=== PATIENT | male | born 1970 | race Caucasian/White ===

== ENCOUNTER 2016-08-13 15:37 | Observation (INO) | payer MEDICAID ==
[2016-08-13] MEDS ORDERED: Sodium Chloride 0.9% 10 ML Syringe FLUSH PRN ×3 (16:32→21:09)
[2016-08-13] MEDS ORDERED: Ondansetron 4 MG/2 ML SDV IVPUSH ONE (16:33)
[2016-08-13] MEDS ORDERED: Sodium Chloride 0.9% 1,000 ML IV ONE (16:33)
[2016-08-13] MEDS ORDERED: Dexamethasone 4 MG/ML SDV IVPUSH ONE (16:37)
--- NOTE | 2016-08-13 16:47 | EDM.PDOC ---
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 Cuellar who presents to the ED today with c/o lower abdominal pain, right sided, repetative vomiting and diarrhea since yesterday. Patient was seen in the ED at [facility] yesterday where patient reports they gave him fluids, zofran, and sent him home with potassium "for mildly low potassium level" as well as ativan. Patient reports his symptoms have not improved. Patient was advised by Dr. Cuellar to come here for evaluation. Patient endorses an internal abdominal wall abscess that was found on the of this month, he has been treated for 10 days with Augmentin and Flagyl and has one day left of each. Patient does report a very small amount of BRB in emesis today. He denies any blood in stool. Patient denies any fever. Patient reports that he has difficulty walking and has had indwelling catheter for the last several months. He is on chronic prednisone for this and reports unknown etiology. Duration: Day(s): (2) Improves with: Reports: None - Related Data Allergies Allergy/AdvReac Type Severity Reaction Status Date / Time acetaminophen [From Vicodin] Allergy Itching Verified 08/13/16 16:04 hydrocodone [From Vicodin] Allergy Itching Verified 08/13/16 16:04 Home Meds: Home Meds Aspirin [Ecotrin] 81 mg PO DAILY 09/25/15 [History] predniSONE [Prednisone] 20 mg PO BID 09/25/15 [History] Cyanocobalamin (Vitamin B12) [Vitamin B12] 1,000 mcg PO DAILY #100 tablet [Rx] Multivitamin with Minerals [Multiple Vitamin] 1 tab PO BID #0 10/03/15 [Rx] Calcium Citrate 750 mg PO BID 10/22/15 [History] Cholecalciferol (Vitamin D3) [Vitamin D] 1,000 unit PO TID 10/22/15 [History] Insulin Detemir [Levemir] 70 unit SUBCUT BIDAC 10/22/15 [History] Insulin Glulisine [Apidra Solostar] units SQ TIDAC 10/22/15 [History] Acetaminophen [Tylenol 160 MG/5 ML Liq] 20 ml PO Q4H PRN 11/21/15 [History] Sennosides/Docusate Sodium [Senokot-S Tablet] 2 tab PO QPM 11/21/15 [History] Gabapentin [Neurontin] 800 mg PO TID 11/26/15 [History] Ondansetron [Zofran ODT] 4 mg SL Q6HR 11/26/15 [History] Simvastatin [Zocor] 40 mg PO BEDTIME 11/26/15 [History] LORazepam [LORazepam] 08/13/16 [History] Morphine Sulfate [Morphine Sulfate Cr] 08/13/16 [History] Potassium Chloride [Klor-Con M20] 08/13/16 [History] Past Medical History HEENT History: Reports: Impaired Vision Other HEENT History: wears glasses; retinal neuropathy Cardiovascular History: Reports: High Cholesterol, Hypertension, SOB on Exertion , Syncope Respiratory History: Reports: Pneumonia, Recurrent, Sleep Apnea, SOB, Other ( See Below) Other Respiratory History: moderate lung disease Gastrointestinal History: Reports: Chronic Constipation, GERD Genitourinary History: Reports: Diabetic Nephropathy, Renal Calculus Musculoskeletal History: Reports: Back Pain, Chronic, Fracture, Gout, Neck Pain , Chronic, RA Neurological History: Reports: Headaches, Chronic, Neuropathy, Diabetic, Neuropathy, Peripheral Endocrine/Metabolic History: Reports: Diabetes, Type II, Obesity/BMI 30+, Vitamin D Deficiency Hematologic History: Reports: B12 Deficiency - Infectious Disease History Infectious Disease History: Reports: Chicken Pox, Measles - Past Surgical History GI Surgical History: Reports: None, Bariatric Procedure, EGD, Esophageal Dilatation Male Surgical History: Reports: Kidney Stone Extraction, Other (See Below) Musculoskeletal Surgical History: Reports: Other (See Below) Social & Family History - Family History HEENT: Reports: Cataract, Glaucoma Cardiac: Reports: Aneurysm, Blood Clots/VTE/DVT, Bypass, Heart Failure, Heart Valve Replacement, High Cholesterol, Hypertension, PR Respiratory: Reports: Asthma, COPD, Sleep Apnea GI: Reports: Chronic Constipation, Chronic Diarrhea, GERD Musculoskeletal: Reports: Gout Neurological: Reports: MS Endocrine/Metabolic: Reports: Diabetes, type II Oncologic: Reports: Breast - Tobacco Use Smoking Status *Q: Never Smoker Second Hand Smoke Exposure: No - Recreational Drug Use Recreational Drug Use: No ED ROS GENERAL - Review of Systems Review Of Systems: See Below Constitutional: Reports: Decreased Appetite HEENT: Reports: No Symptoms Respiratory: Reports: No Symptoms Cardiovascular: Reports: No Symptoms Endocrine: Reports: No Symptoms GI/Abdominal: Reports: Abdominal Pain, Diarrhea, Decreased Appetite, Nausea, Vomiting : Reports: Urinary Retention (Indwelling day), Other Musculoskeletal: Reports: Other (decreased weight bearing, use of lower extremities) Neurological: Reports: Difficulty Walking (Unchanged) Psychiatric: Reports: No Symptoms ED EXAM, GI/ABD - Physical Exam Exam: See Below Exam Limited By: No Limitations General Appearance: Alert, WD/WN, No Apparent Distress Ears: Normal External Exam Nose: Normal Inspection, Normal Mucosa, Other (Modestly dry mucus membranes) Head: Atraumatic Neck: Normal Inspection, Supple, Non-Tender Respiratory/Chest: No Respiratory Distress, Lungs Clear Cardiovascular: Normal Peripheral Pulses, Regular Rate, Rhythm, No Murmur GI/Abdominal: Soft, Other (Mildly distended with tenderness to nilsa-umbilical region as well as RLQ) Extremities: Other (Limited ROM to bilateral lower extremities, pedal pulses intact) Neurological: Alert, Oriented Psychiatric: Normal Affect Skin Exam: Warm Course - Vital Signs Text/Narrative:: Denis is a 45 year old male with a hx of Kenny-en-y last summer who presents to the ED today with intractable vomiting and diarrhea since yesterday. Patient isjust finishing antibiotics for intra-abdominal abscess. Concerns given hx for obstruction vs. worsening abscess vs. C. Diff which of course the vomiting wouldn't be present. Perhaps patient has a viral gastroenteritis. PIV established and patient given IV NS here, 1 liter. Blood work returns with leukocytosis of 14.7 with a left shift. Potassium is low at 3, patient given IV replacement, AST elevated mildly at 40. UA negative for infection, does have 75-100 RBC's. Patient has ongoing issues with arm and leg pain/weakness as well as urinary retention, he is on chronic steroids for this but has been unable to keep his prednisone down, IV decadron was given while in ED. Patient was given Morphine for abdominal pain with some relief. CT scan obtained which is rather unremarkable, no current abscess was identified and remaining CT shows nothing acute. C. Diff was ordered but sample has yet to be provided. I discussed patient's exam and work up today with Dr. Cuellar who would like patient admitted to the hospitalist service for dehydration and monitoring. He will likely see patient sometime tomorrow. I discussed patient with hospitalist , Dr. Alva who has accepted patient for admission. Patient and his are agreeable to plan of care and patient was admitted in stable condition. Last Recorded V/S: Last Vital Signs Temp 38.1 C 08/13/16 17:58 Pulse 83 08/13/16 17:58 Resp 18 08/13/16 16:21 BP 147/84 H 08/13/16 17:58 Pulse Ox 93 L 08/13/16 17:58 - Orders/Labs/Meds Orders: Active Orders 24 hr Category Date Time Status Peripheral IV Care [RC] . DIRECTED Care 08/13/16 16:32 Active Abdomen Pelvis w Cont [CT] Stat Exams 08/13/16 16:33 Taken CLOSTRIDIUM DIFFICILE BY PCR [RM] Stat Lab 08/13/16 16:46 Uncollected Iopamidol [Isovue-300 (61%)] Med 08/13/16 17:00 Active 150 ml IV . DIRECTED Potassium Chloride 20 meq Med 08/13/16 18:19 Active Lidocaine 1% [Xylocaine 1%] 2 ml Sodium Chloride 0.9% [Normal Saline] 100 ml IV ONETIME Potassium Chloride [KCL 20 MEQ in Water 100 ML] 20 meq Med 08/13/16 18:33 Active Premix Bag 1 bag IV ONETIME Sodium Chloride 0.9% [Saline Flush] Med 08/13/16 16:32 Active 10 ml FLUSH ASDIRECTED PRN Sodium Chloride 0.9% [Saline Flush] Med 08/13/16 16:46 Active 10 ml FLUSH ONETIME PRN Peripheral IV Insertion Adult [OM.PC] Routine Oth 08/13/16 16:32 Ordered Medication Orders Potassium Chloride 20 meq/Lidocaine HCl 2 ml/ Sodium Chloride 112 mls @ 50 mls/ hr IV ONETIME ONE Stop: 08/13/16 20:33 Potassium Chloride 20 meq/ (Premix) 100 mls @ 50 mls/hr IV ONETIME ONE Stop: 08/13/16 20:32 Last Admin: 08/13/16 18:34 Dose: 50 mls/hr Iopamidol (Isovue-300 (61%)) 150 ml IV . DIRECTED OMAYRA Last Admin: 08/13/16 17:20 Dose: 150 ml Sodium Chloride (Saline Flush) 10 ml FLUSH ASDIRECTED PRN PRN Reason: Keep Vein Open Sodium Chloride (Saline Flush) 10 ml FLUSH ONETIME PRN PRN Reason: PER RADIOLOGY PROTOCOL Last Admin: 08/13/16 17:20 Dose: 10 ml Labs: Laboratory Tests 08/13/16 08/13/16 08/13/16 Range/Units 16:33 16:33 16:33 WBC 14.7 H (4.5-11.0) K/uL RBC 5.67 (4.30-5.90) M/uL Hgb 15.3 H (12.0-15.0) g/dL Hct 46.6 (40.0-54.0) % MCV 82 (80-98) fL MCH 27 (27-31) pg MCHC 33 (32-36) % Plt Count 186 (150-400) K/uL Neut % (Auto) 71 H (36-66) % Lymph % (Auto) 23 L (24-44) % [place] % (Auto) 6 (2-6) % Eos % (Auto) 0 L (2-4) % Baso % (Auto) 0 (0-1) % Sodium 148 (140-148) mmol/L Potassium 3.0 L (3.6-5.2) mmol/L Chloride 111 H (100-108) mmol/L Carbon Dioxide 25 (21-32) mmol/L Anion Gap 15.0 H (5.0-14.0) mmol/L BUN 8 D (7-18) mg/dL Creatinine 1.1 (0.8-1.3) mg/dL Est Cr Clr Drug Dosing 79.29 mL/min Estimated GFR (MDRD) > 60 (>60) Glucose 138 H (74-106) mg/dL Calcium 7.8 L D (8.5-10.1) mg/dL Total Bilirubin 0.9 (0.2-1.0) mg/dL AST 40 H (15-37) U/L ALT 74 (12-78) U/L Alkaline Phosphatase 86 (46-116) U/L Total Protein 6.2 L (6.4-8.2) g/dL Albumin 2.9 L (3.4-5.0) g/dL Globulin 3.3 (2.3-3.5) g/dL Albumin/Globulin Ratio 0.9 L (1.2-2.2) Lipase 68 L (73-393) U/L Urine Color Urine Appearance Urine pH (4.5-8.0) Ur Specific [place] (1.008-1.030) Urine Protein (NEGATIVE) mg/dL Urine Glucose (UA) (NEGATIVE) mg/dL Urine Ketones (NEGATIVE) mg/dL Urine Occult Blood (NEGATIVE) Urine Nitrite (NEGAITVE) Urine Bilirubin (NEGATIVE) Urine Urobilinogen (NORMAL) mg/dL Ur Leukocyte Esterase (NEGATIVE) Urine RBC (0-5) Urine WBC (0-5) Ur Epithelial Cells Amorphous Sediment Urine Bacteria Urine Mucus Urine Other 08/13/16 Range/Units 17:57 WBC (4.5-11.0) K/uL RBC (4.30-5.90) M/uL Hgb (12.0-15.0) g/dL Hct (40.0-54.0) % MCV (80-98) fL MCH (27-31) pg MCHC (32-36) % Plt Count (150-400) K/uL Neut % (Auto) (36-66) % Lymph % (Auto) (24-44) % [place] % (Auto) (2-6) % Eos % (Auto) (2-4) % Baso % (Auto) (0-1) % Sodium (140-148) mmol/L Potassium (3.6-5.2) mmol/L Chloride (100-108) mmol/L Carbon Dioxide (21-32) mmol/L Anion Gap (5.0-14.0) mmol/L BUN (7-18) mg/dL Creatinine (0.8-1.3) mg/dL Est Cr Clr Drug Dosing mL/min Estimated GFR (MDRD) (>60) Glucose (74-106) mg/dL Calcium (8.5-10.1) mg/dL Total Bilirubin (0.2-1.0) mg/dL AST (15-37) U/L ALT (12-78) U/L Alkaline Phosphatase (46-116) U/L Total Protein (6.4-8.2) g/dL Albumin (3.4-5.0) g/dL Globulin (2.3-3.5) g/dL Albumin/Globulin Ratio (1.2-2.2) Lipase (73-393) U/L Urine Color Yellow Urine Appearance Slightly cloudy Urine pH 7.0 (4.5-8.0) Ur Specific [place] 1.010 (1.008-1.030) Urine Protein Negative (NEGATIVE) mg/dL Urine Glucose (UA) Normal (NEGATIVE) mg/dL Urine Ketones Negative (NEGATIVE) mg/dL Urine Occult Blood Large (NEGATIVE) Urine Nitrite Negative (NEGAITVE) Urine Bilirubin Negative (NEGATIVE) Urine Urobilinogen Normal (NORMAL) mg/dL Ur Leukocyte Esterase Negative (NEGATIVE) Urine RBC 75-100 H (0-5) Urine WBC 0-5 (0-5) Ur Epithelial Cells Few Amorphous Sediment Not seen Urine Bacteria Moderate Urine Mucus Not seen Urine Other Meds: Medications Generic Name Dose Route Start Last Admin Trade Name Freq PRN Reason Stop Dose Admin Potassium Chloride 20 meq/ 112 mls @ 50 mls/hr 08/13/16 18:19 Lidocaine HCl 2 ml/ Sodium IV 08/13/16 20:33 Chloride ONETIME ONE Potassium Chloride 20 meq/ 100 mls @ 50 mls/hr 08/13/16 18:33 08/13/16 18:34 Premix IV 08/13/16 20:32 50 mls/hr ONETIME ONE Administration Iopamidol 150 ml 08/13/16 17:00 08/13/16 17:20 Isovue-300 (61%) IV 150 ml . DIRECTED OMAYRA Administration Sodium Chloride 10 ml 08/13/16 16:32 Saline Flush FLUSH ASDIRECTED PRN Keep Vein Open Sodium Chloride 10 ml 08/13/16 16:46 08/13/16 17:20 Saline Flush FLUSH 10 ml ONETIME PRN Administration PER RADIOLOGY PROTOCOL Discontinued Medications Generic Name Dose Route Start Last Admin Trade Name Freq PRN Reason Stop Dose Admin Dexamethasone 10 mg 08/13/16 16:37 08/13/16 16:51 Dexamethasone IVPUSH 08/13/16 16:38 10 mg ONETIME ONE Administration Dexamethasone Confirm 08/13/16 16:54 08/13/16 18:15 Dexamethasone Administered 08/13/16 16:55 Not Given Dose 8 mg .ROUTE .STK-MED ONE Sodium Chloride 1,000 mls @ 999 mls/hr 08/13/16 16:33 08/13/16 16:51 Normal Saline IV 08/13/16 17:33 999 mls/hr .BOLUS ONE Administration Sodium Chloride 85 mls @ 3 mls/sec 08/13/16 16:46 08/13/16 17:20 Normal Saline IV 08/13/16 16:47 3 mls/sec ONETIME ONE Administration Potassium Chloride Confirm 08/13/16 18:26 08/13/16 18:55 Kcl 20 Meq In Water 100 Ml Administered 08/13/16 18:27 Not Given Dose 100 mls @ as directed .ROUTE .STK-MED ONE Lidocaine HCl Confirm 08/13/16 18:26 Xylocaine-Mpf 1% Administered 08/13/16 18:27 Dose 5 ml .ROUTE .STK-MED ONE Morphine Sulfate 4 mg 08/13/16 17:53 08/13/16 18:22 Morphine IVPUSH 08/13/16 17:54 4 mg ONETIME ONE Administration Ondansetron HCl 8 mg 08/13/16 16:33 08/13/16 16:51 Zofran IVPUSH 08/13/16 16:34 8 mg ONETIME ONE Administration Departure - Departure Time of Disposition: 19:45 Disposition: Admitted As Inpatient 66 Condition: good Clinical Impression: Vomiting, Diarrhea, Dehydration - Discharge Information Forms: ED Department Discharge - My Orders Last 24 Hours: My Active Orders 08/13/16 16:32 Peripheral IV Care [RC] . DIRECTED Sodium Chloride 0.9% [Saline Flush] 10 ml FLUSH ASDIRECTED PRN Peripheral IV Insertion Adult [OM.PC] Routine 08/13/16 16:33 Abdomen Pelvis w Cont [CT] Stat 08/13/16 16:46 CLOSTRIDIUM DIFFICILE BY PCR [RM] Stat Sodium Chloride 0.9% [Saline Flush] 10 ml FLUSH ONETIME PRN 08/13/16 17:00 Iopamidol [Isovue-300 (61%)] 150 ml IV . DIRECTED 08/13/16 18:19 Potassium Chloride 20 meq Lidocaine 1% [Xylocaine 1%] 2 ml Sodium Chloride 0.9 % [Normal Saline] 100 ml IV ONETIME 08/13/16 18:33 Potassium Chloride [KCL 20 MEQ in Water 100 ML] 20 meq Premix Bag 1 bag IV ONETIME - Assessment/Plan Last 24 Hours: My Active Orders 08/13/16 16:32 Peripheral IV Care [RC] . DIRECTED Sodium Chloride 0.9% [Saline Flush] 10 ml FLUSH ASDIRECTED PRN Peripheral IV Insertion Adult [OM.PC] Routine 08/13/16 16:33 Abdomen Pelvis w Cont [CT] Stat 08/13/16 16:46 CLOSTRIDIUM DIFFICILE BY PCR [RM] Stat Sodium Chloride 0.9% [Saline Flush] 10 ml FLUSH ONETIME PRN 08/13/16 17:00 Iopamidol [Isovue-300 (61%)] 150 ml IV . DIRECTED 08/13/16 18:19 Potassium Chloride 20 meq Lidocaine 1% [Xylocaine 1%] 2 ml Sodium Chloride 0.9 % [Normal Saline] 100 ml IV ONETIME 08/13/16 18:33 Potassium Chloride [KCL 20 MEQ in Water 100 ML] 20 meq Premix Bag 1 bag IV ONETIME
[2016-08-13] MEDS ORDERED: Dexamethasone 4 MG/ML SDV ONE (16:54)
[2016-08-13] MEDS ORDERED: Iopamidol 612 MG/ML 150 ML Bottle IV SCH (17:00)
[2016-08-13] MEDS ORDERED: Potassium Chloride 20 MEQ, Lidocaine 1% 2 ML in Sodium Chloride 0.9% 100 ML IV SCH (17:30)
[2016-08-13] MEDS ORDERED: Morphine 4 MG/ML Syringe IVPUSH ONE (17:53)
[2016-08-13] MEDS ORDERED: Potassium Chloride 20 MEQ, Lidocaine 1% 2 ML in Sodium Chloride 0.9% 100 ML IV ONE (18:19)
[2016-08-13] MEDS ORDERED: Potassium Chloride 100 ML ONE (18:26)
[2016-08-13] MEDS ORDERED: Potassium Chloride 20 MEQ in Premix Bag 1 BAG IV ONE ×2 (18:33→23:45)
--- NOTE | 2016-08-13 20:04 | PCM.HP ---
H&P History of Present Illness - General Date of Service: 08/13/16 Admit Problem/Dx: Admission Diagnosis/Problem Admission Diagnosis/Problem Nausea and vomiting Source of Information: Patient, Family, Provider, RN Notes Reviewed History Limitations: Reports: No Limitations - History of Present Illness Initial Comments - Free Text/Narative: This patient is a 45-year-old gentleman was admitted through the emergency department observation status with nausea vomiting and diarrhea. He had Kenny-en -Y gastric bypass surgery last summer and had done well with good weight loss. Recently was found to have an abdominal wall abscess and has been treated with oral antibiotics over the past week. He developed diarrhea about 4 days ago and now over the past 2 days his had difficulty with nausea and vomiting. He denies significant abdominal pain and has had no fevers, chills, or sweats. CT scan obtained in the emergency department shows that the abscess has resolved with antibiotic treatment. After receiving hydration, pain meds, IV steroids, and antiemetic therapy he is feeling significantly improved. - Related Data Allergies/Adverse Reactions: Allergies Allergy/AdvReac Type Severity Reaction Status Date / Time acetaminophen [From Vicodin] Allergy Itching Verified 08/13/16 16:04 hydrocodone [From Vicodin] Allergy Itching Verified 08/13/16 16:04 Home Medications: Home Meds Aspirin [Ecotrin] 81 mg PO DAILY 09/25/15 [History] predniSONE [Prednisone] 20 mg PO BID 09/25/15 [History] Cyanocobalamin (Vitamin B12) [Vitamin B12] 1,000 mcg PO DAILY #100 tablet [Rx] Multivitamin with Minerals [Multiple Vitamin] 1 tab PO BID #0 10/03/15 [Rx] Calcium Citrate 750 mg PO BID 10/22/15 [History] Cholecalciferol (Vitamin D3) [Vitamin D] 1,000 unit PO TID 10/22/15 [History] Insulin Detemir [Levemir] 70 unit SUBCUT BIDAC 10/22/15 [History] Insulin Glulisine [Apidra Solostar] units SQ TIDAC 10/22/15 [History] Acetaminophen [Tylenol 160 MG/5 ML Liq] 20 ml PO Q4H PRN 11/21/15 [History] Sennosides/Docusate Sodium [Senokot-S Tablet] 2 tab PO QPM 11/21/15 [History] Gabapentin [Neurontin] 800 mg PO TID 11/26/15 [History] Ondansetron [Zofran ODT] 4 mg SL Q6HR 11/26/15 [History] Simvastatin [Zocor] 40 mg PO BEDTIME 11/26/15 [History] LORazepam [LORazepam] 08/13/16 [History] Morphine Sulfate [Morphine Sulfate Cr] 08/13/16 [History] Potassium Chloride [Klor-Con M20] 08/13/16 [History] Past Medical History HEENT History: Reports: Impaired Vision Other HEENT History: wears glasses; retinal neuropathy Cardiovascular History: Reports: High Cholesterol, Hypertension, SOB on Exertion , Syncope Respiratory History: Reports: Pneumonia, Recurrent, Sleep Apnea, SOB, Other ( See Below) Other Respiratory History: moderate lung disease Gastrointestinal History: Reports: Chronic Constipation, GERD Genitourinary History: Reports: Diabetic Nephropathy, Renal Calculus Musculoskeletal History: Reports: Back Pain, Chronic, Fracture, Gout, Neck Pain , Chronic, RA Neurological History: Reports: Headaches, Chronic, Neuropathy, Diabetic, Neuropathy, Peripheral Endocrine/Metabolic History: Reports: Diabetes, Type II, Obesity/BMI 30+, Vitamin D Deficiency Hematologic History: Reports: B12 Deficiency - Infectious Disease History Infectious Disease History: Reports: Chicken Pox, Measles - Past Surgical History GI Surgical History: Reports: None, Bariatric Procedure, EGD, Esophageal Dilatation Male Surgical History: Reports: Kidney Stone Extraction, Other (See Below) Musculoskeletal Surgical History: Reports: Other (See Below) Social & Family History - Family History HEENT: Reports: Cataract, Glaucoma Cardiac: Reports: Aneurysm, Blood Clots/VTE/DVT, Bypass, Heart Failure, Heart Valve Replacement, High Cholesterol, Hypertension, [place] Respiratory: Reports: Asthma, COPD, Sleep Apnea GI: Reports: Chronic Constipation, Chronic Diarrhea, GERD Musculoskeletal: Reports: Gout Neurological: Reports: MS Endocrine/Metabolic: Reports: Diabetes, type II Oncologic: Reports: Breast - Tobacco Use Smoking Status *Q: Never Smoker Second Hand Smoke Exposure: No - Recreational Drug Use Recreational Drug Use: No H&P Review of Systems - Review of Systems: Review Of Systems: See Below General: Denies: Fever, Chills, Weakness HEENT: Reports: No Symptoms Pulmonary: Reports: No Symptoms Cardiovascular: Reports: No Symptoms Gastrointestinal: Reports: Diarrhea, Nausea, Vomiting. Denies: Abdominal Pain, Black Stool, Bloody Stool, Constipation, Distension Genitourinary: Reports: Other (Indwelling Pinto catheter) Musculoskeletal: Reports: No Symptoms Skin: Reports: No Symptoms Psychiatric: Reports: No Symptoms Neurological: Reports: Numbness, Paresthesia, Weakness Hematologic/Lymphatic: Reports: No Symptoms Immunologic: Reports: No Symptoms Exam - Exam Exam: See Below - Vital Signs Vital Signs: Last Vital Signs Temp 100.6 F 08/13/16 17:58 Pulse 83 08/13/16 17:58 Resp 18 08/13/16 16:21 BP 147/84 H 08/13/16 17:58 Pulse Ox 93 L 08/13/16 17:58 Weight: 260 lb - Exam Quality Assessment: Urinary Catheter, DVT Prophylaxis General: Alert, Oriented, Cooperative, Mild Distress HEENT: Conjunctiva Clear, EOMI, Hearing Intact, Normal Nasal Septum, Posterior Pharynx Clear, Pupils Equal, Pupils Reactive. No: Mucosa Moist & [place] Neck: Supple, Trachea Midline, +2 Carotid Pulse wo Bruit Lungs: Clear to Auscultation, Normal Respiratory Effort Cardiovascular: Regular Rate, Regular Rhythm, Normal S1, Normal S2. No: Systolic Murmur, Diastolic Murmur Abdomen: Normal Bowel Sounds, Soft. No: Peritoneal Signs, Distention, Guarding , Rigidity, Rebound, Tenderness Extremities: 3, Normal Inspection, 10 Skin: Warm, Dry, Intact Neurological: Cranial Nerves Intact. No: Sensation Intact Neuro Extensive - Mental Status: Alert, Oriented x3, Normal Mood/Affect, Normal Cognition, Memory Intact - Patient Data Lab Results last 24 hrs: Laboratory Results - last 24 hr 08/13/16 08/13/16 08/13/16 Range/Units 16:33 16:33 16:33 WBC 14.7 H (4.5-11.0) K/uL RBC 5.67 (4.30-5.90) M/uL Hgb 15.3 H (12.0-15.0) g/dL Hct 46.6 (40.0-54.0) % MCV 82 (80-98) fL MCH 27 (27-31) pg MCHC 33 (32-36) % Plt Count 186 (150-400) K/uL Neut % (Auto) 71 H (36-66) % Lymph % (Auto) 23 L (24-44) % [place] % (Auto) 6 (2-6) % Eos % (Auto) 0 L (2-4) % Baso % (Auto) 0 (0-1) % Sodium 148 (140-148) mmol/L Potassium 3.0 L (3.6-5.2) mmol/L Chloride 111 H (100-108) mmol/L Carbon Dioxide 25 (21-32) mmol/L Anion Gap 15.0 H (5.0-14.0) mmol/L BUN 8 D (7-18) mg/dL Creatinine 1.1 (0.8-1.3) mg/dL Est Cr Clr Drug Dosing 79.29 mL/min Estimated GFR (MDRD) > 60 (>60) Glucose 138 H (74-106) mg/dL Calcium 7.8 L D (8.5-10.1) mg/dL Total Bilirubin 0.9 (0.2-1.0) mg/dL AST 40 H (15-37) U/L ALT 74 (12-78) U/L Alkaline Phosphatase 86 (46-116) U/L Total Protein 6.2 L (6.4-8.2) g/dL Albumin 2.9 L (3.4-5.0) g/dL Globulin 3.3 (2.3-3.5) g/dL Albumin/Globulin Ratio 0.9 L (1.2-2.2) Lipase 68 L (73-393) U/L Urine Color Urine Appearance Urine pH (4.5-8.0) Ur Specific [place] (1.008-1.030) Urine Protein (NEGATIVE) mg/dL Urine Glucose (UA) (NEGATIVE) mg/dL Urine Ketones (NEGATIVE) mg/dL Urine Occult Blood (NEGATIVE) Urine Nitrite (NEGAITVE) Urine Bilirubin (NEGATIVE) Urine Urobilinogen (NORMAL) mg/dL Ur Leukocyte Esterase (NEGATIVE) Urine RBC (0-5) Urine WBC (0-5) Ur Epithelial Cells Amorphous Sediment Urine Bacteria Urine Mucus Urine Other 08/13/16 Range/Units 17:57 WBC (4.5-11.0) K/uL RBC (4.30-5.90) M/uL Hgb (12.0-15.0) g/dL Hct (40.0-54.0) % MCV (80-98) fL MCH (27-31) pg MCHC (32-36) % Plt Count (150-400) K/uL Neut % (Auto) (36-66) % Lymph % (Auto) (24-44) % [place] % (Auto) (2-6) % Eos % (Auto) (2-4) % Baso % (Auto) (0-1) % Sodium (140-148) mmol/L Potassium (3.6-5.2) mmol/L Chloride (100-108) mmol/L Carbon Dioxide (21-32) mmol/L Anion Gap (5.0-14.0) mmol/L BUN (7-18) mg/dL Creatinine (0.8-1.3) mg/dL Est Cr Clr Drug Dosing mL/min Estimated GFR (MDRD) (>60) Glucose (74-106) mg/dL Calcium (8.5-10.1) mg/dL Total Bilirubin (0.2-1.0) mg/dL AST (15-37) U/L ALT (12-78) U/L Alkaline Phosphatase (46-116) U/L Total Protein (6.4-8.2) g/dL Albumin (3.4-5.0) g/dL Globulin (2.3-3.5) g/dL Albumin/Globulin Ratio (1.2-2.2) Lipase (73-393) U/L Urine Color Yellow Urine Appearance Slightly cloudy Urine pH 7.0 (4.5-8.0) Ur Specific [place] 1.010 (1.008-1.030) Urine Protein Negative (NEGATIVE) mg/dL Urine Glucose (UA) Normal (NEGATIVE) mg/dL Urine Ketones Negative (NEGATIVE) mg/dL Urine Occult Blood Large (NEGATIVE) Urine Nitrite Negative (NEGAITVE) Urine Bilirubin Negative (NEGATIVE) Urine Urobilinogen Normal (NORMAL) mg/dL Ur Leukocyte Esterase Negative (NEGATIVE) Urine RBC 75-100 H (0-5) Urine WBC 0-5 (0-5) Ur Epithelial Cells Few Amorphous Sediment Not seen Urine Bacteria Moderate Urine Mucus Not seen Urine Other Result Diagrams: 08/13/16 16:33 08/13/16 16:33 *Q Meaningful Use (ADM) - VTE *Q VTE Criteria *Q: - VTE Risk Assess *Q Each Risk Factor Represents 1 Point: Age 41 - 59 years, Abnormal Pulmonary Function (COPD) Total Score 1 Point Risk Factors: 2 Each Risk Factor Represents 2 Points: Morbid Obesity (BMI Greater than 40) Total Score 2 Point Risk Factors: 2 Each Risk Factor Represents 3 Points: None Total Score 3 Point Risk Factors: 0 Each Risk Factor Represents 5 Points: None Total Score 5 Point Risk Factors: 0 Venous Thromboembolism Risk Factor Score *Q: 4 - Stroke *Q Stroke Criteria *Q: - AMI *Q AMI Criteria *Q: Problem List Initiated/Reviewed/Updated: Yes Orders Last 24hrs: Active Orders 24 hr Category Date Time Status Peripheral IV Care [RC] . DIRECTED Care 08/13/16 16:32 Active Abdomen Pelvis w Cont [CT] Stat Exams 08/13/16 16:33 Taken CLOSTRIDIUM DIFFICILE BY PCR [RM] Stat Lab 08/13/16 16:46 Uncollected Iopamidol [Isovue-300 (61%)] Med 08/13/16 17:00 Active 150 ml IV . DIRECTED Potassium Chloride 20 meq Med 08/13/16 18:19 Active Lidocaine 1% [Xylocaine 1%] 2 ml Sodium Chloride 0.9% [Normal Saline] 100 ml IV ONETIME Potassium Chloride [KCL 20 MEQ in Water 100 ML] 20 meq Med 08/13/16 18:33 Active Premix Bag 1 bag IV ONETIME Sodium Chloride 0.9% [Saline Flush] Med 08/13/16 16:32 Active 10 ml FLUSH ASDIRECTED PRN Sodium Chloride 0.9% [Saline Flush] Med 08/13/16 16:46 Active 10 ml FLUSH ONETIME PRN Peripheral IV Insertion Adult [OM.PC] Routine Oth 08/13/16 16:32 Ordered Resuscitation Status Routine Resus Stat 08/13/16 19:47 Ordered Medication Orders Potassium Chloride 20 meq/Lidocaine HCl 2 ml/ Sodium Chloride 112 mls @ 50 mls/ hr IV ONETIME ONE Stop: 08/13/16 20:33 Potassium Chloride 20 meq/ (Premix) 100 mls @ 50 mls/hr IV ONETIME ONE Stop: 08/13/16 20:32 Last Admin: 08/13/16 18:34 Dose: 50 mls/hr Iopamidol (Isovue-300 (61%)) 150 ml IV . DIRECTED [facility] Last Admin: 08/13/16 17:20 Dose: 150 ml Sodium Chloride (Saline Flush) 10 ml FLUSH ASDIRECTED PRN PRN Reason: Keep Vein Open Sodium Chloride (Saline Flush) 10 ml FLUSH ONETIME PRN PRN Reason: PER RADIOLOGY PROTOCOL Last Admin: 08/13/16 17:20 Dose: 10 ml Assessment/Plan Comment:: ASSESSMENT AND PLAN NAUSEA AND VOMITING WITH DIARRHEA-antibiotic associated diarrhea, versus viral gastroenteritis, versus C. difficile infection. -Stool for C. difficile -Pain medication as needed -Antiemetic therapy as needed -IV fluids for hydration -Protonix 40 mg IV every 12 hours -Clear liquid diet -Consult Dr. Cuellar for surgical opinion and to assume care in a.m. ABDOMINAL WALL ABSCESS-apparently resolved with recent antibiotic therapy, CT scan shows no evidence of residual abscess - discontinue antibiotics PERIPHERAL NEUROPATHY AND MOTOR WEAKNESS-also has developed neurogenic bladder. Specific etiology not apparent despite extensive evaluation at the [facility] in [place]. -Solu-Cortef 100 mg IV every 12 hours, until able to resume oral prednisone TYPE 2 DIABETES MELLITUS-currently exacerbated secondary to glucocorticoid therapy -4 times a day glucometers -Continue usual dose of long-acting insulin -Moderate dose sliding scale NovoLog LEUKOCYTOSIS-likely secondary to glucocorticoid therapy -Recheck white count in a.m. STATUS POST GASTRIC BYPASS SURGERY -Ongoing care and management per Dr. Cuellar MAINTENANCE ISSUES -DVT prophylaxis; Lovenox 40 mg subcutaneous daily -GI prophylaxis; Protonix as above -Pinto catheter; chronic indwelling catheter secondary to neurogenic bladder -Nutrition; clear liquid diet -Nicotinic dependence; not required CODE STATUS-FULL CODE ADMISSION STATUS-this patient will be admitted to observation status, expect no more than a one night hospital stay for evaluation and management of problems as outlined above. DISPOSITION-anticipate discharge to home after the hospital stay. PRIMARY CARE PROVIDER-Dr. Salinas
[2016-08-13] MEDS ORDERED: 50% Dextrose in Water 50 ML Syringe IV PRN (21:09)
[2016-08-13] MEDS ORDERED: HYDROmorphone 0.5 MG/0.5 ML Syringe IVPUSH PRN (21:09)
[2016-08-13] MEDS ORDERED: Potassium Chloride 40 MEQ in Premix Bag 1 BAG IV ONE (21:09)
[2016-08-13] MEDS ORDERED: Acetaminophen 325 MG Tab PO PRN (21:09)
[2016-08-13] MEDS ORDERED: Potassium Chloride 20 MEQ Tab.ER PO ONE ×2 (21:09→21:36)
[2016-08-13] MEDS ORDERED: Glucose Gel 15 GM in 37.5 GM Tube PO PRN (21:09)
[2016-08-13] MEDS ORDERED: Ondansetron 4 MG/2 ML SDV IV PRN (21:09)
[2016-08-13] MEDS ORDERED: Morphine 60 MG Tab.ER PO SCH (21:09)
[2016-08-13] MEDS ORDERED: Simvastatin 20 MG Tab PO SCH (21:09)
[2016-08-13] MEDS ORDERED: Enoxaparin 40 MG/0.4 ML Syringe SUBCUT SCH (21:09)
[2016-08-13] MEDS: Gabapentin 400 MG Cap PO SCH (21:47)
[2016-08-13] MEDS: Hydrocortisone Sodium Succinate 100 MG/2 ML SDV IVPUSH SCH (21:49)
[2016-08-13] MEDS: Pantoprazole 40 MG Vial IVPUSH SCH (21:50)
[2016-08-13] MEDS: Lactated Ringers 1,000 ML IV SCH (22:10)
[2016-08-13] MEDS: Potassium Chloride 20 MEQ, Lidocaine 1% 2 ML in Premix Bag 1 BAG IV SCH (22:28)
[2016-08-13] MEDS ORDERED: Insulin Detemir 100 Units/ML 3 ML Pen SUBCUT SCH (22:30)
[2016-08-13] MEDS ORDERED: Insulin Detemir 100 Units/ML 3 ML Pen ONE (22:31)
[2016-08-13] MEDS: Morphine 30 MG Tab.ER PO SCH (22:33)
[2016-08-13] MEDS: Insulin Aspart 100 Units/ML 3 ML Pen SUBCUT SCH (22:35)
[2016-08-13] MEDS: Multivitamins with Iron/Calcium/Folic Acid/Minerals Tab PO SCH (22:38)
[2016-08-13] MEDS: Cholecalciferol (Vitamin D3) 1,000 Unit Tab PO SCH (22:38)
[2016-08-14] MEDS ORDERED: Potassium Chloride 100 ML ONE (00:03)
[2016-08-14] MEDS: Potassium Chloride 20 MEQ, Lidocaine 1% 2 ML in Premix Bag 1 BAG IV SCH ×2 (02:09→02:19)
[2016-08-14] MEDS ORDERED: Phytonadione 1 MG in Sodium Chloride 0.9% 50 ML IV ONE (05:49)
[2016-08-14] MEDS: Lactated Ringers 1,000 ML IV SCH (06:23)
[2016-08-14] MEDS: Multivitamins with Iron/Calcium/Folic Acid/Minerals Tab PO SCH (08:43)
[2016-08-14] MEDS: Gabapentin 400 MG Cap PO SCH (08:44)
[2016-08-14] MEDS: Cholecalciferol (Vitamin D3) 1,000 Unit Tab PO SCH (08:44)
[2016-08-14] MEDS: Morphine 30 MG Tab.ER PO SCH (08:45)
[2016-08-14] MEDS: Pantoprazole 40 MG Vial IVPUSH SCH (08:46)
[2016-08-14] MEDS: Hydrocortisone Sodium Succinate 100 MG/2 ML SDV IVPUSH SCH (08:47)
[2016-08-14] MEDS ORDERED: Aspirin 81 MG Tab.EC PO SCH (09:00)
[2016-08-14] MEDS: Insulin Aspart 100 Units/ML 3 ML Pen SUBCUT SCH (09:00)
[2016-08-14] MEDS ORDERED: Cyanocobalamin (Vitamin B12) 1,000 MCG Tab PO SCH (09:00)
[2016-08-14] MEDS ORDERED: Lactobacillus Rhamnosus GG (Probiotic) Cap PO SCH (09:00)
[2016-08-14] MEDS ORDERED: Calcium Carbonate 500 MG Tab.Chew PO SCH (09:00)
--- NOTE | 2016-08-14 10:59 | PCM.DCSUM1 ---
Discharge Summary - Hospital Course Brief History: This patient is a 45-year-old gentleman who was admitted to observation status through the emergency room with nausea, vomiting, and diarrhea with associated dehydration - Discharge Data Discharge Date: 08/14/16 Discharge Disposition: Home, W Home Health Agency 06 Condition: Fair - Discharge Diagnosis/Problem(s) (1) Vomiting SNOMED Code(s): 087650318 ICD Code: R11.10 - VOMITING, UNSPECIFIED Status: Acute Current Visit: Yes (2) Diarrhea SNOMED Code(s): 46066902 ICD Code: R19.7 - DIARRHEA, UNSPECIFIED Status: Acute Current Visit: Yes (3) Dehydration SNOMED Code(s): 58495969 ICD Code: E86.0 - DEHYDRATION Status: Acute Current Visit: Yes (4) Status post gastric bypass for obesity SNOMED Code(s): 724570094, 53884534, 026122831, 793231342 ICD Code: Z98.84 - BARIATRIC SURGERY STATUS Status: Acute Current Visit: No - Patient Summary/Data Consults: Consultations 08/13/16 21:09 Consult to Physician [CONS] Routine Consulting Provider: Jovany Cuellar Courtesy Call Completed to Consulting Physician: Yes Reason for Consult: Nausea and vomiting, diarrhea Hospital Course: Mr. Kirk is a 45-year-old gentleman status post Kenny-en-Y gastric bypass surgery done last summer. He was found recently to have an abdominal wall abscess and started on antibiotic therapy with Augmentin and Flagyl. 4 days prior to this admission developed diarrhea and then 2 days prior to admission developed nausea and vomiting. When he presented to the emergency room was weak and dehydrated. CT scan of the abdomen was obtained and showed that the abscess has resolved and found no other significant abnormalities. Antibiotics were discontinued at the time of admission and he was given IV fluids as needed for hydration as well as antiemetic therapy and pain medication. By the following morning he was feeling well and was seen by Dr. Cuellar and cleared for discharge. Activity will be as tolerated and he will resume his usual diet. He will continue home care services as previously ordered. INR level was elevated on the morning of discharge and he was given 1 mg of IV vitamin K. Will ask home care service to check an INR level tomorrow morning. Warfarin will be held today until the level was obtained in the morning. He already has a followup appointment scheduled with his primary care provider Dr. Salinas or July 19. - Patient Instructions Diet: Diabetic Diet Activity: As Tolerated Other/Special Instructions: Patient already has appointment to see his primary care provider on August 19. Continue home care services as previously ordered, home care to check an INR level tomorrow TuesdayAugust 15. - Discharge Plan Home Medications: Home Meds Aspirin [Ecotrin] 81 mg PO DAILY 09/25/15 [History] predniSONE [Prednisone] 20 mg PO BID 09/25/15 [History] Cyanocobalamin (Vitamin B12) [Vitamin B12] 1,000 mcg PO DAILY #100 tablet [Rx] Multivitamin with Minerals [Multiple Vitamin] 1 tab PO BID #0 10/03/15 [Rx] Cholecalciferol (Vitamin D3) [Vitamin D] 1,000 unit PO TID 10/22/15 [History] Insulin Detemir [Levemir] 10 unit SUBCUT BEDTIME 10/22/15 [History] Insulin Glulisine [Apidra Solostar] 5 - 8 units SQ TIDAC 10/22/15 [History] Acetaminophen [Tylenol 160 MG/5 ML Liq] 20 ml PO Q4H PRN 11/21/15 [History] Gabapentin [Neurontin] 800 mg PO TID 11/26/15 [History] Simvastatin [Zocor] 40 mg PO BEDTIME 11/26/15 [History] Citalopram [Citalopram HBr] 40 mg PO DAILY 08/13/16 [History] LORazepam 0.5 mg PO TID PRN 08/13/16 [History] LORazepam 1 mg PO TID 08/13/16 [History] Mirtazapine 7.5 mg PO BEDTIME 08/13/16 [History] Morphine Sulfate [Morphine Sulfate Cr] 60 mg PO TID 08/13/16 [History] Pantoprazole [ProTONIX] 40 mg PO DAILY 08/13/16 [History] Potassium Chloride [Klor-Con M20] 20 meq PO DAILY 08/13/16 [History] Sennosides [Senexon] 8.6 mg PO BID PRN MDD 2 tab bid 08/13/16 [History] Thiamine HCl [Vitamin B-1] 250 mg PO BID 08/13/16 [History] Warfarin Sodium [Coumadin] 3 mg PO ASDIRECTED 08/13/16 [History] Warfarin Sodium [Coumadin] 4 mg PO ASDIRECTED 08/13/16 [History] traMADol [Ultram] 50 mg PO Q6H 08/13/16 [History] Referrals: Satish Salinas MD [Primary Care Provider] - - Patient Data Vitals - Most Recent: Last Vital Signs Temp 98.6 F 08/14/16 07:16 Pulse 67 08/14/16 07:16 Resp 16 08/14/16 07:16 BP 107/64 08/14/16 07:16 Pulse Ox 90 L 08/14/16 07:16 Weight - Most Recent: 261 lb I&O - Last 24 hours: Intake & Output 08/13/16 08/14/16 08/14/16 22:59 06:59 14:59 Intake Total 480 1156 600 Output Total 950 Balance 480 206 600 Lab Results - Last 24 hrs: Laboratory Results - last 24 hr 08/13/16 08/14/16 08/14/16 Range/Units 21:14 04:43 04:43 WBC 10.7 (4.5-11.0) K/uL RBC 4.92 (4.30-5.90) M/uL Hgb 12.9 D (12.0-15.0) g/dL Hct 41.0 (40.0-54.0) % MCV 83 (80-98) fL MCH 26 L (27-31) pg MCHC 32 (32-36) % Plt Count 177 (150-400) K/uL Neut % (Auto) 90 H (36-66) % Lymph % (Auto) 6 L (24-44) % [place] % (Auto) 4 (2-6) % Eos % (Auto) 0 L (2-4) % Baso % (Auto) 0 (0-1) % PT 53.6 H (9.5-12.0) sec INR 4.82 H* (0.80-1.20) Sodium 145 (140-148) mmol/L Potassium 4.3 (3.6-5.2) mmol/L Chloride 110 H (100-108) mmol/L Carbon Dioxide 25 (21-32) mmol/L Anion Gap 14.3 H (5.0-14.0) mmol/L BUN 7 (7-18) mg/dL Creatinine 1.0 (0.8-1.3) mg/dL Est Cr Clr Drug Dosing 87.22 mL/min Estimated GFR (MDRD) > 60 (>60) Glucose 247 H (74-106) mg/dL Calcium 7.7 L (8.5-10.1) mg/dL 08/14/16 Range/Units 04:43 WBC (4.5-11.0) K/uL RBC (4.30-5.90) M/uL Hgb (12.0-15.0) g/dL Hct (40.0-54.0) % MCV (80-98) fL MCH (27-31) pg MCHC (32-36) % Plt Count (150-400) K/uL Neut % (Auto) (36-66) % Lymph % (Auto) (24-44) % [place] % (Auto) (2-6) % Eos % (Auto) (2-4) % Baso % (Auto) (0-1) % PT 70.1 H (9.5-12.0) sec INR 6.25 H* (0.80-1.20) Sodium (140-148) mmol/L Potassium (3.6-5.2) mmol/L Chloride (100-108) mmol/L Carbon Dioxide (21-32) mmol/L Anion Gap (5.0-14.0) mmol/L BUN (7-18) mg/dL Creatinine (0.8-1.3) mg/dL Est Cr Clr Drug Dosing mL/min Estimated GFR (MDRD) (>60) Glucose (74-106) mg/dL Calcium (8.5-10.1) mg/dL THEA Results - Last 24 hrs: Microbiology 08/14/16 08:27 Clostridium difficile (PCR) - Final Stool / Feces NEGATIVE CDIFF TOXIN Med Orders - Current: Current Medications Acetaminophen (Tylenol) 650 mg PO Q4H PRN PRN Reason: Pain (Mild 1-3)/fever Last Admin: 08/13/16 21:48 Dose: 650 mg Aspirin (Halfprin) 81 mg PO DAILY [facility] Last Admin: 08/14/16 08:45 Dose: 81 mg Calcium Carbonate/Glycine (Tums) 750 mg PO BID [facility] Last Admin: 08/14/16 08:44 Dose: 750 mg Cholecalciferol (Vitamin D3) 1,000 units PO TID [facility] Last Admin: 08/14/16 08:44 Dose: 1,000 units Cyanocobalamin (Vitamin B12) 1,000 mcg PO DAILY [facility] Last Admin: 08/14/16 08:47 Dose: Not Given Dextrose (Glutose 15) 15 gm PO ONETIME PRN PRN Reason: Hypoglycemia Dextrose/Water (Dextrose 50% In Water) 50 ml IV ONETIME PRN PRN Reason: Hypoglycemia Enoxaparin Sodium (Lovenox) 40 mg SUBCUT BEDTIME [facility] Last Admin: 08/13/16 21:49 Dose: 40 mg Gabapentin (Neurontin) 800 mg PO TID [facility] Last Admin: 08/14/16 08:44 Dose: 800 mg Hydrocortisone Sodium Succinate (Solu-Cortef) 100 mg IVPUSH Q12H [facility] Last Admin: 08/14/16 08:47 Dose: 100 mg Hydromorphone HCl (Dilaudid) 0.5 mg IVPUSH Q2H PRN PRN Reason: Pain Lactated Ringer's (Ringers, Lactated) 1,000 mls @ 125 mls/hr IV ASDIRECTED [facility] Last Admin: 08/14/16 06:23 Dose: 125 mls/hr Insulin Aspart (Novolog) 0 unit SUBCUT ASDIRECTED [facility] PRN Reason: Protocol Last Admin: 08/14/16 09:00 Dose: 4 units Insulin Detemir (Levemir) 10 unit SUBCUT BEDTIME [facility] Last Admin: 08/13/16 22:36 Dose: 10 units Lactobacillus Rhamnosus (Culturelle) 2 cap PO BID [facility] Last Admin: 08/14/16 09:08 Dose: 2 cap Morphine Sulfate (Ms Contin) 60 mg PO TID [facility] Last Admin: 08/14/16 08:45 Dose: 60 mg Multivitamins/Minerals (Thera M Plus) 1 tab PO BID [facility] Last Admin: 08/14/16 08:43 Dose: 1 tab Ondansetron HCl (Zofran) 4 mg IV Q4H PRN PRN Reason: Nausea/Vomiting Last Admin: 08/13/16 22:25 Dose: 4 mg Pantoprazole Sodium (Protonix Iv) 40 mg IVPUSH Q12H [facility] Last Admin: 08/14/16 08:46 Dose: 40 mg Simvastatin (Zocor) 40 mg PO BEDTIME [facility] Last Admin: 08/13/16 21:47 Dose: 40 mg Sodium Chloride (Saline Flush) 10 ml FLUSH ASDIRECTED PRN PRN Reason: Keep Vein Open Discontinued Medications Dexamethasone (Dexamethasone) 10 mg IVPUSH ONETIME ONE Stop: 08/13/16 16:38 Last Admin: 08/13/16 16:51 Dose: 10 mg Dexamethasone (Dexamethasone) Confirm Administered Dose 8 mg .ROUTE .STK-MED ONE Stop: 08/13/16 16:55 Last Admin: 08/13/16 18:15 Dose: Not Given Sodium Chloride (Normal Saline) 1,000 mls @ 999 mls/hr IV .BOLUS ONE Stop: 08/13/16 17:33 Last Admin: 08/13/16 16:51 Dose: 999 mls/hr Sodium Chloride (Normal Saline) 85 mls @ 3 mls/sec IV ONETIME ONE Stop: 08/13/16 16:47 Last Admin: 08/13/16 17:20 Dose: 3 mls/sec Potassium Chloride 20 meq/Lidocaine HCl 2 ml/ Sodium Chloride 112 mls @ 50 mls/ hr IV ONETIME ONE Stop: 08/13/16 20:33 Last Admin: 08/13/16 21:18 Dose: Not Given Potassium Chloride (Kcl 20 Meq In Water 100 Ml) Confirm Administered Dose 100 mls @ as directed .ROUTE .STK-MED ONE Stop: 08/13/16 18:27 Last Admin: 08/13/16 18:55 Dose: Not Given Potassium Chloride 20 meq/ (Premix) 100 mls @ 50 mls/hr IV ONETIME ONE Stop: 08/13/16 20:32 Last Admin: 08/13/16 18:34 Dose: 50 mls/hr Potassium Chloride 40 meq/ (Premix) 100 mls @ 25 mls/hr IV ONETIME ONE Stop: 08/14/16 01:08 Last Admin: 08/13/16 22:14 Dose: Not Given Potassium Chloride 20 meq/ (Lidocaine HCl 2 ml/ Premix) 102 mls @ 51 mls/hr IV Q2H [facility] Stop: 08/14/16 01:59 Last Admin: 08/14/16 02:09 Dose: 51 mls/hr Potassium Chloride (Kcl 20 Meq In Water 100 Ml) Confirm Administered Dose 100 mls @ as directed .ROUTE .STK-MED ONE Stop: 08/14/16 00:04 Last Admin: 08/14/16 02:17 Dose: 20 meq Phytonadione 1 mg/ Sodium (Chloride) 50.5 mls @ 100 mls/hr IV ONETIME ONE Stop: 08/14/16 06:19 Last Admin: 08/14/16 06:23 Dose: 100 mls/hr Insulin Detemir (Levemir) Confirm Administered Dose 300 unit .ROUTE .STK-MED ONE Stop: 08/13/16 22:32 Last Admin: 08/13/16 22:39 Dose: 10 units Iopamidol (Isovue-300 (61%)) 150 ml IV . DIRECTED [facility] Last Admin: 08/13/16 17:20 Dose: 150 ml Lidocaine HCl (Xylocaine-Mpf 1%) Confirm Administered Dose 5 ml .ROUTE .STK-MED ONE Stop: 08/13/16 18:27 Last Admin: 08/14/16 02:17 Dose: 5 ml Lidocaine HCl (Xylocaine-Mpf 1%) Confirm Administered Dose 5 ml .ROUTE .STK-MED ONE Stop: 08/13/16 22:25 Last Admin: 08/13/16 22:39 Dose: Not Given Morphine Sulfate (Morphine) 4 mg IVPUSH ONETIME ONE Stop: 08/13/16 17:54 Last Admin: 08/13/16 18:22 Dose: 4 mg Morphine Sulfate (Ms Contin) 60 mg PO TID [facility] Last Admin: 08/13/16 22:15 Dose: Not Given Ondansetron HCl (Zofran) 8 mg IVPUSH ONETIME ONE Stop: 08/13/16 16:34 Last Admin: 08/13/16 16:51 Dose: 8 mg Potassium Chloride (Klor-Con M20) 40 meq PO ONETIME ONE Stop: 08/13/16 21:10 Last Admin: 08/13/16 21:49 Dose: 40 meq Potassium Chloride (Klor-Con M20) 40 meq PO ONETIME ONE Stop: 08/13/16 21:37 Last Admin: 08/13/16 22:38 Dose: Not Given Sodium Chloride (Saline Flush) 10 ml FLUSH ASDIRECTED PRN PRN Reason: Keep Vein Open Sodium Chloride (Saline Flush) 10 ml FLUSH ONETIME PRN PRN Reason: PER RADIOLOGY PROTOCOL Last Admin: 08/13/16 17:20 Dose: 10 ml *Q Meaningful Use (DIS) - VTE *Q VTE Criteria *Q: - Stroke *Q Stroke Criteria *Q: - AMI *Q AMI Criteria *Q:
[2016-08-14 11:00] VITALS: BP 125/80
[2016-08-14] MEDS ORDERED: Insulin Detemir 100 Units/ML 3 ML Pen SUBCUT SCH (21:00)
--- NOTE | 2016-08-15 12:55 | PN ---
DATE OF SERVICE: 08/14/2016 The patient has been afebrile with stable vital signs. Overnight, the diuresis seems to be slowing down and we will get him on a regular diet. We are still awaiting C. difficile enterotoxin on the stool moving his bowels today. Otherwise, we will begin him on a regular diet and add some probiotic capsules. His protime is quite elevated and is being addressed per Dr. Alva with some IV vitamin K. If the patient starts eating well enough, he may be able to be discharged home later today or tomorrow. Jovany Cuellar MD /[id number]
== END 2016-08-14 12:50 | disposition home health service (06) ==
LOC: JP.ED 15:37 → JP.MS 19:40
PROVIDERS: ADMIT Hospitalist; ATTEND Surgery
DX: R11.10 Vomiting, unspecified (principal); R19.7 Diarrhea, unspecified; E86.0 Dehydration; Z98.84 Bariatric surgery status; I10 Essential (primary) hypertension; K21.9 Gastro-esophageal reflux disease without esophagitis; E11.21 Type 2 diabetes mellitus with diabetic nephropathy; G47.30 Sleep apnea, unspecified; Z79.82 Long term (current) use of aspirin; Z79.4 Long term (current) use of insulin; Z79.899 Other long term (current) drug therapy; Z79.01 Long term (current) use of anticoagulants; Z88.8 Allergy status to other drugs, medicaments and biological substances; E78.00 Pure hypercholesterolemia, unspecified; E55.9 Vitamin D deficiency, unspecified; E66.9 Obesity, unspecified; Z98.890 Other specified postprocedural states; E53.8 Deficiency of other specified B group vitamins; Z68.30 Body mass index [BMI] 30.0-30.9, adult
CPT/HCPCS: 36415; 74177; 80048; 80053; 81001; 82962; 83690; 85025; 85610; 87493; 96361; 96374; 96375; 99285; A9270; C9113; J1100; J1650; J1720; J2270; J2405; J3430; J3480; J7030; J7040; J7050; J7120; 96365; 96366; 96367; 96372; 96376; 99217; 99219; G0378

== ENCOUNTER 2016-11-15 08:22 | Inpatient (IN) | payer MEDICAID ==
[2016-11-15] MEDS ORDERED: methylPREDNISolone Sodium Succinate 125 MG/2 ML SDV IVPUSH ONE (09:20)
[2016-11-15] MEDS ORDERED: Gabapentin 400 MG Cap PO ONE (09:45)
[2016-11-15] MEDS ORDERED: Meropenem 500 MG SDV ONE ×2 (09:56→12:02)
[2016-11-15] MEDS ORDERED: Succinylcholine 200 MG/10 ML MDV ONE (10:19)
[2016-11-15] MEDS ORDERED: Propofol 200 MG/20 ML SDV ONE (10:19)
[2016-11-15] MEDS ORDERED: Rocuronium 50 MG/5 ML Vial ONE ×2 (10:19→12:09)
[2016-11-15] MEDS ORDERED: Neostigmine Methylsulfate 1 MG/ML 5 ML Syringe ONE (10:19)
[2016-11-15] MEDS ORDERED: Glycopyrrolate 0.2 MG/ML 5 ML MDV ONE (10:19)
[2016-11-15] MEDS ORDERED: Ondansetron 4 MG/2 ML SDV ONE (10:19)
[2016-11-15] MEDS ORDERED: Dexamethasone 4 MG/ML SDV ONE (10:19)
[2016-11-15] MEDS ORDERED: ceFAZolin 2 GM in Premix Bag 1 BAG IV ONE (10:30)
[2016-11-15] MEDS ORDERED: Albuterol/Ipratropium 3.0-0.5 MG/3 ML Neb Soln NEB ONE (10:30)
[2016-11-15] MEDS ORDERED: ceFAZolin 2 GM in Sodium Chloride 0.9% 50 ML IV ONE (10:30)
[2016-11-15] MEDS: Dextrose 5%-Lactated Ringers 1,000 ML IV SCH ×2 (10:36→16:05)
[2016-11-15] MEDS ORDERED: HYDROmorphone/Normal Saline 15 MG/30 ML PCA IV PRN (10:49)
[2016-11-15] MEDS ORDERED: Naloxone 0.4 MG/ML SDV IV PRN (10:50)
[2016-11-15] MEDS ORDERED: Lidocaine 1% 2 ML ONE (11:03)
[2016-11-15] MEDS ORDERED: Linezolid 200 MG/100 ML Bag IV ONE ×2 (11:50)
[2016-11-15] MEDS ORDERED: Ertapenem 1 GM Vial IM ONE (13:49)
[2016-11-15] MEDS ORDERED: Acetaminophen 1,000 MG in Premix Bag 1 BAG IV ONE (14:00)
[2016-11-15] MEDS ORDERED: Insulin Aspart 100 Units/ML 3 ML Pen SUBCUT ONE (14:20)
[2016-11-15] MEDS ORDERED: Glucose Gel 15 GM in 37.5 GM Tube PO PRN (15:33)
[2016-11-15] MEDS ORDERED: Glucagon,Human Recombinant 1 MG Vial IM PRN (15:33)
[2016-11-15] MEDS ORDERED: 50% Dextrose in Water 50 ML Syringe IVPUSH PRN (15:33)
[2016-11-15] MEDS ORDERED: Ondansetron 4 MG/2 ML SDV IV PRN (15:36)
[2016-11-15] MEDS ORDERED: Albuterol/Ipratropium 3.0-0.5 MG/3 ML Neb Soln INH PRN (15:49)
[2016-11-15] MEDS: Lactated Ringers 1,000 ML IV SCH (16:09)
[2016-11-15] MEDS: Albuterol/Ipratropium 3.0-0.5 MG/3 ML Neb Soln INH SCH ×2 (16:21→20:46)
[2016-11-15] MEDS: traMADol 50 MG Tab PO SCH ×2 (16:29→22:16)
[2016-11-15] MEDS: Insulin Aspart 100 Units/ML 3 ML Pen SUBCUT PRN ×2 (16:33→22:10)
[2016-11-15] MEDS ORDERED: methylPREDNISolone Sodium Succinate 125 MG/2 ML SDV IV ONE (18:00)
[2016-11-15] MEDS: ceFAZolin 2 GM in Sodium Chloride 0.9% 50 ML IV SCH (18:03)
[2016-11-15] MEDS: Pantoprazole 40 MG Tab.CR PO SCH (18:04)
[2016-11-15] MEDS: Acetaminophen 500 MG Tab PO SCH (20:29)
[2016-11-15] MEDS: Gabapentin 400 MG Cap PO SCH (20:31)
[2016-11-15] MEDS: Mirtazapine 15 MG Tab PO SCH (20:32)
[2016-11-15] MEDS: Insulin Detemir 100 Units/ML 3 ML Pen SUBCUT SCH (20:34)
[2016-11-15] MEDS: Morphine 30 MG Tab.ER PO SCH (20:41)
[2016-11-16] MEDS: ceFAZolin 2 GM in Sodium Chloride 0.9% 50 ML IV SCH ×2 (02:13→09:06)
[2016-11-16] MEDS: Dextrose 5%-Lactated Ringers 1,000 ML IV SCH (02:13)
[2016-11-16] MEDS: Lactated Ringers 1,000 ML IV SCH ×3 (02:14→23:28)
[2016-11-16] MEDS: Acetaminophen 500 MG Tab PO SCH ×2 (02:16→18:44)
[2016-11-16] MEDS: Insulin Aspart 100 Units/ML 3 ML Pen SUBCUT PRN (05:16)
[2016-11-16] MEDS: traMADol 50 MG Tab PO SCH ×4 (05:17→21:29)
[2016-11-16] MEDS: Tiotropium Inhaler 18 MCG Inhalation Powder Cap Kit of 5 INH SCH (07:19)
[2016-11-16] MEDS: Albuterol/Ipratropium 3.0-0.5 MG/3 ML Neb Soln INH SCH ×4 (07:19→21:24)
[2016-11-16] MEDS ORDERED: Insulin Aspart 100 Units/ML 3 ML Pen SUBCUT PRN (08:15)
[2016-11-16] MEDS ORDERED: predniSONE 20 MG Tab PO ONE (09:00)
[2016-11-16] MEDS: Pantoprazole 40 MG Tab.CR PO SCH (09:04)
[2016-11-16] MEDS: Citalopram 20 MG Tab PO SCH (09:04)
[2016-11-16] MEDS: Aspirin 81 MG Tab.EC PO SCH (09:04)
[2016-11-16] MEDS: Enoxaparin 40 MG/0.4 ML Syringe SUBCUT SCH ×2 (09:05→21:26)
[2016-11-16] MEDS: Gabapentin 400 MG Cap PO SCH ×3 (09:05→21:26)
[2016-11-16] MEDS: Morphine 30 MG Tab.ER PO SCH ×2 (09:05→20:28)
[2016-11-16] MEDS: Acetaminophen/oxyCODONE 325-5 MG Tab PO PRN ×3 (09:06→18:43)
[2016-11-16] MEDS: APIDRA INSULIN SUBCUT SCH ×2 (12:40→17:03)
[2016-11-16] MEDS: Insulin Detemir 100 Units/ML 3 ML Pen SUBCUT SCH (21:25)
[2016-11-16] MEDS: Mirtazapine 15 MG Tab PO SCH (21:27)
[2016-11-17] MEDS: Acetaminophen/oxyCODONE 325-5 MG Tab PO PRN ×2 (03:40→11:13)
[2016-11-17] MEDS: traMADol 50 MG Tab PO SCH ×4 (05:26→21:52)
[2016-11-17] MEDS: Albuterol/Ipratropium 3.0-0.5 MG/3 ML Neb Soln INH SCH ×4 (07:08→20:25)
[2016-11-17] MEDS: Tiotropium Inhaler 18 MCG Inhalation Powder Cap Kit of 5 INH SCH (07:10)
[2016-11-17] MEDS: Pantoprazole 40 MG Tab.CR PO SCH (09:01)
[2016-11-17] MEDS: predniSONE 10 MG, predniSONE 20 MG PO SCH ×2 (09:02)
[2016-11-17] MEDS: Aspirin 81 MG Tab.EC PO SCH (09:02)
[2016-11-17] MEDS: Citalopram 20 MG Tab PO SCH (09:02)
[2016-11-17] MEDS: Gabapentin 400 MG Cap PO SCH ×3 (09:02→21:48)
[2016-11-17] MEDS: APIDRA INSULIN SUBCUT SCH ×3 (09:03→17:15)
[2016-11-17] MEDS: Enoxaparin 40 MG/0.4 ML Syringe SUBCUT SCH ×2 (09:04→21:47)
[2016-11-17] MEDS: Morphine 30 MG Tab.ER PO SCH ×2 (09:09→21:48)
[2016-11-17] MEDS: LORazepam 0.5 MG Tab PO PRN (12:05)
[2016-11-17] MEDS ORDERED: Warfarin 2.5 MG Tab PO ONE (13:00)
--- NOTE | 2016-11-17 15:07 | PN ---
DATE OF SERVICE: 11/17/2016 The patient has been afebrile with stable vital signs. Dressing was taken down, and the panniculectomy site looks clean. There was no sign or evidence of hematoma or other wound problems. Otherwise, he is eating well and passing some gas, and is tolerating oral pain medication. The pro-time remained subtherapeutic. We will give him 7.5 mg of Coumadin today. Otherwise, we will have him get in the shower. Begin MARQUEZ drain teaching, and he may be ready for discharge home tomorrow. Jovany Cuellar MD /[id number]
[2016-11-17] MEDS: Mirtazapine 15 MG Tab PO SCH (21:48)
[2016-11-17] MEDS: Insulin Detemir 100 Units/ML 3 ML Pen SUBCUT SCH (22:02)
[2016-11-18] MEDS: Acetaminophen/oxyCODONE 325-5 MG Tab PO PRN ×2 (04:56→08:40)
[2016-11-18] MEDS: traMADol 50 MG Tab PO SCH ×2 (05:05→09:04)
[2016-11-18] MEDS: Albuterol/Ipratropium 3.0-0.5 MG/3 ML Neb Soln INH SCH (07:25)
[2016-11-18] MEDS: Tiotropium Inhaler 18 MCG Inhalation Powder Cap Kit of 5 INH SCH (07:27)
[2016-11-18 07:42] VITALS: BP 127/86
[2016-11-18] MEDS: Pantoprazole 40 MG Tab.CR PO SCH (07:52)
[2016-11-18] MEDS: predniSONE 10 MG, predniSONE 20 MG PO SCH ×2 (07:54)
[2016-11-18] MEDS: APIDRA INSULIN SUBCUT SCH (07:54)
[2016-11-18] MEDS: Enoxaparin 40 MG/0.4 ML Syringe SUBCUT SCH (08:27)
[2016-11-18] MEDS: Aspirin 81 MG Tab.EC PO SCH (08:27)
[2016-11-18] MEDS: Gabapentin 400 MG Cap PO SCH (08:27)
[2016-11-18] MEDS: Citalopram 20 MG Tab PO SCH (08:28)
[2016-11-18] MEDS: Morphine 30 MG Tab.ER PO SCH (08:32)
[2016-11-18] MEDS: LORazepam 0.5 MG Tab PO PRN (08:40)
--- NOTE | 2016-11-18 09:15 | PN ---
DATE OF SERVICE: 11/16/2016 The patient has been afebrile with stable vital signs. Blood sugar control does appear to be fairly good with the blood sugar this morning being 203. We will start a step 4 diet today and resume his usual insulin coverage. Otherwise, his IV will likely come out, as it is in his foot at this time, and we will switch him over to oral pain medication and switch over to oral prednisone coverage today. We will begin some Lovenox, given his history of DVT, as well as restarting the Coumadin, and have Dietary review the regimen for his gastric bypass and diabetes mellitus management today. We will take the dressing down, and we will see how well he is in terms of the readiness for discharge tomorrow. Jovany Cuellar MD /[id number]
[2016-11-18] MEDS ORDERED: Warfarin 5 MG, Warfarin 2.5 MG PO ONE ×4 (10:00→13:00)
--- NOTE | 2016-11-20 13:14 | DISCH ---
FINAL DIAGNOSES: 1. Large abdominal pannus with chronic panniculitis and need for suprapubic cystostomy tube. 2. Incarcerated incisional hernia. 3. Primary umbilical hernia. 4. Morbid obesity status post bariatric surgery. 5. Type 2 diabetes mellitus. 6. Dyslipidemia. 7. Muscle weakness. 8. History of chronic obstructive pulmonary disease. 9. History of a deep vein thrombosis with ongoing anticoagulation. OPERATIVE PROCEDURE: Panniculectomy with concurrent repair of umbilical and incarcerated incisional hernias that was done on 11/15. HOSPITAL COURSE: This is a 45-year-old with progressive neurologic condition, being evaluated from [facility]. He has an indwelling Pinto catheter at this point, and it is felt he would be best managed in the long-term by means of a suprapubic catheter because of his large pannus as well as removing the suprapubic catheter would not be feasible. This along with chronic panniculitis and like indications for the panniculectomy, which was done on the date of admission, with the patient having incarcerated incisional hernia and a primary umbilical hernia also controlled. The patient has done well postoperatively. Presently, he will be discharged home with 4 MARQUEZ drains along with lara on the incision site. He would continue with basically the same home medications as preoperatively plus Percocet 5/325 mg 1 to 2 tabs q.4 hours p.r.n. pain #40. I will be following up with Mamie Carpenter at [facility] on November 26, 2016, with a ProTime at that time for followup of his anticoagulation management.
--- NOTE | 2016-11-21 10:25 | OR ---
DATE OF PROCEDURE: 11/15/2016 PREOPERATIVE DIAGNOSIS: Chronic panniculitis with indications for suprapubic catheter. POSTOPERATIVE DIAGNOSES: 1. Chronic panniculitis with indications for suprapubic catheter. 2. Umbilical hernia. 3. Incarcerated incisional hernia. OPERATIVE PROCEDURES: 1. Panniculectomy (45690). 2. Repair of umbilical hernia ([id number]). 3. Repair of incarcerated incisional hernia ([id number]). ANESTHESIA: General. INDICATION FOR PROCEDURE: This 45-year-old male is presenting with a very large pannus. He is status post previous bariatric surgery. Presently, he has developed a neurologic condition in which he is expected to need a suprapubic catheter for long-term maintenance. Presently, he has a Pinto catheter in place. Both, neurologist and urologist, are following the case, felt that a panniculectomy would be required in order to place and manage a suprapubic catheter. The patient also has quite a bit of chronic inflammation associated with this, so panniculectomy appeared to be indicated on that basis alone. The plan is to proceed with the panniculectomy as indicated as well as suturing any abdominal wall hernias, repair of these was indicated as well. Potential risks including bleeding, infection, injury to the underlying viscera as well as possibility of cardiopulmonary, septic, or hemorrhagic complications leading to were discussed, and the patient wishes to proceed. DETAILS OF PROCEDURE: The patient was taken to the operating room and placed in the supine position. After general endotracheal anesthesia was induced, the abdomen was prepped and draped. A wide elliptical incision was then made around the lower abdomen, going down through the skin and subcutaneous tissue, down to the level of fascia. Beginning on the fascia level, the tissues continued to be divided with incision. As one approached the midline, the patient was noted to have an umbilical hernia present. This was not incarcerated, and the defect was more or less divided and flushed with the underlying fascia. The patient was noted to have a trocar hernia located somewhat superior to this, just to the right of the midline as well. This contained some incarcerated fatty tissue. This was excised. At that point, both of the hernias were closed with [id number] stitches of #2 Vicryl stitch. Both hernias were perhaps 1 cm in size in terms of fascial defect. The remainder of the pannus was then removed from the abdominal wall. This weighed around 14.5 pounds. Four Blayne-Norton drains were then placed superior to the incision which was then irrigated with an antibiotic-containing saline solution. The incision was then closed with some 3-0 and 4-0 Vicryl stitch deep and lara for the skin. Dressing was applied. The patient was taken to the recovery room in a satisfactory condition. Jovany Cuellar MD /[id number]
== END 2016-11-18 09:40 | disposition home or self-care (01) | DRG 571 ==
LOC: JP.SDS 08:22 → JP.MS 08:45 → EDSTATUS 08:45 → JP.2SS 13:20
PROVIDERS: ADMIT Surgery; ATTEND Surgery
PROC: 0HB7XZZ Excision of Abdomen Skin, External Approach (ICD-10-PCS; principal; 2016-11-15)
PROC: 0WQF0ZZ Repair Abdominal Wall, Open Approach (ICD-10-PCS; principal; 2016-11-15)
DX: M79.3 Panniculitis, unspecified (principal); K43.0 Incisional hernia with obstruction, without gangrene; G89.29 Other chronic pain; E11.40 Type 2 diabetes mellitus with diabetic neuropathy, unspecified; E11.319 Type 2 diabetes mellitus with unspecified diabetic retinopathy without macular edema; Z79.4 Long term (current) use of insulin; J44.9 Chronic obstructive pulmonary disease, unspecified; I12.9 Hypertensive chronic kidney disease with stage 1 through stage 4 chronic kidney disease, or unspecified chronic kidney disease; E11.22 Type 2 diabetes mellitus with diabetic chronic kidney disease; N18.9 Chronic kidney disease, unspecified; E78.00 Pure hypercholesterolemia, unspecified; F10.21 Alcohol dependence, in remission; K21.9 Gastro-esophageal reflux disease without esophagitis; G47.33 Obstructive sleep apnea (adult) (pediatric); Z98.84 Bariatric surgery status; M1A.9XX1 Chronic gout, unspecified, with tophus (tophi); Z86.718 Personal history of other venous thrombosis and embolism; Z88.5 Allergy status to narcotic agent; Z79.82 Long term (current) use of aspirin; Z79.01 Long term (current) use of anticoagulants; Z79.52 Long term (current) use of systemic steroids; Z79.899 Other long term (current) drug therapy; Z51.81 Encounter for therapeutic drug level monitoring; Z99.3 Dependence on wheelchair; K42.9 Umbilical hernia without obstruction or gangrene; M62.81 Muscle weakness (generalized)
CPT/HCPCS: 36415; 82962; 85610; 86850; 86900; 86901; 88302; 94640-76; 94664; 94762; A9270-GY; J0131; J0330; J0690; J1100; J1170; J1650; J2020; J2185; J2405; J2704; J2710; J2930; J3010; J7042; J7050; J7120; J7620

== ENCOUNTER 2016-11-23 15:49 | Emergency (ER) | payer MEDICAID ==
[2016-11-23 16:09] VITALS: BP 147/103
--- NOTE | 2016-11-23 16:47 | EDM.PDOC ---
ED HPI GENERAL MEDICAL PROBLEM - General Chief Complaint: Skin Complaint Stated Complaint: SURGICAL WOUND INFECTED,FEVER Time Seen by Provider: 11/23/16 16:39 Source of Information: Reports: Patient, Family, RN Notes Reviewed History Limitations: Reports: No Limitations - History of Present Illness INITIAL COMMENTS - FREE TEXT/NARRATIVE: 45-year-old gentleman presents emergency department today concern for surgical wound infection, he is postop day 8 from a panniculectomy, he denies any fevers shortness of breath chest pain states his abdominal pain is tolerable but he has noticed some redness and tenderness around the wound does have drains in place they have remained pinkish tinge Right Abdominal Pain Score (Numeric/FACES): 9 - Related Data Allergies Allergy/AdvReac Type Severity Reaction Status Date / Time hydrocodone [From Vicodin] Allergy Itching Verified 08/13/16 16:04 Home Meds: Home Meds Aspirin [Ecotrin] 81 mg PO DAILY 09/25/15 [History] predniSONE [Prednisone] 20 mg PO BID 09/25/15 [History] Multivitamin with Minerals [Multiple Vitamin] 1 tab PO BID #0 10/03/15 [Rx] Cholecalciferol (Vitamin D3) [Vitamin D] 1,000 unit PO TID 10/22/15 [History] Insulin Detemir [Levemir] 15 unit SUBCUT BEDTIME 10/22/15 [History] Insulin Glulisine [Apidra Solostar] 5 - 8 units SQ TIDAC 10/22/15 [History] Acetaminophen [Tylenol 160 MG/5 ML Liq] 20 ml PO Q4H PRN 11/21/15 [History] Gabapentin [Neurontin] 800 mg PO TID 11/26/15 [History] Simvastatin [Zocor] 40 mg PO BEDTIME 11/26/15 [History] Citalopram [Citalopram HBr] 40 mg PO DAILY 08/13/16 [History] LORazepam 0.5 - 1 mg PO TID 08/13/16 [History] Mirtazapine 30 mg PO BEDTIME 08/13/16 [History] Morphine Sulfate [Morphine Sulfate Cr] 60 mg PO TID 08/13/16 [History] Pantoprazole [ProTONIX] 40 mg PO DAILY 08/13/16 [History] Sennosides [Senexon] 2 tab PO BID PRN MDD 2 tab bid 08/13/16 [History] Warfarin Sodium [Coumadin] 2 mg PO ASDIRECTED 08/13/16 [History] Warfarin Sodium [Coumadin] 3 mg PO ASDIRECTED 08/13/16 [History] traMADol [Ultram] 50 mg PO Q6H 08/13/16 [History] Ca Citrate/Mgox/Vit D3/B6/Min [Calcium Citrate Plus Tablet] 1 each PO BID [History] Albuterol/Ipratropium [Combivent] 2 puff INH QID 11/15/16 [History] Furosemide 20 mg PO .QOD 11/15/16 [History] Acetaminophen/oxyCODONE [Percocet 325-5 MG] 1 tab PO ASDIRECTED PRN 11/23/16 [ History] Clindamycin Hcl [IJD: Clindamycin HCl] 300 mg PO .EVERY 6 HOURS #40 cap [Rx] Sulfamethoxazole/Trimethoprim [Bactrim Ds Tablet] 1 each PO BID #20 tablet 11/23 [Rx] Past Medical History HEENT History: Reports: Impaired Vision Other HEENT History: wears glasses; retinal neuropathy Cardiovascular History: Reports: Blood Clots/VTE/DVT, High Cholesterol, Hypertension, SOB on Exertion, Syncope Respiratory History: Reports: Bronchitis, Recurrent, Pneumonia, Recurrent, Sleep Apnea, SOB, Other (See Below) Other Respiratory History: moderate lung disease Gastrointestinal History: Reports: Chronic Constipation, GERD Genitourinary History: Reports: Diabetic Nephropathy, Neurogenic Bladder, Renal Calculus, UTI, Recurrent Musculoskeletal History: Reports: Arthritis, Back Pain, Chronic, Fracture, Gout , Neck Pain, Chronic, Osteoarthritis, RA Neurological History: Reports: Headaches, Chronic, Neuropathy, Diabetic, Neuropathy, Peripheral Psychiatric History: Reports: Anxiety, Depression, Learning Disability, Mood Swings, Panic Attack, PTSD, Suicidal Ideation Endocrine/Metabolic History: Reports: Diabetes, Type II, Obesity/BMI 30+, Vitamin D Deficiency Hematologic History: Reports: B12 Deficiency Dermatologic History: Reports: Other (See Below) Other Dermatologic History: Pt. has had pressure ulcers on his bottom at one time. None present at this time - Infectious Disease History Infectious Disease History: Reports: Chicken Pox, Measles, Mumps - Past Surgical History HEENT Surgical History: Reports: Oral Surgery GI Surgical History: Reports: Bariatric Procedure, EGD, Esophageal Dilatation Male Surgical History: Reports: Kidney Stone Extraction, Other (See Below) Other Male Surgeries/Procedures: Dorsal Split Musculoskeletal Surgical History: Reports: Arthroscopic Knee, Arthroscopic Procedure, Other (See Below) Other Musculoskeletal Surgeries/Procedures:: ankles Dermatological Surgical History: Reports: None Social & Family History - Family History Family Medical History: Noncontributory HEENT: Reports: Cataract, Glaucoma Cardiac: Reports: Aneurysm, Blood Clots/VTE/DVT, Bypass, Heart Failure, Heart Valve Replacement, High Cholesterol, Hypertension, GA Respiratory: Reports: Asthma, COPD, Sleep Apnea GI: Reports: Chronic Constipation, Chronic Diarrhea, GERD Musculoskeletal: Reports: Gout Neurological: Reports: MS Endocrine/Metabolic: Reports: Diabetes, type II Oncologic: Reports: Breast - Tobacco Use Smoking Status *Q: Never Smoker Second Hand Smoke Exposure: No - Caffeine Use Caffeine Use: Reports: None - Recreational Drug Use Recreational Drug Use: No ED ROS GENERAL - Review of Systems Review Of Systems: See Below Constitutional: Reports: Fever (Feverish). Denies: Chills HEENT: Reports: No Symptoms Respiratory: Reports: No Symptoms Cardiovascular: Reports: No Symptoms GI/Abdominal: Reports: No Symptoms Skin: Reports: Pallor, Erythema, Wound ED EXAM, SKIN/RASH Exam: See Below Exam Limited By: No Limitations General Appearance: Alert, WD/WN, No Apparent Distress Respiratory/Chest: No Respiratory Distress, Lungs Clear, Normal Breath Sounds, No Accessory Muscle Use Cardiovascular: Regular Rate, Rhythm, No Murmur GI/Abdominal: Soft, Tender (Tender around surgical wound but not beyond expectation), Other (Redness and warmth around the surgical wound approximately 5 cm margin) Course - Vital Signs Last Recorded V/S: Last Vital Signs Temp 97.8 F 11/23/16 16:18 Pulse 72 11/23/16 16:18 Resp 16 11/23/16 16:18 BP 147/103 H 11/23/16 16:18 Pulse Ox 96 11/23/16 16:18 - Orders/Labs/Meds Labs: Laboratory Tests 11/23/16 11/23/16 Range/Units 16:44 16:58 WBC 12.8 H (4.5-11.0) K/uL RBC 4.20 L (4.30-5.90) M/uL Hgb 11.6 L (12.0-15.0) g/dL Hct 36.3 L (40.0-54.0) % MCV 86 (80-98) fL MCH 28 (27-31) pg MCHC 32 (32-36) % Plt Count 229 (150-400) K/uL Neut % (Auto) 87 H (36-66) % Lymph % (Auto) 7 L (24-44) % Sebastian % (Auto) 6 (2-6) % Eos % (Auto) 0 L (2-4) % Baso % (Auto) 0 (0-1) % Sodium 140 (140-148) mmol/L Potassium 3.6 (3.6-5.2) mmol/L Chloride 105 (100-108) mmol/L Carbon Dioxide 28 (21-32) mmol/L Anion Gap 7.0 (5.0-14.0) mmol/L BUN 15 D (7-18) mg/dL Creatinine 0.9 (0.8-1.3) mg/dL Est Cr Clr Drug Dosing 96.91 mL/min Estimated GFR (MDRD) > 60 (>60) Glucose 172 H (74-106) mg/dL Calcium 7.7 L (8.5-10.1) mg/dL Total Bilirubin 0.3 D (0.2-1.0) mg/dL AST 16 (15-37) U/L ALT 22 (12-78) U/L Alkaline Phosphatase 82 (46-116) U/L Total Protein 5.7 L (6.4-8.2) g/dL Albumin 2.1 L (3.4-5.0) g/dL Globulin 3.6 H (2.3-3.5) g/dL Albumin/Globulin Ratio 0.6 L (1.2-2.2) Departure - Departure Time of Disposition: 17:44 Disposition: Home, Self-Care 01 Condition: Good Clinical Impression: Surgical wound infection Qualifiers: Encounter type: initial encounter Qualified Code(s): T81.4XXA - Infection following a procedure, initial encounter - Discharge Information Prescriptions: Clindamycin Hcl [IJD: Clindamycin HCl] 300 mg PO .EVERY 6 HOURS #40 cap Sulfamethoxazole/Trimethoprim [Bactrim Ds Tablet] 1 each PO BID #20 tablet Referrals: Jovany Cuellar MD [Primary Care Provider] - Forms: ED Department Discharge Additional Instructions: Take full course of antibiotics, please keep your follow-up appointment with Dr. Cuellar on Tuesday, call return to the emergency department worsening of symptoms - Assessment/Plan Plan: Assessment Acuity = acute Site and laterality = surgical wound infection Etiology = probable bacterial cause Manifestations = none Location of injury = Home Lab values = WBC mildly elevated 12.8 consistent leukocytosis hemoglobin low 11.6 consistent with normochromic anemia CMP unremarkable Plan Called discussed case with Dr. Cuellar general surgeon underwriting operations manager recommended double coverage with Bactrim DS 1 tab by mouth twice a day 10 days followed by clindamycin 300 mg by mouth every 6 hours total #40 tablets he has a follow-up appointment on Tuesday this week Patient was in agreement with the plan all questions were answered, they were instructed to return to the emergency department or call for worsening symptoms. This note was dictated using [employer] voice recognition software please call with any questions.
== END 2016-11-23 18:08 | disposition home or self-care (01) ==
LOC: JP.ED 15:49
DX: T81.4XXA Infection following a procedure, initial encounter (principal); I10 Essential (primary) hypertension; E78.00 Pure hypercholesterolemia, unspecified; K21.9 Gastro-esophageal reflux disease without esophagitis; E11.40 Type 2 diabetes mellitus with diabetic neuropathy, unspecified; M19.90 Unspecified osteoarthritis, unspecified site; M06.9 Rheumatoid arthritis, unspecified; F41.0 Panic disorder [episodic paroxysmal anxiety]; F32.9 Major depressive disorder, single episode, unspecified; E66.9 Obesity, unspecified; Z68.37 Body mass index [BMI] 37.0-37.9, adult; Z87.440 Personal history of urinary (tract) infections; Z87.01 Personal history of pneumonia (recurrent); Z87.442 Personal history of urinary calculi; Z98.84 Bariatric surgery status; Z98.890 Other specified postprocedural states; Z79.01 Long term (current) use of anticoagulants; Z79.82 Long term (current) use of aspirin; Z79.4 Long term (current) use of insulin; Z79.899 Other long term (current) drug therapy; Z88.5 Allergy status to narcotic agent
CPT/HCPCS: 36415; 80053; 85025; 99283; 99284

== ENCOUNTER 2016-11-26 10:46 | Inpatient (IN) | payer MEDICAID ==
[2016-11-26] MEDS ORDERED: Lactated Ringers 1,000 ML IV ONE (11:30)
[2016-11-26] MEDS ORDERED: Ondansetron 4 MG/2 ML SDV IV PRN (11:33)
[2016-11-26] MEDS ORDERED: Acetaminophen 325 MG Tab PO PRN (11:35)
[2016-11-26] MEDS ORDERED: Acetaminophen 650 MG Supp RECTAL PRN (11:36)
[2016-11-26] MEDS ORDERED: Piperacillin/Tazobactam/Dext 3.375 GM in Premix Bag 1 BAG IV SCH (12:30)
[2016-11-26] MEDS ORDERED: ACETAMINOPHEN PO PRN (12:31)
[2016-11-26] MEDS ORDERED: Linezolid 600 MG in Premix Bag 1 BAG IV SCH (13:00)
[2016-11-26] MEDS ORDERED: Pantoprazole 40 MG Vial IV SCH (13:00)
[2016-11-26] MEDS ORDERED: Sennosides 8.6 MG Tab PO PRN (13:30)
[2016-11-26] MEDS ORDERED: Potassium Chloride 20 MEQ in Premix Bag 3 BAG IV ONE (13:30)
--- NOTE | 2016-11-26 13:33 | PCM.HP ---
H&P History of Present Illness - General Date of Service: 11/26/16 Admit Problem/Dx: Admission Diagnosis/Problem Admission Diagnosis/Problem Infection of skin Source of Information: Patient History Limitations: Reports: No Limitations - History of Present Illness Initial Comments - Free Text/Narative: Denis had a panniculectomy on 11/15/16 and was discharged on , 11/18/16. He states he was doing very well at home until 11/23/16 when the right side of his incision started to drain and his entire incision became red and tender. Denis was started on Clindamycin and Bactrim DS prescribed by the ED on 11/24/16. He presents to his follow up post op appointment today and states he is feeling "crappy and has been throwing up for 12 hours". Mrs. Kirk states Denis has been sleepy and only wakes up to throw up. Low grade fever at home. Associated Symptoms: Reports: Loss of Appetite, Nausea/Vomiting, Weakness Abdomen Pain Score (Numeric/FACES): 10 - Related Data Allergies/Adverse Reactions: Allergies Allergy/AdvReac Type Severity Reaction Status Date / Time hydrocodone [From Vicodin] Allergy Itching Verified 08/13/16 16:04 Home Medications: Home Meds Aspirin [Ecotrin] 81 mg PO DAILY 09/25/15 [History] predniSONE [Prednisone] 20 mg PO BID 09/25/15 [History] Multivitamin with Minerals [Multiple Vitamin] 1 tab PO BID #0 10/03/15 [Rx] Cholecalciferol (Vitamin D3) [Vitamin D] 1,000 unit PO TID 10/22/15 [History] Insulin Detemir [Levemir] 15 unit SUBCUT BEDTIME 10/22/15 [History] Insulin Glulisine [Apidra Solostar] 5 - 8 units SQ TIDAC 10/22/15 [History] Acetaminophen [Tylenol 160 MG/5 ML Liq] 20 ml PO Q4H PRN 11/21/15 [History] Gabapentin [Neurontin] 800 mg PO TID 11/26/15 [History] Simvastatin [Zocor] 40 mg PO BEDTIME 11/26/15 [History] Citalopram [Citalopram HBr] 40 mg PO DAILY 08/13/16 [History] LORazepam 0.5 - 1 mg PO TID 08/13/16 [History] Mirtazapine 30 mg PO BEDTIME 08/13/16 [History] Morphine Sulfate [Morphine Sulfate Cr] 60 mg PO TID 08/13/16 [History] Pantoprazole [ProTONIX] 40 mg PO DAILY 08/13/16 [History] Sennosides [Senexon] 2 tab PO BID PRN MDD 2 tab bid 08/13/16 [History] Warfarin Sodium [Coumadin] 2 mg PO ASDIRECTED 08/13/16 [History] Warfarin Sodium [Coumadin] 3 mg PO ASDIRECTED 08/13/16 [History] traMADol [Ultram] 50 mg PO Q6H 08/13/16 [History] Ca Citrate/Mgox/Vit D3/B6/Min [Calcium Citrate Plus Tablet] 1 each PO BID [History] Albuterol/Ipratropium [Combivent] 2 puff INH QID 11/15/16 [History] Furosemide 20 mg PO .QOD 11/15/16 [History] Acetaminophen/oxyCODONE [Percocet 325-5 MG] 1 tab PO ASDIRECTED PRN 11/23/16 [ History] Clindamycin Hcl [IJD: Clindamycin HCl] 300 mg PO .EVERY 6 HOURS #40 cap [Rx] Sulfamethoxazole/Trimethoprim [Bactrim Ds Tablet] 1 each PO BID #20 tablet 11/23 [Rx] Past Medical History HEENT History: Reports: Impaired Vision Other HEENT History: wears glasses; retinal neuropathy Cardiovascular History: Reports: Blood Clots/VTE/DVT, High Cholesterol, Hypertension, SOB on Exertion, Syncope Respiratory History: Reports: Bronchitis, Recurrent, Pneumonia, Recurrent, Sleep Apnea, SOB, Other (See Below) Other Respiratory History: moderate lung disease Gastrointestinal History: Reports: Chronic Constipation, GERD Genitourinary History: Reports: Diabetic Nephropathy, Neurogenic Bladder, Renal Calculus, UTI, Recurrent Musculoskeletal History: Reports: Arthritis, Back Pain, Chronic, Fracture, Gout , Neck Pain, Chronic, Osteoarthritis, RA Neurological History: Reports: Headaches, Chronic, Neuropathy, Diabetic, Neuropathy, Peripheral Psychiatric History: Reports: Anxiety, Depression, Learning Disability, Mood Swings, Panic Attack, PTSD, Suicidal Ideation Endocrine/Metabolic History: Reports: Diabetes, Type II, Obesity/BMI 30+, Vitamin D Deficiency Hematologic History: Reports: B12 Deficiency Dermatologic History: Reports: Other (See Below) Other Dermatologic History: Pt. has had pressure ulcers on his bottom at one time. None present at this time - Infectious Disease History Infectious Disease History: Reports: Chicken Pox, Measles, Mumps - Past Surgical History HEENT Surgical History: Reports: Oral Surgery GI Surgical History: Reports: Bariatric Procedure, EGD, Esophageal Dilatation Male Surgical History: Reports: Kidney Stone Extraction, Other (See Below) Other Male Surgeries/Procedures: Dorsal Split Musculoskeletal Surgical History: Reports: Arthroscopic Knee, Arthroscopic Procedure, Other (See Below) Other Musculoskeletal Surgeries/Procedures:: ankles Dermatological Surgical History: Reports: None Social & Family History - Family History Family Medical History: Noncontributory HEENT: Reports: Cataract, Glaucoma Cardiac: Reports: Aneurysm, Blood Clots/VTE/DVT, Bypass, Heart Failure, Heart Valve Replacement, High Cholesterol, Hypertension, NM Respiratory: Reports: Asthma, COPD, Sleep Apnea GI: Reports: Chronic Constipation, Chronic Diarrhea, GERD Musculoskeletal: Reports: Gout Neurological: Reports: MS Endocrine/Metabolic: Reports: Diabetes, type II Oncologic: Reports: Breast - Tobacco Use Smoking Status *Q: Never Smoker Second Hand Smoke Exposure: No - Caffeine Use Caffeine Use: Reports: None - Recreational Drug Use Recreational Drug Use: No H&P Review of Systems - Review of Systems: Review Of Systems: See Below General: Reports: Fever, Weakness, Fatigue, Decreased Appetite HEENT: Reports: No Symptoms Pulmonary: Reports: No Symptoms Cardiovascular: Reports: No Symptoms Gastrointestinal: Reports: Abdominal Pain (in incision and MARQUEZ drain sites.), Decreased Appetite, Nausea, Vomiting Genitourinary: Reports: No Symptoms Musculoskeletal: Reports: Other (chronic joint pain and weakness. Needs assistance with ADLs and cannot walk uses a wheelchair. ) Skin: Reports: Other (see chief complaint) Psychiatric: Reports: No Symptoms Neurological: Reports: Other (unable to walk. ) Hematologic/Lymphatic: Reports: No Symptoms Immunologic: Reports: No Symptoms Exam - Exam Exam: See Below - Vital Signs Vital Signs: Last Vital Signs Temp 98.1 F 11/26/16 11:35 Pulse 73 11/26/16 11:35 Resp 16 11/26/16 11:35 BP 159/68 H 11/26/16 11:35 Pulse Ox 97 11/26/16 11:35 Weight: 261 lb - Exam Quality Assessment: DVT Prophylaxis General: Moderate Distress HEENT: PERRLA Neck: Supple Lungs: Clear to Auscultation, Normal Respiratory Effort Cardiovascular: Regular Rate, Regular Rhythm GI/Abdominal Exam: Other (Panniculectomy incision line is red, tender and lara intact. Drainage in the right side of the incision. Redness and swelling around each MARQUEZ drain site. ) (Male) Exam: No Hernia (drains and they are draining 100, 50, 190 and 50 respectively pink serous drainage.) Rectal (Males) Exam: Deferred Back Exam: Decreased Range of Motion Extremities: Pedal Edema, Joint Swelling Skin: Other (color is flushed ) Neurological: Normal Speech Neuro Extensive - Mental Status: Alert, Oriented x3, Normal Mood/Affect, Normal Cognition Neuro Extensive - Motor, Sensory, Reflexes: Abnormal Reflexes Psychiatric: Labile Mood - Patient Data Lab Results Last 24 hrs: Laboratory Results - last 24 hr 11/26/16 11/26/16 Range/Units 12:22 12:22 WBC 12.6 H (4.5-11.0) K/uL RBC 4.53 (4.30-5.90) M/uL Hgb 12.2 (12.0-15.0) g/dL Hct 38.9 L (40.0-54.0) % MCV 86 (80-98) fL MCH 27 (27-31) pg MCHC 31 L (32-36) % Plt Count 287 (150-400) K/uL Neut % (Auto) 52 (36-66) % Lymph % (Auto) 41 (24-44) % [facility] % (Auto) 6 (2-6) % Eos % (Auto) 1 L (2-4) % Baso % (Auto) 0 (0-1) % Sodium 144 (140-148) mmol/L Potassium 2.9 L* (3.6-5.2) mmol/L Chloride 106 (100-108) mmol/L Carbon Dioxide 31 (21-32) mmol/L Anion Gap 9.9 (5.0-14.0) mmol/L BUN 11 (7-18) mg/dL Creatinine 1.1 (0.8-1.3) mg/dL Est Cr Clr Drug Dosing 79.29 mL/min Estimated GFR (MDRD) > 60 (>60) Glucose 81 (74-106) mg/dL Calcium 8.1 L (8.5-10.1) mg/dL Phosphorus 3.6 (2.5-4.9) mg/dL Magnesium 1.7 L (1.8-2.4) mg/dL Total Bilirubin 0.3 (0.2-1.0) mg/dL AST 16 (15-37) U/L ALT 22 (12-78) U/L Alkaline Phosphatase 91 (46-116) U/L Total Protein 5.7 L (6.4-8.2) g/dL Albumin 2.1 L (3.4-5.0) g/dL Globulin 3.6 H (2.3-3.5) g/dL Albumin/Globulin Ratio 0.6 L (1.2-2.2) Result Diagrams: 11/26/16 12:22 11/26/16 12:22 Cristofer Results Last 24 hrs: Microbiology 11/26/16 11:35 Gram Stain - Final Abdomen - Incision *Q Meaningful Use (ADM) - VTE *Q VTE Criteria *Q: - Stroke *Q Stroke Criteria *Q: - AMI *Q AMI Criteria *Q: - Problem List (1) Surgical wound infection SNOMED Code(s): 87234089, 320432591 ICD Code: T81.4XXA - INFECTION FOLLOWING A PROCEDURE, INITIAL ENCOUNTER Status: Acute Current Visit: No Qualifiers: Encounter type: initial encounter Qualified Code(s): T81.4XXA - Infection following a procedure, initial encounter (2) Status post hernia repair SNOMED Code(s): 24670609608379, 29811045454826 ICD Code: Z98.890 - OTHER SPECIFIED POSTPROCEDURAL STATES; Z87.19 - PERSONAL HISTORY OF OTHER DISEASES OF THE DIGESTIVE SYSTEM Status: Acute Current Visit: No Problem Details: Incisional and Umbilical (3) Status post panniculectomy SNOMED Code(s): 132468861, 186392404, 042763844 ICD Code: Z98.890 - OTHER SPECIFIED POSTPROCEDURAL STATES Status: Acute Current Visit: No Problem List Initiated/Reviewed/Updated: Yes Orders Last 24hrs: Assessment: 1. Panniculectomy Incision Infection 2. Dehydration 3. Nausea and Vomiting 4. Diabetes 5. SP RNY Gastric Bypass Surgery 6. Unspecified Surgical Malabsorption 7. Vitamin B deficiency 8. Sleep Apnea 9. Muscle Weakness 10. Back Pain 11. Diabetic Retinopathy 12. Depression Plan: Admit to [facility] as inpatient. See orders below. Active Orders 24 hr Category Date Time Status Patient Status [ADT] Routine ADT 11/26/16 10:30 Active Communication Order [RC] ASDIRECTED Care 11/26/16 11:57 Active Communication Order [RC] DAILY Care 11/26/16 12:40 Active Incentive Spirometry [RT Incentive Spirometry] [RC] Care 11/26/16 13:07 Active ASDIRECTED Up to Chair [RC] QID Care 11/26/16 11:57 Active Vital Signs [RC] Q4H Care 11/26/16 11:57 Active Bariatric Diet [DIET] Diet 11/26/16 Lunch Active CULTURE WOUND + SMEAR [RM] Routine Lab 11/26/16 11:35 Results CULTURE WOUND + SMEAR [RM] Stat Lab 11/26/16 11:57 Ordered INR,PT,PROTHROMBIN TIME [COAG] Routine Lab 11/27/16 04:00 Ordered Acetaminophen [Tylenol] Med 11/26/16 11:35 Active 650 mg PO Q4H PRN Acetaminophen [Tylenol] Med 11/26/16 11:36 Active 650 mg RECTAL Q4H PRN Acetaminophen/oxyCODONE [Percocet 325-5 MG] Med 11/26/16 12:31 Active 1 - 2 tab PO Q4H PRN Albuterol/Ipratropium [Combivent Respimat] Med 11/26/16 15:00 Active 0 gm INH QIDRT Aspirin [Halfprin] Med 11/27/16 09:00 Active 81 mg PO DAILY Aztreonam/Dextrose-Water [Azactam in Dextrose,Iso- Med 11/26/16 14:00 Active Osmotic 1 GM/50 ML] 1 gm Premix Bag 1 bag IV Q8HR Calcium Carbonate/Vitamin D3 [Caltrate 600+D 1500 MG- Med 11/26/16 21:00 Active 400 Units] 1 tab PO BID Cholecalciferol (Vitamin D3) [Vitamin D3] Med 11/26/16 14:00 Active 1,000 units PO TID Citalopram [Celexa] Med 11/27/16 09:00 Active 40 mg PO DAILY Furosemide [Lasix] Med 11/26/16 12:45 Ordered 20 mg PO .QOD Gabapentin [Neurontin] Med 11/26/16 14:00 Active 800 mg PO TID Insulin Detemir [Levemir] Med 11/26/16 21:00 Active 15 unit SUBCUT BEDTIME Insulin Glulisine [Apidra Solostar] Med 11/26/16 16:00 Ordered 5 - 8 units SQ TIDAC LORazepam [Ativan] Med 11/26/16 14:00 Active 0.5 - 1 mg PO TID Lactated Ringers [Ringers, Lactated] 1,000 ml Med 11/26/16 11:30 Active IV ONETIME Lactobacillus Rhamnosus GG [Culturelle] Med 11/26/16 13:15 Active 2 cap PO BID Linezolid [Zyvox] 600 mg Med 11/26/16 13:00 Active Premix Bag 1 bag IV Q12H MVI, Adult with Vitamin K [Infuvite Adult] 10 ml Med 11/26/16 14:00 Active Thiamine [Vitamin B-1] 100 mg Magnesium Sulfate [Magnesium Sulfate 50%] 2 gm Folic Acid 1 mg Lactated Ringers [Ringers, Lactated] 1,000 ml IV ONETIME Meropenem [Merrem] 500 mg Med 11/26/16 14:30 Active Sodium Chloride 0.9% [Normal Saline] 50 ml IV Q6H Mirtazapine [Remeron] Med 11/26/16 21:00 Active 30 mg PO BEDTIME Morphine [MS Contin] Med 11/26/16 14:00 Active 60 mg PO TID Multivitamin with Minerals [Multiple Vitamin] Med 11/26/16 21:00 Ordered 1 tab PO BID Ondansetron [Zofran] Med 11/26/16 11:33 Active 4 mg IV Q4H PRN Pantoprazole [ProTONIX IV] Med 11/26/16 13:00 Active 40 mg IV Q12H Sennosides [Senna] Med 11/26/16 13:30 Active 8.6 mg PO BID PRN Warfarin Sodium [Coumadin] Med 11/26/16 12:45 Ordered 2 mg PO ASDIRECTED Warfarin Sodium [Coumadin] Med 11/26/16 12:45 Ordered 3 mg PO ASDIRECTED predniSONE Med 11/26/16 17:00 Active 20 mg PO BIDMEALS PCOS Order Set [OM.PC] Routine Oth 11/26/16 12:39 Ordered Sequential Compression Device [OM.PC] Routine Oth 11/26/16 11:57 Ordered Resuscitation Status Routine Resus Stat 11/26/16 11:57 Ordered Medication Orders Acetaminophen (Tylenol) 650 mg PO Q4H PRN PRN Reason: PAIN/FEVER Acetaminophen (Tylenol) 650 mg RECTAL Q4H PRN PRN Reason: PAIN/FEVER Albuterol/Ipratropium (Combivent Respimat) 0 gm INH QIDRT [facility] Aspirin (Halfprin) 81 mg PO DAILY [facility] Calcium Carbonate (Caltrate 600+D 1500 Mg-400 Units) 1 tab PO BID [facility] Cholecalciferol (Vitamin D3) 1,000 units PO TID [facility] Citalopram Hydrobromide (Celexa) 40 mg PO DAILY [facility] Furosemide (Lasix) 20 mg PO .QOD [facility] Gabapentin (Neurontin) 800 mg PO TID [facility] Lactated Ringer's (Ringers, Lactated) 1,000 mls @ 500 mls/hr IV ONETIME ONE Stop: 11/26/16 13:29 Multivitamins/Minerals 10 ml/Thiamine HCl 100 mg/ Magnesium Sulfate 2 gm/ Folic Acid 1 mg / Lactated Ringer's 1,015.2 mls @ 200 mls/hr IV ONETIME ONE Stop: 11/26/16 19:04 Aztreonam/Dextrose 1 gm/ (Premix) 50 mls @ 100 mls/hr IV Q8HR [facility] Linezolid 600 mg/ Premix 300 mls @ 300 mls/hr IV Q12H [facility] Meropenem 500 mg/ Sodium (Chloride) 50 mls @ 100 mls/hr IV Q6H [facility] Insulin Detemir (Levemir) 15 unit SUBCUT BEDTIME [facility] Lactobacillus Rhamnosus (Culturelle) 2 cap PO BID [facility] Lorazepam (Ativan) 0.5 - 1 mg PO TID [facility] Mirtazapine (Remeron) 30 mg PO BEDTIME [facility] Morphine Sulfate (Ms Contin) 60 mg PO TID [facility] Non-Formulary Medication (Insulin Glulisine [Apidra Solostar]) 5 - 8 units SQ TIDAC [facility] Non-Formulary Medication (Multivitamin With Minerals [Multiple Vitamin]) 1 tab PO BID [facility] Non-Formulary Medication (Warfarin Sodium [Coumadin]) 3 mg PO ASDIRECTED [facility] Non-Formulary Medication (Warfarin Sodium [Coumadin]) 2 mg PO ASDIRECTED [facility] Ondansetron HCl (Zofran) 4 mg IV Q4H PRN PRN Reason: N/V Oxycodone/Acetaminophen (Percocet 325-5 Mg) 1 - 2 tab PO Q4H PRN PRN Reason: Pain Pantoprazole Sodium (Protonix Iv) 40 mg IV Q12H [facility] Prednisone (Prednisone) 20 mg PO BIDMEALS [facility] Senna (Senna) 8.6 mg PO BID PRN PRN Reason: CONSTIPATION Mamie Keith
[2016-11-26] MEDS ORDERED: Potassium Chloride 20 MEQ, Lidocaine 1% 2 ML in Sodium Chloride 0.9% 100 ML IV SCH ×2 (14:00→15:00)
[2016-11-26] MEDS ORDERED: Aztreonam/Dextrose-Water 1 GM in Premix Bag 1 BAG IV SCH (14:00)
[2016-11-26] MEDS ORDERED: MVI, Adult with Vitamin K 10 ML, Thiamine 100 MG, Magnesium Sulfate 2 GM, Folic Acid 1 ... IV ONE ×5 (14:00)
[2016-11-26] MEDS: Acetaminophen/oxyCODONE 325-5 MG Tab PO PRN (14:14)
[2016-11-26] MEDS ORDERED: Meropenem 500 MG in Sodium Chloride 0.9% 50 ML IV SCH (14:30)
[2016-11-26] MEDS ORDERED: Lidocaine 1% 4 ML ONE (14:47)
[2016-11-26] MEDS ORDERED: Lidocaine 1% 2 ML ONE (14:48)
[2016-11-26] MEDS ORDERED: Dextrose 5%-Lactated Ringers 1,000 ML IV SCH (15:30)
[2016-11-26] MEDS ORDERED: Magnesium Sulfate/Water 2 GM in Premix Bag 1 BAG IV SCH (16:00)
[2016-11-26] MEDS: Meropenem 500 MG in Sodium Chloride 0.9% 50 ML IV SCH ×2 (16:08→22:09)
[2016-11-26] MEDS: Aztreonam/Dextrose-Water 1 GM in Premix Bag 1 BAG IV SCH ×2 (16:57→23:35)
[2016-11-26] MEDS ORDERED: Potassium Chloride 10% 20 MEQ/15 ML Soln 15 ML UD Cup PO ONE (17:00)
[2016-11-26] MEDS: Gabapentin 400 MG Cap PO SCH ×2 (17:01→22:05)
[2016-11-26] MEDS: Lactobacillus Rhamnosus GG (Probiotic) Cap PO SCH ×2 (17:01→22:03)
[2016-11-26] MEDS: LORazepam 0.5 MG Tab PO SCH ×2 (17:02→22:51)
[2016-11-26] MEDS: Albuterol/Ipratropium 4 GM Inhalation Spray INH SCH ×2 (17:03→22:03)
[2016-11-26] MEDS: Cholecalciferol (Vitamin D3) 1,000 Unit Tab PO SCH ×2 (17:03→22:09)
[2016-11-26] MEDS: Pantoprazole 40 MG Vial IV SCH (17:04)
[2016-11-26] MEDS: predniSONE 20 MG Tab PO SCH (17:05)
[2016-11-26] MEDS: Morphine 30 MG Tab.ER PO SCH ×2 (17:09→22:18)
[2016-11-26] MEDS: Linezolid 600 MG in Premix Bag 1 BAG IV SCH (17:35)
[2016-11-26] MEDS: Magnesium Sulfate/Water 2 GM in Premix Bag 1 BAG IV SCH ×2 (18:59→23:34)
[2016-11-26] MEDS ORDERED: Insulin Aspart 100 Units/ML 3 ML Pen SUBCUT PRN (20:04)
[2016-11-26] MEDS ORDERED: 50% Dextrose in Water 50 ML Syringe IV PRN (20:06)
[2016-11-26] MEDS ORDERED: Potassium Phosphates 20 MMOLE in Sodium Chloride 0.9% 250 ML IV SCH (21:00)
[2016-11-26] MEDS ORDERED: Insulin Detemir 100 Units/ML 3 ML Pen SUBCUT SCH (21:00)
[2016-11-26] MEDS: Calcium Carbonate/Vitamin D3 1500 MG-400 Units Tab PO SCH (22:03)
[2016-11-26] MEDS: Mirtazapine 15 MG Tab PO SCH (22:08)
[2016-11-26] MEDS: Multivitamins with Iron/Calcium/Folic Acid/Minerals Tab PO SCH (22:09)
[2016-11-27] MEDS: Pantoprazole 40 MG Vial IV SCH (03:53)
[2016-11-27] MEDS: Meropenem 500 MG in Sodium Chloride 0.9% 50 ML IV SCH ×4 (03:55→22:06)
[2016-11-27] MEDS: Acetaminophen/oxyCODONE 325-5 MG Tab PO PRN ×3 (04:08→20:30)
[2016-11-27] MEDS: Linezolid 600 MG in Premix Bag 1 BAG IV SCH ×2 (04:20→17:37)
[2016-11-27] MEDS: Magnesium Sulfate/Water 2 GM in Premix Bag 1 BAG IV SCH ×3 (05:42→18:42)
[2016-11-27] MEDS ORDERED: Lidocaine 1% with EPINEPHrine 1:100,000 50 ML MDV ONE (06:00)
[2016-11-27] MEDS ORDERED: Bupivacaine 0.5% 50 ML MDV ONE (06:00)
[2016-11-27] MEDS ORDERED: Midazolam 1 MG/ML 2 ML SDV ONE (06:36)
[2016-11-27] MEDS ORDERED: Propofol 200 MG/20 ML SDV ONE (06:36)
[2016-11-27] MEDS ORDERED: fentaNYL 100 MCG/2 ML SDV ONE (06:36)
[2016-11-27] MEDS ORDERED: Lactated Ringers 1,000 ML ONE (06:54)
[2016-11-27] MEDS: Albuterol/Ipratropium 4 GM Inhalation Spray INH SCH ×4 (08:20→20:33)
[2016-11-27] MEDS: Aztreonam/Dextrose-Water 1 GM in Premix Bag 1 BAG IV SCH ×2 (08:36→16:19)
[2016-11-27] MEDS: LORazepam 0.5 MG Tab PO SCH (08:52)
[2016-11-27] MEDS ORDERED: Albuterol/Ipratropium 4 GM Inhalation Spray INH PRN (08:55)
[2016-11-27] MEDS: predniSONE 20 MG Tab PO SCH ×2 (09:07→16:40)
[2016-11-27] MEDS: Aspirin 81 MG Tab.EC PO SCH (09:07)
[2016-11-27] MEDS: Morphine 30 MG Tab.ER PO SCH ×3 (09:07→20:32)
[2016-11-27] MEDS: Gabapentin 400 MG Cap PO SCH ×3 (09:08→20:34)
[2016-11-27] MEDS: Furosemide 20 MG Tab PO SCH (09:08)
[2016-11-27] MEDS: Cholecalciferol (Vitamin D3) 1,000 Unit Tab PO SCH (09:09)
[2016-11-27] MEDS: Lactobacillus Rhamnosus GG (Probiotic) Cap PO SCH ×2 (09:09→20:34)
[2016-11-27] MEDS: Multivitamins with Iron/Calcium/Folic Acid/Minerals Tab PO SCH ×2 (09:09→20:35)
[2016-11-27] MEDS: Citalopram 20 MG Tab PO SCH (09:09)
[2016-11-27] MEDS: Calcium Carbonate/Vitamin D3 1500 MG-400 Units Tab PO SCH (09:10)
[2016-11-27] MEDS ORDERED: Sodium Chloride 0.9% 1,000 ML IV SCH (09:15)
[2016-11-27] MEDS: Potassium Chloride 20 MEQ, Lidocaine 1% 2 ML in Sodium Chloride 0.9% 100 ML IV SCH ×2 (10:10→12:39)
[2016-11-27] MEDS: Pantoprazole 40 MG Tab.CR PO SCH (10:11)
[2016-11-27] MEDS: traMADol 50 MG Tab PO SCH ×3 (10:14→22:16)
[2016-11-27] MEDS: Lactated Ringers 1,000 ML IV SCH ×2 (12:00→22:07)
[2016-11-27] MEDS: Potassium Phosphates 15 MMOLE in Sodium Chloride 0.9% 250 ML IV SCH ×2 (14:44→16:20)
[2016-11-27] MEDS ORDERED: Insulin Aspart 100 Units/ML 3 ML Pen SUBCUT ONE (16:56)
[2016-11-27] MEDS: Insulin Aspart 100 Units/ML 3 ML Pen SUBCUT SCH ×2 (17:15→22:13)
[2016-11-27] MEDS: Mirtazapine 15 MG Tab PO SCH (20:34)
[2016-11-27] MEDS ORDERED: Insulin Detemir 100 Units/ML 3 ML Pen SUBCUT SCH (21:00)
[2016-11-28] MEDS: Aztreonam/Dextrose-Water 1 GM in Premix Bag 1 BAG IV SCH ×4 (00:11→23:58)
[2016-11-28] MEDS: Magnesium Sulfate/Water 2 GM in Premix Bag 1 BAG IV SCH ×5 (00:12→23:55)
[2016-11-28] MEDS: Acetaminophen/oxyCODONE 325-5 MG Tab PO PRN (02:40)
[2016-11-28] MEDS: Linezolid 600 MG in Premix Bag 1 BAG IV SCH ×2 (04:22→17:06)
[2016-11-28] MEDS: Meropenem 500 MG in Sodium Chloride 0.9% 50 ML IV SCH ×4 (04:22→21:01)
[2016-11-28] MEDS: traMADol 50 MG Tab PO SCH ×4 (05:35→21:08)
[2016-11-28] MEDS: Albuterol/Ipratropium 4 GM Inhalation Spray INH SCH ×4 (07:40→20:56)
[2016-11-28] MEDS: Gabapentin 400 MG Cap PO SCH ×3 (08:12→20:57)
[2016-11-28] MEDS: predniSONE 20 MG Tab PO SCH ×2 (08:12→17:06)
[2016-11-28] MEDS: Pantoprazole 40 MG Tab.CR PO SCH (08:12)
[2016-11-28] MEDS: Lactobacillus Rhamnosus GG (Probiotic) Cap PO SCH ×2 (08:13→20:56)
[2016-11-28] MEDS: Citalopram 20 MG Tab PO SCH (08:13)
[2016-11-28] MEDS: Aspirin 81 MG Tab.EC PO SCH (08:13)
[2016-11-28] MEDS: Multivitamins with Iron/Calcium/Folic Acid/Minerals Tab PO SCH ×2 (08:13→20:59)
[2016-11-28] MEDS: Insulin Aspart 100 Units/ML 3 ML Pen SUBCUT SCH ×4 (08:14→20:59)
[2016-11-28] MEDS: Morphine 30 MG Tab.ER PO SCH ×3 (08:24→20:56)
[2016-11-28] MEDS: Lactated Ringers 1,000 ML IV SCH ×2 (10:46→23:58)
[2016-11-28] MEDS: Potassium Phosphates 20 MMOLE in Sodium Chloride 0.9% 250 ML IV SCH ×3 (10:47→19:06)
--- NOTE | 2016-11-28 17:07 | PN ---
DATE OF SERVICE: 11/27/2016 The patient has been afebrile with stable vital signs, alert, and clinically looks fairly good. The incision today does not have any further drainage. The gram stain on the MARQUEZ drains showed combination of gram-positive cocci and gram-negative rods. We will leave him on the meropenem, Azactam and Zyvox pending FURNACE ERECTOR results. Otherwise, he had a Adam catheter placed today which will allow a better IV access and we will begin replacing his potassium. It is notable that his potassium today is in the lower 4s despite he already received 40 mEq of oral potassium where the potassium was 2.9 yesterday. He has had a difficult IV start time assuming that there is some degree of hemolysis with blood draw, and given this, we will proceed with the potassium replacement and recheck labs tomorrow morning. Jovany Cuellar MD /[id number]
--- NOTE | 2016-11-28 18:16 | PN ---
DATE OF SERVICE: 11/28/2016 The patient has now been afebrile with stable vital signs. He looks fairly comfortable. The panniculectomy drainage is becoming more clear. The cultures are still pending in terms of ID and sensitivities, so we will continue present antibiotics. We will give him some additional K-Phos today as we are still in the reloading process as far as the total potassium stores. Protime is somewhat subtherapeutic with the Coumadin dose up somewhat higher today. We will likely keep on IV antibiotics through the next couple of days and then likely home toward mid week. Jovany Cuellar MD /[id number]
[2016-11-28] MEDS: Mirtazapine 15 MG Tab PO SCH (20:58)
[2016-11-28] MEDS: Insulin Detemir 100 Units/ML 3 ML Pen SUBCUT SCH (21:01)
[2016-11-29] MEDS: Meropenem 500 MG in Sodium Chloride 0.9% 50 ML IV SCH ×2 (04:08→10:12)
[2016-11-29] MEDS: Linezolid 600 MG in Premix Bag 1 BAG IV SCH (04:20)
[2016-11-29] MEDS: Acetaminophen/oxyCODONE 325-5 MG Tab PO PRN ×2 (04:36→15:17)
[2016-11-29] MEDS: Magnesium Sulfate/Water 2 GM in Premix Bag 1 BAG IV SCH (05:53)
[2016-11-29] MEDS: traMADol 50 MG Tab PO SCH ×4 (05:53→22:02)
[2016-11-29] MEDS: Albuterol/Ipratropium 4 GM Inhalation Spray INH SCH ×4 (07:31→20:41)
[2016-11-29] MEDS: predniSONE 20 MG Tab PO SCH ×2 (07:56→16:05)
[2016-11-29] MEDS: Pantoprazole 40 MG Tab.CR PO SCH (07:56)
[2016-11-29] MEDS: Lactobacillus Rhamnosus GG (Probiotic) Cap PO SCH ×2 (08:05→20:39)
[2016-11-29] MEDS: Multivitamins with Iron/Calcium/Folic Acid/Minerals Tab PO SCH ×2 (08:05→20:40)
[2016-11-29] MEDS: Morphine 30 MG Tab.ER PO SCH ×3 (08:05→20:38)
[2016-11-29] MEDS: Gabapentin 400 MG Cap PO SCH ×3 (08:05→20:39)
[2016-11-29] MEDS: Furosemide 20 MG Tab PO SCH (08:06)
[2016-11-29] MEDS: Citalopram 20 MG Tab PO SCH (08:06)
[2016-11-29] MEDS: Aspirin 81 MG Tab.EC PO SCH (08:06)
[2016-11-29] MEDS: Ciprofloxacin in D5W 400 MG in Premix Bag 1 BAG IV SCH ×4 (08:41→20:38)
--- NOTE | 2016-11-29 09:34 | PN ---
DATE OF SERVICE: 11/29/2016 SUBJECTIVE: Denis voices concerns that his MARQUEZ drains have only been stripped by nurse once, otherwise, he has been draining it himself once a day. He is concerned because he knows it is 4 times a day, but with body habitus and lack of strength in his arms and where the drains are, he is not able to strip them as well as what they need to be stripped. He is concerned because he is here for an infection. Microbiology this morning; wound culture final revealed E. coli, Enterobacter dissolvens and Pseudomonas aeruginosa. He has been afebrile. Blood sugars have been elevated at 218, 277. Nursing staff has noticed that in his schneider's apron where he puts his MARQUEZ drains, he also carries some candy in there. REVIEW OF SYSTEMS: HEENT: Negative for any headache or dizziness. NECK: Negative. CHEST: No chest pain, shortness of breath, fast or irregular heartbeat. LUNGS: No cough. ABDOMEN: Appetite has been good. No bowel movement is recorded. : Negative. EXTREMITIES: Revealed trace peripheral edema and chronic weakness. SKIN: Without rash. NEUROLOGIC: Stable. Remainder of review of systems negative for any pertinent positives and negatives. OBJECTIVE: GENERAL: Denis Kirk is a pleasant 45-year-old male. He is alert and orientated. VITAL SIGNS: TPR is 97.2, 66, 18, and blood pressure 161/60. HEENT: Negative. NECK: Supple. HEART: Regular rate and rhythm. LUNGS: Clear. ABDOMEN: Incision, lara remaining. It looks less red and it is no longer firm. At the very right part of his incision, there is pulling away and it is superficial open area. The MARQUEZ drain skin sites have improved. The MARQUEZ drains, the tubing itself, is slightly occluded with white fibrinous material. The MARQUEZ drains have drainage in them and it is pink serosanguineous drainage in each drain. He has 4 drains. EXTREMITIES: Without peripheral edema. ASSESSMENT: 1. Infected panniculectomy incision. 2. Status post panniculectomy. 3. Dehydration, nausea and vomiting, resolved. 4. Diabetes type 2, uncontrolled. 5. Status post Kenny-en-Y gastric bypass surgery. 6. Unspecified surgical malabsorption. 7. B12 deficiency. 8. Sleep apnea. 9. Use of CPAP. 10.Muscle weakness. 11.Back pain. 12.Diabetic retinopathy. 13.Depression. PLAN: 1. Order was rewritten in EMR to strip, empty, measure, and drain MARQUEZ drains 4 times a day. Nursing staff to do this. Concern is of the MARQUEZ drain tubing getting clogged and then they are not able to drain efficiently. 2. See copy of orders written on 11/26/2016. 3. Cipro 400 mg b.i.d. IV. 4. Doxycycline 100 mg b.i.d. IV. 5. Discontinue IV antibiotics that were previously running, Azactam and meropenem. 6. Good pulmonary toilet encouraged. 7. We will evaluate p.r.n. or in a.m. Consult made with conservation educator. Mamie Carpenter PA-C /[id number]
[2016-11-29] MEDS: Insulin Aspart 100 Units/ML 3 ML Pen SUBCUT SCH ×4 (10:02→20:56)
[2016-11-29] MEDS: LORazepam 0.5 MG Tab PO PRN (10:07)
--- NOTE | 2016-11-29 10:34 | OR ---
DATE OF PROCEDURE: 11/27/2016 PREOPERATIVE DIAGNOSIS: Indication for central venous access. POSTOPERATIVE DIAGNOSIS: Indication for central venous access. OPERATIVE PROCEDURE: Insertion of double-lumen Adam catheter via left subclavian vein approach ([id number]). ANESTHESIA: Local plus IV sedation. INDICATIONS FOR PROCEDURE: This 45-year-old presenting with some infection within the recent panniculectomy site. He has very limited peripheral access and given the need for some ongoing IV access, the plan is to proceed with a Adam catheter placement. Potential risks including bleeding, infection, pneumohemothorax, problems with the catheter becoming occluded were all reviewed, and the patient wishes to proceed. DETAILS OF PROCEDURE: The patient was taken to the operating room and placed in supine position. After IV sedation was administered, the upper chest and neck areas were prepped and draped. The left subclavian vein was then cannulated. Guidewire manipulated through that point into the superior vena cava. Some additional local was then injected and a stab wound made roughly 4 fingerbreadths below the original skin puncture site and a Adam catheter was then tunneled between those 2 points with the fibrous cuff being just inside the lower of the two incisions. The catheter was cut such that the tip would lie in the area of the superior vena cava right atrial junction and with the introducer and peel-away catheter, the Adam catheter was placed without difficulty. Good in and outflow was confirmed and the catheter was sutured to the skin exit site with a 3-0 Vicryl stitch and the original puncture site closed with subcuticular stitch of 4-0 Vicryl stitch. Dressing was applied. The patient was taken to the recovery room in satisfactory condition. There were no evident complications. Jovany Cuellar MD /[id number]
[2016-11-29] MEDS: Doxycycline 100 MG in Sodium Chloride 0.9% 100 ML IV SCH ×2 (10:59→22:02)
[2016-11-29] MEDS: Mirtazapine 15 MG Tab PO SCH (20:40)
[2016-11-29] MEDS: Insulin Detemir 100 Units/ML 3 ML Pen SUBCUT SCH (20:54)
[2016-11-30] MEDS: Acetaminophen/oxyCODONE 325-5 MG Tab PO PRN (03:23)
[2016-11-30] MEDS: Lactated Ringers 1,000 ML IV SCH (04:33)
[2016-11-30] MEDS: traMADol 50 MG Tab PO SCH ×4 (06:03→21:24)
[2016-11-30] MEDS: Albuterol/Ipratropium 4 GM Inhalation Spray INH SCH ×4 (07:08→21:06)
[2016-11-30] MEDS: Pantoprazole 40 MG Tab.CR PO SCH (07:55)
[2016-11-30] MEDS: Ciprofloxacin in D5W 400 MG in Premix Bag 1 BAG IV SCH ×4 (07:56→21:05)
[2016-11-30] MEDS: predniSONE 20 MG Tab PO SCH ×2 (07:56→16:56)
[2016-11-30] MEDS: Insulin Aspart 100 Units/ML 3 ML Pen SUBCUT SCH ×4 (08:55→21:27)
[2016-11-30] MEDS: Morphine 30 MG Tab.ER PO SCH ×3 (08:59→21:25)
[2016-11-30] MEDS: Gabapentin 400 MG Cap PO SCH ×3 (09:01→21:28)
[2016-11-30] MEDS: Lactobacillus Rhamnosus GG (Probiotic) Cap PO SCH ×2 (09:02→21:28)
[2016-11-30] MEDS: Multivitamins with Iron/Calcium/Folic Acid/Minerals Tab PO SCH ×2 (09:03→21:29)
[2016-11-30] MEDS: Aspirin 81 MG Tab.EC PO SCH (09:03)
[2016-11-30] MEDS: Citalopram 20 MG Tab PO SCH (09:03)
--- NOTE | 2016-11-30 09:23 | PN ---
DATE OF SERVICE: 11/30/2016 SUBJECTIVE: Denis is doing quite well. He has been afebrile. MARQUEZ drains have put out 85, 70, 295, and 45 respectively of a pink serosanguineous drainage. Incision continues to improve. Tim remain intact. There is no drainage from the right open area of that incision and it is softer, no firmness is noted. REVIEW OF SYSTEMS: HEENT: Negative. NECK: Negative. HEART: No chest pain, shortness of breath, fast or irregular heart beat. LUNGS: No cough. ABDOMEN: He has had 1 bowel movement since admission on 11/29/2016. Oral intake has been adequate. : Negative. EXTREMITIES: Negative. NEURO: No change. SKIN: Without rash. Remainder of review of systems is negative for any pertinent positives or negatives. OBJECTIVE: GENERAL: Denis Kirk is a 45-year-old male. He is alert and orientated. VITAL SIGNS: TPR 97.6, 63, 18. Blood pressure 170/86. HEENT: Negative. NECK: Supple. HEART: Regular rate and rhythm. LUNGS: Clear. ABDOMEN: As above. Incisions look good, less redness, soft, and tim intact. MARQUEZ drains x4 intact, draining as above. EXTREMITIES: Without peripheral edema. ASSESSMENT: 1. Infected panniculectomy incision with wound cultures showing Escherichia coli, Enterobacter dissolvens, and Pseudomonas aeruginosa. 2. Status post Kenny-en-Y gastric bypass surgery. 3. Unspecified surgical malabsorption. 4. B12 deficiency. 5. Dehydration, nausea and vomiting, resolved. 6. Diabetes type 2. 7. Sleep apnea with use of CPAP. 8. Muscle weakness. 9. Back pain. 10.Diabetic retinopathy. 11.Depression. PLAN: 1. Heparin lock, Adam catheter. 2. Continue IV antibiotics. 3. Plan discharge in the a.m. 4. Continue good pulmonary toilet. Mamie Carpenter PA-C /[id number]
[2016-11-30] MEDS: Doxycycline 100 MG in Sodium Chloride 0.9% 100 ML IV SCH ×2 (11:31→22:46)
[2016-11-30] MEDS ORDERED: Warfarin 5 MG Tab PO ONE (17:00)
[2016-11-30] MEDS: Insulin Detemir 100 Units/ML 3 ML Pen SUBCUT SCH (21:24)
[2016-11-30] MEDS: Mirtazapine 15 MG Tab PO SCH (21:28)
[2016-12-01] MEDS: Acetaminophen/oxyCODONE 325-5 MG Tab PO PRN (01:49)
[2016-12-01] MEDS ORDERED: Furosemide 20 MG/2 ML VIAL IVPUSH ONE (04:24)
[2016-12-01] MEDS: traMADol 50 MG Tab PO SCH ×2 (05:51→09:53)
[2016-12-01] MEDS ORDERED: Doxycycline 100 MG Cap PO SCH ×2 (06:30→09:00)
[2016-12-01] MEDS: predniSONE 20 MG Tab PO SCH (07:20)
[2016-12-01] MEDS: Pantoprazole 40 MG Tab.CR PO SCH (07:20)
[2016-12-01] MEDS: Albuterol/Ipratropium 4 GM Inhalation Spray INH SCH ×2 (07:21→10:50)
[2016-12-01] MEDS ORDERED: Ciprofloxacin 500 MG Tab PO SCH ×2 (07:30→09:00)
[2016-12-01] MEDS ORDERED: Furosemide 20 MG Tab PO ONE (08:45)
[2016-12-01] MEDS: Citalopram 20 MG Tab PO SCH (08:55)
[2016-12-01] MEDS: Gabapentin 400 MG Cap PO SCH (08:56)
[2016-12-01] MEDS: Insulin Aspart 100 Units/ML 3 ML Pen SUBCUT SCH (08:56)
[2016-12-01] MEDS: Lactobacillus Rhamnosus GG (Probiotic) Cap PO SCH (08:56)
[2016-12-01] MEDS: Aspirin 81 MG Tab.EC PO SCH (08:57)
[2016-12-01] MEDS: Furosemide 20 MG Tab PO SCH (08:57)
[2016-12-01] MEDS: Multivitamins with Iron/Calcium/Folic Acid/Minerals Tab PO SCH (08:57)
[2016-12-01] MEDS: Morphine 30 MG Tab.ER PO SCH (09:06)
[2016-12-01] MEDS: LORazepam 0.5 MG Tab PO PRN (09:09)
[2016-12-01 11:14] VITALS: BP 121/93
[2016-12-01] MEDS ORDERED: Warfarin 5 MG Tab PO ONE (12:00)
--- NOTE | 2016-12-02 03:33 | DISCH ---
ADMISSION DIAGNOSES: 1. Surgical wound infection status post panniculectomy; wound culture showing Escherichia coli, Enterobacter dissolvens, and Pseudomonas aeruginosa. 2. Status post Kenny-en-Y gastric bypass surgery. 3. Unspecified surgical malabsorption. 4. B12 deficiency. 5. Dehydration, nausea and vomiting, resolved. 6. Diabetes type 2. 7. Sleep apnea with use of CPAP. 8. Muscle weakness. 9. Back pain. 10.Diabetic neuropathy. 11.Depression. DISCHARGE DIAGNOSIS: IV treatment of infected panniculectomy incision; resolution of dehydration, nausea, and vomiting. HISTORY: Denis Kirk was admitted on 11/26/2016 with an infection in his panniculectomy incision. He had a panniculectomy on 11/15/2016. HOSPITAL COURSE: He was treated with IV fluids and antinausea medication along with antibiotics until the cultures came back, and then he was changed to antibiotics that were specific to the organisms that grew out on the cultures. He was treated with IV ciprofloxacin and IV doxycycline. He remained afebrile. Oral intake adequate. He had no complications while in the hospital, and he was able to be discharged to home on 12/01/2016. He did have a Adam catheter placed by Jovany Cuellar M.D., with IV sedation on 11/27/2016, and he will be going home with this. PHYSICAL EXAMINATION: GENERAL: Denis Kirk is a 45-year-old male. VITAL SIGNS: Height is 5 feet 6 inches, weight is 261 pounds. TPR is 97, 63, 18. Blood pressure 152/91. HEENT: Negative. NECK: Supple. HEART: Regular rate and rhythm. LUNGS: Clear. ABDOMEN: Panniculectomy incision looks good. Tim are intact. He has 4 MARQUEZ drains draining a light serosanguineous drainage. Over the past 24 hours, the drains have put out 95, 45, 155, and 30 mL. EXTREMITIES: Revealed trace peripheral edema. He did receive an extra dose of Lasix yesterday with a blood pressure of 120/100 and his pressures did come down after that. DISPOSITION: Discharged to home. CONDITION: Stable and improving. FOLLOWUP APPOINTMENT: With Mamie Carpenter PA-C, on 12/08/2016 at 11:00 a.m. HOME MEDICATIONS: Cipro 500 mg p.o. b.i.d. for 10 days; doxycycline 100 mg p.o. q.12 hours for 10 days; and probiotics 2 tablets b.i.d., #120, 1 month and 5 refills. He is to continue all of his prior home medications, which include Senna Plus 1 tablet twice a day; Neurontin 800 mg oral 3 times a day, this was changed to liquid; he can have Tylenol 650 mg q.4 hours p.r.n. pain; Percocet 5/325 mg 1 to 2 p.r.n. pain per routine; Combivent 2 puffs inhalation twice daily; Ecotrin 81 mg oral daily; calcium citrate 1 tablet twice daily; Vitamin D3 1000 international units 3 times a day; Citalopram 40 mg oral daily; Levemir 15 units subcu at bedtime; insulin glulisine, Apidra, SoloSTAR 5 to 8 units subcu 3 times a day; lorazepam 0.5 mg to 1 mg oral 3 times a day; mirtazapine 30 mg at bedtime; morphine sulfate 60 mg 3 times a day; multivitamin 1 tablet twice a day; Protonix 40 mg oral daily; sennoside 2 tablets oral twice daily; Zocor 40 mg oral at bedtime; Coumadin 2 mg every 48 hours; Coumadin 3 mg every 48 hours; Prednisone 20 mg oral twice daily; and Ultram 50 mg oral 6 hours. DISCHARGE INSTRUCTIONS: Diet after discharge, step-4 gastric bypass diet. Drink 8 to 10 glasses of water a day. Activity, no lifting greater than 10 pounds for 4 weeks. Shower/bathing, may shower. Keep abdominal binder on for 4 more weeks. Notify provider if fever, increased pain, swelling, or redness. Keep site clean and dry. Continue to strip, empty, measure, and record MARQUEZ drains 4 times a day. Bring record of drainage to clinic appointment. Have PT and INR checked on 12/03/2016. Heparin flush, Adam cath weekly to be done by home health care nurse. Next flush and dressing is due on 12/08/2016.
== END 2016-12-01 12:00 | disposition home health service (06) | DRG 863 ==
LOC: JP.2SS 10:46
PROVIDERS: ADMIT Physician Assistant Medical; ATTEND Physician Assistant Medical
PROC: 05H633Z Insertion of Infusion Device into Left Subclavian Vein, Percutaneous Approach (ICD-10-PCS; principal; 2016-11-27)
PROC: B517ZZA Fluoroscopy of Left Subclavian Vein, Guidance (ICD-10-PCS; principal; 2016-11-27)
DX: T81.4XXA Infection following a procedure, initial encounter (principal); K91.2 Postsurgical malabsorption, not elsewhere classified; B96.20 Unspecified Escherichia coli [E. coli] as the cause of diseases classified elsewhere; B96.89 Other specified bacterial agents as the cause of diseases classified elsewhere; B96.5 Pseudomonas (aeruginosa) (mallei) (pseudomallei) as the cause of diseases classified elsewhere; Z98.890 Other specified postprocedural states; E86.0 Dehydration; E87.6 Hypokalemia; E11.40 Type 2 diabetes mellitus with diabetic neuropathy, unspecified; E11.21 Type 2 diabetes mellitus with diabetic nephropathy; Z79.4 Long term (current) use of insulin; E11.319 Type 2 diabetes mellitus with unspecified diabetic retinopathy without macular edema; E11.65 Type 2 diabetes mellitus with hyperglycemia; Z86.718 Personal history of other venous thrombosis and embolism; I10 Essential (primary) hypertension; N31.9 Neuromuscular dysfunction of bladder, unspecified; E53.8 Deficiency of other specified B group vitamins; E55.9 Vitamin D deficiency, unspecified; F43.10 Post-traumatic stress disorder, unspecified; F32.9 Major depressive disorder, single episode, unspecified; F41.9 Anxiety disorder, unspecified; M54.9 Dorsalgia, unspecified; G89.29 Other chronic pain; M19.90 Unspecified osteoarthritis, unspecified site; E78.00 Pure hypercholesterolemia, unspecified; H54.7 Unspecified visual loss; Z87.01 Personal history of pneumonia (recurrent); Z98.84 Bariatric surgery status; Z98.0 Intestinal bypass and anastomosis status; M62.81 Muscle weakness (generalized); F81.9 Developmental disorder of scholastic skills, unspecified; R79.1 Abnormal coagulation profile; K59.09 Other constipation; Z79.82 Long term (current) use of aspirin; Z79.01 Long term (current) use of anticoagulants; Z79.52 Long term (current) use of systemic steroids; Z88.8 Allergy status to other drugs, medicaments and biological substances
CPT/HCPCS: 36415; 80048; 80053; 82962; 83735; 83880; 84100; 85025; 85027; 85610; 87070; 87077; 87186; 87205; 94640-76; A9270-GY; C9113; J0744; J1642; J1940; J2020; J2185; J2250; J2704; J3010; J3475; J3480; J3490; J7030; J7040; J7042; J7050; J7120

== ENCOUNTER 2016-12-19 11:47 | Emergency (ER) | payer MEDICAID ==
[2016-12-19 12:06] VITALS: BP 120/87
[2016-12-19] MEDS ORDERED: HYDROmorphone 1 MG/ML Syringe IVPUSH ONE (12:50)
--- NOTE | 2016-12-19 12:54 | EDM.PDOC ---
ED HPI GENERAL MEDICAL PROBLEM - General Chief Complaint: Wound Recheck Stated Complaint: WOUND PAIN / BLOODY Time Seen by Provider: 12/19/16 12:43 Source of Information: Reports: Patient, Old Records, RN Notes Reviewed History Limitations: Reports: No Limitations - History of Present Illness INITIAL COMMENTS - FREE TEXT/NARRATIVE: 45-year-old gentleman presents emergency department a complaint of abdominal pain and increasing drainage from his surgical wounds, he recently underwent a panniculectomy about one month ago he has had complications with surgery with surgical wound infection abscess drainage. He states over the last couple of days the pain has increased and now has Thick bloody discharge. Denies any fevers. - Related Data Allergies Allergy/AdvReac Type Severity Reaction Status Date / Time hydrocodone [From Vicodin] Allergy Itching Verified 12/19/16 12:07 Home Meds: Home Meds Aspirin [Ecotrin] 81 mg PO DAILY 09/25/15 [History] predniSONE [Prednisone] 20 mg PO BID 09/25/15 [History] Multivitamin with Minerals [Multiple Vitamin] 1 tab PO BID #0 10/03/15 [Rx] Cholecalciferol (Vitamin D3) [Vitamin D] 1,000 unit PO TID 10/22/15 [History] Insulin Detemir [Levemir] 15 unit SUBCUT BEDTIME 10/22/15 [History] Insulin Glulisine [Apidra Solostar] 5 - 8 units SQ TIDAC 10/22/15 [History] Simvastatin [Zocor] 40 mg PO BEDTIME 11/26/15 [History] Citalopram [Citalopram HBr] 40 mg PO DAILY 08/13/16 [History] LORazepam 0.5 - 1 mg PO TID 08/13/16 [History] Mirtazapine 30 mg PO BEDTIME 08/13/16 [History] Morphine Sulfate [Morphine Sulfate Cr] 60 mg PO TID 08/13/16 [History] Pantoprazole [ProTONIX] 40 mg PO DAILY 08/13/16 [History] Warfarin Sodium [Coumadin] 2 mg PO Q48H 08/13/16 [History] Warfarin Sodium [Coumadin] 3 mg PO Q48H 08/13/16 [History] traMADol [Ultram] 50 mg PO Q6H 08/13/16 [History] Ca Citrate/Mgox/Vit D3/B6/Min [Calcium Citrate Plus Tablet] 1 each PO BID [History] Albuterol/Ipratropium [Combivent] 2 puff INH BID 11/15/16 [History] Furosemide 20 mg PO .QOD 11/15/16 [History] Sennosides 2 tab PO BID 11/27/16 [History] Acetaminophen [Tylenol] 650 mg PO Q4H PRN tablet 12/01/16 [Rx] Docusate Sodium/Sennosides [Senna Plus] 1 tab PO BID #60 tablet 12/01/16 [Rx] Gabapentin [Neurontin] 800 mg PO TID #0 12/01/16 [Rx] Lactobacillus Rhamnosus GG [Culturelle] 2 cap PO BID #120 cap 12/01/16 [Rx] Clindamycin HCl [Clindamycin HCl] 1 tab PO TID 12/19/16 [History] Past Medical History HEENT History: Reports: Impaired Vision Other HEENT History: wears glasses; retinal neuropathy Cardiovascular History: Reports: Blood Clots/VTE/DVT, High Cholesterol, Hypertension, SOB on Exertion, Syncope Respiratory History: Reports: Bronchitis, Recurrent, Pneumonia, Recurrent, Sleep Apnea, SOB, Other (See Below) Other Respiratory History: moderate lung disease Gastrointestinal History: Reports: Chronic Constipation, GERD Genitourinary History: Reports: Diabetic Nephropathy, Neurogenic Bladder, Renal Calculus, UTI, Recurrent Musculoskeletal History: Reports: Arthritis, Back Pain, Chronic, Fracture, Gout , Neck Pain, Chronic, Osteoarthritis, RA Neurological History: Reports: Headaches, Chronic, Neuropathy, Diabetic, Neuropathy, Peripheral Psychiatric History: Reports: Anxiety, Depression, Learning Disability, Mood Swings, Panic Attack, PTSD, Suicidal Ideation Endocrine/Metabolic History: Reports: Diabetes, Type II, Obesity/BMI 30+, Vitamin D Deficiency Hematologic History: Reports: B12 Deficiency Dermatologic History: Reports: Other (See Below) Other Dermatologic History: Pt. has had pressure ulcers on his bottom at one time. None present at this time - Infectious Disease History Infectious Disease History: Reports: Chicken Pox, Measles, Mumps - Past Surgical History HEENT Surgical History: Reports: Oral Surgery GI Surgical History: Reports: Bariatric Procedure, EGD, Esophageal Dilatation Male Surgical History: Reports: Kidney Stone Extraction, Other (See Below) Other Male Surgeries/Procedures: Dorsal Split Musculoskeletal Surgical History: Reports: Arthroscopic Knee, Arthroscopic Procedure, Other (See Below) Other Musculoskeletal Surgeries/Procedures:: ankles Dermatological Surgical History: Reports: None Social & Family History - Family History Family Medical History: Noncontributory HEENT: Reports: Cataract, Glaucoma Cardiac: Reports: Aneurysm, Blood Clots/VTE/DVT, Bypass, Heart Failure, Heart Valve Replacement, High Cholesterol, Hypertension, OR Respiratory: Reports: Asthma, COPD, Sleep Apnea GI: Reports: Chronic Constipation, Chronic Diarrhea, GERD Musculoskeletal: Reports: Gout Neurological: Reports: MS Endocrine/Metabolic: Reports: Diabetes, type II Oncologic: Reports: Breast - Tobacco Use Smoking Status *Q: Never Smoker Second Hand Smoke Exposure: No - Caffeine Use Caffeine Use: Reports: None - Recreational Drug Use Recreational Drug Use: No ED ROS GENERAL - Review of Systems Review Of Systems: See Below Constitutional: Reports: Weakness, Fatigue. Denies: Fever, Chills HEENT: Reports: No Symptoms Respiratory: Reports: No Symptoms Cardiovascular: Reports: Chest Pain (Over the last couple days) GI/Abdominal: Reports: Abdominal Pain, Flatus. Denies: Constipation, Diarrhea, Nausea, Vomiting : Reports: No Symptoms Musculoskeletal: Reports: No Symptoms Skin: Reports: No Symptoms ED EXAM, GI/ABD - Physical Exam Exam: See Below Exam Limited By: No Limitations General Appearance: Alert, WD/WN, No Apparent Distress Head: Atraumatic, Normocephalic Neck: Normal Inspection, Supple, Non-Tender, Full Range of Motion Respiratory/Chest: No Respiratory Distress, Lungs Clear, Normal Breath Sounds, No Accessory Muscle Use Cardiovascular: Regular Rate, Rhythm, No Murmur GI/Abdominal Exam: Soft, Non-Tender, Other (Surgical wounds are open I do not appreciate any significant drainage at this time) Course - Vital Signs Last Recorded V/S: Last Vital Signs Temp 98.4 F 12/19/16 12:18 Pulse 106 H 12/19/16 12:18 Resp 16 12/19/16 12:18 BP 120/87 12/19/16 12:18 Pulse Ox 100 12/19/16 12:18 - Orders/Labs/Meds Orders: Active Orders 24 hr Category Date Time Status Peripheral IV Care [RC] . DIRECTED Care 12/19/16 13:28 Active Vital Signs [RC] Q1H Care 12/19/16 12:48 Active Abdomen Pelvis w Cont [CT] Stat Exams 12/19/16 12:49 Taken CULTURE BLOOD [BC] Urgent Lab 12/19/16 12:50 Received CULTURE BLOOD [BC] Urgent Lab 12/19/16 12:55 Received Iopamidol [Isovue-300 (61%)] Med 12/19/16 13:15 Active 150 ml IV . DIRECTED Lactated Ringers [Ringers, Lactated] 1,000 ml Med 12/19/16 13:00 Active IV ASDIRECTED Sodium Chloride 0.9% [Saline Flush] Med 12/19/16 13:28 Active 10 ml FLUSH ASDIRECTED PRN Sodium Chloride 0.9% [Saline Flush] Med 12/19/16 13:08 Active 10 ml FLUSH ONETIME PRN Blood Culture x2 Reflex Set [OM.PC] Urgent Oth 12/19/16 12:48 Ordered Peripheral IV Insertion Adult [OM.PC] Urgent Oth 12/19/16 13:28 Ordered Medication Orders Lactated Ringer's (Ringers, Lactated) 1,000 mls @ 500 mls/hr IV ASDIRECTED [facility] Last Admin: 12/19/16 13:47 Dose: 500 mls/hr Iopamidol (Isovue-300 (61%)) 150 ml IV . DIRECTED [facility] Last Admin: 12/19/16 13:39 Dose: 150 ml Sodium Chloride (Saline Flush) 10 ml FLUSH ONETIME PRN PRN Reason: PER RADIOLOGY PROTOCOL Last Admin: 12/19/16 13:39 Dose: 10 ml Sodium Chloride (Saline Flush) 10 ml FLUSH ASDIRECTED PRN PRN Reason: Keep Vein Open Last Admin: 12/19/16 13:47 Dose: 10 ml Labs: Laboratory Tests 12/19/16 12/19/16 12/19/16 Range/Units 12:50 12:50 12:50 WBC 12.5 H (4.5-11.0) K/uL RBC 4.64 (4.30-5.90) M/uL Hgb 12.6 D (12.0-15.0) g/dL Hct 40.2 (40.0-54.0) % MCV 87 (80-98) fL MCH 27 (27-31) pg MCHC 31 L (32-36) % Plt Count 208 (150-400) K/uL Neut % (Auto) 82 H (36-66) % Lymph % (Auto) 11 L (24-44) % [place] % (Auto) 7 H (2-6) % Eos % (Auto) 0 L (2-4) % Baso % (Auto) 0 (0-1) % Sodium 141 (140-148) mmol/L Potassium 3.4 L (3.6-5.2) mmol/L Chloride 105 (100-108) mmol/L Carbon Dioxide 29 (21-32) mmol/L Anion Gap 10.4 (5.0-14.0) mmol/L BUN 12 (7-18) mg/dL Creatinine 0.9 (0.8-1.3) mg/dL Est Cr Clr Drug Dosing 96.91 mL/min Estimated GFR (MDRD) > 60 (>60) Glucose 115 H (74-106) mg/dL Lactic Acid 1.5 (0.4-2.0) mmol/L Calcium 7.9 L (8.5-10.1) mg/dL Total Bilirubin 0.5 D (0.2-1.0) mg/dL AST 17 (15-37) U/L ALT 33 (12-78) U/L Alkaline Phosphatase 83 (46-116) U/L Troponin I (0.000-0.056) ng/mL C-Reactive Protein 7.74 H (0.0-0.3) mg/dL Total Protein 5.4 L (6.4-8.2) g/dL Albumin 2.2 L (3.4-5.0) g/dL Globulin 3.2 (2.3-3.5) g/dL Albumin/Globulin Ratio 0.7 L (1.2-2.2) Lipase (73-393) U/L 12/19/16 12/19/16 Range/Units 12:50 14:23 WBC (4.5-11.0) K/uL RBC (4.30-5.90) M/uL Hgb (12.0-15.0) g/dL Hct (40.0-54.0) % MCV (80-98) fL MCH (27-31) pg MCHC (32-36) % Plt Count (150-400) K/uL Neut % (Auto) (36-66) % Lymph % (Auto) (24-44) % [place] % (Auto) (2-6) % Eos % (Auto) (2-4) % Baso % (Auto) (0-1) % Sodium (140-148) mmol/L Potassium (3.6-5.2) mmol/L Chloride (100-108) mmol/L Carbon Dioxide (21-32) mmol/L Anion Gap (5.0-14.0) mmol/L BUN (7-18) mg/dL Creatinine (0.8-1.3) mg/dL Est Cr Clr Drug Dosing mL/min Estimated GFR (MDRD) (>60) Glucose (74-106) mg/dL Lactic Acid (0.4-2.0) mmol/L Calcium (8.5-10.1) mg/dL Total Bilirubin (0.2-1.0) mg/dL AST (15-37) U/L ALT (12-78) U/L Alkaline Phosphatase (46-116) U/L Troponin I < 0.017 (0.000-0.056) ng/mL C-Reactive Protein (0.0-0.3) mg/dL Total Protein (6.4-8.2) g/dL Albumin (3.4-5.0) g/dL Globulin (2.3-3.5) g/dL Albumin/Globulin Ratio (1.2-2.2) Lipase 49 L (73-393) U/L Meds: Medications Generic Name Dose Route Start Last Admin Trade Name Freq PRN Reason Stop Dose Admin Lactated Ringer's 1,000 mls @ 500 mls/hr 12/19/16 13:00 12/19/16 13:47 Ringers, Lactated IV 500 mls/hr ASDIRECTED OMAYRA Administration Iopamidol 150 ml 12/19/16 13:15 12/19/16 13:39 Isovue-300 (61%) IV 150 ml . DIRECTED OMAYRA Administration Sodium Chloride 10 ml 12/19/16 13:08 12/19/16 13:39 Saline Flush FLUSH 10 ml ONETIME PRN Administration PER RADIOLOGY PROTOCOL Sodium Chloride 10 ml 12/19/16 13:28 12/19/16 13:47 Saline Flush FLUSH 10 ml ASDIRECTED PRN Administration Keep Vein Open Discontinued Medications Generic Name Dose Route Start Last Admin Trade Name Freq PRN Reason Stop Dose Admin Hydromorphone HCl 1 mg 12/19/16 12:50 12/19/16 13:46 Dilaudid IVPUSH 12/19/16 12:51 1 mg ONETIME ONE Administration Sodium Chloride 85 mls @ 3 mls/sec 12/19/16 13:08 12/19/16 13:39 Normal Saline IV 12/19/16 13:09 3 mls/sec ONETIME ONE Administration Departure - Departure Time of Disposition: 14:48 Disposition: Home, Self-Care 01 Condition: Fair Clinical Impression: Surgical wound infection Qualifiers: Encounter type: initial encounter Qualified Code(s): T81.4XXA - Infection following a procedure, initial encounter - Discharge Information Referrals: Satish Salinas MD [Primary Care Provider] - Forms: ED Department Discharge Additional Instructions: [facility] tomorrow morning for an appointment with Mamie Carpenter and Dr. Cuellar evaluation - My Orders Last 24 Hours: My Active Orders 12/19/16 12:48 Vital Signs [RC] Q1H Blood Culture x2 Reflex Set [OM.PC] Urgent 12/19/16 12:49 Abdomen Pelvis w Cont [CT] Stat 12/19/16 12:50 CULTURE BLOOD [BC] Urgent 12/19/16 12:55 CULTURE BLOOD [BC] Urgent 12/19/16 13:00 Lactated Ringers [Ringers, Lactated] 1,000 ml IV ASDIRECTED 12/19/16 13:08 Sodium Chloride 0.9% [Saline Flush] 10 ml FLUSH ONETIME PRN 12/19/16 13:15 Iopamidol [Isovue-300 (61%)] 150 ml IV . DIRECTED 12/19/16 13:28 Peripheral IV Care [RC] . DIRECTED Sodium Chloride 0.9% [Saline Flush] 10 ml FLUSH ASDIRECTED PRN Peripheral IV Insertion Adult [OM.PC] Urgent - Assessment/Plan Last 24 Hours: My Active Orders 12/19/16 12:48 Vital Signs [RC] Q1H Blood Culture x2 Reflex Set [OM.PC] Urgent 12/19/16 12:49 Abdomen Pelvis w Cont [CT] Stat 12/19/16 12:50 CULTURE BLOOD [BC] Urgent 12/19/16 12:55 CULTURE BLOOD [BC] Urgent 12/19/16 13:00 Lactated Ringers [Ringers, Lactated] 1,000 ml IV ASDIRECTED 12/19/16 13:08 Sodium Chloride 0.9% [Saline Flush] 10 ml FLUSH ONETIME PRN 12/19/16 13:15 Iopamidol [Isovue-300 (61%)] 150 ml IV . DIRECTED 12/19/16 13:28 Peripheral IV Care [RC] . DIRECTED Sodium Chloride 0.9% [Saline Flush] 10 ml FLUSH ASDIRECTED PRN Peripheral IV Insertion Adult [OM.PC] Urgent Plan: Assessment Acuity = acute Site and laterality = increasing wound drainage status post panniculectomy, one month with complications of wound infection Etiology = unknown etiology Manifestations = abdominal pain and drainage Location of injury = Home Lab values = WBC elevated at 12.5 consistent leukocytosis, potassium low at 3.4 consistent hypokalemia CRP elevated at 7.74 albumin low at 2.[address] scan shows mild band of edema there in the superficial anterior abdominal wall consistent with postprocedure etiology mild amount of stool otherwise no acute process Plan Called and discussed case with Dr. Cuellar general surgery recommend follow-up with him in clinic tomorrow morning at 8:30, 15 tramadol provided for pain control 50 mg Patient was in agreement with the plan all questions were answered, they were instructed to return to the emergency department or call for worsening symptoms. This note was dictated using [email or web address] voice recognition software please call with any questions.
[2016-12-19] MEDS ORDERED: Lactated Ringers 1,000 ML IV SCH (13:00)
[2016-12-19] MEDS ORDERED: Sodium Chloride 0.9% 10 ML Syringe FLUSH PRN ×2 (13:08→13:28)
[2016-12-19] MEDS ORDERED: Iopamidol 612 MG/ML 150 ML Bottle IV SCH (13:15)
== END 2016-12-19 16:04 | disposition home or self-care (01) ==
LOC: JP.ED 11:47
DX: T81.4XXA Infection following a procedure, initial encounter (principal); E78.00 Pure hypercholesterolemia, unspecified; I10 Essential (primary) hypertension; K21.9 Gastro-esophageal reflux disease without esophagitis; E11.9 Type 2 diabetes mellitus without complications; E66.9 Obesity, unspecified; Z88.5 Allergy status to narcotic agent; Z79.82 Long term (current) use of aspirin; Z79.4 Long term (current) use of insulin; Z79.899 Other long term (current) drug therapy; Z79.01 Long term (current) use of anticoagulants
CPT/HCPCS: 36415; 74177; 80053; 83605; 83690; 84484; 85025; 86140; 87040; 96361; 96374; 99284; J1170; J1642; J7030; J7050; J7120; 99283

== ENCOUNTER 2016-12-21 07:00 | Day surgery (SDC) | payer MEDICAID ==
[~2016-12-21 07:00] MED LIST: Bupivacaine 0.5% 50 ML MDV ONE; Lidocaine 1% with EPINEPHrine 1:100,000 50 ML MDV ONE
[2016-12-21] MEDS: Dextrose 5%-Lactated Ringers 1,000 ML IV SCH ×2 (07:48→11:24)
[2016-12-21] MEDS ORDERED: Midazolam 1 MG/ML 2 ML SDV ONE (08:38)
[2016-12-21] MEDS ORDERED: Propofol 200 MG/20 ML SDV ONE (08:38)
[2016-12-21] MEDS ORDERED: fentaNYL 100 MCG/2 ML SDV ONE (08:38)
[2016-12-21] MEDS ORDERED: fentaNYL 100 MCG/2 ML SDV IVPUSH ONE (11:00)
[2016-12-21 12:32] VITALS: BP 151/88
--- NOTE | 2016-12-29 08:35 | OR ---
DATE OF PROCEDURE: 12/21/2016 PREOPERATIVE DIAGNOSES: 1. Drained seroma abdominal wall. 2. The patient is due for change of bladder catheter. POSTOPERATIVE DIAGNOSES: 1. Drained seroma abdominal wall. 2. The patient is due for change of bladder catheter. PROCEDURES: 1. Open drainage of an incompletely drained seroma abdominal wall. 2. Change of bladder catheter. ANESTHESIA: IV sedation. INDICATION FOR PROCEDURE: This is a 45-year-old, status post a panniculectomy that became involved in a seroma formation and it became significantly open. At this point, it is still not adequately drained to allow adequate wound care. The patient was taken to the operating room to have some of the additional skin opened to facilitate more adequate management of the wound. The patient is also due for a change in his urinary bladder catheter. Potential risks, including postoperative bleeding and such were reviewed, and the patient wishes to proceed. DETAILS OF PROCEDURE: The patient was taken to the operating room and placed in the supine position. IV sedation was administered, after which initially the previous urinary bladder catheter was removed, and a new 18-Panamanian Pinto catheter using standard sterile technique was then placed without difficulty. At this point, the skin edges were opened along the panniculectomy incision, other than for 3 areas with some bridges, which would be easily packed underneath them, were left in place just to keep the general alignment of the skin more adequately in place to allow secondary closure in an otherwise uncomplicated manner. Once this was done, with a combination of blunt sharp dissection, the incision at this point would typically be insensate, due to the flaps being raised during the course of panniculectomy development, and so no local was required, and the wound was then packed with Kerlix. The patient was taken to the recovery room in satisfactory condition. Jovany Cuellar MD /[id number]
== END 2016-12-21 12:35 | disposition home or self-care (01) ==
LOC: JP.SDS 07:00
PROVIDERS: ATTEND Surgery
DX: T81.4XXA Infection following a procedure, initial encounter (principal); I10 Essential (primary) hypertension; E78.00 Pure hypercholesterolemia, unspecified; G47.33 Obstructive sleep apnea (adult) (pediatric); K21.9 Gastro-esophageal reflux disease without esophagitis; F41.9 Anxiety disorder, unspecified; F32.9 Major depressive disorder, single episode, unspecified; E11.42 Type 2 diabetes mellitus with diabetic polyneuropathy; E55.9 Vitamin D deficiency, unspecified; E66.9 Obesity, unspecified; Z68.30 Body mass index [BMI] 30.0-30.9, adult; Z98.84 Bariatric surgery status; Z88.8 Allergy status to other drugs, medicaments and biological substances; Z98.890 Other specified postprocedural states
CPT/HCPCS: 10140; J1642; J2250; J2704; J3010; J7042

== ENCOUNTER 2016-12-22 16:09 | Inpatient (IN) | payer MEDICAID ==
[2016-12-22] MEDS ORDERED: Sodium Chloride 0.9% 1,000 ML IV SCH (17:30)
--- NOTE | 2016-12-22 18:30 | EDM.PDOC ---
ED HPI GENERAL MEDICAL PROBLEM - General Chief Complaint: Abdominal Pain Stated Complaint: FEVER Time Seen by Provider: 12/22/16 16:25 Source of Information: Reports: Patient, Family History Limitations: Reports: No Limitations - History of Present Illness INITIAL COMMENTS - FREE TEXT/NARRATIVE: pt arrived with a history of spiking a temp this afternoon. The temp was 101 according to the [facility]. Pt just had his wound opened and he has been home for 24 hours. Onset: Today Duration: Hour(s): Associated Symptoms: Reports: No Other Symptoms, Other (Pt did have his day cath changed yesterday so that could be another source of the fever. ) Lower Abdominal Pain Score (Numeric/FACES): 10 - Related Data Allergies Allergy/AdvReac Type Severity Reaction Status Date / Time hydrocodone [From Vicodin] Allergy Itching Verified 12/22/16 16:38 Home Meds: Home Meds Aspirin [Ecotrin] 81 mg PO DAILY 09/25/15 [History] predniSONE [Prednisone] 20 mg PO BID 09/25/15 [History] Multivitamin with Minerals [Multiple Vitamin] 1 tab PO BID #0 10/03/15 [Rx] Cholecalciferol (Vitamin D3) [Vitamin D] 1,000 unit PO TID 10/22/15 [History] Insulin Detemir [Levemir] 15 unit SUBCUT BEDTIME 10/22/15 [History] Insulin Glulisine [Apidra Solostar] 5 - 8 units SQ TIDAC 10/22/15 [History] Simvastatin [Zocor] 40 mg PO BEDTIME 11/26/15 [History] Citalopram [Citalopram HBr] 40 mg PO DAILY 08/13/16 [History] LORazepam 0.5 - 1 mg PO TID 08/13/16 [History] Mirtazapine 30 mg PO BEDTIME 08/13/16 [History] Morphine Sulfate [Morphine Sulfate Cr] 60 mg PO TID 08/13/16 [History] Pantoprazole [ProTONIX] 40 mg PO DAILY 08/13/16 [History] Warfarin Sodium [Coumadin] 2 mg PO Q48H 08/13/16 [History] Warfarin Sodium [Coumadin] 3 mg PO Q48H 08/13/16 [History] traMADol [Ultram] 50 mg PO Q6H 08/13/16 [History] Ca Citrate/Mgox/Vit D3/B6/Min [Calcium Citrate Plus Tablet] 1 each PO BID [History] Albuterol/Ipratropium [Combivent] 2 puff INH BID 11/15/16 [History] Furosemide 20 mg PO .QOD 11/15/16 [History] Sennosides 2 tab PO BID 11/27/16 [History] Acetaminophen [Tylenol] 650 mg PO Q4H PRN tablet 12/01/16 [Rx] Docusate Sodium/Sennosides [Senna Plus] 1 tab PO BID #60 tablet 12/01/16 [Rx] Gabapentin [Neurontin] 800 mg PO TID #0 12/01/16 [Rx] oxyCODONE HCl/Acetaminophen [Percocet 5-325 mg Tablet] 2 each PO Q4H PRN [History] Past Medical History HEENT History: Reports: Impaired Vision Other HEENT History: wears glasses; retinal neuropathy Cardiovascular History: Reports: Blood Clots/VTE/DVT, High Cholesterol, Hypertension, SOB on Exertion, Syncope Respiratory History: Reports: Bronchitis, Recurrent, Pneumonia, Recurrent, Sleep Apnea, SOB, Other (See Below) Other Respiratory History: moderate lung disease Gastrointestinal History: Reports: Chronic Constipation, GERD Genitourinary History: Reports: Diabetic Nephropathy, Neurogenic Bladder, Renal Calculus, UTI, Recurrent Musculoskeletal History: Reports: Arthritis, Back Pain, Chronic, Fracture, Gout , Neck Pain, Chronic, Osteoarthritis, RA Neurological History: Reports: Headaches, Chronic, Neuropathy, Diabetic, Neuropathy, Peripheral Psychiatric History: Reports: Anxiety, Depression, Learning Disability, Mood Swings, Panic Attack, PTSD, Suicidal Ideation Endocrine/Metabolic History: Reports: Diabetes, Type II, IDDM, Obesity/BMI 30+, Vitamin D Deficiency Hematologic History: Reports: B12 Deficiency Dermatologic History: Reports: Other (See Below) Other Dermatologic History: Pt. has had pressure ulcers on his bottom at one time. None present at this time - Infectious Disease History Infectious Disease History: Reports: Chicken Pox, Measles, Mumps - Past Surgical History HEENT Surgical History: Reports: Oral Surgery Cardiovascular Surgical History: Reports: None Respiratory Surgical History: Reports: None GI Surgical History: Reports: Bariatric Procedure, EGD, Esophageal Dilatation, Hernia Repair/Other, Other (See Below) Other GI Surgeries/Procedures: panniculectomy Male Surgical History: Reports: Kidney Stone Extraction, Other (See Below) Other Male Surgeries/Procedures: Dorsal Split Endocrine Surgical History: Reports: None Neurological Surgical History: Reports: None Musculoskeletal Surgical History: Reports: Arthroscopic Knee, Arthroscopic Procedure, Other (See Below) Other Musculoskeletal Surgeries/Procedures:: ankles Dermatological Surgical History: Reports: None Social & Family History - Family History Family Medical History: Noncontributory HEENT: Reports: Cataract, Glaucoma Cardiac: Reports: Aneurysm, Blood Clots/VTE/DVT, Bypass, Heart Failure, Heart Valve Replacement, High Cholesterol, Hypertension, [place] Respiratory: Reports: Asthma, COPD, Sleep Apnea GI: Reports: Chronic Constipation, Chronic Diarrhea, GERD Musculoskeletal: Reports: Gout Neurological: Reports: MS Endocrine/Metabolic: Reports: Diabetes, type II Oncologic: Reports: Breast - Tobacco Use Smoking Status *Q: Unknown Ever Smoked Second Hand Smoke Exposure: No - Caffeine Use Caffeine Use: Reports: None - Recreational Drug Use Recreational Drug Use: No ED ROS GENERAL - Review of Systems Review Of Systems: See Below Constitutional: Reports: Fever HEENT: Reports: No Symptoms Respiratory: Reports: No Symptoms Cardiovascular: Reports: Other (pt has noted that his pulse is rapid. ) Endocrine: Reports: No Symptoms GI/Abdominal: Reports: Other (Pt has an open wound that needs to be packed. ) : Reports: Other ( pt has a day cath. ) Musculoskeletal: Reports: No Symptoms Skin: Reports: No Symptoms Neurological: Reports: No Symptoms ED EXAM, GI/ABD - Physical Exam Exam: See Below Text/Narrative:: Pt arrived with a history of spiking a temp according to home care this afternoon. He also had his day changed yesterday. Exam Limited By: No Limitations General Appearance: Alert, Anxious, Mild Distress Ears: Normal TMs Nose: Normal Inspection Throat/Mouth: Normal Inspection Head: Atraumatic Neck: Normal Inspection Respiratory/Chest: No Respiratory Distress Cardiovascular: Regular Rate, Rhythm, Tachycardia GI/Abdominal Exam: Other ( abdomn is soft. ) (Male) Exam: Normal Inspection Rectal (Males) Exam: Deferred Back Exam: Normal Inspection Extremities: Normal Inspection Neurological: Alert, Oriented, Normal Cognition Course - Vital Signs Last Recorded V/S: Last Vital Signs Temp 37.6 C 12/22/16 16:27 Pulse 109 H 12/22/16 16:27 Resp 18 12/22/16 16:27 BP 128/79 12/22/16 16:27 Pulse Ox 98 12/22/16 16:27 - Orders/Labs/Meds Orders: Active Orders 24 hr Category Date Time Status CULTURE BLOOD [BC] Urgent Lab 12/22/16 18:00 Received CULTURE BLOOD [BC] Urgent Lab 12/22/16 18:09 Received INR,PT,PROTHROMBIN TIME [COAG] Stat Lab 12/22/16 18:12 Ordered UA W/MICROSCOPIC [URIN] Urgent Lab 12/22/16 18:15 Received Sodium Chloride 0.9% [Normal Saline] 1,000 ml Med 12/22/16 17:30 Active IV ASDIRECTED Blood Culture x2 Reflex Set [OM.PC] Urgent Oth 12/22/16 17:23 Ordered Medication Orders Sodium Chloride (Normal Saline) 1,000 mls @ 500 mls/hr IV ASDIRECTED OMAYRA Last Admin: 12/22/16 18:12 Dose: 500 mls/hr Labs: Laboratory Tests 12/22/16 12/22/16 12/22/16 Range/Units 16:52 16:52 16:59 WBC 15.5 H (4.5-11.0) K/uL RBC 4.45 (4.30-5.90) M/uL Hgb 12.0 (12.0-15.0) g/dL Hct 38.0 L (40.0-54.0) % MCV 85 (80-98) fL MCH 27 (27-31) pg MCHC 32 (32-36) % Plt Count 252 (150-400) K/uL Neut % (Auto) 84 H (36-66) % Lymph % (Auto) 5 L (24-44) % [place] % (Auto) 11 H (2-6) % Eos % (Auto) 0 L (2-4) % Baso % (Auto) 0 (0-1) % Sodium 138 L (140-148) mmol/L Potassium 3.4 L (3.6-5.2) mmol/L Chloride 102 (100-108) mmol/L Carbon Dioxide 26 (21-32) mmol/L Anion Gap 13.4 (5.0-14.0) mmol/L BUN 12 (7-18) mg/dL Creatinine 1.1 (0.8-1.3) mg/dL Est Cr Clr Drug Dosing 79.29 mL/min Estimated GFR (MDRD) > 60 (>60) Glucose 183 H (74-106) mg/dL Lactic Acid 3.2 H (0.4-2.0) mmol/L Calcium 7.6 L (8.5-10.1) mg/dL Total Bilirubin 0.4 (0.2-1.0) mg/dL AST 14 L (15-37) U/L ALT 24 (12-78) U/L Alkaline Phosphatase 80 (46-116) U/L Total Protein 5.2 L (6.4-8.2) g/dL Albumin 2.0 L (3.4-5.0) g/dL Globulin 3.2 (2.3-3.5) g/dL Albumin/Globulin Ratio 0.6 L (1.2-2.2) Meds: Medications Generic Name Dose Route Start Last Admin Trade Name Freq PRN Reason Stop Dose Admin Sodium Chloride 1,000 mls @ 500 mls/hr 12/22/16 17:30 12/22/16 18:12 Normal Saline IV 500 mls/hr ASDIRECTED [facility] Administration - Re-Assessments/Exams Free Text/Narrative Re-Assessment/Exam: 12/22/16 18:31 Pt had a wbc of 15,400 but he is on predisone. his lactic acid is up. He was started on fluids but the pt feels he has had a good intake. Departure - Departure Time of Disposition: 18:32 Disposition: Admitted As Inpatient 66 Condition: Fair Clinical Impression: UTI (urinary tract infection), Visit for wound care - Discharge Information Referrals: Satish Salinas MD [Primary Care Provider] - Care Plan Goals: admit to Dr Alva. - My Orders Last 24 Hours: My Active Orders 12/22/16 17:23 Blood Culture x2 Reflex Set [OM.PC] Urgent 12/22/16 17:30 Sodium Chloride 0.9% [Normal Saline] 1,000 ml IV ASDIRECTED 12/22/16 18:00 CULTURE BLOOD [BC] Urgent 12/22/16 18:09 CULTURE BLOOD [BC] Urgent 12/22/16 18:15 UA W/MICROSCOPIC [URIN] Urgent - Assessment/Plan Last 24 Hours: My Active Orders 12/22/16 17:23 Blood Culture x2 Reflex Set [OM.PC] Urgent 12/22/16 17:30 Sodium Chloride 0.9% [Normal Saline] 1,000 ml IV ASDIRECTED 12/22/16 18:00 CULTURE BLOOD [BC] Urgent 12/22/16 18:09 CULTURE BLOOD [BC] Urgent 12/22/16 18:15 UA W/MICROSCOPIC [URIN] Urgent
--- NOTE | 2016-12-22 19:50 | PCM.HP ---
H&P History of Present Illness - General Date of Service: 12/22/16 Admit Problem/Dx: Admission Diagnosis/Problem Admission Diagnosis/Problem Cystitis Source of Information: Patient, Old Records, Provider, RN Notes Reviewed History Limitations: Reports: No Limitations - History of Present Illness Initial Comments - Free Text/Narative: Mr. Kirk is a 45-year-old gentleman who is admitted through the emergency department with fever and chills with associated weakness secondary to urinary tract infection and early sepsis. He has a history of progressive neurologic decline and has been followed at the [facility] in [place]. As a result of this he has a neurogenic bladder and chronic indwelling catheter. He is status post panniculectomy in the last several weeks complicated by infection of the wound. He was seen and evaluated in the clinic yesterday by Dr. Cuellar and areas of the large wound were opened for drainage. He was not felt to have significant infection associated with the areas requiring drainage. Today noted that he was more weak and on evaluation emergency room department has an elevated white count although this may be secondary to current therapy with prednisone. Lactic acid level is elevated at 3.2 and urine shows evidence of underlying infection. Lower Abdominal Pain Score (Numeric/FACES): 10 - Related Data Allergies/Adverse Reactions: Allergies Allergy/AdvReac Type Severity Reaction Status Date / Time hydrocodone [From Vicodin] Allergy Itching Verified 12/22/16 16:38 Home Medications: Home Meds Aspirin [Ecotrin] 81 mg PO DAILY 09/25/15 [History] predniSONE [Prednisone] 20 mg PO BID 09/25/15 [History] Multivitamin with Minerals [Multiple Vitamin] 1 tab PO BID #0 10/03/15 [Rx] Cholecalciferol (Vitamin D3) [Vitamin D] 1,000 unit PO TID 10/22/15 [History] Insulin Detemir [Levemir] 15 unit SUBCUT BEDTIME 10/22/15 [History] Insulin Glulisine [Apidra Solostar] 5 - 8 units SQ TIDAC 10/22/15 [History] Simvastatin [Zocor] 40 mg PO BEDTIME 11/26/15 [History] Citalopram [Citalopram HBr] 40 mg PO DAILY 08/13/16 [History] LORazepam 0.5 - 1 mg PO TID 08/13/16 [History] Mirtazapine 30 mg PO BEDTIME 08/13/16 [History] Morphine Sulfate [Morphine Sulfate Cr] 60 mg PO TID 08/13/16 [History] Pantoprazole [ProTONIX] 40 mg PO DAILY 08/13/16 [History] Warfarin Sodium [Coumadin] 2 mg PO Q48H 08/13/16 [History] Warfarin Sodium [Coumadin] 3 mg PO Q48H 08/13/16 [History] traMADol [Ultram] 50 mg PO Q6H 08/13/16 [History] Ca Citrate/Mgox/Vit D3/B6/Min [Calcium Citrate Plus Tablet] 1 each PO BID [History] Albuterol/Ipratropium [Combivent] 2 puff INH BID 11/15/16 [History] Furosemide 20 mg PO .QOD 11/15/16 [History] Sennosides 2 tab PO BID 11/27/16 [History] Acetaminophen [Tylenol] 650 mg PO Q4H PRN tablet 12/01/16 [Rx] Docusate Sodium/Sennosides [Senna Plus] 1 tab PO BID #60 tablet 12/01/16 [Rx] Gabapentin [Neurontin] 800 mg PO TID #0 12/01/16 [Rx] oxyCODONE HCl/Acetaminophen [Percocet 5-325 mg Tablet] 2 each PO Q4H PRN [History] Past Medical History HEENT History: Reports: Impaired Vision Other HEENT History: wears glasses; retinal neuropathy Cardiovascular History: Reports: Blood Clots/VTE/DVT, High Cholesterol, Hypertension, SOB on Exertion, Syncope Respiratory History: Reports: Bronchitis, Recurrent, Pneumonia, Recurrent, Sleep Apnea, SOB, Other (See Below) Other Respiratory History: moderate lung disease Gastrointestinal History: Reports: Chronic Constipation, GERD Genitourinary History: Reports: Diabetic Nephropathy, Neurogenic Bladder, Renal Calculus, UTI, Recurrent Musculoskeletal History: Reports: Arthritis, Back Pain, Chronic, Fracture, Gout , Neck Pain, Chronic, Osteoarthritis, RA Neurological History: Reports: Headaches, Chronic, Neuropathy, Diabetic, Neuropathy, Peripheral Psychiatric History: Reports: Anxiety, Depression, Learning Disability, Mood Swings, Panic Attack, PTSD, Suicidal Ideation Endocrine/Metabolic History: Reports: Diabetes, Type II, IDDM, Obesity/BMI 30+, Vitamin D Deficiency Hematologic History: Reports: B12 Deficiency Dermatologic History: Reports: Other (See Below) Other Dermatologic History: Pt. has had pressure ulcers on his bottom at one time. None present at this time - Infectious Disease History Infectious Disease History: Reports: Chicken Pox, Measles, Mumps - Past Surgical History HEENT Surgical History: Reports: Oral Surgery Cardiovascular Surgical History: Reports: None Respiratory Surgical History: Reports: None GI Surgical History: Reports: Bariatric Procedure, EGD, Esophageal Dilatation, Hernia Repair/Other, Other (See Below) Other GI Surgeries/Procedures: panniculectomy Male Surgical History: Reports: Kidney Stone Extraction, Other (See Below) Other Male Surgeries/Procedures: Dorsal Split Endocrine Surgical History: Reports: None Neurological Surgical History: Reports: None Musculoskeletal Surgical History: Reports: Arthroscopic Knee, Arthroscopic Procedure, Other (See Below) Other Musculoskeletal Surgeries/Procedures:: ankles Dermatological Surgical History: Reports: None Social & Family History - Family History Family Medical History: Noncontributory HEENT: Reports: Cataract, Glaucoma Cardiac: Reports: Aneurysm, Blood Clots/VTE/DVT, Bypass, Heart Failure, Heart Valve Replacement, High Cholesterol, Hypertension, [place] Respiratory: Reports: Asthma, COPD, Sleep Apnea GI: Reports: Chronic Constipation, Chronic Diarrhea, GERD Musculoskeletal: Reports: Gout Neurological: Reports: MS Endocrine/Metabolic: Reports: Diabetes, type II Oncologic: Reports: Breast - Tobacco Use Smoking Status *Q: Unknown Ever Smoked Second Hand Smoke Exposure: No - Caffeine Use Caffeine Use: Reports: None - Recreational Drug Use Recreational Drug Use: No H&P Review of Systems - Review of Systems: Review Of Systems: See Below General: Reports: Fever, Chills, Weakness, Diaphoresis HEENT: Reports: No Symptoms Pulmonary: Reports: No Symptoms Cardiovascular: Reports: No Symptoms Gastrointestinal: Reports: Other (Abdominal wall pain). Denies: Abdominal Pain , Constipation, Diarrhea, Decreased Appetite, Difficulty Swallowing, Distension Genitourinary: Reports: No Symptoms Musculoskeletal: Reports: No Symptoms Skin: Reports: No Symptoms Psychiatric: Reports: No Symptoms Neurological: Reports: Paresthesia, Pre-Existing Deficit, Weakness Hematologic/Lymphatic: Reports: No Symptoms Immunologic: Reports: No Symptoms Exam - Exam Exam: See Below - Vital Signs Vital Signs: Last Vital Signs Temp 98.8 F 12/22/16 19:19 Pulse 88 12/22/16 19:19 Resp 15 10/04/17 19:19 BP 107/71 12/22/16 19:19 Pulse Ox 93 L 12/22/16 19:19 Weight: 266 lb - Exam Quality Assessment: DVT Prophylaxis General: Alert, Oriented, Cooperative, Mild Distress HEENT: Conjunctiva Clear, Hearing Intact, Mucosa Moist & [place], Normal Nasal Septum, Posterior Pharynx Clear, Pupils Equal Neck: Supple, Trachea Midline, +2 Carotid Pulse wo Bruit Lungs: Clear to Auscultation, Normal Respiratory Effort Cardiovascular: Regular Rhythm, Normal S1, Normal S2, Tachycardia. No: Systolic Murmur, Diastolic Murmur GI/Abdominal Exam: Normal Bowel Sounds, Soft, No Organomegaly, No Distention, Other (Open wounds lower abdomen) Back Exam: Normal Inspection, Full Range of Motion Extremities: Non-Tender, No Pedal Edema Skin: Warm, Dry Neurological: Cranial Nerves Intact, Strength Equal Bilateral, Normal Speech, Normal Tone, Sensation Intact. No: Focal Deficit Neuro Extensive - Mental Status: Alert, Oriented x3, Normal Mood/Affect, Normal Cognition, Memory Intact - Patient Data Lab Results Last 24 hrs: Laboratory Results - last 24 hr 12/22/16 12/22/16 12/22/16 Range/Units 16:52 16:52 16:59 WBC 15.5 H (4.5-11.0) K/uL RBC 4.45 (4.30-5.90) M/uL Hgb 12.0 (12.0-15.0) g/dL Hct 38.0 L (40.0-54.0) % MCV 85 (80-98) fL MCH 27 (27-31) pg MCHC 32 (32-36) % Plt Count 252 (150-400) K/uL Neut % (Auto) 84 H (36-66) % Lymph % (Auto) 5 L (24-44) % [place] % (Auto) 11 H (2-6) % Eos % (Auto) 0 L (2-4) % Baso % (Auto) 0 (0-1) % PT (9.5-12.0) sec INR (0.80-1.20) Sodium 138 L (140-148) mmol/L Potassium 3.4 L (3.6-5.2) mmol/L Chloride 102 (100-108) mmol/L Carbon Dioxide 26 (21-32) mmol/L Anion Gap 13.4 (5.0-14.0) mmol/L BUN 12 (7-18) mg/dL Creatinine 1.1 (0.8-1.3) mg/dL Est Cr Clr Drug Dosing 79.29 mL/min Estimated GFR (MDRD) > 60 (>60) Glucose 183 H (74-106) mg/dL Lactic Acid 3.2 H (0.4-2.0) mmol/L Calcium 7.6 L (8.5-10.1) mg/dL Total Bilirubin 0.4 (0.2-1.0) mg/dL AST 14 L (15-37) U/L ALT 24 (12-78) U/L Alkaline Phosphatase 80 (46-116) U/L Total Protein 5.2 L (6.4-8.2) g/dL Albumin 2.0 L (3.4-5.0) g/dL Globulin 3.2 (2.3-3.5) g/dL Albumin/Globulin Ratio 0.6 L (1.2-2.2) Urine Color Urine Appearance Urine pH (4.5-8.0) Ur Specific [place] (1.008-1.030) Urine Protein (NEGATIVE) mg/dL Urine Glucose (UA) (NEGATIVE) mg/dL Urine Ketones (NEGATIVE) mg/dL Urine Occult Blood (NEGATIVE) Urine Nitrite (NEGAITVE) Urine Bilirubin (NEGATIVE) Urine Urobilinogen (NORMAL) mg/dL Ur Leukocyte Esterase (NEGATIVE) Urine RBC (0-5) Urine WBC (0-5) Ur Epithelial Cells Urine Bacteria Urine Mucus 12/22/16 12/22/16 Range/Units 18:12 18:15 WBC (4.5-11.0) K/uL RBC (4.30-5.90) M/uL Hgb (12.0-15.0) g/dL Hct (40.0-54.0) % MCV (80-98) fL MCH (27-31) pg MCHC (32-36) % Plt Count (150-400) K/uL Neut % (Auto) (36-66) % Lymph % (Auto) (24-44) % [place] % (Auto) (2-6) % Eos % (Auto) (2-4) % Baso % (Auto) (0-1) % PT 12.1 H (9.5-12.0) sec INR 1.13 (0.80-1.20) Sodium (140-148) mmol/L Potassium (3.6-5.2) mmol/L Chloride (100-108) mmol/L Carbon Dioxide (21-32) mmol/L Anion Gap (5.0-14.0) mmol/L BUN (7-18) mg/dL Creatinine (0.8-1.3) mg/dL Est Cr Clr Drug Dosing mL/min Estimated GFR (MDRD) (>60) Glucose (74-106) mg/dL Lactic Acid (0.4-2.0) mmol/L Calcium (8.5-10.1) mg/dL Total Bilirubin (0.2-1.0) mg/dL AST (15-37) U/L ALT (12-78) U/L Alkaline Phosphatase (46-116) U/L Total Protein (6.4-8.2) g/dL Albumin (3.4-5.0) g/dL Globulin (2.3-3.5) g/dL Albumin/Globulin Ratio (1.2-2.2) Urine Color Yellow Urine Appearance Slightly cloudy Urine pH 5.0 (4.5-8.0) Ur Specific [place] 1.015 (1.008-1.030) Urine Protein Negative (NEGATIVE) mg/dL Urine Glucose (UA) Normal (NEGATIVE) mg/dL Urine Ketones Negative (NEGATIVE) mg/dL Urine Occult Blood Moderate (NEGATIVE) Urine Nitrite Negative (NEGAITVE) Urine Bilirubin Negative (NEGATIVE) Urine Urobilinogen Normal (NORMAL) mg/dL Ur Leukocyte Esterase Moderate (NEGATIVE) Urine RBC 20-30 H (0-5) Urine WBC 10-20 H (0-5) Ur Epithelial Cells Few Urine Bacteria Few Urine Mucus Result Diagrams: 12/22/16 16:52 12/22/16 16:52 *Q Meaningful Use (ADM) - VTE *Q VTE Criteria *Q: - VTE Risk Assess *Q Each Risk Factor Represents 1 Point: Age 41 - 59 years, Sepsis, Less than 1 Month Total Score 1 Point Risk Factors: 2 Each Risk Factor Represents 2 Points: Morbid Obesity (BMI Greater than 40) Total Score 2 Point Risk Factors: 2 Each Risk Factor Represents 3 Points: History Superficial Venous Thrombosis, DVT or PE Total Score 3 Point Risk Factors: 3 Each Risk Factor Represents 5 Points: None Total Score 5 Point Risk Factors: 0 Venous Thromboembolism Risk Factor Score *Q: 7 - Stroke *Q Stroke Criteria *Q: - AMI *Q AMI Criteria *Q: Problem List Initiated/Reviewed/Updated: Yes Orders Last 24hrs: Active Orders 24 hr Category Date Time Status Patient Status Manage Transfer [TRANSFER] Routine ADT 12/22/16 19:14 Ordered CULTURE BLOOD [BC] Urgent Lab 12/22/16 18:00 Received CULTURE BLOOD [BC] Urgent Lab 12/22/16 18:09 Received CULTURE URINE [RM] Stat Lab 12/22/16 18:47 Received Sodium Chloride 0.9% [Normal Saline] 1,000 ml Med 12/22/16 17:30 Active IV ASDIRECTED Blood Culture x2 Reflex Set [OM.PC] Urgent Oth 12/22/16 17:23 Ordered Resuscitation Status Routine Resus Stat 12/22/16 19:18 Ordered Medication Orders Sodium Chloride (Normal Saline) 1,000 mls @ 500 mls/hr IV ASDIRECTED OMAYRA Last Admin: 12/22/16 18:12 Dose: 500 mls/hr Assessment/Plan Comment:: ASSESSMENT AND PLAN COMPLICATED CYSTITIS WITH EARLY SEPSIS-weakness associated with fever and elevated white blood cell count, urinalysis shows evidence of underlying infection with pyuria. He does have a neurogenic bladder with chronic indwelling catheter. -Blood and urine cultures pending -IV fluid resuscitation for sepsis per protocol -Repeat lactic acid level after 4 hours -Broad-spectrum antibiotic coverage pending culture results because of recent antibiotic therapy, will use Zosyn 3.375 mg IV every 6 hours OPEN ABDOMINAL WOUND-opened yesterday by Dr. Cuellar, currently packed, no evidence of obvious infection or cellulitis -Care and management per Dr. Cuellar TYPE 2 DIABETES MELLITUS -Continue usual dose of long-acting insulin -Moderate dose sliding scale NovoLog -4 times a day glucometers HISTORY OF DEEP VEIN THROMBOSIS-INR subtherapeutic -Continue usual dose of warfarin -Repeat INR in a.m. MAINTENANCE ISSUES -DVT prophylaxis; Lovenox 40 mg subcutaneous daily, pending therapeutic INR -GI prophylaxis; not indicated -Pinto catheter; chronic indwelling catheter -Nutrition; regular diet -Nicotine dependence; not required CODE STATUS-full code ADMISSION STATUS-patient will be admitted to inpatient status, expect at least a 2 night hospital stay for evaluation and management of problems as outlined above. At the time of this admission I do not reasonably expected evaluation and management of this problem will require more than a 96 hour hospital stay. DISPOSITION-anticipate discharge to home after the hospital stay. PRIMARY CARE PROVIDER-Dr. Salinas
[2016-12-22] MEDS ORDERED: Glucose Gel 15 GM in 37.5 GM Tube PO PRN (21:13)
[2016-12-22] MEDS ORDERED: B6 PO SCH (21:13)
[2016-12-22] MEDS ORDERED: Polyethylene Glycol 3350 Powder 17 GM Packet PO PRN (21:13)
[2016-12-22] MEDS ORDERED: 50% Dextrose in Water 50 ML Syringe IV PRN (21:13)
[2016-12-22] MEDS ORDERED: Gabapentin 100 MG Cap PO SCH (21:13)
[2016-12-22] MEDS ORDERED: MGOX PO SCH (21:13)
[2016-12-22] MEDS ORDERED: Magnesium Hydroxide 400 MG/5 ML Susp 30 ML Cup PO PRN (21:13)
[2016-12-22] MEDS ORDERED: [UNRECOGNIZED DRUG - OTHER] PO SCH (21:13)
[2016-12-22] MEDS ORDERED: Potassium Chloride 20 MEQ Tab.ER PO ONE (21:13)
[2016-12-22] MEDS ORDERED: Albuterol 0.083% 2.5 MG/3 ML Neb Soln NEB PRN (21:13)
[2016-12-22] MEDS ORDERED: Furosemide 20 MG Tab PO SCH (21:13)
[2016-12-22] MEDS ORDERED: CA CITRATE PO SCH (21:13)
[2016-12-22] MEDS ORDERED: Morphine 60 MG Tab.ER PO SCH (21:13)
[2016-12-22] MEDS ORDERED: predniSONE 10 MG Tab PO SCH (21:13)
[2016-12-22] MEDS ORDERED: VIT D3 PO SCH (21:13)
[2016-12-22] MEDS ORDERED: Acetaminophen/oxyCODONE 325-5 MG Tab PO PRN (21:13)
[2016-12-22] MEDS ORDERED: Sodium Chloride 0.9% 10 ML Syringe FLUSH PRN (21:13)
[2016-12-22] MEDS ORDERED: Lactated Ringers 500 ML IV SCH (21:13)
[2016-12-22] MEDS ORDERED: Ondansetron 4 MG/2 ML SDV IV PRN (21:13)
[2016-12-22] MEDS ORDERED: Docusate Sodium 100 MG Cap PO PRN (21:13)
[2016-12-22] MEDS ORDERED: Insulin Detemir 100 Units/ML 3 ML Pen ONE (22:41)
[2016-12-22] MEDS ORDERED: Morphine 15 MG Tab ONE (22:51)
[2016-12-22] MEDS: Insulin Aspart 100 Units/ML 3 ML Pen SUBCUT SCH (22:55)
[2016-12-22] MEDS: Piperacillin/Tazobactam 3.375 GM in Sodium Chloride 0.9% 50 ML IV SCH (23:03)
[2016-12-22] MEDS: Simvastatin 20 MG Tab PO SCH (23:04)
[2016-12-22] MEDS: Enoxaparin 40 MG/0.4 ML Syringe SUBCUT SCH (23:04)
[2016-12-22] MEDS: traMADol 50 MG Tab PO SCH (23:04)
[2016-12-22] MEDS: Acetaminophen 325 MG Tab PO PRN (23:04)
[2016-12-22] MEDS: Albuterol/Ipratropium 3.0-0.5 MG/3 ML Neb Soln INH SCH (23:06)
[2016-12-22] MEDS: Mirtazapine 15 MG Tab PO SCH (23:06)
[2016-12-22] MEDS ORDERED: Lactated Ringers 1,000 ML IV SCH (23:30)
[2016-12-23] MEDS: Acetaminophen/oxyCODONE 325-5 MG Tab PO PRN ×3 (01:04→20:48)
[2016-12-23] MEDS: Piperacillin/Tazobactam 3.375 GM in Sodium Chloride 0.9% 50 ML IV SCH (03:02)
[2016-12-23] MEDS: Acetaminophen 325 MG Tab PO PRN (03:02)
[2016-12-23] MEDS: traMADol 50 MG Tab PO SCH ×4 (03:02→20:47)
[2016-12-23] MEDS: Albuterol/Ipratropium 3.0-0.5 MG/3 ML Neb Soln INH SCH ×2 (07:18→20:49)
[2016-12-23] MEDS: Insulin Aspart 100 Units/ML 3 ML Pen SUBCUT SCH ×4 (07:58→21:00)
[2016-12-23] MEDS: Pantoprazole 40 MG Tab.CR PO SCH (08:24)
[2016-12-23] MEDS: predniSONE 20 MG Tab PO SCH ×2 (08:35→17:45)
[2016-12-23] MEDS: Cholecalciferol (Vitamin D3) 1,000 Unit Tab PO SCH ×3 (08:37→20:51)
[2016-12-23] MEDS: Aspirin 81 MG Tab.EC PO SCH (08:42)
[2016-12-23] MEDS: Morphine 30 MG Tab.ER PO SCH ×3 (08:44→20:47)
[2016-12-23] MEDS: Gabapentin 400 MG Cap PO SCH ×3 (08:44→20:52)
[2016-12-23] MEDS: Calcium Carbonate/Vitamin D3 1500 MG-400 Units Tab PO SCH ×2 (08:46→20:51)
[2016-12-23] MEDS: Citalopram 20 MG Tab PO SCH (08:47)
[2016-12-23] MEDS: Sennosides 8.6 MG Tab PO SCH ×2 (08:48→20:53)
[2016-12-23] MEDS: Magnesium Oxide 400 MG Tab PO SCH ×2 (08:48→20:50)
[2016-12-23] MEDS: Piperacillin/Tazobactam/Dext 3.375 GM in Premix Bag 1 BAG IV SCH ×3 (08:50→20:49)
[2016-12-23] MEDS: Enoxaparin 40 MG/0.4 ML Syringe SUBCUT SCH (08:55)
--- NOTE | 2016-12-23 09:26 | PCM.PN ---
- General Info Date of Service: 12/23/16 Functional Status: Reports: Pain Controlled, Tolerating Diet - Review of Systems General: Reports: Fever, Weakness, Chills Pulmonary: Reports: No Symptoms Cardiovascular: Reports: No Symptoms Gastrointestinal: Reports: No Symptoms Systems Review Comment:: This patient has stabilized since admission yesterday, vital signs have been good although he did have recurrent temperature elevation. Lactic acid is remained elevated despite adequate vital signs. He feels improved and is less fatigued, appetite seems to be improved. - Patient Data Vitals - Most Recent: Last Vital Signs Temp 100.0 F 12/23/16 06:16 Pulse 110 H 12/23/16 01:07 Resp 20 12/23/16 01:07 BP 143/86 H 12/23/16 01:07 Pulse Ox 100 12/23/16 01:07 Weight - Most Recent: 271 lb 2.697 oz I&O - Last 24 Hours: Intake & Output 12/22/16 12/23/16 12/23/16 22:59 06:59 14:59 Intake Total 1812 Output Total 1650 Balance 162 Lab Results Last 24 Hours: Laboratory Results - last 24 hr 12/22/16 12/23/16 12/23/16 Range/Units 23:30 04:45 04:45 WBC 14.3 H (4.5-11.0) K/uL RBC 4.04 L (4.30-5.90) M/uL Hgb 10.8 L (12.0-15.0) g/dL Hct 34.5 L (40.0-54.0) % MCV 85 (80-98) fL MCH 27 (27-31) pg MCHC 31 L (32-36) % Plt Count 231 (150-400) K/uL Add Manual Diff Yes Neutrophils % (Manual) 62 (36-66) % Band Neutrophils % 23 H (5-11) % Lymphocytes % (Manual) 7 L (24-44) % Monocytes % (Manual) 8 H (2-6) % PT 13.8 H (9.5-12.0) sec INR 1.28 H (0.80-1.20) Sodium (140-148) mmol/L Potassium (3.6-5.2) mmol/L Chloride (100-108) mmol/L Carbon Dioxide (21-32) mmol/L Anion Gap (5.0-14.0) mmol/L BUN (7-18) mg/dL Creatinine (0.8-1.3) mg/dL Est Cr Clr Drug Dosing mL/min Estimated GFR (MDRD) (>60) Glucose (74-106) mg/dL Lactic Acid 3.8 H (0.4-2.0) mmol/L Calcium (8.5-10.1) mg/dL Magnesium (1.8-2.4) mg/dL 12/23/16 12/23/16 Range/Units 04:45 04:45 WBC (4.5-11.0) K/uL RBC (4.30-5.90) M/uL Hgb (12.0-15.0) g/dL Hct (40.0-54.0) % MCV (80-98) fL MCH (27-31) pg MCHC (32-36) % Plt Count (150-400) K/uL Add Manual Diff Neutrophils % (Manual) (36-66) % Band Neutrophils % (5-11) % Lymphocytes % (Manual) (24-44) % Monocytes % (Manual) (2-6) % PT (9.5-12.0) sec INR (0.80-1.20) Sodium 136 L (140-148) mmol/L Potassium 4.0 (3.6-5.2) mmol/L Chloride 102 (100-108) mmol/L Carbon Dioxide 26 (21-32) mmol/L Anion Gap 12.0 (5.0-14.0) mmol/L BUN 13 (7-18) mg/dL Creatinine 1.2 (0.8-1.3) mg/dL Est Cr Clr Drug Dosing 72.68 mL/min Estimated GFR (MDRD) > 60 (>60) Glucose 161 H (74-106) mg/dL Lactic Acid 3.2 H (0.4-2.0) mmol/L Calcium 7.7 L (8.5-10.1) mg/dL Magnesium 1.5 L D (1.8-2.4) mg/dL Med Orders - Current: Current Medications Acetaminophen (Tylenol) 650 mg PO Q4H PRN PRN Reason: Pain (Mild 1-3)/fever Last Admin: 12/23/16 03:02 Dose: 650 mg Albuterol (Proventil Neb Soln) 2.5 mg NEB Q4H PRN PRN Reason: Shortness Of Breath/wheezing Albuterol/Ipratropium (Duoneb 3.0-0.5 Mg/3 Ml) 3 ml INH BIDRT [facility] Last Admin: 12/23/16 07:18 Dose: 3 ml Aspirin (Halfprin) 81 mg PO DAILY [facility] Last Admin: 12/23/16 08:42 Dose: 81 mg Calcium Carbonate (Caltrate 600+D 1500 Mg-400 Units) 1 tab PO BID [facility] Last Admin: 12/23/16 08:46 Dose: 1 tab Cholecalciferol (Vitamin D3) 1,000 units PO TID [facility] Last Admin: 12/23/16 08:37 Dose: 1,000 units Citalopram Hydrobromide (Celexa) 40 mg PO DAILY [facility] Last Admin: 12/23/16 08:47 Dose: 40 mg Dextrose (Glutose 15) 15 gm PO ONETIME PRN PRN Reason: Hypoglycemia Dextrose/Water (Dextrose 50% In Water) 50 ml IV ONETIME PRN PRN Reason: Hypoglycemia Docusate Sodium (Colace) 100 mg PO BID PRN PRN Reason: Constipation Last Admin: 12/22/16 23:05 Dose: 100 mg Enoxaparin Sodium (Lovenox) 40 mg SUBCUT DAILY [facility] Last Admin: 12/23/16 08:55 Dose: 40 mg Furosemide (Lasix) 20 mg PO Q48H [facility] Gabapentin (Neurontin) 800 mg PO TID [facility] Last Admin: 12/23/16 08:44 Dose: 800 mg Piperacillin/Tazobactam/ (Dextrose 3.375 gm/ Premix) 50 mls @ 100 mls/hr IV Q6H [facility] Last Admin: 12/23/16 08:50 Dose: 100 mls/hr Magnesium Sulfate 2 gm/ Premix 50 mls @ 25 mls/hr IV Q6H [facility] Stop: 12/23/16 16:59 Insulin Aspart (Novolog) 0 unit SUBCUT QIDACANDBED [facility] PRN Reason: Protocol Last Admin: 12/23/16 07:58 Dose: 2 units Insulin Detemir (Levemir) 15 unit SUBCUT BEDTIME [facility] Lorazepam (Ativan) 0.5 - 1 mg PO TID PRN PRN Reason: Anxiety Magnesium Hydroxide (Milk Of Magnesia) 30 ml PO Q12H PRN PRN Reason: Constipation Magnesium Oxide (Magnesium Oxide) 400 mg PO BID [facility] Last Admin: 12/23/16 08:48 Dose: 400 mg Mirtazapine (Remeron) 30 mg PO BEDTIME [facility] Last Admin: 12/22/16 23:06 Dose: 30 mg Morphine Sulfate (Ms Contin) 60 mg PO TID [facility] Last Admin: 12/23/16 08:44 Dose: 60 mg Ondansetron HCl (Zofran) 4 mg IV Q4H PRN PRN Reason: Nausea/Vomiting Oxycodone/Acetaminophen (Percocet 325-5 Mg) 1 - 2 tab PO Q4H PRN PRN Reason: Pain Last Admin: 12/23/16 01:04 Dose: 2 tab Pantoprazole Sodium (Protonix) 40 mg PO DAILY@0730 [facility] Last Admin: 12/23/16 08:24 Dose: 40 mg Polyethylene Glycol (Miralax) 17 gm PO DAILY PRN PRN Reason: Constipation Prednisone (Prednisone) 20 mg PO BIDMEALS [facility] Last Admin: 12/23/16 08:35 Dose: 20 mg Senna (Senna) 17.2 mg PO BID [facility] Last Admin: 12/23/16 08:48 Dose: 17.2 mg Senna/Docusate Sodium (Senna Plus) 1 tab PO BID PRN PRN Reason: Constipation Simvastatin (Zocor) 40 mg PO BEDTIME [facility] Last Admin: 12/22/16 23:04 Dose: 40 mg Sodium Chloride (Saline Flush) 10 ml FLUSH ASDIRECTED PRN PRN Reason: Keep Vein Open Tramadol HCl (Ultram) 50 mg PO Q6H [facility] Last Admin: 12/23/16 09:02 Dose: 50 mg Warfarin Sodium (Coumadin) 2 mg PO Q48H [facility] Warfarin Sodium (Coumadin) 3 mg PO Q48H [facility] Discontinued Medications Furosemide (Lasix) 20 mg PO Q48H [facility] Last Admin: 12/22/16 23:05 Dose: 20 mg Gabapentin (Neurontin) 800 mg PO TID [facility] Last Admin: 12/22/16 23:11 Dose: Not Given Sodium Chloride (Normal Saline) 1,000 mls @ 500 mls/hr IV ASDIRECTED [facility] Last Admin: 12/22/16 18:12 Dose: 500 mls/hr Lactated Ringer's (Ringers, Lactated) 500 mls @ 500 mls/hr IV .BOLUS [facility] Stop: 12/23/16 01:14 Last Admin: 12/22/16 23:12 Dose: 500 mls/hr Lactated Ringer's (Ringers, Lactated) 1,000 mls @ 125 mls/hr IV ASDIRECTED [facility] Last Admin: 12/23/16 04:49 Dose: 125 mls/hr Piperacillin Sod/Tazobactam (Sod 3.375 gm/ Sodium Chloride) 50 mls @ 100 mls/ hr IV Q6H [facility] Last Admin: 12/23/16 03:02 Dose: 100 mls/hr Insulin Detemir (Levemir) 15 unit SUBCUT BEDTIME [facility] Last Admin: 12/22/16 22:56 Dose: 15 units Insulin Detemir (Levemir) Confirm Administered Dose 300 unit .ROUTE .STK-MED ONE Stop: 12/22/16 22:42 Last Admin: 12/22/16 23:11 Dose: Not Given Morphine Sulfate (Ms Contin) 60 mg PO TID [facility] Last Admin: 12/22/16 23:06 Dose: Not Given Morphine Sulfate (Morphine) Confirm Administered Dose 60 mg .ROUTE .STK-MED ONE Stop: 12/22/16 22:52 Last Admin: 12/22/16 23:05 Dose: 60 mg Non-Formulary Medication (Ca Citrate/Mgox/Vit D3/B6/Min [Calcium Citrate Plus Tablet]) 1 each PO BID [facility] Last Admin: 12/22/16 23:11 Dose: Not Given Oxycodone/Acetaminophen (Percocet 325-5 Mg) tab PO Q4H PRN PRN Reason: Pain Potassium Chloride (Klor-Con M20) 40 meq PO ONETIME ONE Stop: 12/22/16 21:14 Last Admin: 12/22/16 23:04 Dose: 40 meq Prednisone (Prednisone) 20 mg PO BIDMEALS [facility] Last Admin: 12/22/16 23:05 Dose: 20 mg Senna/Docusate Sodium (Senna Plus) 1 tab PO BID [facility] Last Admin: 12/22/16 23:06 Dose: 1 tab Tramadol HCl (Ultram) 50 mg PO Q6H [facility] Last Admin: 12/23/16 03:02 Dose: 50 mg Warfarin Sodium (Coumadin) 2 mg PO ONETIME ONE Stop: 12/23/16 00:40 Last Admin: 12/23/16 01:04 Dose: 2 mg - Exam Quality Assessment: Urine Catheter, DVT Prophylaxis General: Alert, Oriented, Cooperative, No Acute Distress Lungs: Clear to Auscultation, Normal Respiratory Effort Cardiovascular: Regular Rate, Regular Rhythm, No Murmurs GI/Abdominal Exam: Normal Bowel Sounds, Soft, Non-Tender, No Distention Extremities: Non-Tender, No Pedal Edema Skin: Warm, Dry - Problem List Review Problem List Initiated/Reviewed/Updated: Yes - My Orders Last 24 Hours: My Active Orders 12/22/16 19:18 Resuscitation Status Routine 12/22/16 21:13 Patient Status [ADT] Routine Blood Glucose Check, Bedside [RC] QIDACANDBED Communication Order [RC] ASDIRECTED Diabetes Education [RC] Click to Edit Intake and Output [RC] QSHIFT Notify Provider Vital Signs [RC] ASDIRECTED Notify Provider [RC] PRN Oxygen Therapy [RC] PRN RT Aerosol Therapy [RC] ASDIRECTED Up With Assistance [RC] Q12H Up to Chair [RC] QID VTE/DVT Education [RC] Per Unit Routine Vital Signs [RC] Q4H Acetaminophen [Tylenol] 650 mg PO Q4H PRN Albuterol [Proventil Neb Soln] 2.5 mg NEB Q4H PRN Dextrose 50% in Water 50 ml IV ONETIME PRN Dextrose [Glutose 15] 15 gm PO ONETIME PRN Docusate Sodium [Colace] 100 mg PO BID PRN Enoxaparin [Lovenox] 40 mg SUBCUT DAILY Insulin Aspart [NovoLOG] See Protocol SUBCUT QIDACANDBED Magnesium Hydroxide [Milk of Magnesia] 30 ml PO Q12H PRN Ondansetron [Zofran] 4 mg IV Q4H PRN Polyethylene Glycol 3350 [MiraLAX] 17 gm PO DAILY PRN Sodium Chloride 0.9% [Saline Flush] 10 ml FLUSH ASDIRECTED PRN Peripheral IV Insertion Adult [OM.PC] Routine 12/22/16 22:36 Acetaminophen/oxyCODONE [Percocet 325-5 MG] 1 - 2 tab PO Q4H PRN 12/22/16 Dinner Regular Diet [DIET] 12/23/16 08:00 predniSONE 20 mg PO BIDMEALS 12/23/16 08:30 Docusate Sodium/Sennosides [Senna Plus] 1 tab PO BID PRN 12/23/16 08:53 Ready for Discharge [RC] PER UNIT ROUTINE 12/23/16 09:00 Calcium Carbonate/Vitamin D3 [Caltrate 600+D 1500 MG-400 Units] 1 tab PO BID Gabapentin [Neurontin] 800 mg PO TID Magnesium Oxide 400 mg PO BID Magnesium Sulfate/Water [Magnesium Sulfate 2 GM in Water 50 ML] 2 gm Premix Bag 1 bag IV Q6H Morphine [MS Contin] 60 mg PO TID Piperacillin/Tazobactam/Dext [Zosyn in Dextrose Iso-Osmotic 3.375 GM] 3.375 gm Premix Bag 1 bag IV Q6H traMADol [Ultram] 50 mg PO Q6H 12/23/16 09:30 Sodium Chloride 0.9% @ 75 MLS/HR(1000ml) Sodium Chloride 0.9% [Normal Saline] 1 ,000 ml IV ASDIRECTED 12/23/16 10:00 FLU Vacc [id number] 36Mos UP/PF [Fluzone Quad [id number]] 60 mcg IM .ONCE ONE 12/23/16 16:30 GLUCOSE POC LAB TO COLLECT [POC] QIDACANDBED 12/23/16 21:00 GLUCOSE POC LAB TO COLLECT [POC] QIDACANDBED Insulin Detemir [Levemir] 15 unit SUBCUT BEDTIME 12/24/16 05:00 BASIC METABOLIC PANEL,BMP [CHEM] Timed CBC WITH AUTO DIFF [HEME] Timed INR,PT,PROTHROMBIN TIME [COAG] Timed MAGNESIUM [CHEM] Timed 12/24/16 07:30 GLUCOSE POC LAB TO COLLECT [POC] QIDACANDBED 12/24/16 09:00 Furosemide [Lasix] 20 mg PO Q48H 12/24/16 11:30 GLUCOSE POC LAB TO COLLECT [POC] QIDACANDBED 12/24/16 16:30 GLUCOSE POC LAB TO COLLECT [POC] QIDACANDBED 12/24/16 21:00 GLUCOSE POC LAB TO COLLECT [POC] QIDACANDBED 12/25/16 07:30 GLUCOSE POC LAB TO COLLECT [POC] QIDACANDBED 12/25/16 11:30 GLUCOSE POC LAB TO COLLECT [POC] QIDACANDBED 12/25/16 16:30 GLUCOSE POC LAB TO COLLECT [POC] QIDACANDBED 12/25/16 21:00 GLUCOSE POC LAB TO COLLECT [POC] QIDACANDBED 12/26/16 07:30 GLUCOSE POC LAB TO COLLECT [POC] QIDACANDBED 12/26/16 11:30 GLUCOSE POC LAB TO COLLECT [POC] QIDACANDBED 12/26/16 16:30 GLUCOSE POC LAB TO COLLECT [POC] QIDACANDBED 12/26/16 21:00 GLUCOSE POC LAB TO COLLECT [POC] QIDACANDBED 12/27/16 07:30 GLUCOSE POC LAB TO COLLECT [POC] QIDACANDBED 12/27/16 11:30 GLUCOSE POC LAB TO COLLECT [POC] QIDACANDBED 12/27/16 16:30 GLUCOSE POC LAB TO COLLECT [POC] QIDACANDBED 12/27/16 21:00 GLUCOSE POC LAB TO COLLECT [POC] QIDACANDBED 12/28/16 07:30 GLUCOSE POC LAB TO COLLECT [POC] QIDACANDBED 12/28/16 11:30 GLUCOSE POC LAB TO COLLECT [POC] QIDACANDBED 12/28/16 16:30 GLUCOSE POC LAB TO COLLECT [POC] QIDACANDBED 12/28/16 21:00 GLUCOSE POC LAB TO COLLECT [POC] QIDACANDBED 12/29/16 07:30 GLUCOSE POC LAB TO COLLECT [POC] QIDACANDBED 12/29/16 11:30 GLUCOSE POC LAB TO COLLECT [POC] QIDACANDBED 12/29/16 16:30 GLUCOSE POC LAB TO COLLECT [POC] QIDACANDBED 12/29/16 21:00 GLUCOSE POC LAB TO COLLECT [POC] QIDACANDBED 12/30/16 07:30 GLUCOSE POC LAB TO COLLECT [POC] QIDACANDBED 12/30/16 11:30 GLUCOSE POC LAB TO COLLECT [POC] QIDACANDBED 12/30/16 16:30 GLUCOSE POC LAB TO COLLECT [POC] QIDACANDBED 12/30/16 21:00 GLUCOSE POC LAB TO COLLECT [POC] QIDACANDBED 12/31/16 07:30 GLUCOSE POC LAB TO COLLECT [POC] QIDACANDBED 12/31/16 11:30 GLUCOSE POC LAB TO COLLECT [POC] QIDACANDBED 12/31/16 16:30 GLUCOSE POC LAB TO COLLECT [POC] QIDACANDBED 12/31/16 21:00 GLUCOSE POC LAB TO COLLECT [POC] QIDACANDBED 01/01/17 07:30 GLUCOSE POC LAB TO COLLECT [POC] QIDACANDBED 01/01/17 11:30 GLUCOSE POC LAB TO COLLECT [POC] QIDACANDBED 01/01/17 16:30 GLUCOSE POC LAB TO COLLECT [POC] QIDACANDBED 01/01/17 21:00 GLUCOSE POC LAB TO COLLECT [POC] QIDACANDBED 01/02/17 07:30 GLUCOSE POC LAB TO COLLECT [POC] QIDACANDBED 01/02/17 11:30 GLUCOSE POC LAB TO COLLECT [POC] QIDACANDBED 01/02/17 16:30 GLUCOSE POC LAB TO COLLECT [POC] QIDACANDBED 01/02/17 21:00 GLUCOSE POC LAB TO COLLECT [POC] QIDACANDBED - Plan Plan:: ASSESSMENT AND PLAN COMPLICATED CYSTITIS WITH EARLY SEPSIS-weakness associated with fever and elevated white blood cell count, urinalysis shows evidence of underlying infection with pyuria. He does have a neurogenic bladder with chronic indwelling catheter. Recurrent temperature elevation since admission, mild persistent elevation in lactic acid stable vital signs. Blood cultures are growing gram-negative nyla, ID and sensitivities pending -Blood and urine cultures pending -IV fluid resuscitation for sepsis per protocol -Repeat lactic acid level in a.m. -Broad-spectrum antibiotic coverage pending culture results because of recent antibiotic therapy, will use Zosyn 3.375 mg IV every 6 hours OPEN ABDOMINAL WOUND-opened yesterday by Dr. Cuellar, currently packed, no evidence of obvious infection or cellulitis -Care and management per Dr. Cuellar TYPE 2 DIABETES MELLITUS -Continue usual dose of long-acting insulin -Moderate dose sliding scale NovoLog -4 times a day glucometers HISTORY OF DEEP VEIN THROMBOSIS-INR subtherapeutic -Continue usual dose of warfarin -Repeat INR in a.m. MAINTENANCE ISSUES -DVT prophylaxis; Lovenox 40 mg subcutaneous daily, pending therapeutic INR -GI prophylaxis; not indicated -Pinto catheter; chronic indwelling catheter -Nutrition; regular diet -Nicotine dependence; not required CODE STATUS-full code ADMISSION STATUS-patient will be admitted to inpatient status, expect at least a 2 night hospital stay for evaluation and management of problems as outlined above. At the time of this admission I do not reasonably expected evaluation and management of this problem will require more than a 96 hour hospital stay. DISPOSITION-anticipate discharge to home after the hospital stay. PRIMARY CARE PROVIDER-Dr. Salinas
[2016-12-23] MEDS ORDERED: Sodium Chloride 0.9% 1,000 ML IV SCH (09:30)
[2016-12-23] MEDS: Magnesium Sulfate/Water 2 GM in Premix Bag 1 BAG IV SCH ×2 (09:35→15:50)
[2016-12-23] MEDS ORDERED: FLU Vacc QS 2017-18 (36mos UP)/PF 60 MCG/0.5 ML Syringe IM ONE (10:00)
[2016-12-23] MEDS: Simvastatin 20 MG Tab PO SCH (20:51)
[2016-12-23] MEDS: Mirtazapine 15 MG Tab PO SCH (20:52)
[2016-12-23] MEDS: Insulin Detemir 100 Units/ML 3 ML Pen SUBCUT SCH (21:01)
[2016-12-24] MEDS: Piperacillin/Tazobactam/Dext 3.375 GM in Premix Bag 1 BAG IV SCH ×4 (02:59→21:11)
[2016-12-24] MEDS: traMADol 50 MG Tab PO SCH ×4 (02:59→20:50)
[2016-12-24] MEDS: Albuterol/Ipratropium 3.0-0.5 MG/3 ML Neb Soln INH SCH ×2 (07:10→20:51)
[2016-12-24] MEDS: Pantoprazole 40 MG Tab.CR PO SCH (08:46)
[2016-12-24] MEDS: Insulin Aspart 100 Units/ML 3 ML Pen SUBCUT SCH ×4 (08:46→21:00)
[2016-12-24] MEDS: Calcium Carbonate/Vitamin D3 1500 MG-400 Units Tab PO SCH ×2 (08:47→20:49)
[2016-12-24] MEDS: predniSONE 20 MG Tab PO SCH ×2 (08:47→16:59)
[2016-12-24] MEDS: Citalopram 20 MG Tab PO SCH (08:47)
[2016-12-24] MEDS: Aspirin 81 MG Tab.EC PO SCH (08:48)
[2016-12-24] MEDS: Enoxaparin 40 MG/0.4 ML Syringe SUBCUT SCH (08:49)
[2016-12-24] MEDS: Morphine 30 MG Tab.ER PO SCH ×3 (08:49→20:50)
[2016-12-24] MEDS: Magnesium Oxide 400 MG Tab PO SCH ×2 (08:49→20:49)
[2016-12-24] MEDS: Gabapentin 400 MG Cap PO SCH ×3 (08:50→20:50)
[2016-12-24] MEDS: Sennosides 8.6 MG Tab PO SCH ×2 (08:50→20:50)
[2016-12-24] MEDS: Cholecalciferol (Vitamin D3) 1,000 Unit Tab PO SCH ×3 (08:52→21:12)
[2016-12-24] MEDS: Acetaminophen/oxyCODONE 325-5 MG Tab PO PRN (08:53)
[2016-12-24] MEDS ORDERED: Warfarin 5 MG Tab PO ONE (09:00)
[2016-12-24] MEDS ORDERED: Thiamine 200 MG/2 ML MDV IM ONE (09:00)
[2016-12-24] MEDS ORDERED: Furosemide 20 MG Tab PO SCH (09:00)
[2016-12-24] MEDS ORDERED: Cyanocobalamin (Vitamin B12) 1,000 MCG/ML SDV IM ONE (09:00)
--- NOTE | 2016-12-24 09:02 | PCM.PN ---
- General Info Date of Service: 12/24/16 Functional Status: Reports: Tolerating Diet - Review of Systems General: Denies: Fever, Weakness, Chills Pulmonary: Reports: No Symptoms Cardiovascular: Reports: No Symptoms Gastrointestinal: Reports: No Symptoms Systems Review Comment:: Mr. Kirk has remained stable since yesterday, no significant temperature elevations with stable vital signs. White blood cell count remains modestly elevated but has improved from admission. Symptomatically he feels stronger and his appetite has improved. - Patient Data Vitals - Most Recent: Last Vital Signs Temp 97.3 F 12/24/16 08:00 Pulse 76 12/24/16 07:11 Resp 16 12/24/16 08:00 BP 124/68 12/24/16 08:00 Pulse Ox 99 12/24/16 08:00 Weight - Most Recent: 271 lb 2.697 oz I&O - Last 24 Hours: Intake & Output 12/23/16 12/24/16 12/24/16 22:59 06:59 14:59 Intake Total 1355 750 Output Total 850 800 Balance 505 -50 Lab Results Last 24 Hours: Laboratory Results - last 24 hr 12/23/16 12/24/16 12/24/16 Range/Units 17:12 05:06 05:06 WBC 12.1 H (4.5-11.0) K/uL RBC 3.49 L (4.30-5.90) M/uL Hgb 9.6 L (12.0-15.0) g/dL Hct 30.3 L (40.0-54.0) % MCV 87 (80-98) fL MCH 28 (27-31) pg MCHC 32 (32-36) % Plt Count 224 (150-400) K/uL Neut % (Auto) 83 H (36-66) % Lymph % (Auto) 11 L (24-44) % Mills % (Auto) 6 (2-6) % Eos % (Auto) 0 L (2-4) % Baso % (Auto) 0 (0-1) % PT 13.4 H (9.5-12.0) sec INR 1.24 H (0.80-1.20) Sodium (140-148) mmol/L Potassium (3.6-5.2) mmol/L Chloride (100-108) mmol/L Carbon Dioxide (21-32) mmol/L Anion Gap (5.0-14.0) mmol/L BUN (7-18) mg/dL Creatinine (0.8-1.3) mg/dL Est Cr Clr Drug Dosing mL/min Estimated GFR (MDRD) (>60) Glucose (74-106) mg/dL Lactic Acid 2.2 H (0.4-2.0) mmol/L Calcium (8.5-10.1) mg/dL Magnesium (1.8-2.4) mg/dL 12/24/16 12/24/16 Range/Units 05:06 05:06 WBC (4.5-11.0) K/uL RBC (4.30-5.90) M/uL Hgb (12.0-15.0) g/dL Hct (40.0-54.0) % MCV (80-98) fL MCH (27-31) pg MCHC (32-36) % Plt Count (150-400) K/uL Neut % (Auto) (36-66) % Lymph % (Auto) (24-44) % Mills % (Auto) (2-6) % Eos % (Auto) (2-4) % Baso % (Auto) (0-1) % PT (9.5-12.0) sec INR (0.80-1.20) Sodium 139 L (140-148) mmol/L Potassium 3.9 (3.6-5.2) mmol/L Chloride 105 (100-108) mmol/L Carbon Dioxide 29 (21-32) mmol/L Anion Gap 8.9 (5.0-14.0) mmol/L BUN 16 (7-18) mg/dL Creatinine 1.0 (0.8-1.3) mg/dL Est Cr Clr Drug Dosing 87.00 mL/min Estimated GFR (MDRD) > 60 (>60) Glucose 199 H (74-106) mg/dL Lactic Acid 1.9 (0.4-2.0) mmol/L Calcium 8.0 L (8.5-10.1) mg/dL Magnesium 2.2 (1.8-2.4) mg/dL Med Orders - Current: Current Medications Acetaminophen (Tylenol) 650 mg PO Q4H PRN PRN Reason: Pain (Mild 1-3)/fever Last Admin: 12/23/16 03:02 Dose: 650 mg Albuterol (Proventil Neb Soln) 2.5 mg NEB Q4H PRN PRN Reason: Shortness Of Breath/wheezing Albuterol/Ipratropium (Duoneb 3.0-0.5 Mg/3 Ml) 3 ml INH BIDRT [facility] Last Admin: 12/24/16 07:10 Dose: 3 ml Aspirin (Halfprin) 81 mg PO DAILY [facility] Last Admin: 12/24/16 08:48 Dose: 81 mg Calcium Carbonate (Caltrate 600+D 1500 Mg-400 Units) 1 tab PO BID [facility] Last Admin: 12/24/16 08:47 Dose: 1 tab Cholecalciferol (Vitamin D3) 1,000 units PO TID [facility] Last Admin: 12/24/16 08:52 Dose: 1,000 units Citalopram Hydrobromide (Celexa) 40 mg PO DAILY [facility] Last Admin: 12/24/16 08:47 Dose: 40 mg Cyanocobalamin (Vitamin B12) 1,000 mcg IM ONETIME ONE Stop: 12/24/16 09:01 Last Admin: 12/24/16 08:54 Dose: 1,000 mcg Dextrose (Glutose 15) 15 gm PO ONETIME PRN PRN Reason: Hypoglycemia Dextrose/Water (Dextrose 50% In Water) 50 ml IV ONETIME PRN PRN Reason: Hypoglycemia Docusate Sodium (Colace) 100 mg PO BID PRN PRN Reason: Constipation Last Admin: 12/22/16 23:05 Dose: 100 mg Enoxaparin Sodium (Lovenox) 40 mg SUBCUT DAILY [facility] Last Admin: 12/24/16 08:49 Dose: 40 mg Furosemide (Lasix) 20 mg PO Q48H [facility] Last Admin: 12/24/16 08:49 Dose: 20 mg Gabapentin (Neurontin) 800 mg PO TID [facility] Last Admin: 12/24/16 08:50 Dose: 800 mg Heparin Sodium (Porcine) (Heparin Lock Flush 100 Units/Ml) 500 units FLUSH ASDIRECTED [facility] Last Admin: 12/23/16 15:02 Dose: 500 units Piperacillin/Tazobactam/ (Dextrose 3.375 gm/ Premix) 50 mls @ 100 mls/hr IV Q6H [facility] Last Admin: 12/24/16 08:53 Dose: 100 mls/hr Influenza Virus Vaccine (Fluzone Quad [id number]) 60 mcg IM .ONCE ONE Stop: 12/24/16 14:01 Insulin Aspart (Novolog) 0 unit SUBCUT QIDACANDBED [facility] PRN Reason: Protocol Last Admin: 12/24/16 08:46 Dose: 2 units Insulin Detemir (Levemir) 15 unit SUBCUT BEDTIME [facility] Last Admin: 12/23/16 21:01 Dose: 15 unit Lorazepam (Ativan) 0.5 - 1 mg PO TID PRN PRN Reason: Anxiety Magnesium Hydroxide (Milk Of Magnesia) 30 ml PO Q12H PRN PRN Reason: Constipation Magnesium Oxide (Magnesium Oxide) 400 mg PO BID [facility] Last Admin: 12/24/16 08:49 Dose: 400 mg Mirtazapine (Remeron) 30 mg PO BEDTIME [facility] Last Admin: 12/23/16 20:52 Dose: 30 mg Morphine Sulfate (Ms Contin) 60 mg PO TID [facility] Last Admin: 12/24/16 08:49 Dose: 60 mg Ondansetron HCl (Zofran) 4 mg IV Q4H PRN PRN Reason: Nausea/Vomiting Oxycodone/Acetaminophen (Percocet 325-5 Mg) 1 - 2 tab PO Q4H PRN PRN Reason: Pain Last Admin: 12/24/16 08:53 Dose: 1 tab Pantoprazole Sodium (Protonix) 40 mg PO DAILY@0730 [facility] Last Admin: 12/24/16 08:46 Dose: 40 mg Polyethylene Glycol (Miralax) 17 gm PO DAILY PRN PRN Reason: Constipation Prednisone (Prednisone) 20 mg PO BIDMEALS [facility] Last Admin: 12/24/16 08:47 Dose: 20 mg Senna (Senna) 17.2 mg PO BID [facility] Last Admin: 12/24/16 08:50 Dose: 17.2 mg Senna/Docusate Sodium (Senna Plus) 1 tab PO BID PRN PRN Reason: Constipation Simvastatin (Zocor) 40 mg PO BEDTIME [facility] Last Admin: 12/23/16 20:51 Dose: 40 mg Sodium Chloride (Saline Flush) 10 ml FLUSH ASDIRECTED PRN PRN Reason: Keep Vein Open Thiamine HCl (Vitamin B-1) 200 mg IM ONETIME ONE Stop: 12/24/16 09:01 Last Admin: 12/24/16 08:55 Dose: 200 mg Tramadol HCl (Ultram) 50 mg PO Q6H [facility] Last Admin: 12/24/16 08:51 Dose: 50 mg Warfarin Sodium (Coumadin) 5 mg PO ONETIME ONE Stop: 12/24/16 09:01 Discontinued Medications Furosemide (Lasix) 20 mg PO Q48H [facility] Last Admin: 12/22/16 23:05 Dose: 20 mg Gabapentin (Neurontin) 800 mg PO TID [facility] Last Admin: 12/22/16 23:11 Dose: Not Given Sodium Chloride (Normal Saline) 1,000 mls @ 500 mls/hr IV ASDIRECTED [facility] Last Admin: 12/22/16 18:12 Dose: 500 mls/hr Lactated Ringer's (Ringers, Lactated) 500 mls @ 500 mls/hr IV .BOLUS [facility] Stop: 12/23/16 01:14 Last Admin: 12/22/16 23:12 Dose: 500 mls/hr Lactated Ringer's (Ringers, Lactated) 1,000 mls @ 125 mls/hr IV ASDIRECTED [facility] Last Admin: 12/23/16 04:49 Dose: 125 mls/hr Piperacillin Sod/Tazobactam (Sod 3.375 gm/ Sodium Chloride) 50 mls @ 100 mls/ hr IV Q6H [facility] Last Admin: 12/23/16 03:02 Dose: 100 mls/hr Magnesium Sulfate 2 gm/ Premix 50 mls @ 25 mls/hr IV Q6H [facility] Stop: 12/23/16 16:59 Last Admin: 12/23/16 15:50 Dose: 25 mls/hr Sodium Chloride (Normal Saline) 1,000 mls @ 75 mls/hr IV ASDIRECTED [facility] Insulin Detemir (Levemir) 15 unit SUBCUT BEDTIME [facility] Last Admin: 12/22/16 22:56 Dose: 15 units Insulin Detemir (Levemir) Confirm Administered Dose 300 unit .ROUTE .STK-MED ONE Stop: 12/22/16 22:42 Last Admin: 12/22/16 23:11 Dose: Not Given Morphine Sulfate (Ms Contin) 60 mg PO TID [facility] Last Admin: 12/22/16 23:06 Dose: Not Given Morphine Sulfate (Morphine) Confirm Administered Dose 60 mg .ROUTE .STK-MED ONE Stop: 12/22/16 22:52 Last Admin: 12/22/16 23:05 Dose: 60 mg Non-Formulary Medication (Ca Citrate/Mgox/Vit D3/B6/Min [Calcium Citrate Plus Tablet]) 1 each PO BID [facility] Last Admin: 12/22/16 23:11 Dose: Not Given Oxycodone/Acetaminophen (Percocet 325-5 Mg) tab PO Q4H PRN PRN Reason: Pain Potassium Chloride (Klor-Con M20) 40 meq PO ONETIME ONE Stop: 12/22/16 21:14 Last Admin: 12/22/16 23:04 Dose: 40 meq Prednisone (Prednisone) 20 mg PO BIDMEALS [facility] Last Admin: 12/22/16 23:05 Dose: 20 mg Senna/Docusate Sodium (Senna Plus) 1 tab PO BID [facility] Last Admin: 12/22/16 23:06 Dose: 1 tab Tramadol HCl (Ultram) 50 mg PO Q6H [facility] Last Admin: 12/23/16 03:02 Dose: 50 mg Warfarin Sodium (Coumadin) 2 mg PO Q48H [facility] Warfarin Sodium (Coumadin) 3 mg PO Q48H [facility] Last Admin: 12/23/16 20:52 Dose: 3 mg Warfarin Sodium (Coumadin) 2 mg PO ONETIME ONE Stop: 12/23/16 00:40 Last Admin: 12/23/16 01:04 Dose: 2 mg - Exam Quality Assessment: Urine Catheter, DVT Prophylaxis General: Alert, Oriented, Cooperative, No Acute Distress Lungs: Clear to Auscultation, Normal Respiratory Effort Cardiovascular: Regular Rate, Regular Rhythm, No Murmurs GI/Abdominal Exam: Normal Bowel Sounds, Soft, No Organomegaly, Tender. No: Distended, Guarding, Rigid, Rebound Extremities: Non-Tender, No Pedal Edema Skin: Warm, Dry - Problem List Review Problem List Initiated/Reviewed/Updated: Yes - My Orders Last 24 Hours: My Active Orders 12/23/16 08:00 predniSONE 20 mg PO BIDMEALS 12/23/16 08:30 Docusate Sodium/Sennosides [Senna Plus] 1 tab PO BID PRN 12/23/16 08:53 Ready for Discharge [RC] PER UNIT ROUTINE 12/23/16 09:00 Calcium Carbonate/Vitamin D3 [Caltrate 600+D 1500 MG-400 Units] 1 tab PO BID Gabapentin [Neurontin] 800 mg PO TID Magnesium Oxide 400 mg PO BID Morphine [MS Contin] 60 mg PO TID Piperacillin/Tazobactam/Dext [Zosyn in Dextrose Iso-Osmotic 3.375 GM] 3.375 gm Premix Bag 1 bag IV Q6H traMADol [Ultram] 50 mg PO Q6H 12/23/16 12:30 Heparin Sodium [Heparin Lock Flush 100 Units/ML] 500 units FLUSH ASDIRECTED 12/23/16 16:30 GLUCOSE POC LAB TO COLLECT [POC] QIDACANDBED 12/23/16 21:00 GLUCOSE POC LAB TO COLLECT [POC] QIDACANDBED Insulin Detemir [Levemir] 15 unit SUBCUT BEDTIME 12/24/16 08:58 Convert IV to Saline Lock [OM.PC] Routine 12/24/16 09:00 Furosemide [Lasix] 20 mg PO Q48H Warfarin [Coumadin] 5 mg PO ONETIME ONE 12/24/16 14:00 FLU Vacc [id number] 36Mos UP/PF [Fluzone Quad [id number]] 60 mcg IM .ONCE ONE 12/25/16 05:00 CBC WITH AUTO DIFF [HEME] Timed 12/25/16 05:11 INR,PT,PROTHROMBIN TIME [COAG] AM 12/25/16 07:30 GLUCOSE POC LAB TO COLLECT [POC] QIDACANDBED 12/25/16 11:30 GLUCOSE POC LAB TO COLLECT [POC] QIDACANDBED 12/25/16 16:30 GLUCOSE POC LAB TO COLLECT [POC] QIDACANDBED 12/25/16 21:00 GLUCOSE POC LAB TO COLLECT [POC] QIDACANDBED 12/26/16 07:30 GLUCOSE POC LAB TO COLLECT [POC] QIDACANDBED 12/26/16 11:30 GLUCOSE POC LAB TO COLLECT [POC] QIDACANDBED 12/26/16 16:30 GLUCOSE POC LAB TO COLLECT [POC] QIDACANDBED 12/26/16 21:00 GLUCOSE POC LAB TO COLLECT [POC] QIDACANDBED 12/27/16 07:30 GLUCOSE POC LAB TO COLLECT [POC] QIDACANDBED 12/27/16 11:30 GLUCOSE POC LAB TO COLLECT [POC] QIDACANDBED 12/27/16 16:30 GLUCOSE POC LAB TO COLLECT [POC] QIDACANDBED 12/27/16 21:00 GLUCOSE POC LAB TO COLLECT [POC] QIDACANDBED 12/28/16 07:30 GLUCOSE POC LAB TO COLLECT [POC] QIDACANDBED 12/28/16 11:30 GLUCOSE POC LAB TO COLLECT [POC] QIDACANDBED 12/28/16 16:30 GLUCOSE POC LAB TO COLLECT [POC] QIDACANDBED 12/28/16 21:00 GLUCOSE POC LAB TO COLLECT [POC] QIDACANDBED 12/29/16 07:30 GLUCOSE POC LAB TO COLLECT [POC] QIDACANDBED 12/29/16 11:30 GLUCOSE POC LAB TO COLLECT [POC] QIDACANDBED 12/29/16 16:30 GLUCOSE POC LAB TO COLLECT [POC] QIDACANDBED 12/29/16 21:00 GLUCOSE POC LAB TO COLLECT [POC] QIDACANDBED 12/30/16 07:30 GLUCOSE POC LAB TO COLLECT [POC] QIDACANDBED 12/30/16 11:30 GLUCOSE POC LAB TO COLLECT [POC] QIDACANDBED 12/30/16 16:30 GLUCOSE POC LAB TO COLLECT [POC] QIDACANDBED 12/30/16 21:00 GLUCOSE POC LAB TO COLLECT [POC] QIDACANDBED 12/31/16 07:30 GLUCOSE POC LAB TO COLLECT [POC] QIDACANDBED 12/31/16 11:30 GLUCOSE POC LAB TO COLLECT [POC] QIDACANDBED 12/31/16 16:30 GLUCOSE POC LAB TO COLLECT [POC] QIDACANDBED 12/31/16 21:00 GLUCOSE POC LAB TO COLLECT [POC] QIDACANDBED 01/01/17 07:30 GLUCOSE POC LAB TO COLLECT [POC] QIDACANDBED 01/01/17 11:30 GLUCOSE POC LAB TO COLLECT [POC] QIDACANDBED 01/01/17 16:30 GLUCOSE POC LAB TO COLLECT [POC] QIDACANDBED 01/01/17 21:00 GLUCOSE POC LAB TO COLLECT [POC] QIDACANDBED 01/02/17 07:30 GLUCOSE POC LAB TO COLLECT [POC] QIDACANDBED 01/02/17 11:30 GLUCOSE POC LAB TO COLLECT [POC] QIDACANDBED 01/02/17 16:30 GLUCOSE POC LAB TO COLLECT [POC] QIDACANDBED 01/02/17 21:00 GLUCOSE POC LAB TO COLLECT [POC] QIDACANDBED - Plan Plan:: ASSESSMENT AND PLAN COMPLICATED CYSTITIS WITH EARLY SEPSIS-weakness associated with fever and elevated white blood cell count, urinalysis shows evidence of underlying infection with pyuria. He does have a neurogenic bladder with chronic indwelling catheter. Afebrile since admission with stable vital signs, final culture results pending -Blood and urine cultures pending -Saline lock IV -Broad-spectrum antibiotic coverage pending culture results because of recent antibiotic therapy, will use Zosyn 3.375 mg IV every 6 hours OPEN ABDOMINAL WOUND-opened by Dr. Cuellar, currently packed, no evidence of obvious infection or cellulitis -Care and management per Dr. Cuellar TYPE 2 DIABETES MELLITUS -Continue usual dose of long-acting insulin -Moderate dose sliding scale NovoLog -4 times a day glucometers HISTORY OF DEEP VEIN THROMBOSIS-INR subtherapeutic -Warfarin 5 mg by mouth today -Repeat INR in a.m. MAINTENANCE ISSUES -DVT prophylaxis; Lovenox 40 mg subcutaneous daily, pending therapeutic INR -GI prophylaxis; not indicated -Pinto catheter; chronic indwelling catheter -Nutrition; regular diet -Nicotine dependence; not required CODE STATUS-full code ADMISSION STATUS-patient will be admitted to inpatient status, expect at least a 2 night hospital stay for evaluation and management of problems as outlined above. At the time of this admission I do not reasonably expected evaluation and management of this problem will require more than a 96 hour hospital stay. DISPOSITION-anticipate discharge to home after the hospital stay. PRIMARY CARE PROVIDER-Dr. Salinas
[2016-12-24] MEDS: Fluconazole 100 MG Tab PO SCH (10:52)
[2016-12-24] MEDS: LORazepam 1 MG Tab PO PRN ×2 (10:56→21:12)
[2016-12-24] MEDS ORDERED: Fluconazole 100 MG Tab PO SCH (11:00)
[2016-12-24] MEDS ORDERED: FLU Vacc QS 2017-18 (36mos UP)/PF 60 MCG/0.5 ML Syringe IM ONE (14:00)
[2016-12-24] MEDS: Simvastatin 20 MG Tab PO SCH (20:49)
[2016-12-24] MEDS: Mirtazapine 15 MG Tab PO SCH (20:51)
[2016-12-24] MEDS: Insulin Detemir 100 Units/ML 3 ML Pen SUBCUT SCH (21:00)
[2016-12-25] MEDS: Piperacillin/Tazobactam/Dext 3.375 GM in Premix Bag 1 BAG IV SCH ×2 (03:01→08:29)
[2016-12-25] MEDS: traMADol 50 MG Tab PO SCH ×2 (03:01→08:28)
[2016-12-25] MEDS: Acetaminophen/oxyCODONE 325-5 MG Tab PO PRN (06:30)
[2016-12-25] MEDS: Albuterol/Ipratropium 3.0-0.5 MG/3 ML Neb Soln INH SCH (07:35)
[2016-12-25] MEDS: Insulin Aspart 100 Units/ML 3 ML Pen SUBCUT SCH (08:22)
[2016-12-25] MEDS: Calcium Carbonate/Vitamin D3 1500 MG-400 Units Tab PO SCH (08:24)
[2016-12-25] MEDS: Pantoprazole 40 MG Tab.CR PO SCH (08:24)
[2016-12-25] MEDS: predniSONE 20 MG Tab PO SCH (08:24)
[2016-12-25] MEDS: Citalopram 20 MG Tab PO SCH (08:25)
[2016-12-25] MEDS: Fluconazole 100 MG Tab PO SCH (08:25)
[2016-12-25] MEDS: Enoxaparin 40 MG/0.4 ML Syringe SUBCUT SCH (08:26)
[2016-12-25] MEDS: Aspirin 81 MG Tab.EC PO SCH (08:26)
[2016-12-25] MEDS: Magnesium Oxide 400 MG Tab PO SCH (08:26)
[2016-12-25] MEDS: Gabapentin 400 MG Cap PO SCH (08:27)
[2016-12-25] MEDS: Morphine 30 MG Tab.ER PO SCH (08:27)
[2016-12-25] MEDS: Sennosides 8.6 MG Tab PO SCH (08:28)
[2016-12-25] MEDS: Cholecalciferol (Vitamin D3) 1,000 Unit Tab PO SCH (08:29)
[2016-12-25] MEDS: LORazepam 1 MG Tab PO PRN (08:46)
[2016-12-25 08:47] VITALS: BP 112/84
--- NOTE | 2016-12-25 09:34 | PCM.DCSUM1 ---
Discharge Summary - Hospital Course Brief History: Mr. Kirk is a 45-year-old gentleman who was admitted through the emergency department with urinary tract infection and sepsis. - Discharge Data Discharge Date: 12/25/16 Discharge Disposition: Home, W Home Health Agency 06 Preliminary Cause of *Q: Respiratory Failure Condition: Fair - Discharge Diagnosis/Problem(s) (1) Sepsis SNOMED Code(s): 93124198 ICD Code: A41.9 - SEPSIS, UNSPECIFIED ORGANISM Status: Acute Current Visit: Yes (2) UTI (urinary tract infection) SNOMED Code(s): 81998113 ICD Code: N39.0 - URINARY TRACT INFECTION, SITE NOT SPECIFIED Status: Acute Current Visit: Yes (3) Status post panniculectomy SNOMED Code(s): 382480383, 462331182 ICD Code: Z98.890 - OTHER SPECIFIED POSTPROCEDURAL STATES Status: Acute Current Visit: No (4) Type 2 diabetes mellitus SNOMED Code(s): 27667991 ICD Code: E11.9 - TYPE 2 DIABETES MELLITUS WITHOUT COMPLICATIONS Status: Chronic Current Visit: No - Patient Summary/Data Hospital Course: Mr. Kirk is a 45-year-old gentleman with multiple medical problems. He is undergone a previous gastric bypass surgery and recently underwent panniculectomy. Panniculectomy complicated by fluid collection within the incision, he underwent IND of these areas few days prior to admission. On the day of admission became progressively more weak with temperature elevation. On evaluation in the emergency department there was no evidence of incisional infection or cellulitis. Urinalysis did show evidence of infection and he was felt to have probable sepsis with tachycardia and elevation in lactic acid level. Because of recent antibiotic therapy was placed on broad-spectrum antibiotics with Zosyn. Blood and urine cultures were obtained, by the time of discharge blood cultures were negative but urine culture growing only yeast. He was started on fluconazole on the day prior to discharge and will be continued on this for an additional 7 days. He remained hemodynamically stable throughout the hospital stay, lactic acid level did remain elevated the day after admission but normalized with IV fluids eventually. Blood glucose levels were monitored during his hospital stay and he was treated with supplemental insulins as needed. He is on long-term oral anticoagulation with warfarin for management of a history of recurrent deep vein thrombosis. INRs were monitored through his hospital stay and were subtherapeutic. He was given increased dose of warfarin on the day prior to discharge as well as the day of discharge, follow-up INR will be obtained in 2 days and will be drawn by home care. Activity will be as tolerated and he will resume his usual diet. Follow-up appointment will be scheduled with Dr. Salinas within one week. - Patient Instructions Diet: Diabetic Diet Activity: As Tolerated Other/Special Instructions: Please have homecare obtain follow-up INR on TuesdayDecember 27. Please schedule follow-up appointment with Dr. Salinas within one week. - Discharge Plan Prescriptions/Med Rec: Fluconazole [Diflucan] 100 mg PO DAILY #7 tablet Home Medications: Home Meds Aspirin [Ecotrin] 81 mg PO DAILY 09/25/15 [History] predniSONE [Prednisone] 20 mg PO BID 09/25/15 [History] Multivitamin with Minerals [Multiple Vitamin] 1 tab PO BID #0 10/03/15 [Rx] Cholecalciferol (Vitamin D3) [Vitamin D] 1,000 unit PO TID 10/22/15 [History] Insulin Detemir [Levemir] 15 unit SUBCUT BEDTIME 10/22/15 [History] Insulin Glulisine [Apidra Solostar] 5 - 8 units SQ TIDAC 10/22/15 [History] Simvastatin [Zocor] 40 mg PO BEDTIME 11/26/15 [History] Citalopram [Citalopram HBr] 40 mg PO DAILY 08/13/16 [History] LORazepam 0.5 - 1 mg PO TID 08/13/16 [History] Mirtazapine 30 mg PO BEDTIME 08/13/16 [History] Morphine Sulfate [Morphine Sulfate Cr] 60 mg PO TID 08/13/16 [History] Pantoprazole [ProTONIX] 40 mg PO DAILY 08/13/16 [History] Warfarin Sodium [Coumadin] 2 mg PO Q48H 08/13/16 [History] Warfarin Sodium [Coumadin] 3 mg PO Q48H 08/13/16 [History] traMADol [Ultram] 50 mg PO Q6H 08/13/16 [History] Ca Citrate/Mgox/Vit D3/B6/Min [Calcium Citrate Plus Tablet] 1 each PO BID [History] Furosemide 20 mg PO .QOD 11/15/16 [History] Sennosides 2 tab PO BID 11/27/16 [History] Acetaminophen [Tylenol] 650 mg PO Q4H PRN tablet 12/01/16 [Rx] Gabapentin [Neurontin] 800 mg PO TID #0 12/01/16 [Rx] oxyCODONE HCl/Acetaminophen [Percocet 5-325 mg Tablet] 2 each PO Q4H PRN [History] Albuterol/Ipratropium [Combivent Respimat] 2 puff INH BID 12/23/16 [History] Docusate Sodium/Sennosides [Senna Plus] 1 tab PO BID PRN 12/23/16 [History] Fluconazole [Diflucan] 100 mg PO DAILY #7 tablet 12/25/16 [Rx] Referrals: Satish Salinas MD [Primary Care Provider] - - Patient Data Vitals - Most Recent: Last Vital Signs Temp 98 F 12/25/16 08:00 Pulse 80 12/25/16 08:00 Resp 16 12/25/16 08:00 BP 112/84 12/25/16 08:00 Pulse Ox 98 12/25/16 08:00 Weight - Most Recent: 271 lb 2.697 oz I&O - Last 24 hours: Intake & Output 12/24/16 12/25/16 12/25/16 22:59 06:59 14:59 Intake Total 1150 650 Output Total 600 1500 Balance 550 -850 Lab Results - Last 24 hrs: Laboratory Results - last 24 hr 12/25/16 12/25/16 Range/Units 05:30 05:30 WBC 10.2 (4.5-11.0) K/uL RBC 3.47 L (4.30-5.90) M/uL Hgb 9.3 L (12.0-15.0) g/dL Hct 30.6 L (40.0-54.0) % MCV 88 (80-98) fL MCH 27 (27-31) pg MCHC 30 L (32-36) % Plt Count 264 (150-400) K/uL Neut % (Auto) 78 H (36-66) % Lymph % (Auto) 17 L (24-44) % [place] % (Auto) 5 (2-6) % Eos % (Auto) 1 L (2-4) % Baso % (Auto) 0 (0-1) % PT 16.1 H (9.5-12.0) sec INR 1.48 H (0.80-1.20) Med Orders - Current: Current Medications Acetaminophen (Tylenol) 650 mg PO Q4H PRN PRN Reason: Pain (Mild 1-3)/fever Last Admin: 12/23/16 03:02 Dose: 650 mg Albuterol (Proventil Neb Soln) 2.5 mg NEB Q4H PRN PRN Reason: Shortness Of Breath/wheezing Albuterol/Ipratropium (Duoneb 3.0-0.5 Mg/3 Ml) 3 ml INH BIDRT [facility] Last Admin: 12/25/16 07:35 Dose: 3 ml Aspirin (Halfprin) 81 mg PO DAILY [facility] Last Admin: 12/25/16 08:26 Dose: 81 mg Calcium Carbonate (Caltrate 600+D 1500 Mg-400 Units) 1 tab PO BID [facility] Last Admin: 12/25/16 08:24 Dose: 1 tab Cholecalciferol (Vitamin D3) 1,000 units PO TID [facility] Last Admin: 12/25/16 08:29 Dose: 1,000 units Citalopram Hydrobromide (Celexa) 40 mg PO DAILY [facility] Last Admin: 12/25/16 08:25 Dose: 40 mg Dextrose (Glutose 15) 15 gm PO ONETIME PRN PRN Reason: Hypoglycemia Dextrose/Water (Dextrose 50% In Water) 50 ml IV ONETIME PRN PRN Reason: Hypoglycemia Docusate Sodium (Colace) 100 mg PO BID PRN PRN Reason: Constipation Last Admin: 12/22/16 23:05 Dose: 100 mg Enoxaparin Sodium (Lovenox) 40 mg SUBCUT DAILY [facility] Last Admin: 12/25/16 08:26 Dose: 40 mg Fluconazole (Diflucan) 100 mg PO DAILY [facility] Last Admin: 12/25/16 08:25 Dose: 100 mg Furosemide (Lasix) 20 mg PO Q48H [facility] Last Admin: 12/24/16 08:49 Dose: 20 mg Gabapentin (Neurontin) 800 mg PO TID [facility] Last Admin: 12/25/16 08:27 Dose: 800 mg Heparin Sodium (Porcine) (Heparin Lock Flush 100 Units/Ml) 500 units FLUSH ASDIRECTED [facility] Last Admin: 12/25/16 03:30 Dose: 500 units Piperacillin/Tazobactam/ (Dextrose 3.375 gm/ Premix) 50 mls @ 100 mls/hr IV Q6H [facility] Last Admin: 12/25/16 08:29 Dose: 100 mls/hr Insulin Aspart (Novolog) 0 unit SUBCUT QIDACANDBED [facility] PRN Reason: Protocol Last Admin: 12/25/16 08:22 Dose: 2 units Insulin Detemir (Levemir) 15 unit SUBCUT BEDTIME [facility] Last Admin: 12/24/16 21:00 Dose: 15 unit Lorazepam (Ativan) 0.5 - 1 mg PO TID PRN PRN Reason: Anxiety Last Admin: 12/25/16 08:46 Dose: 1 mg Magnesium Hydroxide (Milk Of Magnesia) 30 ml PO Q12H PRN PRN Reason: Constipation Magnesium Oxide (Magnesium Oxide) 400 mg PO BID [facility] Last Admin: 12/25/16 08:26 Dose: 400 mg Mirtazapine (Remeron) 30 mg PO BEDTIME [facility] Last Admin: 12/24/16 20:51 Dose: 30 mg Morphine Sulfate (Ms Contin) 60 mg PO TID [facility] Last Admin: 12/25/16 08:27 Dose: 60 mg Ondansetron HCl (Zofran) 4 mg IV Q4H PRN PRN Reason: Nausea/Vomiting Oxycodone/Acetaminophen (Percocet 325-5 Mg) 1 - 2 tab PO Q4H PRN PRN Reason: Pain Last Admin: 12/25/16 06:30 Dose: 2 tab Pantoprazole Sodium (Protonix) 40 mg PO DAILY@0730 [facility] Last Admin: 12/25/16 08:24 Dose: 40 mg Polyethylene Glycol (Miralax) 17 gm PO DAILY PRN PRN Reason: Constipation Prednisone (Prednisone) 20 mg PO BIDMEALS [facility] Last Admin: 12/25/16 08:24 Dose: 20 mg Senna (Senna) 17.2 mg PO BID [facility] Last Admin: 12/25/16 08:28 Dose: 17.2 mg Senna/Docusate Sodium (Senna Plus) 1 tab PO BID PRN PRN Reason: Constipation Simvastatin (Zocor) 40 mg PO BEDTIME [facility] Last Admin: 12/24/16 20:49 Dose: 40 mg Sodium Chloride (Saline Flush) 10 ml FLUSH ASDIRECTED PRN PRN Reason: Keep Vein Open Tramadol HCl (Ultram) 50 mg PO Q6H [facility] Last Admin: 12/25/16 08:28 Dose: 50 mg Warfarin Sodium (Coumadin) 5 mg PO ONETIME ONE Stop: 12/25/16 13:01 Discontinued Medications Cyanocobalamin (Vitamin B12) 1,000 mcg IM ONETIME ONE Stop: 12/24/16 09:01 Last Admin: 12/24/16 08:54 Dose: 1,000 mcg Fluconazole (Diflucan) 100 mg PO DAILY [facility] Furosemide (Lasix) 20 mg PO Q48H [facility] Last Admin: 12/22/16 23:05 Dose: 20 mg Gabapentin (Neurontin) 800 mg PO TID [facility] Last Admin: 12/22/16 23:11 Dose: Not Given Sodium Chloride (Normal Saline) 1,000 mls @ 500 mls/hr IV ASDIRECTED [facility] Last Admin: 12/22/16 18:12 Dose: 500 mls/hr Lactated Ringer's (Ringers, Lactated) 500 mls @ 500 mls/hr IV .BOLUS [facility] Stop: 12/23/16 01:14 Last Admin: 12/22/16 23:12 Dose: 500 mls/hr Lactated Ringer's (Ringers, Lactated) 1,000 mls @ 125 mls/hr IV ASDIRECTED [facility] Last Admin: 12/23/16 04:49 Dose: 125 mls/hr Piperacillin Sod/Tazobactam (Sod 3.375 gm/ Sodium Chloride) 50 mls @ 100 mls/ hr IV Q6H [facility] Last Admin: 12/23/16 03:02 Dose: 100 mls/hr Magnesium Sulfate 2 gm/ Premix 50 mls @ 25 mls/hr IV Q6H [facility] Stop: 12/23/16 16:59 Last Admin: 12/23/16 15:50 Dose: 25 mls/hr Sodium Chloride (Normal Saline) 1,000 mls @ 75 mls/hr IV ASDIRECTED [facility] Influenza Virus Vaccine (Fluzone Quad 0580-6201) 60 mcg IM .ONCE ONE Stop: 12/24/16 14:01 Last Admin: 12/24/16 15:01 Dose: 60 mcg Insulin Detemir (Levemir) 15 unit SUBCUT BEDTIME [facility] Last Admin: 12/22/16 22:56 Dose: 15 units Insulin Detemir (Levemir) Confirm Administered Dose 300 unit .ROUTE .STK-MED ONE Stop: 12/22/16 22:42 Last Admin: 12/22/16 23:11 Dose: Not Given Morphine Sulfate (Ms Contin) 60 mg PO TID [facility] Last Admin: 12/22/16 23:06 Dose: Not Given Morphine Sulfate (Morphine) Confirm Administered Dose 60 mg .ROUTE .STK-MED ONE Stop: 12/22/16 22:52 Last Admin: 12/22/16 23:05 Dose: 60 mg Non-Formulary Medication (Ca Citrate/Mgox/Vit D3/B6/Min [Calcium Citrate Plus Tablet]) 1 each PO BID [facility] Last Admin: 12/22/16 23:11 Dose: Not Given Oxycodone/Acetaminophen (Percocet 325-5 Mg) tab PO Q4H PRN PRN Reason: Pain Potassium Chloride (Klor-Con M20) 40 meq PO ONETIME ONE Stop: 12/22/16 21:14 Last Admin: 12/22/16 23:04 Dose: 40 meq [facility]) [facility] Last Admin: 12/22/16 23:05 Dose: 20 mg Senna/Docusate Sodium (Senna Plus) 1 tab PO BID [facility] Last Admin: 12/22/16 23:06 Dose: 1 tab Thiamine HCl (Vitamin B-1) 200 mg IM ONETIME ONE Stop: 12/24/16 09:01 Last Admin: 12/24/16 08:55 Dose: 200 mg Tramadol HCl (Ultram) 50 mg PO Q6H [facility] Last Admin: 12/23/16 03:02 Dose: 50 mg Warfarin Sodium (Coumadin) 2 mg PO Q48H [facility] Warfarin Sodium (Coumadin) 3 mg PO Q48H [facility] Last Admin: 12/23/16 20:52 Dose: 3 mg Warfarin Sodium (Coumadin) 2 mg PO ONETIME ONE Stop: 12/23/16 00:40 Last Admin: 12/23/16 01:04 Dose: 2 mg Warfarin Sodium (Coumadin) 5 mg PO ONETIME ONE Stop: 12/24/16 09:01 Last Admin: 12/24/16 10:52 Dose: 5 mg *Q Meaningful Use (DIS) - VTE *Q VTE Criteria *Q: - Stroke *Q Stroke Criteria *Q: - AMI *Q AMI Criteria *Q:
--- NOTE | 2016-12-25 12:24 | PN ---
DATE OF SERVICE: 12/24/2016 The patient has been clinically stable, appears to be resolving his sepsis. Plan will be to continue the IV antibiotics probably through Tuesday. The wound is once again cleaned with dressing change. We will continue per nursing. We will give him his scheduled B12 and thiamine injections today as well. There was a question raised, whether or not to change his Pinto catheter that was exchanged earlier this week, so it does not need to be repeated at this time. Jovany Cuellar MD /[id number]
[2016-12-25] MEDS ORDERED: Warfarin 5 MG Tab PO ONE (13:00)
--- NOTE | 2016-12-25 16:54 | PN ---
DATE OF SERVICE: 12/23/2016 The patient was admitted overnight with urinary sepsis. Clinically, he has been stable at this point. Surgery was contacted regarding open panniculectomy incision. It was opened up partially yesterday at the time of Pinto catheter exchange as well. Examination of the wound today shows it to be quite clean. Wound care instructions were given by Nursing which will be on b.i.d. I will see the patient tomorrow, otherwise management continues per Dr. Alva. Jovany Cuellar MD /[id number]
--- NOTE | 2016-12-25 17:12 | PN ---
DATE OF SERVICE: 12/25/2016 The patient has been afebrile with stable vital sounds. His wound looks clean and we will continue b.i.d. dressing changes, otherwise management will continue per Dr. Alva. Jovany Cuellar MD /[id number]
== END 2016-12-25 10:15 | disposition home health service (06) | DRG 872 ==
LOC: JP.ED 16:09 → JP.ICU 19:14
PROVIDERS: ADMIT Hospitalist; ATTEND Surgery
DX: A41.9 Sepsis, unspecified organism (principal); N30.90 Cystitis, unspecified without hematuria; S31.109A Unspecified open wound of abdominal wall, unspecified quadrant without penetration into peritoneal cavity, initial encounter; Z98.890 Other specified postprocedural states; Z23 Encounter for immunization; E11.21 Type 2 diabetes mellitus with diabetic nephropathy; E11.40 Type 2 diabetes mellitus with diabetic neuropathy, unspecified; Z79.4 Long term (current) use of insulin; N31.9 Neuromuscular dysfunction of bladder, unspecified; F32.9 Major depressive disorder, single episode, unspecified; E55.9 Vitamin D deficiency, unspecified; M54.9 Dorsalgia, unspecified; G89.29 Other chronic pain; M19.90 Unspecified osteoarthritis, unspecified site; M06.9 Rheumatoid arthritis, unspecified; Z87.440 Personal history of urinary (tract) infections; G47.30 Sleep apnea, unspecified; Z87.01 Personal history of pneumonia (recurrent); Z86.718 Personal history of other venous thrombosis and embolism; G54.7 Phantom limb syndrome without pain; Z98.84 Bariatric surgery status; Z88.5 Allergy status to narcotic agent; Z79.82 Long term (current) use of aspirin; Z79.01 Long term (current) use of anticoagulants
CPT/HCPCS: 36415; 80048; 80053; 81001; 82962; 83605; 83735; 85025; 85610; 87040; 87086; 87088; 90686; 94640; 96361; 96374; 99285-25; A9270-GY; G0008; J1642; J1650; J2543; J3411; J3420; J3475; J7040; J7050; J7120; J7620

== ENCOUNTER 2017-04-14 09:10 | Inpatient (IN) | payer MEDICAID ==
[2017-04-14] MEDS ORDERED: Dexamethasone 4 MG/ML SDV ONE (09:27)
[2017-04-14] MEDS ORDERED: Ondansetron 4 MG/2 ML SDV ONE (09:27)
[2017-04-14] MEDS ORDERED: Succinylcholine 200 MG/10 ML MDV ONE (09:27)
[2017-04-14] MEDS ORDERED: Neostigmine Methylsulfate 1 MG/ML 5 ML Syringe ONE (09:27)
[2017-04-14] MEDS ORDERED: Glycopyrrolate 0.2 MG/ML 5 ML MDV ONE (09:27)
[2017-04-14] MEDS ORDERED: Propofol 200 MG/20 ML SDV ONE (09:27)
[2017-04-14] MEDS ORDERED: Rocuronium 50 MG/5 ML Vial ONE (09:27)
[2017-04-14] MEDS ORDERED: Acetaminophen 500 MG Tab PO ONE (09:31)
[2017-04-14] MEDS ORDERED: methylPREDNISolone Sodium Succinate 2 GM Vial IV ONE (09:31)
[2017-04-14] MEDS ORDERED: Gabapentin 400 MG Cap PO ONE (09:40)
[2017-04-14] MEDS ORDERED: methylPREDNISolone Sodium Succinate 125 MG/2 ML SDV IV ONE (09:45)
[2017-04-14] MEDS: Dextrose 5%-Lactated Ringers 1,000 ML IV SCH ×2 (09:52→17:03)
[2017-04-14] MEDS: Bupivacaine 0.5% 50 ML MDV ONE ×2 (11:58→12:34)
[2017-04-14] MEDS: Lidocaine 1% with EPINEPHrine 1:100,000 50 ML MDV ONE ×2 (11:59→12:34)
[2017-04-14] MEDS: Clindamycin Phosphate 900 MG in Sodium Chloride 0.9% 100 ML IV ONE ×2 (12:05→15:16)
[2017-04-14] MEDS ORDERED: HYDROmorphone/Normal Saline 15 MG/30 ML PCA IV PRN (13:57)
[2017-04-14] MEDS ORDERED: Naloxone 0.4 MG/ML SDV IVPUSH PRN (13:57)
[2017-04-14] MEDS ORDERED: Insulin Aspart 100 Units/ML 3 ML Pen SUBCUT ONE ×2 (13:59→21:07)
[2017-04-14] MEDS ORDERED: Glucagon,Human Recombinant 1 MG Vial IM PRN (14:53)
[2017-04-14] MEDS ORDERED: Glucose Gel 15 GM in 37.5 GM Tube PO PRN (14:53)
[2017-04-14] MEDS ORDERED: Insulin Aspart 100 Units/ML 3 ML Pen SUBCUT PRN (14:53)
[2017-04-14] MEDS ORDERED: 50% Dextrose in Water 50 ML Syringe IVPUSH PRN (14:53)
[2017-04-14] MEDS ORDERED: Albuterol/Ipratropium 3.0-0.5 MG/3 ML Neb Soln INH PRN (14:55)
[2017-04-14] MEDS ORDERED: Acetaminophen 325 MG Tab PO PRN (14:56)
[2017-04-14] MEDS ORDERED: LORazepam 0.5 MG Tab PO PRN (14:59)
[2017-04-14] MEDS: oxyCODONE 5 MG Tab PO SCH ×2 (15:43→21:23)
[2017-04-14] MEDS ORDERED: Warfarin 5 MG Tab PO ONE (16:00)
[2017-04-14] MEDS: Albuterol/Ipratropium 3.0-0.5 MG/3 ML Neb Soln INH SCH ×2 (16:13→20:20)
[2017-04-14] MEDS: Gabapentin 400 MG Cap PO SCH ×2 (16:14→20:21)
[2017-04-14] MEDS: Insulin Aspart 100 Units/ML 3 ML Pen SUBCUT SCH (16:55)
[2017-04-14] MEDS: predniSONE 20 MG Tab PO SCH (17:04)
[2017-04-14] MEDS: Morphine 30 MG Tab.ER PO SCH (20:20)
[2017-04-14] MEDS: Sennosides 8.6 MG Tab PO SCH (20:22)
[2017-04-14] MEDS ORDERED: Mirtazapine 15 MG Tab PO SCH (21:00)
[2017-04-14] MEDS ORDERED: Simvastatin 20 MG Tab PO SCH (21:00)
[2017-04-14] MEDS ORDERED: Insulin Detemir 100 Units/ML 3 ML Pen SUBCUT SCH (21:00)
[2017-04-14] MEDS ORDERED: Lactated Ringers 1,000 ML IV SCH (21:15)
[2017-04-15] MEDS: oxyCODONE 5 MG Tab PO SCH ×2 (04:31→10:01)
[2017-04-15] MEDS ORDERED: Pantoprazole 40 MG Tab.CR PO SCH (07:30)
[2017-04-15 07:34] VITALS: BP 139/87
[2017-04-15] MEDS: Insulin Aspart 100 Units/ML 3 ML Pen SUBCUT SCH (07:45)
[2017-04-15] MEDS: Albuterol/Ipratropium 3.0-0.5 MG/3 ML Neb Soln INH SCH (07:57)
[2017-04-15] MEDS: Morphine 30 MG Tab.ER PO SCH (08:01)
[2017-04-15] MEDS: predniSONE 20 MG Tab PO SCH (08:01)
[2017-04-15] MEDS: Gabapentin 400 MG Cap PO SCH (08:01)
[2017-04-15] MEDS: Sennosides 8.6 MG Tab PO SCH (08:03)
[2017-04-15] MEDS ORDERED: Aspirin 81 MG Tab.EC PO SCH (09:00)
[2017-04-15] MEDS ORDERED: busPIRone 5 MG Tab PO SCH (09:00)
[2017-04-15] MEDS ORDERED: Furosemide 20 MG Tab PO SCH (09:00)
[2017-04-15] MEDS ORDERED: Citalopram 20 MG Tab PO SCH (09:00)
--- NOTE | 2017-04-15 10:19 | DISCH ---
ADMISSION DIAGNOSES: 1. Open abdominal wound with wound VAC. 2. Inadequate venous access. 3. Insertion of suprapubic catheter. DISCHARGE DIAGNOSES: 1. Placement of Port-A-Cath, left subclavian vein. 2. Ultrasound-guided placement of suprapubic catheter. 3. Wound VAC dressing change under general anesthetic. HISTORY: Mr. Denis Kirk has muscle weakness with unknown etiology and has had a Pinto catheter in for several years. He also has had a wound VAC on his dressing following a panniculectomy, for several months, and he has had 3 occasions becoming septic and needing IV antibiotics, and has inadequate venous access. After preoperative evaluation and discussion of possible risks and possible complications, he wished to proceed with surgical procedure. HOSPITAL COURSE: Denis had the above procedure on 04/14/2017, with no complications. On postop day #1, he was ready to be discharged to home. Pain was well managed. Activity per wheelchair. Vital signs were stable. He was afebrile and suprapubic catheter output was 1250. Wound VAC on 2 areas on his panniculectomy incision. PHYSICAL EXAMINATION: GENERAL: Mr. Denis Kirk is a 46-year-old male. VITAL SIGNS: Height is 5 feet 7 inches. Weight is 252 pounds. TPR is 96.8, 74, 16, and blood pressure 139/87. HEENT: Negative. NECK: Supple. HEART: Regular rate and rhythm. LUNGS: Clear. ABDOMEN: Wound VAC is on. Suprapubic catheter intact. EXTREMITIES: Without peripheral edema. DISPOSITION: Discharged to home. CONDITION: Stable and improving. FOLLOWUP APPOINTMENT: With Mamie Carpenter PA-C, on 04/27/2017 at 1 p.m. DISCHARGE MEDICATIONS: Home Medications: 1. Tylenol 650 mg p.o. q.6 hours p.r.n. pain, #100. 2. He is to resume his home medications. DIET: Usual diet as tolerated. Drink 8 to 10 glasses of water a day. ACTIVITY: As tolerated. May shower. Keep operative site clean and dry. Change dressing, wound VAC, per routine. DISCHARGE INSTRUCTIONS: 1. Notify provider if any fever, increased pain, swelling, redness, drainage, nausea, or vomiting. Special instructions, use incentive spirometer 10 times every hour while awake for 1 week. 2. Have PT and INR checked on 04/18/2017. 3. Check temperature at least twice a day. 4. Follow up in clinic or emergency room if 100 degrees.
[2017-04-15] MEDS ORDERED: Warfarin 5 MG Tab PO ONE (13:00)
--- NOTE | 2017-04-17 15:22 | OR ---
DATE OF PROCEDURE: 04/14/2017 PREOPERATIVE DIAGNOSES: 1. Inadequate peripheral venous access. 2. Neurogenic bladder. 3. Large open abdominal incision. POSTOPERATIVE DIAGNOSES: 1. Inadequate peripheral venous access. 2. Neurogenic bladder. 3. Large open abdominal incision. PROCEDURES: 1. Placement of Bard PowerPort via left subclavian vein approach (12509). 2. Ultrasound-guided placement of suprapubic cystostomy tube (42783). 3. Change of wound VAC dressing over large abdominal incision (48860). ANESTHESIA: General. INDICATION FOR PROCEDURE: A 46-year-old with progressive muscle weakness of the exact diagnosis for which the [facility] has not been able to yet determine. At any rate, he frequently requires IV medications and has severely impaired peripheral venous access. Given this, a port will be placed via one of the subclavian veins. He does currently have a PICC line in the right arm extending into the right subclavian and innominate veins. The patient also has a neurogenic bladder. He recently had a panniculectomy which became open to a large extent and this is a large incision going more or less from the tip that is now closing in fairly well, but still has a large area that is open and needs to be treated with wound VAC. The purpose of the panniculectomy was to allow suprapubic tube to be placed at this point, satisfactory to place the suprapubic tube today as well along with changing the wound VAC dressing. Potential risks of the procedure including bleeding, infection, injury to the vasculature or lung during the port placement, injury of viscera or urinary tract with the suprapubic cystostomy tube placement were gone over and the patient wishes to proceed. DETAILS OF PROCEDURE: The patient was taken to the operating room. After general endotracheal anesthesia was induced, he was placed in a supine position. The upper chest and neck area were prepped and draped. The left subclavian vein was then cannulated and a guidewire passed and manipulated from there into the superior vena cava. A transverse incision around the wire was then made and continued down through the skin and subcutaneous tissue and into the pectoralis major fascia. A pocket underneath the pectoralis major fascia was then constructed and the Bard PowerPort which had been assembled, flushed with heparinized saline was then placed into the pocket. The catheter was cut such that the tip would lie in the upper right atrium and with the introducer and peel-away catheter system, the Bard PowerPort catheter was placed. Adequate location was confirmed fluoroscopically. The incision was then closed with 2 layers of 3-0 Vicryl stitch deep and a 4-0 Vicryl subcuticular stitch. The port was aspirated and good blood return was noted and was once again flushed with heparinized saline. Attention was then taken to the lower abdomen. The wound VAC dressing was removed at this point and the wound was found to be quite clean. With patient in supine position, the area over the suprapubic region now appeared to be very satisfactory for placement of the cystostomy tube. There was no open component of the wound underneath the track for the cystostomy tube and that area was then prepped and draped, and preexisting Pinto catheter was then used to inject 700 mL of saline into the urinary bladder. This allowed nice visualization of the urinary bladder with ultrasound and the suprapubic area. Then a needle was passed percutaneously into the bladder and a guidewire passed. A small incision was then made and over this, a 16-Yi introducer and Peel-Away catheter system were placed. A 12-Yi Pinto catheter was then placed through that and inflated with 10 mL of saline and the Peel-Away catheter then removed leaving the Pinto catheter in place. This was sutured to skin with some 4-0 nylon stitch. A new wound VAC dressing was placed and with final dressings applied, the patient was taken to the recovery room in satisfactory condition. There were no evident complications. Jovany Cuellar MD /[id number]
== END 2017-04-15 10:45 | disposition home or self-care (01) | DRG 949 ==
LOC: JP.MS 09:10 → JP.SDS 09:10 → EDSTATUS 11:00 → JP.2SS 13:30
PROVIDERS: ADMIT Surgery; ATTEND Surgery
PROC: 2W03X6Z Change Pressure Dressing on Abdominal Wall (ICD-10-PCS; principal; 2017-04-14)
PROC: 0T9B30Z Drainage of Bladder with Drainage Device, Percutaneous Approach (ICD-10-PCS; 2017-04-14)
PROC: 05H633Z Insertion of Infusion Device into Left Subclavian Vein, Percutaneous Approach (ICD-10-PCS; 2017-04-14)
PROC: B517ZZA Fluoroscopy of Left Subclavian Vein, Guidance (ICD-10-PCS; 2017-04-14)
PROC: 0JHD3WZ Insertion of Totally Implantable Vascular Access Device into Right Upper Arm Subcutaneous Tissue and Fascia, Percutaneous Approach (ICD-10-PCS; 2017-04-14)
DX: S31.109D Unspecified open wound of abdominal wall, unspecified quadrant without penetration into peritoneal cavity, subsequent encounter (principal); E08.00 Diabetes mellitus due to underlying condition with hyperosmolarity without nonketotic hyperglycemic-hyperosmolar coma (NKHHC); K91.2 Postsurgical malabsorption, not elsewhere classified; N31.9 Neuromuscular dysfunction of bladder, unspecified; M62.81 Muscle weakness (generalized); X58.XXXD Exposure to other specified factors, subsequent encounter; Z98.890 Other specified postprocedural states; E53.9 Vitamin B deficiency, unspecified; E55.9 Vitamin D deficiency, unspecified; Z98.84 Bariatric surgery status; E78.5 Hyperlipidemia, unspecified; I10 Essential (primary) hypertension; Z79.4 Long term (current) use of insulin; Z79.82 Long term (current) use of aspirin; Z79.52 Long term (current) use of systemic steroids
CPT/HCPCS: 36415; 82962; 85610; 94762; 97605; A9270-GY; C1788; C2627; J0330; J1100; J1642; J2405; J2704; J2710; J2930; J3010; J7030; J7042; J7120; J7620; S0077

== ENCOUNTER 2017-05-04 21:50 | Inpatient (IN) | payer MEDICAID ==
--- NOTE | 2017-05-04 22:46 | EDM.PDOC ---
ED HPI GENERAL MEDICAL PROBLEM - General Chief Complaint: Genitourinary Problem Stated Complaint: MEDICAL VIA TRI Time Seen by Provider: 05/04/17 22:20 Source of Information: Reports: Patient, EMS History Limitations: Reports: No Limitations - History of Present Illness INITIAL COMMENTS - FREE TEXT/NARRATIVE: 46-year-old male with a past history of Kenny-en-Y, had a suprapubic catheter placed 2 weeks ago and has been seen twice today in the [place] area for lower abdominal pain. He was found to have bacteriuria but everything else was stable and reassuring. His pain is persisting however, his abdomen feels bloated and he is convinced he is not making as much urine as he should be making. He is only made "450 mL" in the last day. He has no vomiting. No fevers or chills. He came up by ambulance to our hospital at his request as he wants to be evaluated by Dr. Cuellar. Onset: Unknown/Unsure Severity: Moderate Associated Symptoms: Reports: Malaise. Denies: Chest Pain, Cough, Fever/Chills , Nausea/Vomiting, Shortness of Breath bilat groin/ flank Pain Score (Numeric/FACES): 9 - Related Data Allergies Allergy/AdvReac Type Severity Reaction Status Date / Time No Known Allergies Allergy Verified 05/05/17 00:51 Home Meds: Home Meds Aspirin [Ecotrin] 81 mg PO DAILY 09/25/15 [History] predniSONE [Prednisone] 20 mg PO BID 09/25/15 [History] Cholecalciferol (Vitamin D3) [Vitamin D] 1,000 unit PO TID 10/22/15 [History] Insulin Detemir [Levemir] 8 unit SUBCUT BID 10/22/15 [History] Insulin Glulisine [Apidra Solostar] 5 - 8 units SQ TIDAC 10/22/15 [History] Simvastatin [Zocor] 40 mg PO BEDTIME 11/26/15 [History] Citalopram [Citalopram HBr] 40 mg PO DAILY 08/13/16 [History] LORazepam 0.5 - 1 mg PO TID PRN 08/13/16 [History] Morphine Sulfate [Morphine Sulfate Cr] 60 mg PO BID 08/13/16 [History] Pantoprazole [ProTONIX] 40 mg PO DAILY 08/13/16 [History] Warfarin Sodium [Coumadin] 2 mg PO .M,W,F,PINTO 08/13/16 [History] Warfarin Sodium [Coumadin] 3 mg PO .TU,TH, SA 08/13/16 [History] Furosemide 20 mg PO .QOD 11/15/16 [History] Sennosides 2 tab PO BID PRN 11/27/16 [History] busPIRone [Buspar] 5 mg PO BID 04/14/17 [History] oxyCODONE 7.5 mg PO Q4HR PRN 04/14/17 [History] Acetaminophen [Tylenol Solution] 20 ml PO Q4HR PRN 04/28/17 [History] Cyanocobalamin (Vitamin B-12) [Cyanocobalamin Injection] 1,000 mcg IM .MONTHLY 04/28/17 [History] Magnesium Oxide [Magnesium] 400 mg PO DAILY 04/28/17 [History] Potassium Chloride [Klor-Con] 20 meq PO ASDIRECTED 04/28/17 [History] Albuterol/Ipratropium [Combivent Respimat] 2 inh PO BID 05/04/17 [History] Gabapentin [Neurontin] 800 mg PO TID 05/04/17 [History] Hydrocodone/Acetaminophen [Lorcet 5-325 mg Tablet] 1 - 2 tab PO Q6H PRN [History] Insulin Glarg,Human.Rec.Analog [Lantus Solostar] 15 unit SQ ASDIRECTED 05/04/17 [History] Ipratropium/Albuterol Sulfate [Iprat-Albut 0.5-3(2.5) mg/3 ml] 2 inh PO BID [History] Lactobacillus Rhamnosus GG [Culturelle] 1 cap PO DAILY 05/04/17 [History] Levofloxacin [Levofloxacin] 500 mg PO DAILY 05/04/17 [History] Mirtazapine [Mirtazapine] 30 mg PO BEDTIME 05/04/17 [History] Multivitamins [Childrens Chewable Vitamin] 1 tab PO BID 05/04/17 [History] Ondansetron [Zofran ODT] 4 mg PO Q8H PRN 05/04/17 [History] Thiamine [Vitamin B-1] 100 mg IM .MONTHLY 05/04/17 [History] oxyCODONE HCl [Oxycodone HCl] 5 - 10 mg PO Q8H PRN 05/04/17 [History] Past Medical History HEENT History: Reports: Impaired Vision Other HEENT History: wears glasses; retinal neuropathy Cardiovascular History: Reports: Blood Clots/VTE/DVT, High Cholesterol, Hypertension, SOB on Exertion, Syncope Respiratory History: Reports: Bronchitis, Recurrent, Pneumonia, Recurrent, Sleep Apnea, SOB, Other (See Below) Other Respiratory History: moderate lung disease Gastrointestinal History: Reports: Chronic Constipation, GERD Genitourinary History: Reports: Diabetic Nephropathy, Neurogenic Bladder, Renal Calculus, UTI, Recurrent, Other (See Below) Other Genitourinary History: Since 2015 has had indwelling urinary catheter Musculoskeletal History: Reports: Arthritis, Back Pain, Chronic, Fracture, Gout , Neck Pain, Chronic, Osteoarthritis, RA, Other (See Below) Other Musculoskeletal History: fractured right shoulder Neurological History: Reports: Headaches, Chronic, Neuropathy, Diabetic, Neuropathy, Peripheral Psychiatric History: Reports: Anxiety, Depression, Learning Disability, Mood Swings, Panic Attack, PTSD, Suicidal Ideation Endocrine/Metabolic History: Reports: Diabetes, Type II, IDDM, Obesity/BMI 30+, Vitamin D Deficiency Hematologic History: Reports: B12 Deficiency Dermatologic History: Reports: Other (See Below) Other Dermatologic History: Pt. has had pressure ulcers on his bottom at one time. None present at this time. 04/14/17 pressure ulcer x1 on bottom and x2 on back. - Infectious Disease History Infectious Disease History: Reports: None - Past Surgical History HEENT Surgical History: Reports: Oral Surgery Cardiovascular Surgical History: Reports: None Respiratory Surgical History: Reports: None GI Surgical History: Reports: Bariatric Procedure, EGD, Esophageal Dilatation, Hernia Repair/Other, Other (See Below) Other GI Surgeries/Procedures: panniculectomy Male Surgical History: Reports: Kidney Stone Extraction, Other (See Below) Other Male Surgeries/Procedures: Dorsal Split Endocrine Surgical History: Reports: None Neurological Surgical History: Reports: None Musculoskeletal Surgical History: Reports: Arthroscopic Knee, Arthroscopic Procedure, Other (See Below) Other Musculoskeletal Surgeries/Procedures:: ankles Dermatological Surgical History: Reports: None, Skin Biopsy Social & Family History - Family History Family Medical History: Noncontributory HEENT: Reports: Cataract, Glaucoma Cardiac: Reports: Aneurysm, Blood Clots/VTE/DVT, Bypass, Heart Failure, Heart Valve Replacement, High Cholesterol, Hypertension, [place] Respiratory: Reports: Asthma, COPD, Sleep Apnea GI: Reports: Chronic Constipation, Chronic Diarrhea, GERD Musculoskeletal: Reports: Gout Neurological: Reports: MS Endocrine/Metabolic: Reports: Diabetes, type II Oncologic: Reports: Breast - Tobacco Use Smoking Status *Q: Never Smoker Second Hand Smoke Exposure: No - Caffeine Use Caffeine Use: Reports: None - Recreational Drug Use Recreational Drug Use: No ED ROS GENERAL - Review of Systems Review Of Systems: See Below Constitutional: Reports: Malaise. Denies: Fever, Chills HEENT: Reports: No Symptoms Respiratory: Denies: Shortness of Breath Cardiovascular: Denies: Chest Pain GI/Abdominal: Reports: Abdominal Pain. Denies: Diarrhea : Reports: Other (Decreased urine output, the patient did flush his catheter twice yesterday without problem) Musculoskeletal: Reports: Muscle Pain (Chronic myalgias and muscle stiffness that responds to prednisone) Neurological: Denies: Headache ED EXAM, GENERAL - Physical Exam Exam: See Below Exam Limited By: No Limitations General Appearance: Alert, No Apparent Distress (Patient is not distressed although he looks somewhat uncomfortable) Eye Exam: Bilateral Eye: Normal Inspection Respiratory/Chest: No Respiratory Distress, Lungs Clear Cardiovascular: Regular Rate, Rhythm. No: Tachycardia GI/Abdominal: Normal Bowel Sounds, Soft, Tender (Patient is tender to palpation across the lower abdomen but no guarding. Wound VAC is in place, suprapubic catheter looks appropriate.) Extremities: Pedal Edema (Small amount of symmetric lower extremity edema) Neurological: Alert, Oriented Skin Exam: Warm, Dry Course - Vital Signs Last Recorded V/S: Last Vital Signs Temp 98.5 F 05/05/17 00:00 Pulse 82 05/05/17 00:00 Resp 14 05/05/17 00:00 BP 125/82 05/05/17 00:00 Pulse Ox 99 05/05/17 01:29 - Orders/Labs/Meds Orders: Active Orders 24 hr Category Date Time Status Sodium Chloride 0.9% [Normal Saline] 1,000 ml Med 05/04/17 23:00 Active IV ASDIRECTED Medication Orders Hydromorphone HCl (Dilaudid Care Support Representative 15 Mg In Ns 30 Ml) 0 mg IV ASDIRECTED PRN; Protocol PRN Reason: ONLINE PRODUCER PAIN CONTROL Last Admin: 05/05/17 00:22 Dose: 15 mg Sodium Chloride (Normal Saline) 1,000 mls @ 250 mls/hr IV ASDIRECTED [facility] Last Admin: 05/04/17 23:01 Dose: 250 mls/hr Insulin Aspart (Novolog) 0 unit SUBCUT 0730,1130,1630,2100 OMAYRA PRN Reason: Protocol Insulin Detemir (Levemir) 8 unit SUBCUT DAILY [facility] Stop: 05/05/17 09:01 Naloxone HCl (Narcan) 0.1 mg IV ASDIRECTED PRN PRN Reason: decreased respiratory rate Potassium Chloride (Klor-Con M20) 20 meq PO DAILY [facility] Stop: 05/05/17 09:01 Prednisone 20 mg/ Prednisone (10 mg) 30 mg PO DAILY [facility] Stop: 05/05/17 09:01 Labs: Laboratory Tests 05/04/17 Range/Units 01:33 Urine Color Yellow Urine Appearance Slightly cloudy Urine pH 5.0 (4.5-8.0) Ur Specific [place] 1.005 L (1.008-1.030) Urine Protein Negative (NEGATIVE) mg/dL Urine Glucose (UA) Normal (NEGATIVE) mg/dL Urine Ketones Negative (NEGATIVE) mg/dL Urine Occult Blood Negative (NEGATIVE) Urine Nitrite Positive H (NEGAITVE) Urine Bilirubin Negative (NEGATIVE) Urine Urobilinogen Normal (NORMAL) mg/dL Ur Leukocyte Esterase Large (NEGATIVE) Urine RBC 5-10 H (0-5) Urine WBC 10-20 H (0-5) Ur Epithelial Cells Rare Amorphous Sediment Not seen Urine Bacteria Moderate Urine Mucus Not seen Meds: Medications Generic Name Dose Route Start Last Admin Trade Name Freq PRN Reason Stop Dose Admin Hydromorphone HCl 0 mg 05/05/17 00:05 05/05/17 00:22 Dilaudid Care Support Representative 15 Mg In Ns 30 Ml IV 15 mg ASDIRECTED PRN Administration ONLINE PRODUCER PAIN CONTROL Protocol Sodium Chloride 1,000 mls @ 250 mls/hr 05/04/17 23:00 05/04/17 23:01 Normal Saline IV 250 mls/hr ASDIRECTED OMAYRA Administration Insulin Aspart 0 unit 05/05/17 07:30 Novolog SUBCUT 0730,1130,1630,2100 [facility] Protocol Insulin Detemir 8 unit 05/05/17 09:00 Levemir SUBCUT 05/05/17 09:01 DAILY OMAYRA Naloxone HCl 0.1 mg 05/05/17 00:05 Narcan IV ASDIRECTED PRN decreased respiratory rate Potassium Chloride 20 meq 05/05/17 09:00 Klor-Con M20 PO 05/05/17 09:01 DAILY OMAYRA Prednisone 20 mg/ Prednisone 30 mg 05/05/17 09:00 10 mg PO 05/05/17 09:01 DAILY OMAYRA Discontinued Medications Generic Name Dose Route Start Last Admin Trade Name Josef PRN Reason Stop Dose Admin Hydromorphone HCl 0.5 mg 05/04/17 22:48 05/04/17 23:03 Dilaudid IVPUSH 05/04/17 22:49 0.5 mg ONETIME ONE Administration Potassium Chloride 40 meq 05/05/17 00:15 05/05/17 00:30 Klor-Con M20 PO 05/05/17 00:16 40 meq ONETIME ONE Administration - Re-Assessments/Exams Free Text/Narrative Re-Assessment/Exam: 05/04/17 22:45 Records were obtained from the [facility]. A bladder scan was obtained and revealed only 35-40 mL. IV fluids were started at 250 mL an hour and a discussed his situation with Dr. Cuellar. He agreed to accept the admission of the patient, he'll be admitted with the ONLINE PRODUCER, IV fluids and continue his regular medications and be evaluated in the morning. 05/04/17 22:59 Records were obtained, and reviewed. Potassium was 2.9, the rest of his labs were reassuring. They were addressing a UTI and possible suprapubic catheter placement when the patient eloped from the emergency room. The records will be available to Dr. Cuellar in the morning as well as this H&P. Departure - Departure Time of Disposition: 23:27 Disposition: Admitted As Inpatient 66 Condition: Fair Clinical Impression: Hypokalemia, Suprapubic catheter Abdominal pain Qualifiers: Abdominal location: lower abdomen, unspecified Qualified Code(s): R10.30 - Lower abdominal pain, unspecified Type 2 diabetes mellitus Qualifiers: Diabetes mellitus complication status: with unspecified complications - Discharge Information - My Orders Last 24 Hours: My Active Orders 05/04/17 23:00 Sodium Chloride 0.9% [Normal Saline] 1,000 ml IV ASDIRECTED - Assessment/Plan Last 24 Hours: My Active Orders 05/04/17 23:00 Sodium Chloride 0.9% [Normal Saline] 1,000 ml IV ASDIRECTED
[2017-05-04] MEDS ORDERED: HYDROmorphone 0.5 MG/0.5 ML Syringe IVPUSH ONE (22:48)
[2017-05-04] MEDS: Sodium Chloride 0.9% 1,000 ML IV SCH (23:01)
[2017-05-05] MEDS ORDERED: HYDROmorphone/Normal Saline 15 MG/30 ML PCA IV PRN (00:05)
[2017-05-05] MEDS ORDERED: Naloxone 0.4 MG/ML SDV IV PRN (00:05)
[2017-05-05] MEDS ORDERED: Potassium Chloride 20 MEQ Tab.ER PO ONE (00:15)
[2017-05-05] MEDS: Sodium Chloride 0.9% 1,000 ML IV SCH (03:20)
[2017-05-05] MEDS ORDERED: Lactated Ringers 1,000 ML IV SCH (07:30)
[2017-05-05] MEDS ORDERED: Ondansetron 4 MG/2 ML SDV IV PRN (07:31)
[2017-05-05] MEDS ORDERED: Ondansetron 4 MG Tab.DIS PO PRN (07:32)
[2017-05-05] MEDS: Insulin Aspart 100 Units/ML 3 ML Pen SUBCUT SCH ×4 (07:50→21:21)
[2017-05-05] MEDS: Pantoprazole 40 MG Tab.CR PO SCH (08:44)
[2017-05-05] MEDS: Gabapentin 400 MG Cap PO SCH ×3 (08:45→21:23)
[2017-05-05] MEDS: busPIRone 5 MG Tab PO SCH ×2 (08:45→21:24)
[2017-05-05] MEDS: Aspirin 81 MG Tab.EC PO SCH (08:49)
[2017-05-05] MEDS: Furosemide 20 MG Tab PO SCH (08:49)
[2017-05-05] MEDS: Citalopram 20 MG Tab PO SCH (08:49)
[2017-05-05] MEDS: Potassium Acetate 20 MEQ, Lidocaine 1% 2 ML in Sodium Chloride 0.9% 100 ML IV SCH ×3 (08:52→14:10)
[2017-05-05] MEDS: Morphine 30 MG Tab.ER PO SCH ×2 (08:55→21:24)
[2017-05-05] MEDS ORDERED: Potassium Chloride 20 MEQ Tab.ER PO SCH (09:00)
[2017-05-05] MEDS ORDERED: Insulin Detemir 100 Units/ML 3 ML Pen SUBCUT SCH (09:00)
[2017-05-05] MEDS ORDERED: predniSONE 20 MG, predniSONE 10 MG PO SCH ×2 (09:00)
[2017-05-05] MEDS ORDERED: Sodium Chloride 0.9% 1,000 ML IV SCH (09:15)
[2017-05-05] MEDS: Magnesium Sulfate/Water 2 GM in Premix Bag 1 BAG IV SCH ×3 (09:19→21:22)
[2017-05-05] MEDS: Albuterol/Ipratropium 3.0-0.5 MG/3 ML Neb Soln INH SCH ×2 (10:43→21:24)
[2017-05-05] MEDS: Sulfamethoxazole/Trimethoprim 800-160 MG Tab PO SCH ×2 (10:47→21:23)
[2017-05-05] MEDS: Levofloxacin/Dextrose 5%-Water 500 MG in Premix Bag 1 BAG IV SCH (12:01)
[2017-05-05] MEDS ORDERED: Warfarin 5 MG Tab PO ONE (13:00)
[2017-05-05] MEDS ORDERED: Atropine/Diphenoxylate 0.025-2.5 MG Tab PO PRN (13:04)
[2017-05-05] MEDS: Lactobacillus Rhamnosus GG (Probiotic) Cap PO SCH ×2 (13:52→21:24)
[2017-05-05] MEDS: predniSONE 20 MG Tab PO SCH (17:30)
[2017-05-05] MEDS: LORazepam 0.5 MG Tab PO PRN (17:40)
[2017-05-05] MEDS: Potassium Phosphates 20 MMOLE in Sodium Chloride 0.9% 150 ML IV SCH ×2 (18:27→21:23)
[2017-05-05] MEDS: Mirtazapine 15 MG Tab PO SCH (21:23)
[2017-05-05] MEDS: Simvastatin 20 MG Tab PO SCH (21:23)
[2017-05-06] MEDS: Potassium Phosphates 20 MMOLE in Sodium Chloride 0.9% 150 ML IV SCH (01:15)
[2017-05-06] MEDS ORDERED: Lactated Ringers 1,000 ML IV SCH (02:00)
[2017-05-06] MEDS: Magnesium Sulfate/Water 2 GM in Premix Bag 1 BAG IV SCH ×4 (03:45→21:43)
[2017-05-06] MEDS: oxyCODONE 5 MG Tab PO PRN ×2 (03:45→16:08)
[2017-05-06] MEDS: Albuterol/Ipratropium 3.0-0.5 MG/3 ML Neb Soln INH SCH ×2 (06:51→20:16)
[2017-05-06] MEDS ORDERED: Pantoprazole 40 MG Tab.CR PO SCH (07:30)
[2017-05-06] MEDS: Pantoprazole 40 MG Tab.CR PO SCH (07:39)
[2017-05-06] MEDS: predniSONE 20 MG Tab PO SCH ×2 (07:39→16:10)
--- NOTE | 2017-05-06 07:54 | PCM.CONS ---
H&P History of Present Illness - General Date of Service: 05/06/17 Admit Problem/Dx: Admission Diagnosis/Problem Admission Diagnosis/Problem Abdominal pain Source of Information: Patient History Limitations: Reports: No Limitations - History of Present Illness Initial Comments - Free Text/Narative: Denis states that he is having problems with lower abdominal pain. States he has a supra pubic catheter placed 2 weeks and was in [place] twice yesterday for low abdominal pain associated with decrease urine output. He states that he is having no other associated signs and symptoms. Onset of Symptoms: Reports: Other (05/05/17) Duration of Symptoms: Reports: Getting Worse Location: Reports: Abdomen (bilateral lower quadrants ) Quality: Reports: Ache, Dull, Pressure, Throbbing Improves with: Reports: None Worsens with: Reports: None Associated Symptoms: Reports: Fever/Chills, Loss of Appetite, Malaise, Weakness bilat groin/ flank Pain Score (Numeric/FACES): 9 - Related Data Allergies/Adverse Reactions: Allergies Allergy/AdvReac Type Severity Reaction Status Date / Time No Known Allergies Allergy Verified 05/05/17 00:51 Home Medications: Home Meds Aspirin [Ecotrin] 81 mg PO DAILY 09/25/15 [History] predniSONE [Prednisone] 20 mg PO BID 09/25/15 [History] Cholecalciferol (Vitamin D3) [Vitamin D] 1,000 unit PO TID 10/22/15 [History] Insulin Detemir [Levemir] 8 unit SUBCUT BID 10/22/15 [History] Insulin Glulisine [Apidra Solostar] 5 - 8 units SQ TIDAC 10/22/15 [History] Simvastatin [Zocor] 40 mg PO BEDTIME 11/26/15 [History] Citalopram [Citalopram HBr] 40 mg PO DAILY 08/13/16 [History] LORazepam 0.5 - 1 mg PO TID PRN 08/13/16 [History] Morphine Sulfate [Morphine Sulfate Cr] 60 mg PO BID 08/13/16 [History] Pantoprazole [ProTONIX] 40 mg PO DAILY 08/13/16 [History] Warfarin Sodium [Coumadin] 2 mg PO .M,W,F,PINTO 08/13/16 [History] Warfarin Sodium [Coumadin] 3 mg PO ., 08/13/16 [History] Furosemide 20 mg PO .QOD 11/15/16 [History] Sennosides 2 tab PO BID PRN 11/27/16 [History] busPIRone [Buspar] 5 mg PO BID 04/14/17 [History] oxyCODONE 7.5 mg PO Q4HR PRN 04/14/17 [History] Acetaminophen [Tylenol Solution] 20 ml PO Q4HR PRN 04/28/17 [History] Cyanocobalamin (Vitamin B-12) [Cyanocobalamin Injection] 1,000 mcg IM .MONTHLY 04/28/17 [History] Magnesium Oxide [Magnesium] 400 mg PO DAILY 04/28/17 [History] Potassium Chloride [Klor-Con] 20 meq PO ASDIRECTED 04/28/17 [History] Albuterol/Ipratropium [Combivent Respimat] 2 inh PO BID 05/04/17 [History] Gabapentin [Neurontin] 800 mg PO TID 05/04/17 [History] Hydrocodone/Acetaminophen [Lorcet 5-325 mg Tablet] 1 - 2 tab PO Q6H PRN [History] Insulin Glarg,Human.Rec.Analog [Lantus Solostar] 15 unit SQ ASDIRECTED 05/04/17 [History] Ipratropium/Albuterol Sulfate [Iprat-Albut 0.5-3(2.5) mg/3 ml] 2 inh PO BID [History] Lactobacillus Rhamnosus GG [Culturelle] 1 cap PO DAILY 05/04/17 [History] Levofloxacin [Levofloxacin] 500 mg PO DAILY 05/04/17 [History] Mirtazapine [Mirtazapine] 30 mg PO BEDTIME 05/04/17 [History] Multivitamins [Childrens Chewable Vitamin] 1 tab PO BID 05/04/17 [History] Ondansetron [Zofran ODT] 4 mg PO Q8H PRN 05/04/17 [History] Thiamine [Vitamin B-1] 100 mg IM .MONTHLY 05/04/17 [History] oxyCODONE HCl [Oxycodone HCl] 5 - 10 mg PO Q8H PRN 05/04/17 [History] Past Medical History HEENT History: Reports: Impaired Vision Other HEENT History: wears glasses; retinal neuropathy Cardiovascular History: Reports: Blood Clots/VTE/DVT, High Cholesterol, Hypertension, SOB on Exertion, Syncope Respiratory History: Reports: Bronchitis, Recurrent, Pneumonia, Recurrent, Sleep Apnea, SOB, Other (See Below) Other Respiratory History: moderate lung disease Gastrointestinal History: Reports: Chronic Constipation, GERD Genitourinary History: Reports: Diabetic Nephropathy, Neurogenic Bladder, Renal Calculus, UTI, Recurrent, Other (See Below) Other Genitourinary History: Since 2015 has had indwelling urinary catheter Musculoskeletal History: Reports: Arthritis, Back Pain, Chronic, Fracture, Gout , Neck Pain, Chronic, Osteoarthritis, RA, Other (See Below) Other Musculoskeletal History: fractured right shoulder Neurological History: Reports: Headaches, Chronic, Neuropathy, Diabetic, Neuropathy, Peripheral Psychiatric History: Reports: Anxiety, Depression, Learning Disability, Mood Swings, Panic Attack, PTSD, Suicidal Ideation Endocrine/Metabolic History: Reports: Diabetes, Type II, IDDM, Obesity/BMI 30+, Vitamin D Deficiency Hematologic History: Reports: B12 Deficiency Dermatologic History: Reports: Other (See Below) Other Dermatologic History: Pt. has had pressure ulcers on his bottom at one time. None present at this time. 04/14/17 pressure ulcer x1 on bottom and x2 on back. - Infectious Disease History Infectious Disease History: Reports: None - Past Surgical History HEENT Surgical History: Reports: Oral Surgery Cardiovascular Surgical History: Reports: None Respiratory Surgical History: Reports: None GI Surgical History: Reports: Bariatric Procedure, EGD, Esophageal Dilatation, Hernia Repair/Other, Other (See Below) Other GI Surgeries/Procedures: panniculectomy Male Surgical History: Reports: Kidney Stone Extraction, Other (See Below) Other Male Surgeries/Procedures: Dorsal Split Endocrine Surgical History: Reports: None Neurological Surgical History: Reports: None Musculoskeletal Surgical History: Reports: Arthroscopic Knee, Arthroscopic Procedure, Other (See Below) Other Musculoskeletal Surgeries/Procedures:: ankles Dermatological Surgical History: Reports: None, Skin Biopsy Social & Family History - Family History Family Medical History: Noncontributory HEENT: Reports: Cataract, Glaucoma Cardiac: Reports: Aneurysm, Blood Clots/VTE/DVT, Bypass, Heart Failure, Heart Valve Replacement, High Cholesterol, Hypertension, [place] Respiratory: Reports: Asthma, COPD, Sleep Apnea GI: Reports: Chronic Constipation, Chronic Diarrhea, GERD Musculoskeletal: Reports: Gout Neurological: Reports: MS Endocrine/Metabolic: Reports: Diabetes, type II Oncologic: Reports: Breast - Tobacco Use Smoking Status *Q: Never Smoker Second Hand Smoke Exposure: No - Caffeine Use Caffeine Use: Reports: None - Recreational Drug Use Recreational Drug Use: No H&P Review of Systems - Review of Systems: Review Of Systems: See Below General: Reports: Malaise, Weakness HEENT: Reports: No Symptoms Pulmonary: Reports: No Symptoms Cardiovascular: Reports: No Symptoms Gastrointestinal: Reports: Abdominal Pain (see chief complaint ) Genitourinary: Reports: Pain Musculoskeletal: Reports: Muscle Pain, Muscle Stiffness, Other (generalized muscle weakness - unable to walk ) Psychiatric: Reports: Depression, Mood Lability Neurological: Reports: Difficulty Walking, Weakness Hematologic/Lymphatic: Reports: No Symptoms Immunologic: Reports: No Symptoms Exam - Exam Exam: See Below - Vital Signs Vital Signs: Last Vital Signs Temp 98.0 F 05/05/17 22:21 Pulse 72 05/06/17 06:52 Resp 14 05/06/17 03:00 BP 135/90 05/05/17 22:21 Pulse Ox 100 05/06/17 07:16 Weight: 253 lb 1.592 oz - Exam Quality Assessment: DVT Prophylaxis General: Alert, Oriented, Cooperative HEENT: Mucosa Moist & [place] Neck: Supple, Trachea Midline Lungs: Clear to Auscultation, Normal Respiratory Effort Cardiovascular: Regular Rate, Regular Rhythm GI/Abdominal Exam: Soft, No Distention, Other (minimal lower quadrant tenderness ) (Male) Exam: No Hernia Rectal (Males) Exam: Normal Exam Back Exam: Normal Inspection Extremities: Normal Inspection, Normal Range of Motion Skin: Warm, Dry, Intact Neurological: Cranial Nerves Intact, Reflexes Equal Bilateral Neuro Extensive - Mental Status: Alert, Oriented x3, Normal Mood/Affect Neuro Extensive - Motor, Sensory, Reflexes: CN II-XII Intact, Normal Gait Psychiatric: Alert, Normal Affect, Normal Mood - Patient Data Lab Results Last 24 hrs: Laboratory Results - last 24 hr 05/06/17 05/06/17 05/06/17 Range/Units 04:30 04:30 04:30 WBC 5.7 (4.5-11.0) K/uL RBC 4.00 L (4.30-5.90) M/uL Hgb 9.8 L (12.0-15.0) g/dL Hct 33.8 L (40.0-54.0) % MCV 85 (80-98) fL MCH 25 L (27-31) pg MCHC 29 L (32-36) % Plt Count 309 (150-400) K/uL PT 16.3 H (9.5-12.0) sec INR 1.50 H (0.80-1.20) Sodium 144 (140-148) mmol/L Potassium 5.0 (3.6-5.2) mmol/L Chloride 111 H (100-108) mmol/L Carbon Dioxide 27 (21-32) mmol/L Anion Gap 11.0 (5.0-14.0) mmol/L BUN 9 (7-18) mg/dL Creatinine 1.0 (0.8-1.3) mg/dL Est Cr Clr Drug Dosing 86.08 mL/min Estimated GFR (MDRD) > 60 (>60) Glucose 227 H (74-106) mg/dL Calcium 7.8 L (8.5-10.1) mg/dL Phosphorus 5.4 H (2.5-4.9) mg/dL Total Bilirubin 0.2 (0.2-1.0) mg/dL AST 17 (15-37) U/L ALT 27 (12-78) U/L Alkaline Phosphatase 116 (46-116) U/L Total Protein 4.3 L (6.4-8.2) g/dL Albumin 1.6 L (3.4-5.0) g/dL Globulin 2.7 (2.3-3.5) g/dL Albumin/Globulin Ratio 0.6 L (1.2-2.2) Result Diagrams: 05/06/17 04:30 05/06/17 04:30 Cristofer Results Last 24 hrs: Microbiology 05/05/17 06:41 Gram Stain - Final Urine, Suprapubic Bladder Asp Consult PN Assessment/Plan POD#: 0 Procedures: Procedures ASSAY OF LACTIC ACID (12/19/16) ASSAY OF LIPASE (12/19/16) ASSAY OF MAGNESIUM (10/22/15) ASSAY OF PHOSPHORUS (10/22/15) ASSAY OF TROPONIN QUANT (12/19/16) BLOOD CULTURE FOR BACTERIA (12/19/16) BLOOD TYPING SEROLOGIC ABO (05/22/15) BLOOD TYPING SEROLOGIC RH(D) (05/22/15) C DIFF AMPLIFIED PROBE (08/13/16) C-REACTIVE PROTEIN (12/19/16) COMPLETE CBC AUTOMATED (10/22/15) COMPLETE CBC W/AUTO DIFF WBC (12/19/16) COMPREHEN METABOLIC PANEL (12/19/16) CT ABD & PELV W/CONTRAST (12/19/16) CULTURE SCREEN ONLY (11/26/15) DRAINAGE OF HEMATOMA/FLUID (12/21/16) EGD BIOPSY SINGLE/MULTIPLE (11/26/15) EGD DILATE STRICTURE (11/26/15) EMERGENCY DEPT VISIT (12/19/16) EMERGENCY DEPT VISIT (08/13/16) GLUCOSE BLOOD TEST (08/13/16) HYDRATE IV INFUSION ADD-ON (12/19/16) METABOLIC PANEL TOTAL CA (08/13/16) PROTHROMBIN TIME (08/13/16) RBC ANTIBODY SCREEN (05/22/15) ROUTINE VENIPUNCTURE (12/19/16) THER/PROPH/DIAG INJ IV PUSH (12/19/16) TX/PRO/DX INJ NEW DRUG ADDON (08/13/16) URINALYSIS AUTO W/SCOPE (08/13/16) (1) Urinary tract infection SNOMED Code(s): 14823499 Code(s): N39.0 - URINARY TRACT INFECTION, SITE NOT SPECIFIED Current Visit : Yes Qualifiers: Urinary tract infection type: catheter-associated UTI Indwelling urinary catheter type: indwelling urethral catheter Encounter type: initial encounter Qualified Code(s): T83.511A - Infection and inflammatory reaction due to indwelling urethral catheter, initial encounter; N39.0 - Urinary tract infection , site not specified; N39.0 - Urinary tract infection, site not specified Problem List Initiated/Reviewed/Updated: Yes My Orders Last 24 Hours: My Active Orders 05/06/17 07:20 Communication Order [RC] ROUTINE 05/06/17 07:30 Dextrose 5%-Lactated Ringers 1,000 ml IV ASDIRECTED 05/06/17 09:00 Multivitamins with Iron [Child Chew Iron] 1 tab PO BID 05/06/17 13:00 Warfarin [Coumadin] 7.5 mg PO ONETIME ONE 05/06/17 20:00 Insulin Detemir [Levemir] 15 unit SUBCUT DAILY@199905/07/17 04:00 BASIC METABOLIC PANEL,BMP [CHEM] Timed PHOSPHORUS [CHEM] Timed Plan: 1. Wound Vac to be changed today 2. Give Levemir 15 units subcutaneous every HS like he does at home 3. DC REMEDIAL TEACHER 4. Continue narcotic pain medication per his home regime. 5. Check BMP and PHOS in AM 6. Coumadin 7.5 mg at 1300 7. Plan discharge in AM
[2017-05-06] MEDS: LORazepam 0.5 MG Tab PO PRN ×2 (08:09→19:57)
[2017-05-06] MEDS: Insulin Aspart 100 Units/ML 3 ML Pen SUBCUT SCH ×4 (08:24→21:48)
[2017-05-06] MEDS: Multivitamins with Iron Tab.Chew PO SCH ×2 (08:29→20:01)
[2017-05-06] MEDS: Citalopram 20 MG Tab PO SCH (08:29)
[2017-05-06] MEDS: Lactobacillus Rhamnosus GG (Probiotic) Cap PO SCH ×2 (08:29→20:01)
[2017-05-06] MEDS: busPIRone 5 MG Tab PO SCH ×2 (08:29→20:01)
[2017-05-06] MEDS: Gabapentin 400 MG Cap PO SCH ×3 (08:30→20:01)
[2017-05-06] MEDS: Aspirin 81 MG Tab.EC PO SCH (08:30)
[2017-05-06] MEDS: Sulfamethoxazole/Trimethoprim 800-160 MG Tab PO SCH ×2 (08:30→20:02)
[2017-05-06] MEDS: Morphine 30 MG Tab.ER PO SCH ×2 (08:39→20:15)
[2017-05-06] MEDS: Levofloxacin/Dextrose 5%-Water 500 MG in Premix Bag 1 BAG IV SCH (10:23)
[2017-05-06] MEDS: Dextrose 5%-Lactated Ringers 1,000 ML IV SCH ×2 (11:45→21:51)
[2017-05-06] MEDS ORDERED: Warfarin 2.5 MG Tab PO ONE (13:00)
[2017-05-06] MEDS: Acetaminophen Soln 650 MG/20.3 ML UD Cup PO PRN (19:57)
[2017-05-06] MEDS ORDERED: Insulin Detemir 100 Units/ML 3 ML Pen SUBCUT SCH (20:00)
[2017-05-06] MEDS: Simvastatin 20 MG Tab PO SCH (20:01)
[2017-05-06] MEDS: Mirtazapine 15 MG Tab PO SCH (20:01)
[2017-05-07] MEDS: oxyCODONE 5 MG Tab PO PRN ×2 (00:10→08:16)
[2017-05-07] MEDS: Magnesium Sulfate/Water 2 GM in Premix Bag 1 BAG IV SCH (04:13)
[2017-05-07] MEDS: Acetaminophen Soln 650 MG/20.3 ML UD Cup PO PRN (04:23)
[2017-05-07] MEDS: Albuterol/Ipratropium 3.0-0.5 MG/3 ML Neb Soln INH SCH (07:23)
[2017-05-07 07:33] VITALS: BP 168/107
[2017-05-07] MEDS: Pantoprazole 40 MG Tab.CR PO SCH (07:42)
[2017-05-07] MEDS: predniSONE 20 MG Tab PO SCH (07:42)
[2017-05-07] MEDS: Insulin Aspart 100 Units/ML 3 ML Pen SUBCUT SCH (07:42)
[2017-05-07] MEDS: Furosemide 20 MG Tab PO SCH (08:15)
[2017-05-07] MEDS: Sulfamethoxazole/Trimethoprim 800-160 MG Tab PO SCH (08:15)
[2017-05-07] MEDS: Citalopram 20 MG Tab PO SCH (08:15)
[2017-05-07] MEDS: Multivitamins with Iron Tab.Chew PO SCH (08:15)
[2017-05-07] MEDS: Aspirin 81 MG Tab.EC PO SCH (08:15)
[2017-05-07] MEDS: LORazepam 0.5 MG Tab PO PRN (08:15)
[2017-05-07] MEDS: Lactobacillus Rhamnosus GG (Probiotic) Cap PO SCH (08:15)
[2017-05-07] MEDS: Gabapentin 400 MG Cap PO SCH (08:15)
[2017-05-07] MEDS: Morphine 30 MG Tab.ER PO SCH (08:17)
[2017-05-07] MEDS: busPIRone 5 MG Tab PO SCH (08:17)
--- NOTE | 2017-05-09 11:29 | PN ---
DATE OF SERVICE: 05/05/2017 The patient has been afebrile with stable vital signs, alert, complaining of some lower abdominal pain. This appears to be likely related to UTI dose of Levaquin yesterday at [place] orally. We will await the Gram stain in the urine this morning and decide on what antibiotic to be continued from that point further. Otherwise, he is a little bit low on his magnesium and potassium and these will be supplemented today and ProTime is also subtherapeutic. We have give him 5 mg Coumadin today. Otherwise, he has a wound VAC on which just was placed yesterday and we will have the Physical Therapy see the patient daily as well to augment mobility. Jovany Cuellar MD /[id number]
--- NOTE | 2017-05-10 08:54 | DISCH ---
FINAL DIAGNOSES: 1. Urinary tract infection. 2. Hypokalemia associated with hyperchloremia. 3. History of obstructive sleep apnea. 4. Open abdominal wound. 5. Type 2 diabetes mellitus. 6. Status post suprapubic catheter placement. 7. Progressive muscular weakness of uncertain etiology. OPERATIVE PROCEDURES: None. HOSPITAL COURSE: This is a 46-year-old male presenting with urinary tract infection. The patient was initially seen in [place] and then came here and was admitted. With this, he had some lower abdominal pain and some nausea and vomiting. This has all cleared since the urinary tract infection has been treated. The cultures show growing a gram-negative nyla, along with fungus. The sensitivities are not yet available. The patient also has open abdominal wound, status post previous panniculectomy, originally treated with wound VAC, that was changed yesterday and will be changed once again for home care on Tuesday. We will see him back in the clinic this coming Tuesday with change in wound VAC at that time. His potassium was low at 2.9 and chloride high at 115 on admission, so we will send him home with potassium hydroxide 25 mEq daily, and we will recheck labs when we see him on Tuesday. Continue his present Coumadin dosing. On Tuesday, we will check a pro-time, BMP, mag, and phos. He will also be sent home with Septra DS one tablet b.i.d. x10 days and Diflucan 200 mg p.o. daily x3 and otherwise continue his present home medications.
== END 2017-05-07 10:30 | disposition home or self-care (01) | DRG 700 ==
LOC: JP.ED 21:50 → JP.MS 22:54 → OBSVTOIN 05-06 09:14
PROVIDERS: ADMIT Surgery; ATTEND Surgery
DX: T83.511A Infection and inflammatory reaction due to indwelling urethral catheter, initial encounter (principal); E87.6 Hypokalemia; I10 Essential (primary) hypertension; N31.9 Neuromuscular dysfunction of bladder, unspecified; E53.8 Deficiency of other specified B group vitamins; E55.9 Vitamin D deficiency, unspecified; Z98.84 Bariatric surgery status; Z98.0 Intestinal bypass and anastomosis status; E11.21 Type 2 diabetes mellitus with diabetic nephropathy; E11.42 Type 2 diabetes mellitus with diabetic polyneuropathy; E11.319 Type 2 diabetes mellitus with unspecified diabetic retinopathy without macular edema; Z79.4 Long term (current) use of insulin; M19.90 Unspecified osteoarthritis, unspecified site; M54.9 Dorsalgia, unspecified; G89.29 Other chronic pain; Z87.440 Personal history of urinary (tract) infections; K21.9 Gastro-esophageal reflux disease without esophagitis; G47.30 Sleep apnea, unspecified; Z87.01 Personal history of pneumonia (recurrent); E78.00 Pure hypercholesterolemia, unspecified; H54.7 Unspecified visual loss; F32.9 Major depressive disorder, single episode, unspecified; F41.9 Anxiety disorder, unspecified; Z79.82 Long term (current) use of aspirin; Z79.01 Long term (current) use of anticoagulants; Z79.52 Long term (current) use of systemic steroids; N39.0 Urinary tract infection, site not specified; B96.5 Pseudomonas (aeruginosa) (mallei) (pseudomallei) as the cause of diseases classified elsewhere
CPT/HCPCS: 36415; 51702; 51798; 80048; 80053; 81001; 82962; 83735; 84075; 84100; 85027; 85610; 87086; 87088; 87186; 87205; 94640; 94762; 97110-GP; 97163-GP; 97605; 99285-25; A9270-GY; J1170; J1642; J1956; J3475; J3490; J7030; J7040; J7042; J7120; J7620

== ENCOUNTER 2017-06-22 11:37 | Inpatient (IN) | payer MEDICAID ==
[2017-06-22] MEDS ORDERED: Sodium Chloride 0.9% 1,000 ML IV SCH ×2 (12:15→16:19)
--- NOTE | 2017-06-22 12:41 | EDM.PDOC ---
ED HPI GENERAL MEDICAL PROBLEM - General Chief Complaint: General Stated Complaint: ABD PAIN/HIGH BP/BLOOD SUGARS OFF Time Seen by Provider: 06/22/17 12:21 Source of Information: Reports: Patient History Limitations: Reports: No Limitations - History of Present Illness INITIAL COMMENTS - FREE TEXT/NARRATIVE: pt had his wound vac removed this am. His wound looked good. He has had a rny. His bs was very high this am. He was given extra insulin and now his sugar is 60. Pt has been vry sleepy for the past few days and he has not been eating. He has a suprapupic cath and he thinks he may have a UTI, Onset: Gradual, Other (pt has not felt well for the past 2-3 days. ) Duration: Day(s): Location: Reports: Abdomen Associated Symptoms: Reports: Loss of Appetite, Shortness of Breath, Weakness, Other (pt has been sleeping alot. ) Lower Abdomen Pain Score (Numeric/FACES): 8 - Related Data Allergies Allergy/AdvReac Type Severity Reaction Status Date / Time No Known Allergies Allergy Verified 06/22/17 12:02 Home Meds: Home Meds Aspirin [Ecotrin] 81 mg PO DAILY 09/25/15 [History] predniSONE [Prednisone] 30 mg PO DAILY 09/25/15 [History] Cholecalciferol (Vitamin D3) [Vitamin D] 1,000 unit PO TID 10/22/15 [History] Insulin Detemir [Levemir] 8 unit SUBCUT BID 10/22/15 [History] Simvastatin [Zocor] 40 mg PO BEDTIME 11/26/15 [History] Citalopram [Citalopram HBr] 40 mg PO DAILY 08/13/16 [History] LORazepam 0.5 - 1 mg PO TID PRN 08/13/16 [History] Morphine Sulfate [Morphine Sulfate Cr] 60 mg PO BID 08/13/16 [History] Warfarin Sodium [Coumadin] 2 mg PO ASDIRECTED 08/13/16 [History] Warfarin Sodium [Coumadin] 3 mg PO ASDIRECTED 08/13/16 [History] Furosemide 20 mg PO DAILY 11/15/16 [History] Sennosides 2 tab PO BID PRN 11/27/16 [History] busPIRone [Buspar] 10 mg PO BID 04/14/17 [History] Acetaminophen [Tylenol Solution] 20 ml PO Q4HR PRN 04/28/17 [History] Cyanocobalamin (Vitamin B-12) [Cyanocobalamin Injection] 1,000 mcg IM .MONTHLY 04/28/17 [History] Magnesium Oxide [Magnesium] 400 mg PO DAILY 04/28/17 [History] Potassium Chloride [Klor-Con] 20 meq PO DAILY 04/28/17 [History] Albuterol/Ipratropium [Combivent Respimat] 2 inh PO BID PRN 05/04/17 [History] Gabapentin [Neurontin] 800 mg PO TID 05/04/17 [History] Hydrocodone/Acetaminophen [Lorcet 5-325 mg Tablet] 1 - 2 tab PO Q6H PRN [History] Insulin Glarg,Human.Rec.Analog [Lantus Solostar] 100 unit SQ TID 05/04/17 [ History] Mirtazapine 30 mg PO BEDTIME 05/04/17 [History] Multivitamins [Childrens Chewable Vitamin] 1 tab PO BID 05/04/17 [History] Thiamine [Vitamin B-1] 100 mg IM .MONTHLY 05/04/17 [History] oxyCODONE HCl [Oxycodone HCl] 5 mg PO Q4H PRN 05/04/17 [History] *Multiple Minerals 750 mg PO BID 06/22/17 [History] Acetaminophen [Tylenol Solution 160 MG/5 ML] 20 mg PO Q4H PRN 06/22/17 [History] Insulin Detemir [Levemir Flextouch] 15 unit SQ BEDTIME 06/22/17 [History] Pantoprazole Sodium [Protonix] 40 mg PO DAILY 06/22/17 [History] Tiotropium [Spiriva] 18 mcg INH DAILY 06/22/17 [History] Zinc 50 mg PO DAILY 06/22/17 [History] oxyCODONE HCl/Acetaminophen [Percocet 5-325 mg Tablet] 1 - 2 tab PO Q4H PRN 07/06 [History] Past Medical History HEENT History: Reports: Impaired Vision Other HEENT History: wears glasses; retinal neuropathy Cardiovascular History: Reports: Blood Clots/VTE/DVT, High Cholesterol, Hypertension, SOB on Exertion, Syncope Respiratory History: Reports: Bronchitis, Recurrent, Pneumonia, Recurrent, Sleep Apnea, SOB, Other (See Below) Other Respiratory History: moderate lung disease Gastrointestinal History: Reports: Chronic Constipation, GERD Genitourinary History: Reports: Diabetic Nephropathy, Neurogenic Bladder, Renal Calculus, UTI, Recurrent, Other (See Below) Other Genitourinary History: Since 2015 has had indwelling urinary catheter Musculoskeletal History: Reports: Arthritis, Back Pain, Chronic, Fracture, Gout , Neck Pain, Chronic, Osteoarthritis, RA, Other (See Below) Other Musculoskeletal History: fractured right shoulder Neurological History: Reports: Headaches, Chronic, Neuropathy, Diabetic, Neuropathy, Peripheral Psychiatric History: Reports: Anxiety, Depression, Learning Disability, Mood Swings, Panic Attack, PTSD, Suicidal Ideation Endocrine/Metabolic History: Reports: Diabetes, Type II, IDDM, Obesity/BMI 30+, Vitamin D Deficiency Hematologic History: Reports: B12 Deficiency Dermatologic History: Reports: Other (See Below) Other Dermatologic History: Pt. has had pressure ulcers on his bottom at one time. None present at this time. 04/14/17 pressure ulcer x1 on bottom and x2 on back. - Infectious Disease History Infectious Disease History: Reports: Chicken Pox, Measles, Mumps - Past Surgical History HEENT Surgical History: Reports: Oral Surgery Cardiovascular Surgical History: Reports: None Respiratory Surgical History: Reports: None GI Surgical History: Reports: Bariatric Procedure, EGD, Esophageal Dilatation, Hernia Repair/Other, Other (See Below) Other GI Surgeries/Procedures: panniculectomy Male Surgical History: Reports: Kidney Stone Extraction, Other (See Below) Other Male Surgeries/Procedures: Dorsal Split Endocrine Surgical History: Reports: None Neurological Surgical History: Reports: None Musculoskeletal Surgical History: Reports: Arthroscopic Knee, Arthroscopic Procedure, Other (See Below) Other Musculoskeletal Surgeries/Procedures:: ankles Dermatological Surgical History: Reports: None, Skin Biopsy Social & Family History - Family History Family Medical History: Noncontributory HEENT: Reports: Cataract, Glaucoma Cardiac: Reports: Aneurysm, Blood Clots/VTE/DVT, Bypass, Heart Failure, Heart Valve Replacement, High Cholesterol, Hypertension, [place] Respiratory: Reports: Asthma, COPD, Sleep Apnea GI: Reports: Chronic Constipation, Chronic Diarrhea, GERD Musculoskeletal: Reports: Gout Neurological: Reports: MS Endocrine/Metabolic: Reports: Diabetes, type II Oncologic: Reports: Breast - Tobacco Use Smoking Status *Q: Never Smoker Second Hand Smoke Exposure: No - Caffeine Use Caffeine Use: Reports: None - Recreational Drug Use Recreational Drug Use: No ED ROS GENERAL - Review of Systems Review Of Systems: See Below Constitutional: Reports: Malaise, Decreased Appetite, Other (pt is sleeping much more than usual. ) HEENT: Reports: No Symptoms Respiratory: Reports: Shortness of Breath Cardiovascular: Reports: No Symptoms Endocrine: Reports: No Symptoms GI/Abdominal: Reports: Abdominal Pain, Other (pt has pain in his back and across the abdoman. ) : Reports: Other (pt has a suprapupic cath and does have alot of UTIs. ) Musculoskeletal: Reports: No Symptoms Skin: Reports: No Symptoms Neurological: Reports: No Symptoms ED EXAM, GENERAL - Physical Exam Exam: See Below Free Text/Narrative:: pt has been quite weak and lethargic for the past 2 days. He has not been eating. Last nite he had a bs that was so high it could not be recorded. Insulin was given and before arrival his bs was 60. Exam Limited By: No Limitations General Appearance: Alert, Moderate Distress, Other ( falls asleep easily. ) Ears: Normal TMs Nose: Normal Inspection Throat/Mouth: Normal Inspection Head: Atraumatic Neck: Normal Inspection Respiratory/Chest: No Respiratory Distress Cardiovascular: Regular Rate, Rhythm GI/Abdominal: Other (pt is not distended he has some lower abdomanal tenderness. He has had normal bms amnd no vomiting/ ) (Male) Exam: Deferred Rectal (Males) Exam: Deferred Back Exam: Normal Inspection Extremities: Normal Inspection Neurological: Alert, Oriented, Normal Cognition Psychiatric: Anxious Course - Vital Signs Last Recorded V/S: Last Vital Signs Temp 35.8 C 06/22/17 12:00 Pulse 74 06/22/17 12:00 Resp 16 06/22/17 12:00 BP 161/109 H 06/22/17 12:00 Pulse Ox 96 06/22/17 12:00 - Orders/Labs/Meds Orders: Active Orders 24 hr Category Date Time Status CULTURE BLOOD [BC] Urgent Lab 06/22/17 13:40 Received CULTURE BLOOD [BC] Urgent Lab 06/22/17 13:45 Received CULTURE URINE [RM] Stat Lab 06/22/17 12:44 Ordered UA W/MICROSCOPIC [URIN] Urgent Lab 06/22/17 12:16 Ordered Acetaminophen/oxyCODONE [Percocet 325-5 MG] Med 06/22/17 13:55 Once 1 tab PO ONETIME ONE Levofloxacin/Dextrose 5%-Water [Levaquin in D5W 500 MG/ Med 06/22/17 13:03 Active 100 ML] 500 mg Premix Bag 1 bag IV ONETIME Sodium Chloride 0.9% [Normal Saline] 1,000 ml Med 06/22/17 12:15 Active IV ASDIRECTED Blood Culture x2 Reflex Set [OM.PC] Urgent Oth 06/22/17 13:31 Ordered Medication Orders Sodium Chloride (Normal Saline) 1,000 mls @ 999 mls/hr IV ASDIRECTED OMAYRA Last Admin: 06/22/17 12:36 Dose: 999 mls/hr Levofloxacin/Dextrose 500 mg/ (Premix) 100 mls @ 100 mls/hr IV ONETIME ONE Stop: 06/22/17 14:02 Last Admin: 06/22/17 13:35 Dose: 100 mls/hr Labs: Laboratory Tests 06/22/17 06/22/17 06/22/17 Range/Units 12:16 12:34 12:34 WBC 13.7 H (4.5-11.0) K/uL RBC 4.82 (4.30-5.90) M/uL Hgb 11.6 L (12.0-15.0) g/dL Hct 38.3 L (40.0-54.0) % MCV 80 (80-98) fL MCH 24 L (27-31) pg MCHC 30 L (32-36) % Plt Count 321 (150-400) K/uL Neut % (Auto) 85 H (36-66) % Lymph % (Auto) 10 L (24-44) % [place] % (Auto) 4 (2-6) % Eos % (Auto) 0 L (2-4) % Baso % (Auto) 0 (0-1) % PT (9.5-12.0) sec INR (0.80-1.20) Sodium 144 (140-148) mmol/L Potassium 3.4 L (3.6-5.2) mmol/L Chloride 108 (100-108) mmol/L Carbon Dioxide 26 (21-32) mmol/L Anion Gap 13.4 (5.0-14.0) mmol/L BUN 25 H D (7-18) mg/dL Creatinine 1.2 (0.8-1.3) mg/dL Est Cr Clr Drug Dosing 72.16 mL/min Estimated GFR (MDRD) > 60 (>60) Glucose 83 (74-106) mg/dL Lactic Acid (0.4-2.0) mmol/L Calcium 7.9 L (8.5-10.1) mg/dL Total Bilirubin 0.3 (0.2-1.0) mg/dL AST 14 L (15-37) U/L ALT 36 (12-78) U/L Alkaline Phosphatase 121 H (46-116) U/L C-Reactive Protein (0.0-0.3) mg/dL Total Protein 5.4 L (6.4-8.2) g/dL Albumin 2.3 L (3.4-5.0) g/dL Globulin 3.1 (2.3-3.5) g/dL Albumin/Globulin Ratio 0.7 L (1.2-2.2) Lipase (73-393) U/L Urine Color Yellow Urine Appearance Cloudy Urine pH 5.0 (4.5-8.0) Ur Specific [place] 1.020 (1.008-1.030) Urine Protein Negative (NEGATIVE) mg/dL Urine Glucose (UA) Normal (NEGATIVE) mg/dL Urine Ketones Negative (NEGATIVE) mg/dL Urine Occult Blood Negative (NEGATIVE) Urine Nitrite Positive H (NEGAITVE) Urine Bilirubin Negative (NEGATIVE) Urine Urobilinogen Normal (NORMAL) mg/dL Ur Leukocyte Esterase Large (NEGATIVE) Urine RBC 0-5 (0-5) Urine WBC 40-50 H (0-5) Ur Epithelial Cells Rare Amorphous Sediment Not seen Urine Bacteria Many Urine Mucus Rare Urine Other 06/22/17 06/22/17 06/22/17 Range/Units 12:34 12:34 13:02 WBC (4.5-11.0) K/uL RBC (4.30-5.90) M/uL Hgb (12.0-15.0) g/dL Hct (40.0-54.0) % MCV (80-98) fL MCH (27-31) pg MCHC (32-36) % Plt Count (150-400) K/uL Neut % (Auto) (36-66) % Lymph % (Auto) (24-44) % [place] % (Auto) (2-6) % Eos % (Auto) (2-4) % Baso % (Auto) (0-1) % PT 14.0 H (9.5-12.0) sec INR 1.29 H (0.80-1.20) Sodium (140-148) mmol/L Potassium (3.6-5.2) mmol/L Chloride (100-108) mmol/L Carbon Dioxide (21-32) mmol/L Anion Gap (5.0-14.0) mmol/L BUN (7-18) mg/dL Creatinine (0.8-1.3) mg/dL Est Cr Clr Drug Dosing mL/min Estimated GFR (MDRD) (>60) Glucose (74-106) mg/dL Lactic Acid 1.2 (0.4-2.0) mmol/L Calcium (8.5-10.1) mg/dL Total Bilirubin (0.2-1.0) mg/dL AST (15-37) U/L ALT (12-78) U/L Alkaline Phosphatase (46-116) U/L C-Reactive Protein 0.07 (0.0-0.3) mg/dL Total Protein (6.4-8.2) g/dL Albumin (3.4-5.0) g/dL Globulin (2.3-3.5) g/dL Albumin/Globulin Ratio (1.2-2.2) Lipase (73-393) U/L Urine Color Urine Appearance Urine pH (4.5-8.0) Ur Specific [place] (1.008-1.030) Urine Protein (NEGATIVE) mg/dL Urine Glucose (UA) (NEGATIVE) mg/dL Urine Ketones (NEGATIVE) mg/dL Urine Occult Blood (NEGATIVE) Urine Nitrite (NEGAITVE) Urine Bilirubin (NEGATIVE) Urine Urobilinogen (NORMAL) mg/dL Ur Leukocyte Esterase (NEGATIVE) Urine RBC (0-5) Urine WBC (0-5) Ur Epithelial Cells Amorphous Sediment Urine Bacteria Urine Mucus Urine Other 06/22/17 Range/Units 13:04 WBC (4.5-11.0) K/uL RBC (4.30-5.90) M/uL Hgb (12.0-15.0) g/dL Hct (40.0-54.0) % MCV (80-98) fL MCH (27-31) pg MCHC (32-36) % Plt Count (150-400) K/uL Neut % (Auto) (36-66) % Lymph % (Auto) (24-44) % [place] % (Auto) (2-6) % Eos % (Auto) (2-4) % Baso % (Auto) (0-1) % PT (9.5-12.0) sec INR (0.80-1.20) Sodium (140-148) mmol/L Potassium (3.6-5.2) mmol/L Chloride (100-108) mmol/L Carbon Dioxide (21-32) mmol/L Anion Gap (5.0-14.0) mmol/L BUN (7-18) mg/dL Creatinine (0.8-1.3) mg/dL Est Cr Clr Drug Dosing mL/min Estimated GFR (MDRD) (>60) Glucose (74-106) mg/dL Lactic Acid (0.4-2.0) mmol/L Calcium (8.5-10.1) mg/dL Total Bilirubin (0.2-1.0) mg/dL AST (15-37) U/L ALT (12-78) U/L Alkaline Phosphatase (46-116) U/L C-Reactive Protein (0.0-0.3) mg/dL Total Protein (6.4-8.2) g/dL Albumin (3.4-5.0) g/dL Globulin (2.3-3.5) g/dL Albumin/Globulin Ratio (1.2-2.2) Lipase 55 L (73-393) U/L Urine Color Urine Appearance Urine pH (4.5-8.0) Ur Specific [place] (1.008-1.030) Urine Protein (NEGATIVE) mg/dL Urine Glucose (UA) (NEGATIVE) mg/dL Urine Ketones (NEGATIVE) mg/dL Urine Occult Blood (NEGATIVE) Urine Nitrite (NEGAITVE) Urine Bilirubin (NEGATIVE) Urine Urobilinogen (NORMAL) mg/dL Ur Leukocyte Esterase (NEGATIVE) Urine RBC (0-5) Urine WBC (0-5) Ur Epithelial Cells Amorphous Sediment Urine Bacteria Urine Mucus Urine Other Meds: Medications Generic Name Dose Route Start Last Admin Trade Name Freq PRN Reason Stop Dose Admin Sodium Chloride 1,000 mls @ 999 mls/hr 06/22/17 12:15 06/22/17 12:36 Normal Saline IV 999 mls/hr ASDIRECTED OMAYRA Administration Levofloxacin/Dextrose 500 mg/ 100 mls @ 100 mls/hr 06/22/17 13:03 06/22/17 13 :35 Premix IV 06/22/17 14:02 100 mls/hr ONETIME ONE Administration - Re-Assessments/Exams Free Text/Narrative Re-Assessment/Exam: 06/22/17 13:37 pt had a bs of 70. His wbc is elevated. His urine looks infected. He has a history of sepsis x3 from his UTIs. Departure - Departure Time of Disposition: 13:38 Disposition: Admitted As Inpatient 66 Condition: Fair Clinical Impression: Dehydration UTI (urinary tract infection) Qualifiers: Urinary tract infection type: catheter-associated UTI Indwelling urinary catheter type: indwelling urethral catheter Encounter type: initial encounter Qualified Code(s): T83.511A - Infection and inflammatory reaction due to indwelling urethral catheter, initial encounter - Discharge Information Referrals: Satish Salinas MD [Primary Care Provider] - Forms: ED Department Discharge Care Plan Goals: admit to Dr Alva - My Orders Last 24 Hours: My Active Orders 06/22/17 12:15 Sodium Chloride 0.9% [Normal Saline] 1,000 ml IV ASDIRECTED 06/22/17 12:16 UA W/MICROSCOPIC [URIN] Urgent 06/22/17 12:44 CULTURE URINE [RM] Stat 06/22/17 13:03 Levofloxacin/Dextrose 5%-Water [Levaquin in D5W 500 MG/100 ML] 500 mg Premix Bag 1 bag IV ONETIME 06/22/17 13:31 Blood Culture x2 Reflex Set [OM.PC] Urgent 06/22/17 13:40 CULTURE BLOOD [BC] Urgent 06/22/17 13:45 CULTURE BLOOD [BC] Urgent 06/22/17 13:55 Acetaminophen/oxyCODONE [Percocet 325-5 MG] 1 tab PO ONETIME ONE - Assessment/Plan Last 24 Hours: My Active Orders 06/22/17 12:15 Sodium Chloride 0.9% [Normal Saline] 1,000 ml IV ASDIRECTED 06/22/17 12:16 UA W/MICROSCOPIC [URIN] Urgent 06/22/17 12:44 CULTURE URINE [RM] Stat 06/22/17 13:03 Levofloxacin/Dextrose 5%-Water [Levaquin in D5W 500 MG/100 ML] 500 mg Premix Bag 1 bag IV ONETIME 06/22/17 13:31 Blood Culture x2 Reflex Set [OM.PC] Urgent 06/22/17 13:40 CULTURE BLOOD [BC] Urgent 06/22/17 13:45 CULTURE BLOOD [BC] Urgent 06/22/17 13:55 Acetaminophen/oxyCODONE [Percocet 325-5 MG] 1 tab PO ONETIME ONE
--- NOTE | 2017-06-22 12:52 | CR ---
Chest 1V Frontal HISTORY: sob COMPARISON: None FINDINGS: Lungs appear clear and normally aerated. Cardiomediastinal silhouette is within normal limits. Left-s ided central venous Port-A-Cath is demonstrated. Position is satisfactory with the tip at the junctio n of the SVC and right atrium. No vascular redistribution or pleural fluid can be seen. Bony structur es and soft tissues are unremarkable. IMPRESSION: No acute chest abnormality identified.
[2017-06-22] MEDS ORDERED: Levofloxacin/Dextrose 5%-Water 500 MG in Premix Bag 1 BAG IV ONE (13:03)
[2017-06-22] MEDS ORDERED: Acetaminophen/oxyCODONE 325-5 MG Tab PO ONE (13:55)
[2017-06-22] MEDS ORDERED: Potassium Chloride 20 MEQ Tab.ER PO ONE (16:19)
[2017-06-22] MEDS ORDERED: Sennosides 8.6 MG Tab PO PRN (16:19)
[2017-06-22] MEDS ORDERED: 50% Dextrose in Water 50 ML Syringe IV PRN (16:19)
[2017-06-22] MEDS ORDERED: Polyethylene Glycol 3350 Powder 17 GM Packet PO PRN (16:19)
[2017-06-22] MEDS ORDERED: Magnesium Hydroxide 400 MG/5 ML Susp 30 ML Cup PO PRN (16:19)
[2017-06-22] MEDS ORDERED: Ondansetron 4 MG/2 ML SDV IV PRN (16:19)
[2017-06-22] MEDS ORDERED: ACETAMINOPHEN PO PRN (16:19)
[2017-06-22] MEDS ORDERED: Sodium Chloride 0.9% 10 ML Syringe FLUSH PRN (16:19)
[2017-06-22] MEDS ORDERED: Glucose Gel 15 GM in 37.5 GM Tube PO PRN (16:19)
[2017-06-22] MEDS ORDERED: Albuterol/Ipratropium 3.0-0.5 MG/3 ML Neb Soln NEB SCH (16:19)
[2017-06-22] MEDS ORDERED: Meropenem 1 GM in Sodium Chloride 0.9% 100 ML IV SCH (16:19)
[2017-06-22] MEDS ORDERED: Potassium Chloride 20 MEQ in Premix Bag 1 BAG IV ONE ×2 (16:19→18:00)
--- NOTE | 2017-06-22 16:58 | PCM.HP ---
H&P History of Present Illness - General Date of Service: 06/22/17 Admit Problem/Dx: Source of Information: Patient, Old Records, Provider, RN Notes Reviewed History Limitations: Reports: No Limitations - History of Present Illness Initial Comments - Free Text/Narative: Mr. Kirk is a 46-year-old gentleman who is admitted through the emergency department with a complicated urinary tract infection. Over the past 4-5 days he reports becoming progressively more weak and developed abdominal and back pain. He has an ill-defined progressive neurologic degenerative disease and has been followed at the [facility] in [place]. As a result of this he has developed a neurogenic bladder and has a suprapubic catheter. He has had some difficulty with recurrent urinary tract infections. There is also underlying type 2 diabetes mellitus and a recent wound infection on his lower abdomen. He has been treated with oral antibiotics over the past few weeks. Lower Abdomen Pain Score (Numeric/FACES): 7 - Related Data Allergies/Adverse Reactions: Allergies Allergy/AdvReac Type Severity Reaction Status Date / Time No Known Allergies Allergy Verified 06/22/17 12:02 Home Medications: Home Meds Aspirin [Ecotrin] 81 mg PO DAILY 09/25/15 [History] predniSONE [Prednisone] 30 mg PO DAILY 09/25/15 [History] Cholecalciferol (Vitamin D3) [Vitamin D] 1,000 unit PO TID 10/22/15 [History] Insulin Detemir [Levemir] 8 unit SUBCUT BID 10/22/15 [History] Simvastatin [Zocor] 40 mg PO BEDTIME 11/26/15 [History] Citalopram [Citalopram HBr] 40 mg PO DAILY 08/13/16 [History] LORazepam 0.5 - 1 mg PO TID PRN 08/13/16 [History] Morphine Sulfate [Morphine Sulfate Cr] 60 mg PO BID 08/13/16 [History] Warfarin Sodium [Coumadin] 2 mg PO ASDIRECTED 08/13/16 [History] Warfarin Sodium [Coumadin] 3 mg PO ASDIRECTED 08/13/16 [History] Furosemide 20 mg PO DAILY 11/15/16 [History] Sennosides 2 tab PO BID PRN 11/27/16 [History] busPIRone [Buspar] 10 mg PO BID 04/14/17 [History] Acetaminophen [Tylenol Solution] 20 ml PO Q4HR PRN 04/28/17 [History] Cyanocobalamin (Vitamin B-12) [Cyanocobalamin Injection] 1,000 mcg IM .MONTHLY 04/28/17 [History] Magnesium Oxide [Magnesium] 400 mg PO DAILY 04/28/17 [History] Potassium Chloride [Klor-Con] 20 meq PO DAILY 04/28/17 [History] Albuterol/Ipratropium [Combivent Respimat] 2 inh PO BID PRN 05/04/17 [History] Gabapentin [Neurontin] 800 mg PO TID 05/04/17 [History] Hydrocodone/Acetaminophen [[place] 5-325 mg Tablet] 1 - 2 tab PO Q6H PRN [History] Insulin Glarg,Human.Rec.Analog [Lantus Solostar] 100 unit SQ TID 05/04/17 [ History] Mirtazapine 30 mg PO BEDTIME 05/04/17 [History] Multivitamins [Childrens Chewable Vitamin] 1 tab PO BID 05/04/17 [History] Thiamine [Vitamin B-1] 100 mg IM .MONTHLY 05/04/17 [History] oxyCODONE HCl [Oxycodone HCl] 5 mg PO Q4H PRN 05/04/17 [History] *Multiple Minerals 750 mg PO BID 06/22/17 [History] Acetaminophen [Tylenol Solution 160 MG/5 ML] 20 mg PO Q4H PRN 06/22/17 [History] Albuterol Sulfate 2.5 mg IH Q4H 06/22/17 [History] Albuterol/Ipratropium [Combivent Respimat] 2 puff INH BID PRN 06/22/17 [History] Insulin Detemir [Levemir Flextouch] 15 unit SQ BEDTIME 06/22/17 [History] Insulin Glulisine [Apidra Solostar] 0 unit SQ TID 06/22/17 [History] Pantoprazole Sodium [Protonix] 40 mg PO DAILY 06/22/17 [History] Tiotropium [Spiriva] 18 mcg INH DAILY 06/22/17 [History] Zinc 50 mg PO DAILY 06/22/17 [History] oxyCODONE HCl/Acetaminophen [Percocet 5-325 mg Tablet] 1 - 2 tab PO Q4H PRN 07/06 [History] Past Medical History HEENT History: Reports: Impaired Vision Other HEENT History: wears glasses; retinal neuropathy Cardiovascular History: Reports: Blood Clots/VTE/DVT, High Cholesterol, Hypertension, SOB on Exertion, Syncope Respiratory History: Reports: Bronchitis, Recurrent, Pneumonia, Recurrent, Sleep Apnea, SOB, Other (See Below) Other Respiratory History: moderate lung disease Gastrointestinal History: Reports: Chronic Constipation, GERD Genitourinary History: Reports: Diabetic Nephropathy, Neurogenic Bladder, Renal Calculus, UTI, Recurrent, Other (See Below) Other Genitourinary History: Since 2015 has had indwelling urinary catheter Musculoskeletal History: Reports: Arthritis, Back Pain, Chronic, Fracture, Gout , Neck Pain, Chronic, Osteoarthritis, RA, Other (See Below) Other Musculoskeletal History: fractured right shoulder Neurological History: Reports: Headaches, Chronic, Neuropathy, Diabetic, Neuropathy, Peripheral Psychiatric History: Reports: Anxiety, Depression, Learning Disability, Mood Swings, Panic Attack, PTSD, Suicidal Ideation Endocrine/Metabolic History: Reports: Diabetes, Type II, IDDM, Obesity/BMI 30+, Vitamin D Deficiency Hematologic History: Reports: B12 Deficiency Dermatologic History: Reports: Other (See Below) Other Dermatologic History: Pt. has had pressure ulcers on his bottom at one time. None present at this time. 04/14/17 pressure ulcer x1 on bottom and x2 on back. - Infectious Disease History Infectious Disease History: Reports: Chicken Pox, Measles, Mumps - Past Surgical History HEENT Surgical History: Reports: Oral Surgery Cardiovascular Surgical History: Reports: None Respiratory Surgical History: Reports: None GI Surgical History: Reports: Bariatric Procedure, EGD, Esophageal Dilatation, Hernia Repair/Other, Other (See Below) Other GI Surgeries/Procedures: panniculectomy Male Surgical History: Reports: Kidney Stone Extraction, Other (See Below) Other Male Surgeries/Procedures: Dorsal Split Endocrine Surgical History: Reports: None Neurological Surgical History: Reports: None Musculoskeletal Surgical History: Reports: Arthroscopic Knee, Arthroscopic Procedure, Other (See Below) Other Musculoskeletal Surgeries/Procedures:: ankles Dermatological Surgical History: Reports: None, Skin Biopsy Social & Family History - Family History Family Medical History: Noncontributory HEENT: Reports: Cataract, Glaucoma Cardiac: Reports: Aneurysm, Blood Clots/VTE/DVT, Bypass, Heart Failure, Heart Valve Replacement, High Cholesterol, Hypertension, [place] Respiratory: Reports: Asthma, COPD, Sleep Apnea GI: Reports: Chronic Constipation, Chronic Diarrhea, GERD Musculoskeletal: Reports: Gout Neurological: Reports: MS Endocrine/Metabolic: Reports: Diabetes, type II Oncologic: Reports: Breast - Tobacco Use Smoking Status *Q: Never Smoker Second Hand Smoke Exposure: No - Caffeine Use Caffeine Use: Reports: None - Recreational Drug Use Recreational Drug Use: No H&P Review of Systems - Review of Systems: Review Of Systems: See Below General: Reports: Chills, Weakness, Diaphoresis HEENT: Reports: No Symptoms Pulmonary: Reports: No Symptoms Cardiovascular: Reports: No Symptoms Gastrointestinal: Reports: No Symptoms Genitourinary: Reports: Flank Pain Musculoskeletal: Reports: No Symptoms Skin: Reports: No Symptoms Psychiatric: Reports: No Symptoms Neurological: Reports: No Symptoms Hematologic/Lymphatic: Reports: No Symptoms Immunologic: Reports: No Symptoms Exam - Exam Exam: See Below - Vital Signs Vital Signs: Last Vital Signs Temp 96.9 F 06/22/17 15:05 Pulse 90 06/22/17 16:22 Resp 16 06/22/17 16:22 BP 143/91 H 06/22/17 16:22 Pulse Ox 96 06/22/17 16:22 Weight: 240 lb 9.6 oz - Exam Quality Assessment: Urinary Catheter (Suprapubic), DVT Prophylaxis General: Alert, Oriented, Moderate Distress HEENT: Conjunctiva Clear, Hearing Intact, Mucosa Moist & [place], Normal Nasal Septum, Posterior Pharynx Clear, Pupils Equal Neck: Supple, Trachea Midline, +2 Carotid Pulse wo Bruit Lungs: Clear to Auscultation, Normal Respiratory Effort Cardiovascular: Regular Rate, Regular Rhythm, Normal S1, Normal S2. No: Systolic Murmur, Diastolic Murmur GI/Abdominal Exam: Soft, Non-Tender, No Organomegaly, No Distention Back Exam: Normal Inspection, Full Range of Motion Extremities: Non-Tender, No Pedal Edema Skin: Warm, Dry, Other (Healing lower abdominal wounds currently covered by dressings) Neurological: Cranial Nerves Intact, Normal Speech. No: Sensation Intact Neuro Extensive - Mental Status: Alert, Oriented x3, Normal Mood/Affect, Normal Cognition, Memory Intact - Patient Data Lab Results Last 24 hrs: Laboratory Results - last 24 hr 06/22/17 06/22/17 06/22/17 Range/Units 12:16 12:34 12:34 WBC 13.7 H (4.5-11.0) K/uL RBC 4.82 (4.30-5.90) M/uL Hgb 11.6 L (12.0-15.0) g/dL Hct 38.3 L (40.0-54.0) % MCV 80 (80-98) fL MCH 24 L (27-31) pg MCHC 30 L (32-36) % Plt Count 321 (150-400) K/uL Neut % (Auto) 85 H (36-66) % Lymph % (Auto) 10 L (24-44) % [place] % (Auto) 4 (2-6) % Eos % (Auto) 0 L (2-4) % Baso % (Auto) 0 (0-1) % PT (9.5-12.0) sec INR (0.80-1.20) Sodium 144 (140-148) mmol/L Potassium 3.4 L (3.6-5.2) mmol/L Chloride 108 (100-108) mmol/L Carbon Dioxide 26 (21-32) mmol/L Anion Gap 13.4 (5.0-14.0) mmol/L BUN 25 H D (7-18) mg/dL Creatinine 1.2 (0.8-1.3) mg/dL Est Cr Clr Drug Dosing 72.16 mL/min Estimated GFR (MDRD) > 60 (>60) Glucose 83 (74-106) mg/dL Lactic Acid (0.4-2.0) mmol/L Calcium 7.9 L (8.5-10.1) mg/dL Total Bilirubin 0.3 (0.2-1.0) mg/dL AST 14 L (15-37) U/L ALT 36 (12-78) U/L Alkaline Phosphatase 121 H (46-116) U/L C-Reactive Protein (0.0-0.3) mg/dL Total Protein 5.4 L (6.4-8.2) g/dL Albumin 2.3 L (3.4-5.0) g/dL Globulin 3.1 (2.3-3.5) g/dL Albumin/Globulin Ratio 0.7 L (1.2-2.2) Lipase (73-393) U/L Urine Color Yellow Urine Appearance Cloudy Urine pH 5.0 (4.5-8.0) Ur Specific [place] 1.020 (1.008-1.030) Urine Protein Negative (NEGATIVE) mg/dL Urine Glucose (UA) Normal (NEGATIVE) mg/dL Urine Ketones Negative (NEGATIVE) mg/dL Urine Occult Blood Negative (NEGATIVE) Urine Nitrite Positive H (NEGAITVE) Urine Bilirubin Negative (NEGATIVE) Urine Urobilinogen Normal (NORMAL) mg/dL Ur Leukocyte Esterase Large (NEGATIVE) Urine RBC 0-5 (0-5) Urine WBC 40-50 H (0-5) Ur Epithelial Cells Rare Amorphous Sediment Not seen Urine Bacteria Many Urine Mucus Rare Urine Other 06/22/17 06/22/17 06/22/17 Range/Units 12:34 12:34 13:02 WBC (4.5-11.0) K/uL RBC (4.30-5.90) M/uL Hgb (12.0-15.0) g/dL Hct (40.0-54.0) % MCV (80-98) fL MCH (27-31) pg MCHC (32-36) % Plt Count (150-400) K/uL Neut % (Auto) (36-66) % Lymph % (Auto) (24-44) % [place] % (Auto) (2-6) % Eos % (Auto) (2-4) % Baso % (Auto) (0-1) % PT 14.0 H (9.5-12.0) sec INR 1.29 H (0.80-1.20) Sodium (140-148) mmol/L Potassium (3.6-5.2) mmol/L Chloride (100-108) mmol/L Carbon Dioxide (21-32) mmol/L Anion Gap (5.0-14.0) mmol/L BUN (7-18) mg/dL Creatinine (0.8-1.3) mg/dL Est Cr Clr Drug Dosing mL/min Estimated GFR (MDRD) (>60) Glucose (74-106) mg/dL Lactic Acid 1.2 (0.4-2.0) mmol/L Calcium (8.5-10.1) mg/dL Total Bilirubin (0.2-1.0) mg/dL AST (15-37) U/L ALT (12-78) U/L Alkaline Phosphatase (46-116) U/L C-Reactive Protein 0.07 (0.0-0.3) mg/dL Total Protein (6.4-8.2) g/dL Albumin (3.4-5.0) g/dL Globulin (2.3-3.5) g/dL Albumin/Globulin Ratio (1.2-2.2) Lipase (73-393) U/L Urine Color Urine Appearance Urine pH (4.5-8.0) Ur Specific [place] (1.008-1.030) Urine Protein (NEGATIVE) mg/dL Urine Glucose (UA) (NEGATIVE) mg/dL Urine Ketones (NEGATIVE) mg/dL Urine Occult Blood (NEGATIVE) Urine Nitrite (NEGAITVE) Urine Bilirubin (NEGATIVE) Urine Urobilinogen (NORMAL) mg/dL Ur Leukocyte Esterase (NEGATIVE) Urine RBC (0-5) Urine WBC (0-5) Ur Epithelial Cells Amorphous Sediment Urine Bacteria Urine Mucus Urine Other 06/22/17 Range/Units 13:04 WBC (4.5-11.0) K/uL RBC (4.30-5.90) M/uL Hgb (12.0-15.0) g/dL Hct (40.0-54.0) % MCV (80-98) fL MCH (27-31) pg MCHC (32-36) % Plt Count (150-400) K/uL Neut % (Auto) (36-66) % Lymph % (Auto) (24-44) % [place] % (Auto) (2-6) % Eos % (Auto) (2-4) % Baso % (Auto) (0-1) % PT (9.5-12.0) sec INR (0.80-1.20) Sodium (140-148) mmol/L Potassium (3.6-5.2) mmol/L Chloride (100-108) mmol/L Carbon Dioxide (21-32) mmol/L Anion Gap (5.0-14.0) mmol/L BUN (7-18) mg/dL Creatinine (0.8-1.3) mg/dL Est Cr Clr Drug Dosing mL/min Estimated GFR (MDRD) (>60) Glucose (74-106) mg/dL Lactic Acid (0.4-2.0) mmol/L Calcium (8.5-10.1) mg/dL Total Bilirubin (0.2-1.0) mg/dL AST (15-37) U/L ALT (12-78) U/L Alkaline Phosphatase (46-116) U/L C-Reactive Protein (0.0-0.3) mg/dL Total Protein (6.4-8.2) g/dL Albumin (3.4-5.0) g/dL Globulin (2.3-3.5) g/dL Albumin/Globulin Ratio (1.2-2.2) Lipase 55 L (73-393) U/L Urine Color Urine Appearance Urine pH (4.5-8.0) Ur Specific [place] (1.008-1.030) Urine Protein (NEGATIVE) mg/dL Urine Glucose (UA) (NEGATIVE) mg/dL Urine Ketones (NEGATIVE) mg/dL Urine Occult Blood (NEGATIVE) Urine Nitrite (NEGAITVE) Urine Bilirubin (NEGATIVE) Urine Urobilinogen (NORMAL) mg/dL Ur Leukocyte Esterase (NEGATIVE) Urine RBC (0-5) Urine WBC (0-5) Ur Epithelial Cells Amorphous Sediment Urine Bacteria Urine Mucus Urine Other Result Diagrams: 06/22/17 12:34 06/22/17 12:34 *Q Meaningful Use (ADM) - VTE *Q VTE Pharmacological Contraindications *Q: High INR Value - VTE Risk Assess *Q Each Risk Factor Represents 1 Point: Age 41 - 59 years, Obesity ( BMI > 25 kg/m2 ) Total Score 1 Point Risk Factors: 2 Each Risk Factor Represents 2 Points: None Total Score 2 Point Risk Factors: 0 Each Risk Factor Represents 3 Points: None Total Score 3 Point Risk Factors: 0 Each Risk Factor Represents 5 Points: None Total Score 5 Point Risk Factors: 0 Venous Thromboembolism Risk Factor Score *Q: 2 Problem List Initiated/Reviewed/Updated: Yes Orders Last 24hrs: Active Orders 24 hr Category Date Time Status Patient Status [ADT] Routine ADT 06/22/17 16:19 Active Ambulate [RC] QID Care 06/22/17 16:19 Active Blood Glucose Check, Bedside [RC] QIDACANDBED Care 06/22/17 16:19 Active Communication Order [RC] STAT Care 06/22/17 16:19 Active Diabetes Education [RC] Click to Edit Care 06/22/17 16:19 Active Height and Weight [RC] DAILY Care 06/22/17 16:19 Active Intake and Output [RC] QSHIFT Care 06/22/17 16:19 Active Notify Provider Vital Signs [RC] ASDIRECTED Care 06/22/17 16:19 Active Notify Provider [RC] PRN Care 06/22/17 16:19 Active Oxygen Therapy [RC] PRN Care 06/22/17 16:19 Active Peripheral IV Care [RC] . DIRECTED Care 06/22/17 16:19 Active RT Aerosol Therapy [RC] ASDIRECTED Care 06/22/17 16:19 Active Up With Assistance [RC] ASDIRECTED Care 06/22/17 16:19 Active Up to Chair [RC] QID Care 06/22/17 16:19 Active VTE/DVT Education [RC] Per Unit Routine Care 06/22/17 16:19 Active Vital Signs [RC] Q4H Care 06/22/17 16:19 Active Consistent Carbohydrate Diet [DIET] Diet 06/22/17 Lunch Active BASIC METABOLIC PANEL,BMP [CHEM] AM Lab 06/23/17 05:11 Ordered CBC WITH AUTO DIFF [HEME] AM Lab 06/23/17 05:11 Ordered CULTURE BLOOD [BC] Urgent Lab 06/22/17 13:40 Received CULTURE BLOOD [BC] Urgent Lab 06/22/17 13:45 Received CULTURE URINE [RM] Stat Lab 06/22/17 12:44 Ordered GLUCOSE POC LAB TO COLLECT [POC] QIDACANDBED Lab 06/22/17 16:30 Ordered GLUCOSE POC LAB TO COLLECT [POC] QIDACANDBED Lab 06/22/17 21:00 Ordered GLUCOSE POC LAB TO COLLECT [POC] QIDACANDBED Lab 06/23/17 07:30 Ordered GLUCOSE POC LAB TO COLLECT [POC] QIDACANDBED Lab 06/23/17 11:30 Ordered GLUCOSE POC LAB TO COLLECT [POC] QIDACANDBED Lab 06/23/17 16:30 Ordered GLUCOSE POC LAB TO COLLECT [POC] QIDACANDBED Lab 06/23/17 21:00 Ordered GLUCOSE POC LAB TO COLLECT [POC] QIDACANDBED Lab 06/24/17 07:30 Ordered GLUCOSE POC LAB TO COLLECT [POC] QIDACANDBED Lab 06/24/17 11:30 Ordered GLUCOSE POC LAB TO COLLECT [POC] QIDACANDBED Lab 06/24/17 16:30 Ordered GLUCOSE POC LAB TO COLLECT [POC] QIDACANDBED Lab 06/24/17 21:00 Ordered GLUCOSE POC LAB TO COLLECT [POC] QIDACANDBED Lab 06/25/17 07:30 Ordered GLUCOSE POC LAB TO COLLECT [POC] QIDACANDBED Lab 06/25/17 11:30 Ordered GLUCOSE POC LAB TO COLLECT [POC] QIDACANDBED Lab 06/25/17 16:30 Ordered GLUCOSE POC LAB TO COLLECT [POC] QIDACANDBED Lab 06/25/17 21:00 Ordered GLUCOSE POC LAB TO COLLECT [POC] QIDACANDBED Lab 06/26/17 07:30 Ordered GLUCOSE POC LAB TO COLLECT [POC] QIDACANDBED Lab 06/26/17 11:30 Ordered GLUCOSE POC LAB TO COLLECT [POC] QIDACANDBED Lab 06/26/17 16:30 Ordered GLUCOSE POC LAB TO COLLECT [POC] QIDACANDBED Lab 06/26/17 21:00 Ordered GLUCOSE POC LAB TO COLLECT [POC] QIDACANDBED Lab 06/27/17 07:30 Ordered GLUCOSE POC LAB TO COLLECT [POC] QIDACANDBED Lab 06/27/17 11:30 Ordered INR,PT,PROTHROMBIN TIME [COAG] AM Lab 06/23/17 05:11 Ordered MAGNESIUM [CHEM] AM Lab 06/23/17 05:11 Ordered Acetaminophen [Tylenol Solution 160 MG/5 ML] Med 06/22/17 16:19 Active 20 mg PO Q4H PRN Acetaminophen/HYDROcodone [[place] 325-5 MG] Med 06/22/17 16:19 Active 1 - 2 tab PO Q4H PRN Albuterol [Proventil Neb Soln] Med 06/22/17 16:19 Active 2.5 mg INH Q4H Albuterol/Ipratropium [DuoNeb 3.0-0.5 MG/3 ML] Med 06/22/17 16:19 Active 3 ml NEB QID Aspirin [Halfprin] Med 06/23/17 09:00 Active 81 mg PO DAILY Citalopram [Citalopram HBr] Med 06/23/17 09:00 Active 40 mg PO DAILY Dextrose 50% in Water Med 06/22/17 16:19 Active 50 ml IV ONETIME PRN Dextrose [Glutose 15] Med 06/22/17 16:19 Active 15 gm PO ONETIME PRN Docusate Sodium/Sennosides [Senna Plus] Med 06/22/17 16:19 Active 1 tab PO BID PRN Furosemide [Lasix] Med 06/23/17 09:00 Active 20 mg PO DAILY Gabapentin [Neurontin] Med 06/22/17 21:00 Active 800 mg PO TID Insulin Aspart [NovoLOG] Med 06/22/17 17:00 Active See Protocol SUBCUT QIDACANDBED Insulin Detemir [Levemir] Med 06/22/17 21:00 Active 15 unit SUBCUT BEDTIME Insulin Detemir [Levemir] Med 06/22/17 21:00 Ordered 8 unit SUBCUT BID Insulin Glarg,Human.Rec.Analog [Lantus Solostar] Med 06/22/17 21:00 Active 100 unit SQ TID LORazepam [Ativan] Med 06/22/17 16:19 Active 0.5 - 1 mg PO TID PRN Magnesium Hydroxide [Milk of Magnesia] Med 06/22/17 16:19 Active 30 ml PO Q12H PRN Magnesium Oxide Med 06/23/17 09:00 Active 400 mg PO DAILY Meropenem [Merrem] 1 gm Med 06/22/17 16:19 Active Sodium Chloride 0.9% [Normal Saline] 100 ml IV Q8H Mirtazapine [Mirtazapine] Med 06/22/17 21:00 Active 30 mg PO BEDTIME Morphine Sulfate [Morphine Sulfate Cr] Med 06/22/17 21:00 Active 60 mg PO BID Ondansetron [Zofran] Med 06/22/17 16:19 Active 4 mg IV Q4H PRN Pantoprazole [ProTONIX] Med 06/23/17 09:00 Active 40 mg PO DAILY Polyethylene Glycol 3350 [MiraLAX] Med 06/22/17 16:19 Active 17 gm PO DAILY PRN Potassium Chloride [KCL 20 MEQ in Water 100 ML] 20 meq Med 06/22/17 16:19 Active Premix Bag 1 bag IV ONETIME Potassium Chloride [Klor-Con] Med 06/23/17 09:00 Active 20 meq PO DAILY Sennosides [Senna] Med 06/22/17 16:19 Active 8.6 mg PO BID PRN Simvastatin [Zocor] Med 06/22/17 21:00 Active 40 mg PO BEDTIME Sodium Chloride 0.9% [Normal Saline] 1,000 ml Med 06/22/17 16:19 Active IV ASDIRECTED Sodium Chloride 0.9% [Saline Flush] Med 06/22/17 16:19 Active 10 ml FLUSH ASDIRECTED PRN Tiotropium [Spiriva HandiHaler] Med 06/23/17 09:00 Active 18 mcg INH DAILY Warfarin Sodium [Coumadin] Med 06/23/17 09:00 Active 3 mg PO DAILY busPIRone [Buspar] Med 06/22/17 21:00 Active 10 mg PO BID predniSONE Med 06/23/17 09:00 Active 30 mg PO DAILY Blood Culture x2 Reflex Set [OM.PC] Urgent Oth 06/22/17 13:31 Ordered Peripheral IV Insertion Adult [OM.PC] Routine Oth 06/22/17 16:19 Ordered VTE Pharmacological Contraindications [AST] Per Unit Oth 06/22/17 16:19 Ordered Routine Resuscitation Status Routine Resus Stat 06/22/17 15:51 Ordered Medication Orders Hydrocodone Bitart/Acetaminophen ([place] 325-5 Mg) 1 - 2 tab PO Q4H PRN PRN Reason: moderate pain Albuterol (Proventil Neb Soln) 2.5 mg INH Q4H [facility] Albuterol/Ipratropium (Duoneb 3.0-0.5 Mg/3 Ml) 3 ml NEB QID [facility] Aspirin (Halfprin) 81 mg PO DAILY [facility] Buspirone HCl (Buspar) 10 mg PO BID [facility] Dextrose (Glutose 15) 15 gm PO ONETIME PRN PRN Reason: Hypoglycemia Dextrose/Water (Dextrose 50% In Water) 50 ml IV ONETIME PRN PRN Reason: Hypoglycemia Furosemide (Lasix) 20 mg PO DAILY [facility] Meropenem 1 gm/ Sodium (Chloride) 100 mls @ 200 mls/hr IV Q8H [facility] Potassium Chloride 20 meq/ (Premix) 100 mls @ 50 mls/hr IV ONETIME ONE Stop: 06/22/17 18:18 Sodium Chloride (Normal Saline) 1,000 mls @ 125 mls/hr IV ASDIRECTED [facility] Insulin Aspart (Novolog) 0 unit SUBCUT QIDACANDBED [facility]; Protocol Insulin Detemir (Levemir) 8 unit SUBCUT BID [facility] Insulin Detemir (Levemir) 15 unit SUBCUT BEDTIME [facility] Lorazepam (Ativan) 0.5 - 1 mg PO TID PRN PRN Reason: Anxiety Magnesium Hydroxide (Milk Of Magnesia) 30 ml PO Q12H PRN PRN Reason: Constipation Magnesium Oxide (Magnesium Oxide) 400 mg PO DAILY [facility] Non-Formulary Medication (Acetaminophen [Tylenol Solution 160 Mg/5 Ml]) 20 mg PO Q4H PRN PRN Reason: Pain (mild 1-3) Non-Formulary Medication (Citalopram [Citalopram Hbr]) 40 mg PO DAILY [facility] Non-Formulary Medication (Gabapentin [Neurontin]) 800 mg PO TID [facility] Non-Formulary Medication (Insulin Glarg,Human.Rec.Analog [Lantus Solostar]) 100 unit SQ TID [facility] Non-Formulary Medication (Mirtazapine [Mirtazapine]) 30 mg PO BEDTIME [facility] Non-Formulary Medication (Morphine Sulfate [Morphine Sulfate Cr]) 60 mg PO BID [facility] Non-Formulary Medication (Potassium Chloride [Klor-Con]) 20 meq PO DAILY [facility] Non-Formulary Medication (Simvastatin [Zocor]) 40 mg PO BEDTIME [facility] Non-Formulary Medication (Warfarin Sodium [Coumadin]) 3 mg PO DAILY [facility] Ondansetron HCl (Zofran) 4 mg IV Q4H PRN PRN Reason: Nausea/Vomiting Pantoprazole Sodium (Protonix) 40 mg PO DAILY [facility] Polyethylene Glycol (Miralax) 17 gm PO DAILY PRN PRN Reason: Constipation Prednisone (Prednisone) 30 mg PO DAILY [facility] Senna (Senna) 8.6 mg PO BID PRN PRN Reason: Constipation Senna/Docusate Sodium (Senna Plus) 1 tab PO BID PRN PRN Reason: Constipation Sodium Chloride (Saline Flush) 10 ml FLUSH ASDIRECTED PRN PRN Reason: Keep Vein Open Tiotropium [place] (Spiriva Handihaler) 18 mcg INH DAILY [facility] Assessment/Plan Comment:: ASSESSMENT AND PLAN COMPLICATED URINARY TRACT INFECTION-indwelling suprapubic catheter secondary to neurogenic bladder, history of recurrent urinary tract infections. History of recent relatively long-term antibiotic therapy. -Blood and urine cultures pending -Meropenem 1 g IV every 8 hours, expanded antibiotic coverage use at this time because of recent history of oral antibiotic use and likelihood of resistant organisms TYPE 2 DIABETES MELLITUS -continue usual doses of long and short-term insulin -high-dose sliding scale NovoLog -4 times a day glucometer CHRONIC KIDNEY DISEASE STAGE III -closely monitor urine output and renal function LOWER ABDOMINAL WOUND-progressive healing, wound VAC removed today -ongoing management per Dr. Cuellar MAINTENANCE ISSUES -DVT prophylaxis; current therapy with warfarin should provide adequate DVT prophylaxis -GI prophylaxis; continue outpatient PPI therapy -[place] catheter; suprapubic catheter for neurogenic bladder -Nutrition;Consistent carb diet -Nicotine dependence; not required CODE STATUS- FULL CODE ADMISSION STATUS-patient will be admitted to inpatient status, expect at least a 2 night hospital stay for evaluation and management of problems as outlined above. At the time of this admission I do not reasonably expected evaluation and management of this problem will require more than a 96 hour hospital stay. DISPOSITION-anticipate discharge to home after the hospital stay. PRIMARY CARE PROVIDER-Dr. Salinas
[2017-06-22] MEDS ORDERED: Acetaminophen Soln 650 MG/20.3 ML UD Cup PO PRN (17:17)
[2017-06-22] MEDS: Acetaminophen/HYDROcodone 325-5 MG Tab PO PRN (17:51)
[2017-06-22] MEDS: LORazepam 1 MG Tab PO PRN (17:53)
[2017-06-22] MEDS: Meropenem 1 GM in Sodium Chloride 0.9% 100 ML IV SCH (17:58)
[2017-06-22] MEDS: Insulin Aspart 100 Units/ML 3 ML Pen SUBCUT SCH ×3 (20:42→22:44)
[2017-06-22] MEDS: Albuterol/Ipratropium 3.0-0.5 MG/3 ML Neb Soln NEB SCH (20:44)
[2017-06-22] MEDS: Albuterol 0.083% 2.5 MG/3 ML Neb Soln INH SCH ×2 (20:46→20:48)
[2017-06-22] MEDS: Gabapentin 400 MG Cap PO SCH (20:51)
[2017-06-22] MEDS: busPIRone 10 MG Tab PO SCH (20:51)
[2017-06-22] MEDS: Morphine 30 MG Tab.ER PO SCH (20:52)
[2017-06-22] MEDS: Simvastatin 20 MG Tab PO SCH (20:53)
[2017-06-22] MEDS: Mirtazapine 15 MG Tab PO SCH (20:54)
[2017-06-22] MEDS: Insulin Detemir 100 Units/ML 3 ML Pen SUBCUT SCH (20:56)
[2017-06-22] MEDS ORDERED: Insulin Detemir 100 Units/ML 3 ML Pen SUBCUT SCH (21:00)
[2017-06-22] MEDS ORDERED: Non-Formulary Medication 1 Each (Insulin Glarg,Human.Rec.Analog [Lantus Solostar] 100 UNIT SQ SCH (21:00)
[2017-06-22] MEDS ORDERED: Non-Formulary Medication 1 Each (Simvastatin [Zocor] 40 MG) PO SCH (21:00)
[2017-06-22] MEDS ORDERED: Warfarin 2 MG Tab PO SCH (21:00)
[2017-06-22] MEDS ORDERED: busPIRone 10 MG Tab PO SCH (21:00)
[2017-06-22] MEDS ORDERED: Non-Formulary Medication 1 Each (Gabapentin [Neurontin] 800 MG) PO SCH (21:00)
[2017-06-22] MEDS ORDERED: Warfarin 2 MG Tab PO ONE (22:00)
[2017-06-23] MEDS: Acetaminophen/HYDROcodone 325-5 MG Tab PO PRN ×6 (00:17→21:06)
[2017-06-23] MEDS: Albuterol 0.083% 2.5 MG/3 ML Neb Soln INH SCH ×4 (00:18→14:51)
[2017-06-23] MEDS: Sodium Chloride 0.9% 1,000 ML IV SCH ×2 (00:18→08:32)
[2017-06-23] MEDS: Meropenem 1 GM in Sodium Chloride 0.9% 100 ML IV SCH ×3 (01:52→17:58)
[2017-06-23] MEDS: LORazepam 1 MG Tab PO PRN ×3 (04:29→14:49)
[2017-06-23] MEDS: Albuterol/Ipratropium 3.0-0.5 MG/3 ML Neb Soln NEB SCH ×4 (07:48→21:54)
[2017-06-23] MEDS: Tiotropium Inhaler 18 MCG Inhalation Powder Cap Kit of 5 INH SCH (08:08)
[2017-06-23] MEDS: Insulin Aspart 100 Units/ML 3 ML Pen SUBCUT SCH ×4 (08:23→21:42)
[2017-06-23] MEDS: Morphine 30 MG Tab.ER PO SCH ×2 (08:34→21:39)
[2017-06-23] MEDS: busPIRone 10 MG Tab PO SCH ×2 (08:52→21:47)
[2017-06-23] MEDS: Citalopram 20 MG Tab PO SCH (08:52)
[2017-06-23] MEDS: Pantoprazole 40 MG Tab.CR PO SCH (08:52)
[2017-06-23] MEDS: Magnesium Oxide 400 MG Tab PO SCH (08:53)
[2017-06-23] MEDS: Furosemide 20 MG Tab PO SCH (08:53)
[2017-06-23] MEDS: predniSONE 10 MG Tab PO SCH (08:53)
[2017-06-23] MEDS: Aspirin 81 MG Tab.EC PO SCH (08:53)
[2017-06-23] MEDS: Gabapentin 400 MG Cap PO SCH ×3 (08:53→21:46)
[2017-06-23] MEDS: Potassium Chloride 20 MEQ Tab.ER PO SCH (08:56)
[2017-06-23] MEDS ORDERED: Magnesium Oxide 400 MG Tab PO SCH (09:00)
[2017-06-23] MEDS ORDERED: WARFARIN SODIUM 3 MG PO SCH (09:00)
[2017-06-23] MEDS ORDERED: Pantoprazole 40 MG Tab.CR PO SCH (09:00)
[2017-06-23] MEDS ORDERED: CITALOPRAM 40 MG PO SCH (09:00)
[2017-06-23] MEDS ORDERED: Potassium Chloride 20 MEQ Tab.ER PO SCH (09:00)
[2017-06-23] MEDS ORDERED: predniSONE 10 MG Tab PO SCH (09:00)
[2017-06-23] MEDS ORDERED: Aspirin 81 MG Tab.EC PO SCH (09:00)
[2017-06-23] MEDS ORDERED: Tiotropium Inhaler 18 MCG Inhalation Powder Cap Kit of 5 INH SCH (09:00)
[2017-06-23] MEDS ORDERED: Non-Formulary Medication 1 Each (Potassium Chloride [Klor-Con] 20 MEQ) PO SCH (09:00)
[2017-06-23] MEDS ORDERED: Furosemide 20 MG Tab PO SCH (09:00)
--- NOTE | 2017-06-23 11:50 | HP ---
HISTORY: Denis was admitted to the hospital yesterday through the emergency room with a complicated urinary tract infection. He reports last 4-5 days, he was becoming more weak and started to develop abdominal pain and back pain. He did have an appointment to have the wound VAC removed and Unna boot put on both of his legs at the clinic, so he decided to wait until his appointment with Jovany Cuellar MD. He was admitted to the emergency room due to his unstable health and then admitted to [facility]. History of ill-defined progressive neurological degenerative disease and he is following that with [facility] in [place]. In relationship to this neurogenic degenerative disease, he has a neurogenic bladder, suprapubic catheter and he has had frequent bladder infections. The pain on the pain scale of 1-10 abdominal, he states is a 2/10 this morning. ALLERGIES: HAS NO KNOWN MEDICAL ALLERGIES. PAST MEDICAL HISTORY: Kenny-en-Y gastric bypass surgery, unspecified surgical malabsorption, B12 deficiency, vitamin D deficiency, diabetes mellitus type 2, dyslipidemia, hypertension, and progressive neurologic degenerative disease. CURRENT MEDICATIONS: See EMR. PAST SURGICAL HISTORY: Includes panniculectomy with persisting open abdominal incision, ankle surgery, multiple EGDs and panniculectomy, date was 11/15/2016. Knee surgery right in 1985, left knee surgery in 1987, Kenny-en-Y gastric bypass surgery with a consult weight of 364, preop weight of 398 on 09/29/2015. Fine needle liver biopsy 09/29/2015. Repair of incisional hernia and umbilical hernia 11/15/2016. SOCIAL HISTORY: . He is disabled. Does not smoke, drink alcohol, caffeine or carbonation. DIET: Step 4 gastric bypass diet, 65-75 g of protein, 64 ounces of fluid. FAMILY HISTORY: Positive for obesity, diabetes, heart disease, cancer, arthritis, and hypertension. REVIEW OF SYSTEMS: CONSTITUTIONAL: Reports weakness, low-grade fever, night sweats. No headache or dizziness. HEENT: No headache, ear pain, loss of hearing, blurred or double vision, nasal discharge or sore throat. CARDIOVASCULAR: No chest pain or palpitations. ABDOMEN: No nausea, vomiting, diarrhea, or constipation. No red or black stools. RESPIRATORY: No cough or shortness of breath. ENDOCRINE: No history of polyuria or polydipsia. SKIN: No hair changes, heat or cold intolerance. HEMATOLOGIC: Negative. Denies any lymph node tenderness or swelling. : Current UTI signs and symptoms. MUSCULOSKELETAL: Degenerative neurologic disease. Lack of motion and weakness. PSYCHIATRIC: Depression. Remainder of review of systems negative for any pertinent positives and negatives. ASSESSMENT: 1. Complicated urinary tract infection, indwelling suprapubic catheter secondary to neurogenic bladder. 2. Open panniculectomy incision, progressively healing. 3. Diabetes type 2. 4. Chronic kidney disease 3. 5. Peripheral vascular skin changes in lower extremities requiring Unna boots. 6. SP Kenny-en-Y gastric bypass surgery. 7. Unspecified surgical malabsorption. 8. B12 deficiency. 9. Vitamin D deficiency. 10.Neurogenic muscle weakness. 11.Ambulatory dysfunction, use of wheelchair. 12.Chronic anticoagulation therapy. PLAN: 1. Unna boots were changed last night, will be changed to p.r.n. 2. Change abdominal open incision with dry 4x4s and ABDs. 3. Good pulmonary toilet. 4. The patient would like his normal dose of Ativan 1-2 mg q.8 hours p.r.n. anxiety what he gets at home. 5. We will evaluate p.r.n. or in a.m. 6. Jovany Cuellar MD plans to change suprapubic catheter while hospitalized. Mamie Carpenter PA-C /[id number]
[2017-06-23] MEDS ORDERED: Albuterol 0.083% 2.5 MG/3 ML Neb Soln NEB PRN (13:40)
--- NOTE | 2017-06-23 14:28 | PCM.PN ---
- General Info Date of Service: 06/23/17 Subjective Update: Mr. Kirk has been stable since admission, no significant temperature elevation and vital signs have been stable. Abdominal and back pain has improved with current management of complicated urinary tract infection. He is had no nausea or vomiting and has tolerated his current diet. - Review of Systems General: Reports: Weakness. Denies: Fever, Chills Pulmonary: Reports: No Symptoms Cardiovascular: Reports: No Symptoms Gastrointestinal: Reports: Abdominal Pain. Denies: Constipation, Diarrhea, Difficulty Swallowing, Nausea, Vomiting Genitourinary: Reports: Other (Suprapubic catheter) - Patient Data Vitals - Most Recent: Last Vital Signs Temp 96.3 F 06/23/17 11:17 Pulse 91 06/23/17 11:17 Resp 18 06/23/17 11:17 BP 124/85 06/23/17 11:17 Pulse Ox 97 06/23/17 11:17 Weight - Most Recent: 254 lb 3.193 oz I&O - Last 24 Hours: Intake & Output 06/22/17 06/23/17 06/23/17 22:59 06:59 14:59 Intake Total 840 1645 650 Output Total 700 Balance 840 945 650 Lab Results Last 24 Hours: Laboratory Results - last 24 hr 06/23/17 06/23/17 06/23/17 Range/Units 04:48 04:48 04:48 WBC 11.6 H (4.5-11.0) K/uL RBC 4.24 L (4.30-5.90) M/uL Hgb 10.3 L (12.0-15.0) g/dL Hct 34.6 L (40.0-54.0) % MCV 82 (80-98) fL MCH 24 L (27-31) pg MCHC 30 L (32-36) % Plt Count 266 (150-400) K/uL Neut % (Auto) 62 (36-66) % Lymph % (Auto) 31 (24-44) % [place] % (Auto) 7 H (2-6) % Eos % (Auto) 1 L (2-4) % Baso % (Auto) 0 (0-1) % PT 13.3 H (9.5-12.0) sec INR 1.23 H (0.80-1.20) Sodium 144 (140-148) mmol/L Potassium 3.7 (3.6-5.2) mmol/L Chloride 112 H (100-108) mmol/L Carbon Dioxide 25 (21-32) mmol/L Anion Gap 10.7 (5.0-14.0) mmol/L BUN 18 (7-18) mg/dL Creatinine 1.1 (0.8-1.3) mg/dL Est Cr Clr Drug Dosing 8.48 mL/min Estimated GFR (MDRD) > 60 (>60) Glucose 81 (74-106) mg/dL Calcium 7.7 L (8.5-10.1) mg/dL Magnesium 1.7 L (1.8-2.4) mg/dL Cristofer Results Last 24 Hours: Microbiology 06/22/17 12:44 Urine Culture - Preliminary Urine, Pinto Cath (Indwelling) Med Orders - Current: Current Medications Acetaminophen (Tylenol) 650 mg PO Q4H PRN PRN Reason: PAIN Hydrocodone Bitart/Acetaminophen (Boomer 325-5 Mg) 1 - 2 tab PO Q4H PRN PRN Reason: moderate pain Last Admin: 06/23/17 12:42 Dose: 2 tab Albuterol (Proventil Neb Soln) 2.5 mg NEB Q4H PRN PRN Reason: Dyspnea Albuterol/Ipratropium (Duoneb 3.0-0.5 Mg/3 Ml) 3 ml NEB QIDRT [facility] Last Admin: 06/23/17 10:58 Dose: 3 ml Aspirin (Halfprin) 81 mg PO DAILY [facility] Last Admin: 06/23/17 08:53 Dose: 81 mg Buspirone HCl (Buspar) 10 mg PO BID [facility] Last Admin: 06/23/17 08:52 Dose: 10 mg Citalopram Hydrobromide (Celexa) 40 mg PO DAILY [facility] Last Admin: 06/23/17 08:52 Dose: 40 mg Dextrose (Glutose 15) 15 gm PO ONETIME PRN PRN Reason: Hypoglycemia Dextrose/Water (Dextrose 50% In Water) 50 ml IV ONETIME PRN PRN Reason: Hypoglycemia Furosemide (Lasix) 20 mg PO DAILY [facility] Last Admin: 06/23/17 08:53 Dose: 20 mg Gabapentin (Neurontin) 800 mg PO TID [facility] Last Admin: 06/23/17 08:53 Dose: 800 mg Meropenem 1 gm/ Sodium (Chloride) 100 mls @ 200 mls/hr IV Q8H [facility] Last Admin: 06/23/17 11:40 Dose: 200 mls/hr Insulin Aspart (Novolog) 0 unit SUBCUT QIDACANDBED [facility]; Protocol Last Admin: 06/23/17 11:39 Dose: Not Given Insulin Detemir (Levemir) 15 unit SUBCUT BEDTIME [facility] Last Admin: 06/22/17 20:56 Dose: 15 units Lorazepam (Ativan) 1 - 2 mg PO Q8H PRN PRN Reason: anxiety Last Admin: 06/23/17 08:34 Dose: 2 mg Magnesium Hydroxide (Milk Of Magnesia) 30 ml PO Q12H PRN PRN Reason: Constipation Magnesium Oxide (Magnesium Oxide) 400 mg PO DAILY [facility] Last Admin: 06/23/17 08:53 Dose: 400 mg Mirtazapine (Remeron) 30 mg PO BEDTIME [facility] Last Admin: 06/22/17 20:54 Dose: 30 mg Morphine Sulfate (Ms Contin) 60 mg PO BID [facility] Last Admin: 06/23/17 08:34 Dose: 60 mg Ondansetron HCl (Zofran) 4 mg IV Q4H PRN PRN Reason: Nausea/Vomiting Last Admin: 06/23/17 08:45 Dose: 4 mg Pantoprazole Sodium (Protonix) 40 mg PO ACBREAKFAST [facility] Last Admin: 06/23/17 08:52 Dose: 40 mg Polyethylene Glycol (Miralax) 17 gm PO DAILY PRN PRN Reason: Constipation Potassium Chloride (Klor-Con M20) 20 meq PO DAILY [facility] Last Admin: 06/23/17 08:56 Dose: 20 meq Prednisone (Prednisone) 30 mg PO DAILY [facility] Last Admin: 06/23/17 08:53 Dose: 30 mg Senna (Senna) 8.6 mg PO BID PRN PRN Reason: Constipation Senna/Docusate Sodium (Senna Plus) 1 tab PO BID PRN PRN Reason: Constipation Simvastatin (Zocor) 40 mg PO BEDTIME [facility] Last Admin: 06/22/17 20:53 Dose: 40 mg Sodium Chloride (Saline Flush) 10 ml FLUSH ASDIRECTED PRN PRN Reason: Keep Vein Open Tiotropium [place] (Spiriva Handihaler) 18 mcg INH DAILY [facility] Last Admin: 06/23/17 08:08 Dose: 18 mcg Warfarin Sodium (Coumadin) 2 mg PO MoWeFr@2100 [facility] Warfarin Sodium (Coumadin) 3 mg PO SuTuThSa@2100 [facility] Discontinued Medications Albuterol (Proventil Neb Soln) 2.5 mg INH Q4H [facility] Last Admin: 06/23/17 04:04 Dose: 2.5 mg Albuterol/Ipratropium (Duoneb 3.0-0.5 Mg/3 Ml) 3 ml NEB QID [facility] Last Admin: 06/23/17 00:03 Dose: Not Given Aspirin (Halfprin) 81 mg PO DAILY [facility] Buspirone HCl (Buspar) 10 mg PO BID [facility] Furosemide (Lasix) 20 mg PO DAILY [facility] Sodium Chloride (Normal Saline) 1,000 mls @ 999 mls/hr IV ASDIRECTED [facility] Last Admin: 06/22/17 12:36 Dose: 999 mls/hr Levofloxacin/Dextrose 500 mg/ (Premix) 100 mls @ 100 mls/hr IV ONETIME ONE Stop: 06/22/17 14:02 Last Admin: 06/22/17 13:35 Dose: 100 mls/hr Meropenem 1 gm/ Sodium (Chloride) 100 mls @ 200 mls/hr IV Q8H [facility] Last Admin: 06/22/17 22:42 Dose: Not Given Potassium Chloride 20 meq/ (Premix) 100 mls @ 50 mls/hr IV ONETIME ONE Stop: 06/22/17 18:18 Last Admin: 06/22/17 22:42 Dose: Not Given Sodium Chloride (Normal Saline) 1,000 mls @ 125 mls/hr IV ASDIRECTED [facility] Last Admin: 06/22/17 16:51 Dose: 125 mls/hr Potassium Chloride 20 meq/ (Premix) 100 mls @ 50 mls/hr IV ONETIME ONE Stop: 06/22/17 19:59 Last Admin: 06/22/17 19:36 Dose: 50 mls/hr Sodium Chloride (Normal Saline) 1,000 mls @ 125 mls/hr IV ASDIRECTED [facility] Last Admin: 06/23/17 08:32 Dose: 125 mls/hr Lorazepam (Ativan) 0.5 - 1 mg PO TID PRN PRN Reason: Anxiety Last Admin: 06/23/17 04:29 Dose: 1 mg Magnesium Oxide (Magnesium Oxide) 400 mg PO DAILY [facility] Non-Formulary Medication (Acetaminophen [Tylenol Solution 160 Mg/5 Ml]) 20 mg PO Q4H PRN PRN Reason: Pain (mild 1-3) Non-Formulary Medication (Citalopram [Citalopram Hbr]) 40 mg PO DAILY [facility] Non-Formulary Medication (Gabapentin [Neurontin]) 800 mg PO TID [facility] Non-Formulary Medication (Potassium Chloride [Klor-Con]) 20 meq PO DAILY [facility] Non-Formulary Medication (Simvastatin [Zocor]) 40 mg PO BEDTIME [facility] Non-Formulary Medication (Warfarin Sodium [Coumadin]) 3 mg PO DAILY [facility] Oxycodone/Acetaminophen (Percocet 325-5 Mg) 1 tab PO ONETIME ONE Stop: 06/22/17 13:56 Last Admin: 06/22/17 14:47 Dose: 1 tab Pantoprazole Sodium (Protonix) 40 mg PO DAILY [facility] Potassium Chloride (Klor-Con M20) 40 meq PO ONETIME ONE Stop: 06/22/17 16:20 Last Admin: 06/22/17 20:55 Dose: 40 meq Potassium Chloride (Klor-Con M20) 20 meq PO DAILY [facility] Prednisone (Prednisone) 30 mg PO DAILY [facility] Tiotropium [place] (Spiriva Handihaler) 18 mcg INH DAILY [facility] Warfarin Sodium (Coumadin) 2 mg PO ONETIME ONE Stop: 06/22/17 22:01 Last Admin: 06/22/17 22:57 Dose: 2 mg Warfarin Sodium (Coumadin) Confirm Administered Dose 2 mg .ROUTE .STK-MED ONE Stop: 06/22/17 22:55 Last Admin: 06/22/17 22:57 Dose: Not Given - Exam Quality Assessment: DVT Prophylaxis General: Alert, Oriented, Cooperative, No Acute Distress Lungs: Clear to Auscultation, Normal Respiratory Effort Cardiovascular: Regular Rate, Regular Rhythm, No Murmurs GI/Abdominal Exam: Soft, No Organomegaly, Tender. No: Distended, Guarding, Rigid, Rebound Extremities: Non-Tender, No Pedal Edema Skin: Warm, Dry, Intact - Problem List Review Problem List Initiated/Reviewed/Updated: Yes - My Orders Last 24 Hours: My Active Orders 06/22/17 15:51 Resuscitation Status Routine 06/22/17 16:19 Patient Status [ADT] Routine Ambulate [RC] QID Blood Glucose Check, Bedside [RC] QIDACANDBED Communication Order [RC] STAT Diabetes Education [RC] Click to Edit Height and Weight [RC] 0500 Intake and Output [RC] QSHIFT Notify Provider Vital Signs [RC] ASDIRECTED Notify Provider [RC] PRN Oxygen Therapy [RC] PRN RT Aerosol Therapy [RC] ASDIRECTED Up With Assistance [RC] ASDIRECTED Up to Chair [RC] QID VTE/DVT Education [RC] Per Unit Routine Vital Signs [RC] Q4H Acetaminophen/HYDROcodone [Boomer 325-5 MG] 1 - 2 tab PO Q4H PRN Dextrose 50% in Water 50 ml IV ONETIME PRN Dextrose [Glutose 15] 15 gm PO ONETIME PRN Docusate Sodium/Sennosides [Senna Plus] 1 tab PO BID PRN Magnesium Hydroxide [Milk of Magnesia] 30 ml PO Q12H PRN Ondansetron [Zofran] 4 mg IV Q4H PRN Polyethylene Glycol 3350 [MiraLAX] 17 gm PO DAILY PRN Sennosides [Senna] 8.6 mg PO BID PRN Sodium Chloride 0.9% [Saline Flush] 10 ml FLUSH ASDIRECTED PRN Peripheral IV Insertion Adult [OM.PC] Routine VTE Pharmacological Contraindications [AST] Per Unit Routine 06/22/17 17:00 Insulin Aspart [NovoLOG] See Protocol SUBCUT QIDACANDBED 06/22/17 17:17 Acetaminophen [Tylenol] 650 mg PO Q4H PRN 06/22/17 18:00 Meropenem [Merrem] 1 gm Sodium Chloride 0.9% [Normal Saline] 100 ml IV Q8H 06/22/17 21:00 Albuterol/Ipratropium [DuoNeb 3.0-0.5 MG/3 ML] 3 ml NEB QIDRT Gabapentin [Neurontin] 800 mg PO TID Insulin Detemir [Levemir] 15 unit SUBCUT BEDTIME Mirtazapine [Remeron] 30 mg PO BEDTIME Morphine [MS Contin] 60 mg PO BID Simvastatin [Zocor] 40 mg PO BEDTIME busPIRone [Buspar] 10 mg PO BID 06/23/17 07:30 Pantoprazole [ProTONIX] 40 mg PO ACBREAKFAST 06/23/17 09:00 Aspirin [Halfprin] 81 mg PO DAILY Citalopram [Celexa] 40 mg PO DAILY Furosemide [Lasix] 20 mg PO DAILY Magnesium Oxide 400 mg PO DAILY Potassium Chloride [Klor-Con M20] 20 meq PO DAILY Tiotropium [Spiriva HandiHaler] 18 mcg INH DAILY predniSONE 30 mg PO DAILY 06/23/17 13:40 Albuterol [Proventil Neb Soln] 2.5 mg NEB Q4H PRN 06/23/17 13:42 RT Aerosol Therapy [RC] ASDIRECTED 06/23/17 14:20 Convert IV to Saline Lock [OM.PC] Routine 06/23/17 16:30 GLUCOSE POC LAB TO COLLECT [POC] QIDACANDBED 06/23/17 21:00 GLUCOSE POC LAB TO COLLECT [POC] QIDACANDBED Warfarin [Coumadin] 3 mg PO SuTuThSa@2100 06/24/17 05:00 BASIC METABOLIC PANEL,BMP [CHEM] Timed CBC WITH AUTO DIFF [HEME] Timed INR,PT,PROTHROMBIN TIME [COAG] Timed MAGNESIUM [CHEM] Timed 06/24/17 07:30 GLUCOSE POC LAB TO COLLECT [POC] QIDACANDBED 06/24/17 11:30 GLUCOSE POC LAB TO COLLECT [POC] QIDACANDBED 06/24/17 16:30 GLUCOSE POC LAB TO COLLECT [POC] QIDACANDBED 06/24/17 21:00 GLUCOSE POC LAB TO COLLECT [POC] QIDACANDBED 06/25/17 07:30 GLUCOSE POC LAB TO COLLECT [POC] QIDACANDBED 06/25/17 11:30 GLUCOSE POC LAB TO COLLECT [POC] QIDACANDBED 06/25/17 16:30 GLUCOSE POC LAB TO COLLECT [POC] QIDACANDBED 06/25/17 21:00 GLUCOSE POC LAB TO COLLECT [POC] QIDACANDBED 06/26/17 07:30 GLUCOSE POC LAB TO COLLECT [POC] QIDACANDBED 06/26/17 11:30 GLUCOSE POC LAB TO COLLECT [POC] QIDACANDBED 06/26/17 16:30 GLUCOSE POC LAB TO COLLECT [POC] QIDACANDBED 06/26/17 21:00 GLUCOSE POC LAB TO COLLECT [POC] QIDACANDBED 06/27/17 07:30 GLUCOSE POC LAB TO COLLECT [POC] QIDACANDBED 06/27/17 11:30 GLUCOSE POC LAB TO COLLECT [POC] QIDACANDBED - Plan Plan:: ASSESSMENT AND PLAN COMPLICATED URINARY TRACT INFECTION-indwelling suprapubic catheter secondary to neurogenic bladder, history of recurrent urinary tract infections. History of recent relatively long-term antibiotic therapy. Symptomatically improved since admission with less abdominal and back pain. Afebrile with stable vital signs -Blood and urine cultures pending -Meropenem 1 g IV every 8 hours, expanded antibiotic coverage use at this time because of recent history of oral antibiotic use and likelihood of resistant organisms Saline lock IV- TYPE 2 DIABETES MELLITUS -continue usual doses of long and short-term insulin -high-dose sliding scale NovoLog -4 times a day glucometer CHRONIC KIDNEY DISEASE STAGE III-renal function has been stable since admission -closely monitor urine output and renal function LOWER ABDOMINAL WOUND-progressive healing, wound VAC removed today -ongoing management per Dr. Cuellar MAINTENANCE ISSUES -DVT prophylaxis; current therapy with warfarin should provide adequate DVT prophylaxis -GI prophylaxis; continue outpatient PPI therapy -Pinto catheter; suprapubic catheter for neurogenic bladder -Nutrition;Consistent carb diet -Nicotine dependence; not required CODE STATUS- FULL CODE ADMISSION STATUS-patient will be admitted to inpatient status, expect at least a 2 night hospital stay for evaluation and management of problems as outlined above. At the time of this admission I do not reasonably expected evaluation and management of this problem will require more than a 96 hour hospital stay. DISPOSITION-anticipate discharge to home after the hospital stay. PRIMARY CARE PROVIDER-Dr. Salinsa
[2017-06-23] MEDS ORDERED: Insulin Aspart 100 Units/ML 3 ML Pen SUBCUT ONE (16:50)
[2017-06-23] MEDS: Insulin Detemir 100 Units/ML 3 ML Pen SUBCUT SCH (21:43)
[2017-06-23] MEDS: Mirtazapine 15 MG Tab PO SCH (21:47)
[2017-06-23] MEDS: Simvastatin 20 MG Tab PO SCH (21:48)
[2017-06-24] MEDS: Acetaminophen/HYDROcodone 325-5 MG Tab PO PRN ×2 (02:42→16:05)
[2017-06-24] MEDS: Meropenem 1 GM in Sodium Chloride 0.9% 100 ML IV SCH ×3 (02:42→18:23)
[2017-06-24] MEDS: Albuterol/Ipratropium 3.0-0.5 MG/3 ML Neb Soln NEB SCH ×4 (07:42→21:21)
[2017-06-24] MEDS: Insulin Aspart 100 Units/ML 3 ML Pen SUBCUT SCH ×4 (08:21→21:28)
[2017-06-24] MEDS: Pantoprazole 40 MG Tab.CR PO SCH (08:22)
[2017-06-24] MEDS: Tiotropium Inhaler 18 MCG Inhalation Powder Cap Kit of 5 INH SCH (08:48)
[2017-06-24] MEDS: Citalopram 20 MG Tab PO SCH (09:13)
[2017-06-24] MEDS: Gabapentin 400 MG Cap PO SCH ×3 (09:13→21:23)
[2017-06-24] MEDS: Potassium Chloride 20 MEQ Tab.ER PO SCH (09:13)
[2017-06-24] MEDS: Aspirin 81 MG Tab.EC PO SCH (09:14)
[2017-06-24] MEDS: busPIRone 10 MG Tab PO SCH ×2 (09:14→21:23)
[2017-06-24] MEDS: predniSONE 10 MG Tab PO SCH (09:14)
[2017-06-24] MEDS: Magnesium Oxide 400 MG Tab PO SCH (09:15)
[2017-06-24] MEDS: Furosemide 20 MG Tab PO SCH (09:15)
[2017-06-24] MEDS: Morphine 30 MG Tab.ER PO SCH ×2 (09:27→21:22)
[2017-06-24] MEDS ORDERED: Meropenem 500 MG in Sodium Chloride 0.9% 50 ML IV SCH (09:30)
[2017-06-24] MEDS ORDERED: SODIUM CHLORIDE 0.9% IRR SCH ×2 (10:00)
[2017-06-24] MEDS ORDERED: MEROPENEM 500 MG IRR SCH ×2 (10:00)
--- NOTE | 2017-06-24 11:57 | PN ---
DATE OF SERVICE: 06/24/2017 SUBJECTIVE: Denis' urine grew out Citrobacter freundii yeast. He has been afebrile. Blood sugars remain to be uncontrolled. In the past 24 hours, he has had 172, 137, 413, 361, 123, this morning 89, and later in the morning it was 98. He reports this is normal for him. REVIEW OF SYSTEMS: HEENT: Negative. Denies headache, dizziness, or loss of coordination. No fever, chills, night sweats, or fatigue. NECK: Negative. HEART: No chest pain or shortness of breath. LUNGS: He does have a cough, doing DuoNeb. States cough is from smoking. ABDOMEN: No abdominal pain. No nausea, vomiting, diarrhea, or constipation. Suprapubic catheter in place, and his dressings are being changed twice daily. EXTREMITIES: Without peripheral edema. NEUROLOGIC: Extensive weakness. SKIN: Without rash. PSYCHIATRIC: Negative. Remainder of review of systems negative for any pertinent positives and negatives. OBJECTIVE: GENERAL: Denis Kirk is a 46-year-old male. He is alert and orientated. VITAL SIGNS: TPR 97.3, 87, and 17, blood pressure 109/70. HEENT: Negative. NECK: Supple. HEART: Regular rate and rhythm. LUNGS: Clear. ABDOMEN: Open incisions are clean and dry. Suprapubic catheter was replaced by Jovany Cuellar MD. EXTREMITIES: Unna boots are on bilaterally to lower extremities. NEUROLOGIC: Intact. PSYCHIATRIC: Mood and affect appropriate. ASSESSMENT: 1. Complicated urinary tract infection, indwelling suprapubic catheter secondary to neurogenic bladder. 2. Open panniculectomy incision, progressively healing. 3. Type 2 diabetes, uncontrolled. 4. Chronic kidney disease, type 3. 5. Peripheral vascular changes in lower extremities requiring Unna boots. 6. Status post Kenny-en-Y gastric bypass surgery. 7. Unspecified surgical malabsorption. 8. B12 deficiency. 9. Vitamin D deficiency. 10.Neurogenic muscle weakness. 11.Ambulatory dysfunction. 12.Use of wheelchair. 13.Chronic anticoagulation therapy. PLAN: Suprapubic catheter was changed by Jovany Cuellar MD. Continue to do b.i.d. dressing change. Meropenem 500 mg mixed in 500 mL of normal saline, inject the 500 mg of meropenem through suprapubic catheter and clamp for 1 hour, do this every 6 hours. We will evaluate p.r.n. or in a.m. Mamie Carpenter PA-C /[id number]
[2017-06-24] MEDS: LORazepam 1 MG Tab PO PRN (12:51)
--- NOTE | 2017-06-24 13:32 | PCM.PN ---
- General Info Date of Service: 06/24/17 Subjective Update: Mr. Kirk has felt improved over the past 24 hours, vital signs have been good and he has remained afebrile. Citrobacter growing from urine, resistant to multiple antibiotics. Suprapubic catheter was changed by Dr. Cuellar and he is currently receiving meropenem directly into the bladder through the catheter as ordered by Dr. Cuellar. Functional Status: Reports: Tolerating Diet - Review of Systems General: Reports: No Symptoms Pulmonary: Reports: No Symptoms Cardiovascular: Reports: No Symptoms Gastrointestinal: Reports: No Symptoms - Patient Data Vitals - Most Recent: Last Vital Signs Temp 97.9 F 06/24/17 11:26 Pulse 83 06/24/17 11:26 Resp 16 06/24/17 11:26 BP 111/73 06/24/17 11:26 Pulse Ox 100 06/24/17 11:26 Weight - Most Recent: 259 lb I&O - Last 24 Hours: Intake & Output 06/23/17 06/24/17 06/24/17 22:59 06:59 14:59 Intake Total 3840 761 Output Total 650 825 600 Balance 3190 -64 -600 Lab Results Last 24 Hours: Laboratory Results - last 24 hr 06/24/17 06/24/17 06/24/17 Range/Units 05:58 05:58 05:58 WBC 10.9 (4.5-11.0) K/uL RBC 4.33 (4.30-5.90) M/uL Hgb 10.6 L (12.0-15.0) g/dL Hct 35.8 L (40.0-54.0) % MCV 83 (80-98) fL MCH 25 L (27-31) pg MCHC 30 L (32-36) % Plt Count 300 (150-400) K/uL Neut % (Auto) 61 (36-66) % Lymph % (Auto) 31 (24-44) % [place] % (Auto) 7 H (2-6) % Eos % (Auto) 1 L (2-4) % Baso % (Auto) 0 (0-1) % PT 14.7 H (9.5-12.0) sec INR 1.36 H (0.80-1.20) Sodium 146 (140-148) mmol/L Potassium 3.9 (3.6-5.2) mmol/L Chloride 111 H (100-108) mmol/L Carbon Dioxide 24 (21-32) mmol/L Anion Gap 14.9 H (5.0-14.0) mmol/L BUN 13 (7-18) mg/dL Creatinine 1.2 (0.8-1.3) mg/dL Est Cr Clr Drug Dosing 71.74 mL/min Estimated GFR (MDRD) > 60 (>60) Glucose 65 L (74-106) mg/dL Calcium 8.2 L (8.5-10.1) mg/dL Magnesium 2.0 (1.8-2.4) mg/dL Cristofer Results Last 24 Hours: Microbiology 06/22/17 12:44 Urine Culture - Final Urine, Pinto Cath (Indwelling) Citrobacter Freundii YEAST Med Orders - Current: Current Medications Acetaminophen (Tylenol) 650 mg PO Q4H PRN PRN Reason: PAIN Hydrocodone Bitart/Acetaminophen ([place] 325-5 Mg) 1 - 2 tab PO Q4H PRN PRN Reason: moderate pain Last Admin: 06/24/17 02:42 Dose: 2 tab Albuterol (Proventil Neb Soln) 2.5 mg NEB Q4H PRN PRN Reason: Dyspnea Albuterol/Ipratropium (Duoneb 3.0-0.5 Mg/3 Ml) 3 ml NEB QIDRT [facility] Last Admin: 06/24/17 11:10 Dose: 3 ml Aspirin (Halfprin) 81 mg PO DAILY [facility] Last Admin: 06/24/17 09:14 Dose: 81 mg Buspirone HCl (Buspar) 10 mg PO BID [facility] Last Admin: 06/24/17 09:14 Dose: 10 mg Citalopram Hydrobromide (Celexa) 40 mg PO DAILY [facility] Last Admin: 06/24/17 09:13 Dose: 40 mg Meropenem 500 mg/ Sodium (Chloride 250 ml) 0 mg IRR Q6HR [facility] Dextrose (Glutose 15) 15 gm PO ONETIME PRN PRN Reason: Hypoglycemia Dextrose/Water (Dextrose 50% In Water) 50 ml IV ONETIME PRN PRN Reason: Hypoglycemia Furosemide (Lasix) 20 mg PO DAILY [facility] Last Admin: 06/24/17 09:15 Dose: 20 mg Gabapentin (Neurontin) 800 mg PO TID [facility] Last Admin: 06/24/17 09:13 Dose: 800 mg Meropenem 1 gm/ Sodium (Chloride) 100 mls @ 200 mls/hr IV Q8H [facility] Last Admin: 06/24/17 10:48 Dose: 200 mls/hr Insulin Aspart (Novolog) 0 unit SUBCUT QIDACANDBED [facility]; Protocol Last Admin: 06/24/17 12:35 Dose: 3 units Insulin Detemir (Levemir) 15 unit SUBCUT BEDTIME [facility] Last Admin: 06/23/17 21:43 Dose: 15 units Lorazepam (Ativan) 1 - 2 mg PO Q8H PRN PRN Reason: anxiety Last Admin: 06/24/17 12:51 Dose: 2 mg Magnesium Hydroxide (Milk Of Magnesia) 30 ml PO Q12H PRN PRN Reason: Constipation Magnesium Oxide (Magnesium Oxide) 400 mg PO DAILY [facility] Last Admin: 06/24/17 09:15 Dose: 400 mg Mirtazapine (Remeron) 30 mg PO BEDTIME [facility] Last Admin: 06/23/17 21:47 Dose: 30 mg Morphine Sulfate (Ms Contin) 60 mg PO BID [facility] Last Admin: 06/24/17 09:27 Dose: 60 mg Ondansetron HCl (Zofran) 4 mg IV Q4H PRN PRN Reason: Nausea/Vomiting Last Admin: 06/23/17 08:45 Dose: 4 mg Pantoprazole Sodium (Protonix) 40 mg PO ACBREAKFAST [facility] Last Admin: 06/24/17 08:22 Dose: 40 mg Polyethylene Glycol (Miralax) 17 gm PO DAILY PRN PRN Reason: Constipation Potassium Chloride (Klor-Con M20) 20 meq PO DAILY [facility] Last Admin: 06/24/17 09:13 Dose: 20 meq Prednisone (Prednisone) 30 mg PO DAILY [facility] Last Admin: 06/24/17 09:14 Dose: 30 mg Senna (Senna) 8.6 mg PO BID PRN PRN Reason: Constipation Senna/Docusate Sodium (Senna Plus) 1 tab PO BID PRN PRN Reason: Constipation Simvastatin (Zocor) 40 mg PO BEDTIME [facility] Last Admin: 06/23/17 21:48 Dose: 40 mg Sodium Chloride (Saline Flush) 10 ml FLUSH ASDIRECTED PRN PRN Reason: Keep Vein Open Tiotropium [place] (Spiriva Handihaler) 18 mcg INH DAILY [facility] Last Admin: 06/24/17 08:48 Dose: 18 mcg Warfarin Sodium (Coumadin) 3 mg PO SuTuThSa@2100 [facility] Last Admin: 06/23/17 21:47 Dose: 3 mg Warfarin Sodium (Coumadin) 2 mg PO MoWeFr@2100 [facility] Discontinued Medications Albuterol (Proventil Neb Soln) 2.5 mg INH Q4H [facility] Last Admin: 06/23/17 14:51 Dose: Not Given Albuterol/Ipratropium (Duoneb 3.0-0.5 Mg/3 Ml) 3 ml NEB QID [facility] Last Admin: 06/23/17 00:03 Dose: Not Given Aspirin (Halfprin) 81 mg PO DAILY [facility] Buspirone HCl (Buspar) 10 mg PO BID [facility] Meropenem 500 mg/ Sodium (Chloride 500 ml) 0 mg IRR Q6HR [facility] Last Admin: 06/24/17 10:51 Dose: 350 ml Furosemide (Lasix) 20 mg PO DAILY [facility] Sodium Chloride (Normal Saline) 1,000 mls @ 999 mls/hr IV ASDIRECTED [facility] Last Admin: 06/22/17 12:36 Dose: 999 mls/hr Levofloxacin/Dextrose 500 mg/ (Premix) 100 mls @ 100 mls/hr IV ONETIME ONE Stop: 06/22/17 14:02 Last Admin: 06/22/17 13:35 Dose: 100 mls/hr Meropenem 1 gm/ Sodium (Chloride) 100 mls @ 200 mls/hr IV Q8H [facility] Last Admin: 06/22/17 22:42 Dose: Not Given Potassium Chloride 20 meq/ (Premix) 100 mls @ 50 mls/hr IV ONETIME ONE Stop: 06/22/17 18:18 Last Admin: 06/22/17 22:42 Dose: Not Given Sodium Chloride (Normal Saline) 1,000 mls @ 125 mls/hr IV ASDIRECTED [facility] Last Admin: 06/22/17 16:51 Dose: 125 mls/hr Potassium Chloride 20 meq/ (Premix) 100 mls @ 50 mls/hr IV ONETIME ONE Stop: 06/22/17 19:59 Last Admin: 06/22/17 19:36 Dose: 50 mls/hr Sodium Chloride (Normal Saline) 1,000 mls @ 125 mls/hr IV ASDIRECTED [facility] Last Admin: 06/23/17 08:32 Dose: 125 mls/hr Insulin Aspart (Novolog) 15 unit SUBCUT ONETIME ONE Stop: 06/23/17 16:51 Last Admin: 06/23/17 16:58 Dose: 15 units Lorazepam (Ativan) 0.5 - 1 mg PO TID PRN PRN Reason: Anxiety Last Admin: 06/23/17 04:29 Dose: 1 mg Magnesium Oxide (Magnesium Oxide) 400 mg PO DAILY [facility] Non-Formulary Medication (Acetaminophen [Tylenol Solution 160 Mg/5 Ml]) 20 mg PO Q4H PRN PRN Reason: Pain (mild 1-3) Non-Formulary Medication (Citalopram [Citalopram Hbr]) 40 mg PO DAILY [facility] Non-Formulary Medication (Gabapentin [Neurontin]) 800 mg PO TID [facility] Non-Formulary Medication (Potassium Chloride [Klor-Con]) 20 meq PO DAILY [facility] Non-Formulary Medication (Simvastatin [Zocor]) 40 mg PO BEDTIME [facility] Non-Formulary Medication (Warfarin Sodium [Coumadin]) 3 mg PO DAILY [facility] Oxycodone/Acetaminophen (Percocet 325-5 Mg) 1 tab PO ONETIME ONE Stop: 06/22/17 13:56 Last Admin: 06/22/17 14:47 Dose: 1 tab Pantoprazole Sodium (Protonix) 40 mg PO DAILY [facility] Potassium Chloride (Klor-Con M20) 40 meq PO ONETIME ONE Stop: 06/22/17 16:20 Last Admin: 06/22/17 20:55 Dose: 40 meq Potassium Chloride (Klor-Con M20) 20 meq PO DAILY [facility] Prednisone (Prednisone) 30 mg PO DAILY [facility] Tiotropium [place] (Spiriva Handihaler) 18 mcg INH DAILY [facility] Warfarin Sodium (Coumadin) 2 mg PO ONETIME ONE Stop: 06/22/17 22:01 Last Admin: 06/22/17 22:57 Dose: 2 mg Warfarin Sodium (Coumadin) Confirm Administered Dose 2 mg .ROUTE .STK-MED ONE Stop: 06/22/17 22:55 Last Admin: 06/22/17 22:57 Dose: Not Given Warfarin Sodium (Coumadin) 2 mg PO MoWeFr@2100 [facility] - Exam Quality Assessment: DVT Prophylaxis General: Alert, Oriented, Cooperative, No Acute Distress Lungs: Clear to Auscultation, Normal Respiratory Effort Cardiovascular: Regular Rate, Regular Rhythm, No Murmurs GI/Abdominal Exam: Soft, Non-Tender, No Organomegaly, No Distention Extremities: Non-Tender, Pedal Edema Skin: Warm, Dry - Problem List Review Problem List Initiated/Reviewed/Updated: Yes - My Orders Last 24 Hours: My Active Orders 06/23/17 13:40 Albuterol [Proventil Neb Soln] 2.5 mg NEB Q4H PRN 06/23/17 14:20 Convert IV to Saline Lock [OM.PC] Routine 06/23/17 21:00 Warfarin [Coumadin] 3 mg PO SuTuThSa@2100 06/24/17 16:30 GLUCOSE POC LAB TO COLLECT [POC] QIDACANDBED 06/24/17 21:00 GLUCOSE POC LAB TO COLLECT [POC] QIDACANDBED 06/25/17 05:00 INR,PT,PROTHROMBIN TIME [COAG] Timed 06/25/17 07:30 GLUCOSE POC LAB TO COLLECT [POC] QIDACANDBED 06/25/17 11:30 GLUCOSE POC LAB TO COLLECT [POC] QIDACANDBED 06/25/17 16:30 GLUCOSE POC LAB TO COLLECT [POC] QIDACANDBED 06/25/17 21:00 GLUCOSE POC LAB TO COLLECT [POC] QIDACANDBED 06/26/17 07:30 GLUCOSE POC LAB TO COLLECT [POC] QIDACANDBED 06/26/17 11:30 GLUCOSE POC LAB TO COLLECT [POC] QIDACANDBED 06/26/17 16:30 GLUCOSE POC LAB TO COLLECT [POC] QIDACANDBED 06/26/17 21:00 GLUCOSE POC LAB TO COLLECT [POC] QIDACANDBED 06/27/17 07:30 GLUCOSE POC LAB TO COLLECT [POC] QIDACANDBED 06/27/17 11:30 GLUCOSE POC LAB TO COLLECT [POC] QIDACANDBED - Plan Plan:: ASSESSMENT AND PLAN COMPLICATED URINARY TRACT INFECTION-Citrobacter has grown from urine, resistant to multiple antibiotics. Sensitive to current therapy with meropenem. Suprapubic catheter changed by Dr. Cuellar he is also receiving meropenem infusion into the bladder through the suprapubic catheter. -Meropenem 1 g IV every 8 hours Saline lock IV- TYPE 2 DIABETES MELLITUS -continue usual doses of long and short-term insulin -high-dose sliding scale NovoLog -4 times a day glucometer CHRONIC KIDNEY DISEASE STAGE III-renal function has been stable since admission -closely monitor urine output and renal function LOWER ABDOMINAL WOUND-progressive healing, wound VAC removed today -ongoing management per Dr. Cuellar MAINTENANCE ISSUES -DVT prophylaxis; current therapy with warfarin should provide adequate DVT prophylaxis -GI prophylaxis; continue outpatient PPI therapy -Pinto catheter; suprapubic catheter for neurogenic bladder -Nutrition;Consistent carb diet -Nicotine dependence; not required CODE STATUS- FULL CODE ADMISSION STATUS-patient will be admitted to inpatient status, expect at least a 2 night hospital stay for evaluation and management of problems as outlined above. At the time of this admission I do not reasonably expected evaluation and management of this problem will require more than a 96 hour hospital stay. DISPOSITION-anticipate discharge to home after the hospital stay. PRIMARY CARE PROVIDER-Dr. Salinas
[2017-06-24] MEDS: SODIUM CHLORIDE 0.9% IRR SCH ×4 (16:06→21:32)
[2017-06-24] MEDS: MEROPENEM 500 MG IRR SCH ×4 (16:06→21:32)
[2017-06-24] MEDS: oxyCODONE 5 MG Tab PO SCH (20:10)
[2017-06-24] MEDS ORDERED: Warfarin 2 MG Tab PO SCH (21:00)
[2017-06-24] MEDS: Mirtazapine 15 MG Tab PO SCH (21:22)
[2017-06-24] MEDS: Simvastatin 20 MG Tab PO SCH (21:23)
[2017-06-24] MEDS: Insulin Detemir 100 Units/ML 3 ML Pen SUBCUT SCH (21:27)
[2017-06-25] MEDS: Meropenem 1 GM in Sodium Chloride 0.9% 100 ML IV SCH ×2 (02:23→11:16)
[2017-06-25] MEDS: oxyCODONE 5 MG Tab PO SCH ×3 (02:23→14:02)
[2017-06-25] MEDS: MEROPENEM 500 MG IRR SCH ×4 (03:47→11:16)
[2017-06-25] MEDS: SODIUM CHLORIDE 0.9% IRR SCH ×4 (03:47→11:16)
[2017-06-25] MEDS: Insulin Aspart 100 Units/ML 3 ML Pen SUBCUT SCH ×2 (09:18→11:50)
[2017-06-25] MEDS: Pantoprazole 40 MG Tab.CR PO SCH (09:19)
[2017-06-25] MEDS: busPIRone 10 MG Tab PO SCH (09:19)
[2017-06-25] MEDS: Albuterol/Ipratropium 3.0-0.5 MG/3 ML Neb Soln NEB SCH ×2 (09:19→11:03)
[2017-06-25] MEDS: Aspirin 81 MG Tab.EC PO SCH (09:20)
[2017-06-25] MEDS: Potassium Chloride 20 MEQ Tab.ER PO SCH (09:20)
[2017-06-25] MEDS: Citalopram 20 MG Tab PO SCH (09:20)
[2017-06-25] MEDS: predniSONE 10 MG Tab PO SCH (09:21)
[2017-06-25] MEDS: Gabapentin 400 MG Cap PO SCH ×2 (09:21→13:09)
[2017-06-25] MEDS: Magnesium Oxide 400 MG Tab PO SCH (09:21)
[2017-06-25] MEDS: Furosemide 20 MG Tab PO SCH (09:21)
[2017-06-25] MEDS: Tiotropium Inhaler 18 MCG Inhalation Powder Cap Kit of 5 INH SCH (09:22)
[2017-06-25] MEDS: Morphine 30 MG Tab.ER PO SCH (09:43)
[2017-06-25] MEDS: LORazepam 1 MG Tab PO PRN (09:43)
[2017-06-25 12:07] VITALS: BP 148/90
--- NOTE | 2017-06-25 12:39 | PCM.DCSUM1 ---
Discharge Summary - Hospital Course Brief History: Mr. Kirk is a 46-year-old gentleman who was admitted through the emergency department with fever, back pain and abdominal pain secondary to underlying urinary tract infection. - Discharge Data Discharge Date: 06/25/17 Discharge Disposition: Home, Self-Care 01 Condition: Stable - Discharge Diagnosis/Problem(s) (1) Urinary tract infection SNOMED Code(s): 41485922 ICD Code: N39.0 - URINARY TRACT INFECTION, SITE NOT SPECIFIED Status: Acute Current Visit: Yes Qualifiers: Urinary tract infection type: catheter-associated UTI Indwelling urinary catheter type: indwelling urethral catheter Encounter type: initial encounter Qualified Code(s): T83.511A - Infection and inflammatory reaction due to indwelling urethral catheter, initial encounter; N39.0 - Urinary tract infection , site not specified; N39.0 - Urinary tract infection, site not specified (2) Dehydration SNOMED Code(s): 23719168 ICD Code: E86.0 - DEHYDRATION Status: Acute Current Visit: Yes (3) Suprapubic catheter SNOMED Code(s): 934587840, 085712419 ICD Code: Z93.59 - OTHER CYSTOSTOMY STATUS Status: Chronic Current Visit : No Problem Details: Placement (4) Status post gastric bypass for obesity SNOMED Code(s): 033876098, 611981826, 430523387, 212686446 ICD Code: Z98.84 - BARIATRIC SURGERY STATUS Status: Chronic Current Visit : No (5) Type 2 diabetes mellitus SNOMED Code(s): 18478130 ICD Code: E11.9 - TYPE 2 DIABETES MELLITUS WITHOUT COMPLICATIONS Status: Chronic Current Visit: No Qualifiers: Diabetes mellitus complication status: with unspecified complications - Patient Summary/Data Hospital Course: Mr. Kirk is a 46-year-old gentleman who was admitted through the emergency department with a complicated urinary tract infection. Over the past 4-5 days, prior to admission he reports becoming progressively more weak and developed abdominal and back pain. He has an ill-defined progressive neurologic degenerative disease and has been followed at the [facility] in [place]. As a result of this he has developed a neurogenic bladder and has a suprapubic catheter. He has had some difficulty with recurrent urinary tract infections. There is also underlying type 2 diabetes mellitus and a recent wound infection on his lower abdomen. He has been treated with oral antibiotics over the past few weeks. Evaluation in the emergency department showed evidence of obvious urinary tract infection, blood and urine cultures were obtained. White blood cell count was elevated, lactic acid level normal, and there was no evidence of significant sepsis. On admission he was given IV fluids for hydration and started on broad-spectrum IV antibiotic therapy with meropenem. Increase spectrum antibiotic was chosen because of recent history of recurrent urinary tract infections as well as recent antibiotic therapy making the likelihood of a resistant organism higher. He gradually improved over the next few days of hospitalization and was feeling back to baseline by the time of discharge. Because of his history of type 2 diabetes mellitus glucose levels were monitored regularly during his hospital stay, he was continued on his usual dose of insulin, and also given sliding scale NovoLog. He was seen and evaluated by Dr. Cuellar, because of history of intermittent obstruction of his suprapubic catheter, the old catheter was removed and a new catheter was placed. Urine culture eventually grew out Citrobacter which was resistant to all oral antibiotics, sensitive only to carbapenems, gentamicin, and tobramycin. He will be discharged to home on ertapenem 1 g IV every 24 hours to complete a course of 7 days of IV antibiotic therapy. Follow-up appointment will be scheduled later this week with Dr. Cuellar as well as a follow-up appointment with his primary care provider Dr. Salinas. He will continue with home care follow-up after discharge. - Patient Instructions Diet: Diabetic Diet Activity: As Tolerated Other/Special Instructions: Please arrange for home care follow-up for home IV antibiotic therapy on June 26, , and . Please schedule follow-up appointment with primary care provider Dr. Salinas within one week. Please arrange for home IV antibiotic therapy with ertapenem through appropriate outpatient pharmacy. - Discharge Plan Prescriptions/Med Rec: Ertapenem [INVanz] 1 gm IV Q24H #3 adv Home Medications: Home Meds Aspirin [Ecotrin] 81 mg PO DAILY 09/25/15 [History] predniSONE [Prednisone] 10 mg PO TID 09/25/15 [History] Cholecalciferol (Vitamin D3) [Vitamin D] 1,000 unit PO TID 10/22/15 [History] Simvastatin [Zocor] 40 mg PO BEDTIME 11/26/15 [History] Citalopram [Citalopram HBr] 40 mg PO DAILY 08/13/16 [History] Morphine Sulfate [Morphine Sulfate Cr] 60 mg PO BID 08/13/16 [History] Warfarin Sodium [Coumadin] 2 mg PO ASDIRECTED 08/13/16 [History] Warfarin Sodium [Coumadin] 3 mg PO ASDIRECTED 08/13/16 [History] Furosemide 20 mg PO DAILY 11/15/16 [History] Sennosides 2 tab PO BID PRN 11/27/16 [History] busPIRone [Buspar] 15 mg PO BID 04/14/17 [History] Acetaminophen [Tylenol Solution] 20 ml PO Q4HR PRN 04/28/17 [History] Cyanocobalamin (Vitamin B-12) [Cyanocobalamin Injection] 1,000 mcg IM .MONTHLY 04/28/17 [History] Magnesium Oxide [Magnesium] 400 mg PO DAILY 04/28/17 [History] Potassium Chloride [Klor-Con] 20 meq PO DAILY 04/28/17 [History] Albuterol/Ipratropium [Combivent Respimat] 2 inh PO BID 05/04/17 [History] Gabapentin [Neurontin] 800 mg PO TID 05/04/17 [History] Hydrocodone/Acetaminophen [Lorcet 5-325 mg Tablet] 1 - 2 tab PO Q6H PRN [History] Mirtazapine 30 mg PO BEDTIME 05/04/17 [History] Multivitamins [Childrens Chewable Vitamin] 1 tab PO BID 05/04/17 [History] Thiamine [Vitamin B-1] 100 mg IM .MONTHLY 05/04/17 [History] oxyCODONE HCl [Oxycodone HCl] 5 mg PO Q6H 05/04/17 [History] *Multiple Minerals 750 mg PO BID 06/22/17 [History] Acetaminophen [Tylenol Solution 160 MG/5 ML] 20 mg PO Q4H PRN 06/22/17 [History] Albuterol Sulfate 2.5 mg IH Q4H PRN 06/22/17 [History] Albuterol/Ipratropium [Combivent Respimat] 1 vial NEB BID PRN 06/22/17 [History] Insulin Detemir [Levemir Flextouch] 15 unit SQ BEDTIME 06/22/17 [History] Insulin Glulisine [Apidra Solostar] 0 unit SQ TID 06/22/17 [History] Pantoprazole Sodium [Protonix] 40 mg PO DAILY 06/22/17 [History] Zinc 50 mg PO DAILY 06/22/17 [History] Calcium Citrate 750 mg PO BID 06/23/17 [History] LORazepam [Ativan] 2 mg PO TID PRN 06/23/17 [History] Lactobacillus Rhamnosus GG [Culturelle] 1 cap PO DAILY 06/23/17 [History] Ondansetron [Zofran ODT] 4 mg PO Q8H PRN 06/23/17 [History] Ertapenem [INVanz] 1 gm IV Q24H #3 adv 06/25/17 [Rx] Referrals: Satish Salinas MD [Primary Care Provider] - - Discharge Summary/Plan Comment DC Time >30 min.: No - Patient Data Vitals - Most Recent: Last Vital Signs Temp 98.9 F 06/25/17 11:00 Pulse 113 H 06/25/17 11:00 Resp 16 06/25/17 11:00 BP 148/90 H 06/25/17 11:00 Pulse Ox 92 L 06/25/17 11:00 Weight - Most Recent: 256 lb 6.4 oz I&O - Last 24 hours: Intake & Output 06/24/17 06/25/17 06/25/17 22:59 06:59 14:59 Intake Total 250 290 Output Total 2550 1125 1200 Balance -2550 -875 -910 Lab Results - Last 24 hrs: Laboratory Results - last 24 hr 06/25/17 Range/Units 05:30 PT 12.8 H (9.5-12.0) sec INR 1.19 (0.80-1.20) THEA Results - Last 24 hrs: Microbiology 06/22/17 12:44 Urine Culture - Final Urine, Pinto Cath (Indwelling) Citrobacter Freundii YEAST Med Orders - Current: Current Medications Acetaminophen (Tylenol) 650 mg PO Q4H PRN PRN Reason: PAIN Hydrocodone Bitart/Acetaminophen ([place] 325-5 Mg) 1 - 2 tab PO Q4H PRN PRN Reason: moderate pain Last Admin: 06/24/17 16:05 Dose: 2 tab Albuterol (Proventil Neb Soln) 2.5 mg NEB Q4H PRN PRN Reason: Dyspnea Albuterol/Ipratropium (Duoneb 3.0-0.5 Mg/3 Ml) 3 ml NEB QIDRT [facility] Last Admin: 06/25/17 11:03 Dose: 3 ml Aspirin (Halfprin) 81 mg PO DAILY [facility] Last Admin: 06/25/17 09:20 Dose: 81 mg Buspirone HCl (Buspar) 10 mg PO BID [facility] Last Admin: 06/25/17 09:19 Dose: 10 mg Citalopram Hydrobromide (Celexa) 40 mg PO DAILY [facility] Last Admin: 06/25/17 09:20 Dose: 40 mg Meropenem 500 mg/ Sodium (Chloride 250 ml) 0 mg IRR Q6HR [facility] Last Admin: 06/25/17 11:16 Dose: 250 ml Dextrose (Glutose 15) 15 gm PO ONETIME PRN PRN Reason: Hypoglycemia Dextrose/Water (Dextrose 50% In Water) 50 ml IV ONETIME PRN PRN Reason: Hypoglycemia Furosemide (Lasix) 20 mg PO DAILY [facility] Last Admin: 06/25/17 09:21 Dose: 20 mg Gabapentin (Neurontin) 800 mg PO TID [facility] Last Admin: 06/25/17 09:21 Dose: 800 mg Heparin Sodium (Porcine) (Heparin Lock Flush 100 Units/Ml) 500 units FLUSH ASDIRECTED PRN PRN Reason: Keep Vein Open Meropenem 1 gm/ Sodium (Chloride) 100 mls @ 200 mls/hr IV Q8H [facility] Last Admin: 06/25/17 11:16 Dose: 200 mls/hr Insulin Aspart (Novolog) 0 unit SUBCUT QIDACANDBED [facility]; Protocol Last Admin: 06/25/17 11:50 Dose: Not Given Insulin Detemir (Levemir) 15 unit SUBCUT BEDTIME [facility] Last Admin: 06/24/17 21:27 Dose: 15 units Lorazepam (Ativan) 1 - 2 mg PO Q8H PRN PRN Reason: anxiety Last Admin: 06/25/17 09:43 Dose: 2 mg Magnesium Hydroxide (Milk Of Magnesia) 30 ml PO Q12H PRN PRN Reason: Constipation Magnesium Oxide (Magnesium Oxide) 400 mg PO DAILY [facility] Last Admin: 06/25/17 09:21 Dose: 400 mg Mirtazapine (Remeron) 30 mg PO BEDTIME [facility] Last Admin: 06/24/17 21:22 Dose: 30 mg Morphine Sulfate (Ms Contin) 60 mg PO BID [facility] Last Admin: 06/25/17 09:43 Dose: 60 mg Ondansetron HCl (Zofran) 4 mg IV Q4H PRN PRN Reason: Nausea/Vomiting Last Admin: 06/23/17 08:45 Dose: 4 mg Oxycodone HCl (Oxycodone) 5 mg PO Q6H [facility] Last Admin: 06/25/17 09:18 Dose: 5 mg Pantoprazole Sodium (Protonix) 40 mg PO ACBREAKFAST [facility] Last Admin: 06/25/17 09:19 Dose: 40 mg Polyethylene Glycol (Miralax) 17 gm PO DAILY PRN PRN Reason: Constipation Potassium Chloride (Klor-Con M20) 20 meq PO DAILY [facility] Last Admin: 06/25/17 09:20 Dose: 20 meq Prednisone (Prednisone) 30 mg PO DAILY [facility] Last Admin: 06/25/17 09:21 Dose: 30 mg Senna (Senna) 8.6 mg PO BID PRN PRN Reason: Constipation Senna/Docusate Sodium (Senna Plus) 1 tab PO BID PRN PRN Reason: Constipation Simvastatin (Zocor) 40 mg PO BEDTIME [facility] Last Admin: 06/24/17 21:23 Dose: 40 mg Sodium Chloride (Saline Flush) 10 ml FLUSH ASDIRECTED PRN PRN Reason: Keep Vein Open Tiotropium [place] (Spiriva Handihaler) 18 mcg INH DAILY [facility] Last Admin: 06/25/17 09:22 Dose: 18 mcg Warfarin Sodium (Coumadin) 5 mg PO ONETIME ONE Stop: 06/25/17 13:01 Discontinued Medications Albuterol (Proventil Neb Soln) 2.5 mg INH Q4H [facility] Last Admin: 06/23/17 14:51 Dose: Not Given Albuterol/Ipratropium (Duoneb 3.0-0.5 Mg/3 Ml) 3 ml NEB QID [facility] Last Admin: 06/23/17 00:03 Dose: Not Given Aspirin (Halfprin) 81 mg PO DAILY [facility] Buspirone HCl (Buspar) 10 mg PO BID [facility] Meropenem 500 mg/ Sodium (Chloride 500 ml) 0 mg IRR Q6HR [facility] Last Admin: 06/24/17 10:51 Dose: 350 ml Furosemide (Lasix) 20 mg PO DAILY [facility] Heparin Sodium (Porcine) (Heparin Lock Flush 100 Units/Ml) Confirm Administered Dose 500 units .ROUTE .STK-MED ONE Stop: 06/25/17 05:37 Last Admin: 06/25/17 05:45 Dose: 500 units Sodium Chloride (Normal Saline) 1,000 mls @ 999 mls/hr IV ASDIRECTED [facility] Last Admin: 06/22/17 12:36 Dose: 999 mls/hr Levofloxacin/Dextrose 500 mg/ (Premix) 100 mls @ 100 mls/hr IV ONETIME ONE Stop: 06/22/17 14:02 Last Admin: 06/22/17 13:35 Dose: 100 mls/hr Meropenem 1 gm/ Sodium (Chloride) 100 mls @ 200 mls/hr IV Q8H [facility] Last Admin: 06/22/17 22:42 Dose: Not Given Potassium Chloride 20 meq/ (Premix) 100 mls @ 50 mls/hr IV ONETIME ONE Stop: 06/22/17 18:18 Last Admin: 06/22/17 22:42 Dose: Not Given Sodium Chloride (Normal Saline) 1,000 mls @ 125 mls/hr IV ASDIRECTED [facility] Last Admin: 06/22/17 16:51 Dose: 125 mls/hr Potassium Chloride 20 meq/ (Premix) 100 mls @ 50 mls/hr IV ONETIME ONE Stop: 06/22/17 19:59 Last Admin: 06/22/17 19:36 Dose: 50 mls/hr Sodium Chloride (Normal Saline) 1,000 mls @ 125 mls/hr IV ASDIRECTED [facility] Last Admin: 06/23/17 08:32 Dose: 125 mls/hr Insulin Aspart (Novolog) 15 unit SUBCUT ONETIME ONE Stop: 06/23/17 16:51 Last Admin: 06/23/17 16:58 Dose: 15 units Lorazepam (Ativan) 0.5 - 1 mg PO TID PRN PRN Reason: Anxiety Last Admin: 06/23/17 04:29 Dose: 1 mg Magnesium Oxide (Magnesium Oxide) 400 mg PO DAILY [facility] Non-Formulary Medication (Acetaminophen [Tylenol Solution 160 Mg/5 Ml]) 20 mg PO Q4H PRN PRN Reason: Pain (mild 1-3) Non-Formulary Medication (Citalopram [Citalopram Hbr]) 40 mg PO DAILY [facility] Non-Formulary Medication (Gabapentin [Neurontin]) 800 mg PO TID [facility] Non-Formulary Medication (Potassium Chloride [Klor-Con]) 20 meq PO DAILY [facility] Non-Formulary Medication (Simvastatin [Zocor]) 40 mg PO BEDTIME [facility] Non-Formulary Medication (Warfarin Sodium [Coumadin]) 3 mg PO DAILY [facility] Oxycodone/Acetaminophen (Percocet 325-5 Mg) 1 tab PO ONETIME ONE Stop: 06/22/17 13:56 Last Admin: 06/22/17 14:47 Dose: 1 tab Pantoprazole Sodium (Protonix) 40 mg PO DAILY [facility] Potassium Chloride (Klor-Con M20) 40 meq PO ONETIME ONE Stop: 06/22/17 16:20 Last Admin: 06/22/17 20:55 Dose: 40 meq Potassium Chloride (Klor-Con M20) 20 meq PO DAILY [facility] Prednisone (Prednisone) 30 mg PO DAILY [facility] Tiotropium [place] (Spiriva Handihaler) 18 mcg INH DAILY [facility] Warfarin Sodium (Coumadin) 2 mg PO ONETIME ONE Stop: 06/22/17 22:01 Last Admin: 06/22/17 22:57 Dose: 2 mg Warfarin Sodium (Coumadin) Confirm Administered Dose 2 mg .ROUTE .STK-MED ONE Stop: 06/22/17 22:55 Last Admin: 06/22/17 22:57 Dose: Not Given Warfarin Sodium (Coumadin) 2 mg PO [id number] [facility] Warfarin Sodium (Coumadin) 3 mg PO [id number]@2100 [facility] Last Admin: 06/23/17 21:47 Dose: 3 mg Warfarin Sodium (Coumadin) 2 mg PO MoWeFr@2100 [facility] Last Admin: 06/24/17 21:22 Dose: 2 mg - Exam Quality Assessment: Reports: DVT Prophylaxis General: Reports: Alert, Oriented, Cooperative, No Acute Distress Lungs: Reports: Clear to Auscultation, Normal Respiratory Effort Cardiovascular: Reports: Regular Rate, Regular Rhythm, No Murmurs GI/Abdominal Exam: Soft, Non-Tender, No Organomegaly, No Distention *Q Meaningful Use (DIS) - VTE *Q VTE Pharmacological Contraindications *Q: High INR Value
[2017-06-25] MEDS ORDERED: Warfarin 5 MG Tab PO ONE (13:00)
--- NOTE | 2017-06-26 11:33 | PN ---
DATE OF SERVICE: 06/25/2017 The patient has been afebrile with stable vital signs, tolerating bladder irrigation satisfactorily, likely to be discharged home today per Dr. Alva and we will see him back in followup this Tuesday, he already has an appointment in place. Jovany Cuellar MD /[id number]
--- NOTE | 2017-06-28 13:32 | OR ---
DATE OF PROCEDURE: 06/24/2017 PREOPERATIVE DIAGNOSIS: Partially occluded suprapubic cystostomy catheter. POSTOPERATIVE DIAGNOSIS: Partially occluded suprapubic cystostomy catheter. PROCEDURE PERFORMED: Exchange of occluded suprapubic cystostomy catheter (42452). ANESTHESIA: None. INDICATION FOR PROCEDURE: The patient was admitted with a urinary tract infection. Overnight, he was noted to have 500 mL residual urine and was urinating via the penis and had large amount of residual noted. Given this, the catheter was flushed, but still is potentially not draining adequately. The plan is to proceed with removal of the occluded catheter at this point and placement of a somewhat larger catheter. He presently has a 14- Sur[place]amese catheter in place. This will be moved up to a 16-[place]amese. DETAILS OF PROCEDURE: Both catheters were removed. The area was then prepped and draped, and the new 16-Surinamese Pinto catheter was then placed, inflated with 10 mL of saline and secured. There were no evident problems. Jovany Cuellar MD /[id number]
== END 2017-06-25 13:10 | disposition home or self-care (01) | DRG 699 ==
LOC: JP.ED 11:37 → JP.2SS 15:15
PROVIDERS: ADMIT Hospitalist; ATTEND Hospitalist
PROC: 0T2BX0Z Change Drainage Device in Bladder, External Approach (ICD-10-PCS; principal; 2017-06-24)
DX: T83.511A Infection and inflammatory reaction due to indwelling urethral catheter, initial encounter (principal); K91.2 Postsurgical malabsorption, not elsewhere classified; G31.9 Degenerative disease of nervous system, unspecified; T83.091A Other mechanical complication of indwelling urethral catheter, initial encounter; N39.0 Urinary tract infection, site not specified; B96.89 Other specified bacterial agents as the cause of diseases classified elsewhere; Z16.20 Resistance to unspecified antibiotic; R26.2 Difficulty in walking, not elsewhere classified; E86.0 Dehydration; N31.8 Other neuromuscular dysfunction of bladder; E11.21 Type 2 diabetes mellitus with diabetic nephropathy; E11.42 Type 2 diabetes mellitus with diabetic polyneuropathy; Z79.4 Long term (current) use of insulin; I12.9 Hypertensive chronic kidney disease with stage 1 through stage 4 chronic kidney disease, or unspecified chronic kidney disease; E11.22 Type 2 diabetes mellitus with diabetic chronic kidney disease; N18.3 Chronic kidney disease, stage 3 (moderate); Z98.84 Bariatric surgery status; Z98.0 Intestinal bypass and anastomosis status; G47.30 Sleep apnea, unspecified; S31.109A Unspecified open wound of abdominal wall, unspecified quadrant without penetration into peritoneal cavity, initial encounter; E53.8 Deficiency of other specified B group vitamins; E55.9 Vitamin D deficiency, unspecified; F41.9 Anxiety disorder, unspecified; M06.9 Rheumatoid arthritis, unspecified; M54.9 Dorsalgia, unspecified; G89.29 Other chronic pain; Z86.718 Personal history of other venous thrombosis and embolism; Z87.440 Personal history of urinary (tract) infections; Z87.01 Personal history of pneumonia (recurrent); E78.5 Hyperlipidemia, unspecified; H54.7 Unspecified visual loss; M19.90 Unspecified osteoarthritis, unspecified site; Z79.82 Long term (current) use of aspirin; Z79.01 Long term (current) use of anticoagulants; Z79.52 Long term (current) use of systemic steroids
CPT/HCPCS: 36415; 71045; 71045-26; 80048; 80053; 81001; 82962; 83605; 83690; 83735; 85025; 85610; 86140; 87040; 87086; 87088; 87186; 94640; 94640-76; 94664; 96365; 99285-25; A9270-GY; C1751; J1642; J1956; J2185; J2405; J3480; J7030; J7040; J7620